=== PATIENT | female | born 1970 | race Caucasian/White ===

== ENCOUNTER 2016-07-10 12:40 | Emergency (ER) | payer SELFPAY ==
[2016-07-10 13:04] VITALS: BP 102/96; BMI 33.0
--- NOTE | 2016-07-10 13:19 | DR.EXTPAIN ---
HPI - Time seen Time seen: 13:17 - PCP Primary Care Physician: REYMUNDO AGUIRRE - Complaint/Symptoms Chief Complaint:: PT STATES " I THINK I HAVE STEPPED ON SOMETHING LAST WEEK WITH MY LEFT HEEL AND NATALIYA REYMUNDO SENT ME OVER HERE AND SAID THAT I MIGHT NEED AN XRAY". Self Treatment fo Chief Complaint: PT DOES HAVE AN AREA OF CONCERN TO HER HEEL,, - Source History Provided: Patient, EMS - Mode of arrival Mode of Arrival: Wheelchair - Timing Onset of Chief Complaint: 06/26/16 PMH - PMH Past Medical History: Yes Past Medical History: Anxiety, Diabetes, GERD, Liver Disease, PUD, Schizophrenia , Seizures Past Surgical History: Yes Surgical History: Hysterectomy, Ortho Surgery, Thyroidectomy - Family History History of Family Medical Conditions: Yes Family Medical History: Diabetes Mellitus, Cancer, Hypertension - Social History Does patient currently use any type of tobacco product: Yes Have you used tobacco products in the last 12 months: Yes Type of Tobacco Use: None How many years tobacco product used: 20 Does any household member use tobacco: No Alcohol Use: None Do you use any recreational Drugs:: No Lives Where: Home - infectious screening In the last 2 months have you had wt loss of >10#?: NO Have you had fever, night sweats or hemotysis?: No Have you traveled outside the country in the last 6 months?: No Isolation: Standard ROS - Review of Systems Constitutional: No Symptoms Reported Eyes: No Symptoms Reported ENTM: No Symptoms Reported Respiratoy: No Symptoms Reported Cardiovascular: No Symptoms Reported Gastrointestinal/Abdominal: No Symptoms Reported Genitourinary: No Symptoms Reported Neurological: No Symptoms Reported Musculoskeletal: Foot (heel pain right) Integumentary: No Symptoms Reported Hematologic/Lymphatic: No Symptoms Reported Endocrine: No Symptoms Reported Psychiatric: No Symptoms Reported All Other Systems: Reviewed and Negative PE - Vital Signs Vitals: Pulse Rate 87 Respiratory Rate 22 Blood Pressure [Right Arm] 97/55 Blood Pressure [Left Arm] 135/84 Blood Pressure 102/96 O2 Sat by Pulse Oximetry 99 - General Limitations: No Limitations General Appearance: Alert, In No Apparent Distress - Head Head Exam: Normal Inspection, Atraumatic - Eyes Eye exam: Normal Appearance, PERRL, EOMI - ENT ENT Exam: Normal Exam - Neck Neck Exam: Normal Inspection, Full ROM - Chest Chest Inspection: Normal Inspection - Respiratory Respiratory Exam: Normal Lung Sounds Bilat Respiratory Exam: Bilateral Clear to Auscultation - Cardiovascular Cardiovascular Exam: Regular Rate, Normal Rhythm - Abdominal Exam Abdominal Exam: Normal Inspection, Normal Bowel Sounds Abdominal Tenderness: negative: RUQ, RLQ, LUQ, LLQ, Epigastrium, Suprapubic, Diffuse, Mild, Moderate, Severe, Other - Extremities Extremities Exam: Normal Inspection - Upper Extremities Shoulder Exam: Normal Inspection Arm Exam: Normal Inspection Elbow Exam: Normal Inspection Forearm Exam: Normal Inspection Hand Exam: Normal Inspection Neuromotor Exam: Normal Exam - Lower Extremities Lower Leg Exam: Normal Inspection Ankle Exam: Normal Inspection Foot/Toe Exam: Tenderness (right calcalneal area) Neurovascular/Tendon Exam: Normal Capillary Refill Gait Exam: Unable to bear weight - Back Back Exam: Normal Inspection - Neurological Neurological Exam: Alert, Oriented X3, CN II-XII Intact - Psychiatric Psychiatric Exam: Normal Affect - Skin Skin Exam: Warm, Dry, Intact ROR - XRAY XRAY Interpreted by: Radiologist (Foot: Subacute to chronic fracture of the 4th proximal phalanx. No definite acute fracture identified. Mild calcaneal spurring.) - Diagnosis Discharge Problem: calcaneal spurring - Discharge Plan Condition: Stable - Follow ups/Referrals Follow ups/Referrals: NATALIYA DWYER [Primary Care Provider] - 3 days - Instructions
--- NOTE | 2016-07-10 14:19 | RAD ---
HISTORY: Plantar pain with ambulation Study: Three views left foot Comparison: 08/11/2011 Findings: Normal alignment. There is a fracture of the 4th proximal phalanx with surrounding callus formation and bony remodeling suggesting a subacute to chronic injury. No definite acute fracture is visualize d. The soft tissues are unremarkable. There is mild calcaneal spurring. IMPRESSION: 1. Subacute to chronic fracture of the 4th proximal phalanx. No definite acute fracture identified. 2. Mild calcaneal spurring. Reported By:
== END 2016-07-10 15:15 | disposition home or self-care (01) ==
LOC: ER 12:58
DX: M77.31 Calcaneal spur, right foot (principal)
CPT/HCPCS: 73630; 99282

== ENCOUNTER 2016-07-18 13:38 | Emergency (ER) | payer SELFPAY ==
[2016-07-18 13:49] VITALS: BP 102/96
[2016-07-18 13:52] VITALS: BMI 39.1
[2016-07-18] MEDS ORDERED: XYLOCAINE 1 % (PLAIN) ONE (16:35)
[2016-07-18] MEDS ORDERED: ROCEPHIN VIAL 1 GM IM ONE (16:35)
[2016-07-18] MEDS ORDERED: ROCEPHIN VIAL 1 GM ONE (16:35)
--- NOTE | 2016-07-18 16:38 | DR.GENAD ---
HPI - PCP Primary Care Physician: REYMUNDO - Complaint/Symptoms Chief Complaint Doctors Comments: Patient states that she injured her left thumb three days ago, now its sore and red. Chief Complaint:: PATIENT STATED SHE HAS A ONFECTION ON HER LEFT THUMB FOR 3 DAYS. - Source History Provided: Patient - Mode of Arrival Mode of Arrival: Ambulatory - Timing Onset of Chief Complaint: 07/15/16 PMH - PMH Past Medical History: Yes Past Medical History: Anxiety, Diabetes, GERD, Liver Disease, PUD, Schizophrenia , Seizures Past Surgical History: Yes Surgical History: Hysterectomy, Ortho Surgery, Thyroidectomy - Family History History of Family Medical Conditions: Yes Family Medical History: Diabetes Mellitus, Cancer, Hypertension - Social History Does patient currently use any type of tobacco product: No Have you used tobacco products in the last 12 months: No Type of Tobacco Use: None Does any household member use tobacco: No Alcohol Use: None Do you use any recreational Drugs:: No Lives With: Family Lives Where: Home - infectious screening In the last 2 months have you had wt loss of >10#?: NO Have you had fever, night sweats or hemotysis?: No Have you traveled outside the country in the last 6 months?: No Isolation: Standard ROS - Review of Systems Eyes: No Symptoms Reported ENTM: No Symptoms Reported Respiratoy: No Symptoms Reported Cardiovascular: No Symptoms Reported Gastrointestinal/Abdominal: No Symptoms Reported Genitourinary: No Symptoms Reported Neurological: No Symptoms Reported Musculoskeletal: No Symptoms Reported Integumentary: Change in Color (left thumb) Hematologic/Lymphatic: No Symptoms Reported Endocrine: No Symptoms Reported Psychiatric: No Symptoms Reported All Other Systems: Reviewed and Negative PE - Vital Signs Vitals: Temperature 99.1 F Respiratory Rate 18 Blood Pressure [Right Arm] 97/55 Blood Pressure [Left Arm] 135/84 Blood Pressure 102/96 - General Limitations: No Limitations General Appearance: Alert, In No Apparent Distress - Head Head Exam: Normal Inspection, Atraumatic - Eyes Eye exam: Normal Appearance, PERRL, EOMI - ENT ENT Exam: Normal Exam External Ear Exam: Normal External Inspection TM/Canal Exam: Bilateral Normal Nose Exam: Normal Nose Exam Mouth Exam: Normal Inspection Throat Exam: Normal Inspection - Neck Neck Exam: Normal Inspection - Chest Chest Inspection: Normal Inspection - Respiratory Respiratory Exam: Normal Lung Sounds Bilat Respiratory Exam: Bilateral Clear to Auscultation - Cardiovascular Cardiovascular Exam: Regular Rate, Normal Rhythm - Abdominal Exam Abdominal Exam: Normal Inspection Abdominal Tenderness: negative: RUQ, RLQ, LUQ, LLQ, Epigastrium, Suprapubic, Diffuse, Mild, Moderate, Severe, Other - Extremities Extremities Exam: Other (left lateral thumb erythematous laterallp with three small blisters) - Back Back Exam: Normal Inspection - Neurologic Neurological Exam: Alert, Oriented X3, CN II-XII Intact - Psychiatric Psychiatric Exam: Normal Affect - Skin Skin Exam: Dry, Intact - Diagnosis Discharge Problem: Cellulitis of thumb, left - Discharge Plan Condition: Stable - Follow ups/Referrals Follow ups/Referrals: NATALIYA DWYER [Primary Care Provider] - 3 days - Instructions
== END 2016-07-18 17:02 | disposition home or self-care (01) ==
LOC: ER 13:57
DX: L03.012 Cellulitis of left finger (principal)
CPT/HCPCS: 96372; 99282; J0696; J2001

== ENCOUNTER 2016-09-02 07:23 | Inpatient (IN) | payer SELFPAY ==
[2016-09-02 07:27] VITALS: BMI 39.1
[2016-09-02] MEDS ORDERED: LEVSIN/MAALOX/LIDOC VISC PO ONE (07:51)
[2016-09-02] MEDS ORDERED: ZOFRAN INJ 4 MG VIAL IVP ONE (07:51)
[2016-09-02] MEDS ORDERED: LEVSIN/MAALOX/LIDOC VISC ONE (07:59)
[2016-09-02] MEDS ORDERED: ZOFRAN INJ 4 MG VIAL ONE (07:59)
--- NOTE | 2016-09-02 07:59 | ED.ABDFE ---
HPI - Time seen Time seen: 07:54 - PCP Primary Care Physician: Ivania REARDON - Complaint Chief Complaint Doctors Comments: Patient complains of epigastric and diffuse abdominal and left lower back pain for the past 24 hours getting worst today. States she has been taking her Oxycontin 5mg but it is not helping with the pain. 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 states she had a bowel movement yesterday but has not gone to the bathroom to urinate in 24 hours. She has a cough but denies fever or chills. states she has been nauseated but did not take her phenergan because she did not eat and she only takes it when she eats. She is a patient of [facility]. She has been taking her Lactulose and has cut back on her meats like they told her to. States she is unable to take the abdominal pain anymore. Chief Complaint:: PT. C/O ABDOMINAL AND BACK PAIN. SHE ALSO STATES THAT SHE HAS BEEN CONSTIPATED FOR 3 DAYS AND JUST HAD A BOWEL MOVEMENT WHICH WAS VERY PAINFUL. - Nurses notes reviewed Nurses Notes Review: Yes - Source History Provided: Patient - Mode of arrival Mode of Arrival: Ambulatory - Timing Onset of Chief Complaint: 08/23/16 Came on: Gradually - Duration Duration: Constant How lon Duration: Hours - Location Location: Diffuse, Epigastric - Severity Severity: Moderate, Severe - Quality Quality: Aching, Sharp, Generalized - Context Onset: Gradually History of: Similar pain (dx) - Modifying Worsening Factors: Movement Improving Factors: Nothing - Associated signs and symptoms Associated Signs and Symptoms: Nausea, Constipation <FAYE LAYNE - Last Filed: 09/02/16 08:10> PMH - PMH Past Medical History: Yes Past Medical History: Anxiety, Diabetes, GERD, Liver Disease, PUD, Schizophrenia , Seizures Past Medical History Comment: HEPATITIS C Past Surgical History: Yes Surgical History: Hysterectomy, Ortho Surgery, Thyroidectomy - Family History History of Family Medical Conditions: Yes Family Medical History: Diabetes Mellitus, Cancer, Hypertension - Social History Does patient currently use any type of tobacco product: Yes Have you used tobacco products in the last 12 months: Yes Type of Tobacco Use: Cigarettes Does any household member use tobacco: Yes Alcohol Use: None Do you use any recreational Drugs:: No Lives With: Alone Lives Where: Home - infectious screening In the last 2 months have you had wt loss of >10#?: NO Have you had fever, night sweats or hemotysis?: No Have you traveled outside the country in the last 6 months?: No Isolation: Standard <FAEY LAYNE - Last Filed: 09/02/16 08:10> ROS - Review of Systems Constitutional: No Symptoms Reported, Weakness, Loss of Appetite. negative: See HPI, Chills, Diaphoresis, Fever, Malaise, Irritable, Fatigue, Other Eyes: No Symptoms Reported ENTM: No Symptoms Reported. negative: See HPI, Ear Pain, Ear Discharge, Pulling on Ears, Hearing Loss, Nose Pain, Nose Discharge, Epistaxis, Nose Congestion, Mouth Pain, Mouth Swelling, Loose Teeth, Drooling, Throat Pain, Throat Swelling, Ear Foreign Body Respiratoy: Non-Productive Cough. negative: No Symptoms Reported, See HPI, Productive Cough, Moist Cough, Dry Cough, Hacking Cough, Barking Cough, Brassy Cough, Orthopnea, Short of Breath, Stridor, Wheezing, Hemoptysis, Other Cardiovascular: No Symptoms Reported. negative: See HPI, Chest Pain, Edema, Palpitations, Syncope, Cyanosis, Skin Mottling, Other Gastrointestinal/Abdominal: Abdominal Pain, Constipation, Nausea. negative: No Symptoms Reported, See HPI, Diarrhea, Vomiting, Food Intolerance, Other Genitourinary: No Symptoms Reported. negative: See HPI, Discharge, Dysuria, Frequency, Hematuria, Pain, Bleeding, Other Neurological: No Symptoms Reported, Weakness, Problems Walking. negative: See HPI, Anxiety, Depressed, Emotional Problems, Headache, Numbness, Paresthesia, Pre-existing Deficit, Seizure, Tingling, Tremors, Dizziness, Speech Problem, Other Musculoskeletal: No Symptoms Reported, Back Pain Integumentary: No Symptoms Reported. negative: See HPI, Change in Color, Change in Hair/Nails, Dryness, Lesions, Lumps, Rash, Itching, Wound, Bruises, Juandice, Other Hematologic/Lymphatic: No Symptoms Reported Endocrine: No Symptoms Reported, Decreased Appetite. negative: See HPI, Excessive Sweating, Flushing, Intolerance to Cold, Intolerance to Heat, Increased Hunger, Increased Thirst, Increased Urine, Unexplained Weight Gain, Unexplained Weight Loss, Failure to Thrive, Other Psychiatric: No Symptoms Reported <FAYE LAYNE - Last Filed: 09/02/16 08:10> PE - General Limitations: No Limitations General Appearance: Alert, In Distress (moderate) - Head Head Exam: Normal Inspection, Atraumatic, Normocephalic - Eyes Eye exam: Normal Appearance, PERRL, EOMI. negative: Scleral Icterus, Conjunctival Injection, Nystagmus, Miosis, Mydrasis, Periorbital Swelling, Periorbital Tenderness, Other - ENT ENT Exam: Normal Exam, Normal Oropharynx, Normal External Ear Exam, Mucous Membranes Moist, TM's Normal Bilaterally - Neck Neck Exam: Normal Inspection, Full ROM, Trachea Midline. negative: Tenderness, Meningismus, Lymphadenopathy, Thyromegaly, Other - Chest Chest Inspection: Normal Inspection, Symmetric Chest Wall Rise. negative: Tenderness, Rash, Abscess, Other - Respiratory Respiratory Exam: Normal Lung Sounds Bilat Respiratory Exam: Bilateral Clear to Auscultation, Bilateral Decreased Breath Sounds - Cardiovascular Cardiovascular Exam: Regular Rate, Normal Rhythm, Normal Heart Sounds, Systolic Murmur - Abdominal Exam Abdominal Exam: Normal Inspection, Normal Bowel Sounds, Soft, Distention, Tenderness (epigastric; LUQ, suprapubic tenderness), Guarding, Dimnished Bowel Sounds Abdominal Tenderness: LUQ, Epigastrium, Diffuse, Moderate - Rectal Rectal Exam: Deferred - Back Back Exam: Normal Inspection, Full ROM, (L) CVA Tenderness, Paraspinal Tenderness - Extremeties Extremities Exam: Normal Inspection, Full ROM, Normal Capillary Refill. negative: Tenderness, Edema, Joint Swelling, Calf Tenderness, Other - External Exam: Female: Deferred : Speculum Exam (Female): Deferred : Bimanual Exam (female): Deferred - Neurologic Neurological Exam: Alert, Oriented X3, CN II-XII Intact, Normal Gait, Reflexes Normal - Psychiatric Psychiatric Exam: Normal Affect, Normal Mood - Skin Skin Exam: Warm, Dry, Intact, Normal Color, Rash (hyperpigmented spots on legs) . negative: Cyanosis, Diaphoresis, Erythema, Pallor, Mottled, Other <FAYE LAYNE - Last Filed: 09/02/16 08:10> MDM - Differential Diagnosis Differential Diagnosis- Considerations may include:: Bowel Obstruction, Pancreatitis, Urinary tract infection, Urolithiasis <LOIS RODRIGUEZ - Last Filed: 09/03/16 12:00> Course - Treatment Treatment: SEE ORDERS. - Consultation Consultation Comments: DISCUSS PATIENT WITH DR. YOUSSEF. HE WILL ADMIT PATIENT. - Education/Counseling Education/Counseling: Patient, Education Educated On: Treatment, Diagnosis <CHE RODRIGUEZWERNERTerry - Last Filed: 09/03/16 12:00> ROR - Labs Reviewed Laboratory Results Reviewed?: Yes Result Diagrams: 09/03/16 03:41 09/03/16 03:41 - XRAY XRAY Interpreted by: Radiologist XRAY Findings: REPORT DISCUSS WITH PATIENT. <JENNIFRELOIS - Last Filed: 09/03/16 12:00> - Labs Reviewed Laboratory: WBC 1.5 X10^3/uL (3.6-10.0) L* 09/02/16 08:10 RBC 3.79 X10^6/uL (3.5-5.4) 09/02/16 08:10 Hgb 9.9 g/dL (12.0-16.0) L 09/02/16 08:10 Hct 30.1 % (36.0-47.0) L 09/02/16 08:10 MCV 79.5 fL (80.0-100.0) L 09/02/16 08:10 MCH 26.1 pg (27.0-34.0) L 09/02/16 08:10 MCHC 32.9 g/dL (33.0-35.0) L 09/02/16 08:10 RDW 22.2 % (11.6-16.5) H 09/02/16 08:10 Plt Count 34 X10^3/uL (150.0-450.0) L 09/02/16 08:10 Plt Count Comment Decreased (ADEQUATE) A 09/02/16 08:10 MPV 8.3 fL (7.4-11.0) 09/02/16 08:10 Neut % 55.4 % (42.0-75.0) 09/02/16 08:10 Lymph % 30.4 % (21.0-51.0) 09/02/16 08:10 [place] % 12.0 % (0.0-13.0) 09/02/16 08:10 Eos % 1.7 % (0.9-2.9) 09/02/16 08:10 Baso % 0.5 % (0.2-1.0) 09/02/16 08:10 Neut # 0.8 x10^3/uL (2.2-4.8) L 09/02/16 08:10 Lymph # 0.4 X10^3/uL (1.3-2.9) L 09/02/16 08:10 [place] # 0.2 x10^3/uL (0.3-0.8) L 09/02/16 08:10 Eos # 0.0 x10^3/uL (0.0-0.2) 09/02/16 08:10 Baso # 0.0 X10^3/uL (0.0-0.1) 09/02/16 08:10 Absolute Nucleated RBC 0.0 /100WBC 09/02/16 08:10 Total Counted 25 09/02/16 08:10 Neutrophils % (Manual) 64 % (39-76) 09/02/16 08:10 Lymphocytes % (Manual) 28 % (13-43) 09/02/16 08:10 Monocytes % (Manual) 8 % (4-9) 09/02/16 08:10 Plt Morphology Comment Normal (NORMAL) 09/02/16 08:10 RBC Morphology Abnormal (NORMAL) A 09/02/16 08:10 Anisocytosis 2+ A 09/02/16 08:10 Sodium 141 mmol/L (136-145) 09/02/16 08:10 Corrected Sodium 143 mmol/L (136-145) 09/02/16 08:10 Potassium 4.0 mmol/L (3.5-5.1) 09/02/16 08:10 Chloride 110 mmol/L (98-107) H 09/02/16 08:10 Carbon Dioxide 24.0 mmol/L (21-32) 09/02/16 08:10 BUN 7 mg/dL (7-18) 09/02/16 08:10 Creatinine 0.75 mg/dL (0.55-1.02) 09/02/16 08:10 Est GFR (MDRD) Af Amer > 60 (>60) 09/02/16 08:10 Est GFR (MDRD) Non-Af > 60 (>60) 09/02/16 08:10 Glucose 198 mg/dL (65-99) H 09/02/16 08:10 Calcium 8.5 mg/dL (8.5-10.1) 09/02/16 08:10 Corrected Calcium 9.6 mg/dL (8.5-10.1) 09/02/16 08:10 Total Bilirubin 1.00 mg/dL (0.2-1.0) 09/02/16 08:10 AST 62 Units/L (15-37) H 09/02/16 08:10 ALT 45 Units/L (12-78) 09/02/16 08:10 Alkaline Phosphatase 241 Units/L (46-116) H 09/02/16 08:10 Ammonia 121 umol/L (11-32) H 09/02/16 08:10 Total Protein 7.0 g/dL (6.4-8.2) 09/02/16 08:10 Albumin 2.6 g/dL (3.4-5.0) L 09/02/16 08:10 Globulin 4.4 g/dL (2.5-4.5) 09/02/16 08:10 Albumin/Globulin Ratio 0.6 Ratio (1.1-2.1) L 09/02/16 08:10 Amylase 45 Units/L (25-115) 09/02/16 08:10 Lipase 173 Units/L (73-393) 09/02/16 08:10 H. pylori IgG Antibody Negative (NEGATIVE) 09/02/16 08:10 (LOIS RODRIGUEZ) <FAYE LAYNE - Last Filed: 09/02/16 08:10> <LOIS RODRIGUEZ - Last Filed: 09/03/16 12:00> - Diagnosis Discharge Problem: Peritonitis, Pancytopenia Abdominal pain Qualifiers: Abdominal location: upper abdomen, unspecified Qualified Code(s): R10.10 - Upper abdominal pain, unspecified - Discharge Plan Disposition: ADMITTED INPATIENT Condition: Stable
[2016-09-02] MEDS ORDERED: NS 1000 ML 1,000 ML IV SCH (08:00)
[2016-09-02 08:26] LABS: BASOPHILS % (AUTO) 0.5 % (0.2-1.0); EOSINOPHILS % (AUTO) 1.7 % (0.9-2.9); HEMATOCRIT 30.1 % (36.0-47.0); HEMOGLOBIN 9.9 g/dL (12.0-16.0); LYMPHOCYTES # (AUTO) 0.4 X10^3/uL (1.3-2.9); LYMPHOCYTES % (AUTO) 30.4 % (21.0-51.0); MEAN CORPUSCULAR HEMOGLOBIN 26.1 pg (27.0-34.0); MEAN CORPUSCULAR HGB CONC 32.9 g/dL (33.0-35.0); MEAN CORPUSCULAR VOLUME 79.5 fL (80.0-100.0); MEAN PLATELET VOLUME 8.3 fL (7.4-11.0); MONOCYTES # (AUTO) 0.2 x10^3/uL (0.3-0.8); NEUTROPHILS # (AUTO) 0.8 x10^3/uL (2.2-4.8); NEUTROPHILS % (AUTO) 55.4 % (42.0-75.0); PLATELET COUNT 34 X10^3/uL (150.0-450.0); RED BLOOD COUNT 3.79 X10^6/uL (3.5-5.4); RED CELL DISTRIBUTION WIDTH 22.2 % (11.6-16.5)
[2016-09-02 08:35] LABS: AMMONIA 121 umol/L (11-32)
[2016-09-02 08:41] LABS: WHITE BLOOD COUNT 1.5 X10^3/uL (3.6-10.0)
[2016-09-02 08:48] LABS: ALANINE AMINOTRANSFERASE 45 Units/L (12-78); ALBUMIN 2.6 g/dL (3.4-5.0); ALKALINE PHOSPHATASE 241 Units/L (46-116); AMYLASE 45 Units/L (25-115); ASPARTATE AMINO TRANSFERASE 62 Units/L (15-37); BLOOD UREA NITROGEN 7 mg/dL (7-18); CALCIUM 8.5 mg/dL (8.5-10.1); CHLORIDE 110 mmol/L (98-107); COR CA(FOR HYPOALB) 9.6 mg/dL (8.5-10.1); COR NA(FOR HYPERGLY) 143 mmol/L (136-145); CREATININE 0.75 mg/dL (0.55-1.02); GLUCOSE 198 mg/dL (65-99); LIPASE 173 Units/L (73-393); SODIUM 141 mmol/L (136-145); eGFR BLACK RACES > 60 (>60); eGFR NON BLACK RACES > 60 (>60)
[2016-09-02 08:52] LABS: ANISOCYTOSIS 2+; PLATELET MORPHOLOGY COMMENT NORMAL (NORMAL)
--- NOTE | 2016-09-02 09:07 | RAD ---
HISTORY: Abdominal pain. No urine output for 24 hr. Study: Acute abdominal series Comparison: April 10, 2016. Findings: The trachea is midline. The cardiac silhouette is unremarkable. The lungs are clear without focal infiltrate or effusion. The bony thorax is unremarkable. Flat plate and upright evaluation of the abdomen demonstrates a normal bowel gas pattern. No pathol ogical soft tissue mass or calcification can be observed. The bony structures are grossly intact. IMPRESSION: 1. No acute cardiopulmonary disease. 2. No evidence for acute abdominal pathology identified. Reported By:
[2016-09-02] MEDS ORDERED: DEMEROL INJ IVP ONE ×2 (09:22→09:24)
[2016-09-02] MEDS ORDERED: DEMEROL INJ ONE (09:24)
--- NOTE | 2016-09-02 09:27 | CT ---
STUDY: CT ABDOMEN AND PELVIS WITHOUT IV AND ORAL CONTRAST HISTORY: Abdominal pain. No urine output for 24 hours. Comparison: December 16, 2015. Technique: Multiple axial images of the abdomen and pelvis were obtained from the lung bases to the pubic symphysis without the administration of IV contrast. Findings: There is atelectasis in both lung bases. CT abdomen: The liver, pancreas, kidneys, and adrenal glands are normal in appearance. There is stra nding of the mesenteric fat diffusely. No significant mesenteric adenopathy is identified. The splee n is enlarged. The gallbladder appears contracted. High density material within the gallbladder sugg ests the presence of gallstones. The stomach is normal in appearance. The small bowel is normal in appearance, without evidence of bryce wel wall thickening or small bowel obstruction. The terminal ileum and cecum are normal. The append ix is normal in appearance. There is no evidence of periappendiceal fat stranding. The ascending, t ransverse and descending colon are within normal limits. CT pelvis: The sigmoid colon and the rectum are within normal limits. The urinary bladder is normal. No abnormal fluid collections are identified in the pelvis. There is no evidence of acute osseous abnormality. IMPRESSION: 1. Diffuse stranding of the mesenteric fat. No specific focal inflammatory process is identified. C linical correlation for peritonitis is recommended. 2. Contracted gallbladder with associated gallstones. 3. Splenomegaly. Reported By:
[2016-09-02] MEDS ORDERED: PEPCID 20 MG IV PREMIX* 20 MG/50 ML BAG IV PRN (11:14)
[2016-09-02] MEDS ORDERED: ZOFRAN INJ 4 MG VIAL IVP PRN (11:14)
[2016-09-02] MEDS: NS 1000 ML 1,000 ML IV SCH ×2 (12:20→21:41)
[2016-09-02] MEDS ORDERED: NS 50 ML IV 50 ML IV ONE (14:06)
[2016-09-02] MEDS ORDERED: NS 100 ML IV + SPIKE MINIBAG* 100 ML IV ONE ×2 (14:08→19:16)
[2016-09-02] MEDS: ZOSYN VIAL 4.5 GM IV SCH ×2 (14:31→21:41)
[2016-09-02] MEDS: CHRONULAC PO SCH ×2 (14:31→20:00)
[2016-09-02 16:16] LABS: BILIRUBIN,URINE NEGATIVE (NEGATIVE); BLOOD/HEMOGLOBIN,URINE 1+ (NEGATIVE); GLUCOSE, URINE NEGATIVE (NEGATIVE); KETONES,URINE NEGATIVE (NEGATIVE); LEUKOCYTE ESTERASE ,URINE 1+ (NEGATIVE); NITRITES,URINE NEGATIVE (NEGATIVE); PH,URINE 6.5 (5.0 - 8.0); PROTEIN,URINE NEGATIVE (NEGATIVE); UROBILINOGEN,URINE 1+ (NORMAL)
[2016-09-02 16:53] LABS: APPEARANCE,URINE SLIGHTLY HAZY (CLEAR); BACTERIA,URINE TRACE /HPF (NEGATIVE); COLOR,URINE YELLOW (YELLOW); SQUAMOUS EPITHELIAL CELL,UR FEW /HPF (NEGATIVE)
[2016-09-02 16:54] LABS: MUCUS,URINE MODERATE /HPF (NEGATIVE)
[2016-09-02] MEDS: BENTYL CAP 10 MG PO SCH ×2 (19:44→20:34)
[2016-09-02] MEDS: MORPHINE SULFATE INJ 2 MG IVP PRN (20:00)
[2016-09-02] MEDS: PHENERGAN INJ 25 MG IVP PRN (20:00)
[2016-09-03] MEDS ORDERED: NS 100 ML IV + SPIKE MINIBAG* 100 ML IV ONE (03:50)
[2016-09-03] MEDS: PHENERGAN INJ 25 MG IVP PRN ×2 (03:58→11:09)
[2016-09-03] MEDS: CHRONULAC PO SCH (03:58)
[2016-09-03] MEDS: MORPHINE SULFATE INJ 2 MG IVP PRN ×2 (03:58→11:10)
[2016-09-03] MEDS: ZOSYN VIAL 4.5 GM IV SCH (05:06)
[2016-09-03] MEDS: NS 1000 ML 1,000 ML IV SCH (05:53)
[2016-09-03 05:54] LABS: AMMONIA 70 umol/L (11-32)
[2016-09-03 06:15] LABS: ALBUMIN 2.5 g/dL (3.4-5.0); ALKALINE PHOSPHATASE 183 Units/L (46-116); AMYLASE 44 Units/L (25-115); ASPARTATE AMINO TRANSFERASE 60 Units/L (15-37); BLOOD UREA NITROGEN 7 mg/dL (7-18); CALCIUM 8.2 mg/dL (8.5-10.1); CARBON DIOXIDE 27.8 mmol/L (21-32); CHLORIDE 109 mmol/L (98-107); COR CA(FOR HYPOALB) 9.4 mg/dL (8.5-10.1); COR NA(FOR HYPERGLY) 142 mmol/L (136-145); CREATININE 0.83 mg/dL (0.55-1.02); GLUCOSE 122 mg/dL (65-99); LIPASE 151 Units/L (73-393); SODIUM 141 mmol/L (136-145); TOTAL PROTEIN 6.7 g/dL (6.4-8.2); eGFR BLACK RACES > 60 (>60); eGFR NON BLACK RACES > 60 (>60)
[2016-09-03 06:43] LABS: ALANINE AMINOTRANSFERASE 46 Units/L (12-78)
[2016-09-03 06:46] LABS: BASOPHILS % (AUTO) 0.2 % (0.2-1.0); HEMATOCRIT 28.4 % (36.0-47.0); HEMOGLOBIN 9.3 g/dL (12.0-16.0); LYMPHOCYTES # (AUTO) 0.6 X10^3/uL (1.3-2.9); LYMPHOCYTES % (AUTO) 32.1 % (21.0-51.0); MEAN CORPUSCULAR HEMOGLOBIN 26.2 pg (27.0-34.0); MEAN CORPUSCULAR HGB CONC 32.7 g/dL (33.0-35.0); MEAN CORPUSCULAR VOLUME 80.1 fL (80.0-100.0); MEAN PLATELET VOLUME 8.4 fL (7.4-11.0); MONOCYTES # (AUTO) 0.2 x10^3/uL (0.3-0.8); MONOCYTES % (AUTO) 12.5 % (0.0-13.0); NEUTROPHILS % (AUTO) 53.2 % (42.0-75.0); PLATELET COUNT 34 X10^3/uL (150.0-450.0); RED BLOOD COUNT 3.54 X10^6/uL (3.5-5.4); RED CELL DISTRIBUTION WIDTH 21.1 % (11.6-16.5)
[2016-09-03 06:57] LABS: WHITE BLOOD COUNT 1.9 X10^3/uL (3.6-10.0)
[2016-09-03 07:18] LABS: ANISOCYTOSIS 1+; BAND NEUTROPHILS % 2 % (0-10); PLATELET MORPHOLOGY COMMENT NORMAL (NORMAL)
[2016-09-03] MEDS: BENTYL CAP 10 MG PO SCH (09:05)
[2016-09-03 12:57] VITALS: BP 125/62
== END 2016-09-03 12:35 | disposition left against medical advice (07) | DRG 372 ==
LOC: ER 07:29 → MED/SURG 11:10
PROVIDERS: ADMIT Internal Medicine; ATTEND Internal Medicine
DX: K65.8 Other peritonitis (principal); R10.84 Generalized abdominal pain; R10.10 Upper abdominal pain, unspecified; D61.818 Other pancytopenia; K76.89 Other specified diseases of liver
CPT/HCPCS: 36415; 74022; 74176; 80053; 81001; 82140; 82150; 83690; 85025; 86677; 87040; 94760; 96365; 96367; 96374; 96375; 99284; A4216; A4222; S0028; J2175; J2270; J2405; J2543; J2550

== ENCOUNTER 2016-09-08 19:58 | Emergency (ER) | payer SELFPAY ==
[2016-09-08 20:08] VITALS: BP 139/87; BMI 39.6
--- NOTE | 2016-09-08 22:19 | DR.GENAD ---
HPI - PCP Primary Care Physician: naldo - HPI Comment HPI Comment: PATIENT HAVE ABDOMINAL PAIN WITH NAUSEA. WAS IN HOSPITAL FOR SAME AND WILL SEE PCP THIS COMING SATURDAY. PAIN GOT WORSE TODAY. HAVE NAUSEA AND PAIN MED WHICH DID NOT HELP. - Complaint/Symptoms Chief Complaint Doctors Comments: ABDOMINAL PAIN. Chief Complaint:: abdominal and back pain - Nurses notes reviewed Nurses Notes Review: Yes - Source History Provided: Patient - Mode of Arrival Mode of Arrival: Ambulatory - Timing Onset of Chief Complaint: 09/02/16 Came on: Gradually - Duration Duration: Constant Duration: Days PMH - PMH Past Medical History: Yes Past Medical History: Anxiety, Diabetes, GERD, Liver Disease, PUD, Schizophrenia , Seizures Past Surgical History: Yes Surgical History: Hysterectomy, Ortho Surgery, Thyroidectomy - Family History History of Family Medical Conditions: Yes Family Medical History: Diabetes Mellitus, Cancer, Hypertension - Social History Does patient currently use any type of tobacco product: Yes Have you used tobacco products in the last 12 months: Yes Type of Tobacco Use: Cigarettes Does any household member use tobacco: No Alcohol Use: None Do you use any recreational Drugs:: No Lives With: Family Lives Where: Home - infectious screening In the last 2 months have you had wt loss of >10#?: NO Have you had fever, night sweats or hemotysis?: No Have you traveled outside the country in the last 6 months?: No Isolation: Standard ROS - Review of Systems Constitutional: Weakness, Fatigue. negative: Chills, Fever Eyes: No Symptoms Reported. negative: Eye Pain, Discharge ENTM: No Symptoms Reported. negative: Ear Pain, Nose Discharge, Nose Congestion , Throat Pain Respiratoy: Non-Productive Cough, Short of Breath. negative: Productive Cough, Wheezing, Hemoptysis Cardiovascular: No Symptoms Reported. negative: Chest Pain Gastrointestinal/Abdominal: Abdominal Pain, Nausea Genitourinary: No Symptoms Reported. negative: Dysuria, Frequency, Hematuria Neurological: Weakness Musculoskeletal: Muscle Pain Integumentary: No Symptoms Reported Hematologic/Lymphatic: No Symptoms Reported Endocrine: No Symptoms Reported All Other Systems: Reviewed and Negative PE - Vital Signs Vitals: Temperature 98 F Pulse Rate 97 Respiratory Rate 20 Blood Pressure [Right Arm] 129/82 Blood Pressure [Left Arm] 125/62 Blood Pressure 139/87 O2 Sat by Pulse Oximetry 100 - General Limitations: No Limitations General Appearance: Alert - Head Head Exam: Normal Inspection - Eyes Eye exam: Normal Appearance - ENT ENT Exam: Normal External Ear Exam TM/Canal Exam: Bilateral Normal Nose Exam: Normal Nose Exam Mouth Exam: Normal Inspection Throat Exam: Normal Inspection - Neck Neck Exam: Trachea Midline. negative: Tenderness, Meningismus, Lymphadenopathy - Chest Chest Inspection: Symmetric Chest Wall Rise - Respiratory Respiratory Exam: Normal Lung Sounds Bilat Respiratory Exam: Bilateral Rhonchi, Lower Rhonchi - Cardiovascular Cardiovascular Exam: Regular Rate, Normal Rhythm, Normal Heart Sounds - Abdominal Exam Abdominal Exam: Normal Bowel Sounds, Soft, Tenderness Abdominal Tenderness: Diffuse, Moderate - Extremities Extremities Exam: Normal Inspection - Back Back Exam: Paraspinal Tenderness - Neurologic Neurological Exam: Alert, Oriented X3 - Psychiatric Psychiatric Exam: Normal Affect, Normal Mood - Skin Skin Exam: Normal Color MDM - Differential Diagnosis Differential Diagnosis: ABDOMINAL PAIN, MESENTERIC INFLAMATION, UTI, BOWEL OBSTUCTION Course - Treatment Treatment: SEE ORDERS. PATIENT DO NOT WISH TO REPEAT XRAY. SHE WILL GO HOME TO KEEP PENDING APPOINTMENT ON SATURDAY. - Reevaluation 1st: Improved (MED IM FOR PAIN HELPING PAIN.) - Education/Counseling Education/Counseling: Patient, Education Educated On: Diagnosis, Needs for Follow Up ROR - Labs Reviewed Laboratory Results Reviewed?: Yes Result Diagrams: 09/08/16 22:20 09/08/16 22:20 Laboratory: WBC 1.8 X10^3/uL (3.6-10.0) L* 09/08/16 22:20 RBC 3.56 X10^6/uL (3.5-5.4) 09/08/16 22:20 Hgb 9.4 g/dL (12.0-16.0) L 09/08/16 22:20 Hct 28.2 % (36.0-47.0) L 09/08/16 22:20 MCV 79.2 fL (80.0-100.0) L 09/08/16 22:20 MCH 26.5 pg (27.0-34.0) L 09/08/16 22:20 MCHC 33.4 g/dL (33.0-35.0) 09/08/16 22:20 RDW 21.0 % (11.6-16.5) H 09/08/16 22:20 Plt Count 31 X10^3/uL (150.0-450.0) L 09/08/16 22:20 Plt Count Comment Decreased (ADEQUATE) A 09/08/16 22:20 MPV 8.3 fL (7.4-11.0) 09/08/16 22:20 Neut % 54.6 % (42.0-75.0) 09/08/16 22:20 Lymph % 31.0 % (21.0-51.0) 09/08/16 22:20 [place] % 11.6 % (0.0-13.0) 09/08/16 22:20 Eos % 2.2 % (0.9-2.9) 09/08/16 22:20 Baso % 0.6 % (0.2-1.0) 09/08/16 22:20 Neut # 1.0 x10^3/uL (2.2-4.8) L 09/08/16 22:20 Lymph # 0.5 X10^3/uL (1.3-2.9) L 09/08/16 22:20 [place] # 0.2 x10^3/uL (0.3-0.8) L 09/08/16 22:20 Eos # 0.0 x10^3/uL (0.0-0.2) 09/08/16 22:20 Baso # 0.0 X10^3/uL (0.0-0.1) 09/08/16 22:20 Absolute Nucleated RBC 0.2 /100WBC 09/08/16 22:20 Plt Morphology Comment Normal (NORMAL) 09/08/16 22:20 RBC Morphology Abnormal (NORMAL) A 09/08/16 22:20 Anisocytosis 1+ A 09/08/16 22:20 INR Target Range - 09/08/16 22:20 INR 1.58 (0.8-1.3) H 09/08/16 22:20 PTT 34.6 SECONDS (22.9-36.5) 09/08/16 22:20 PTT Comment - 09/08/16 22:20 Sodium 142 mmol/L (136-145) 09/08/16 22:20 Corrected Sodium 143 mmol/L (136-145) 09/08/16 22:20 Potassium 3.7 mmol/L (3.5-5.1) 09/08/16 22:20 Chloride 109 mmol/L (98-107) H 09/08/16 22:20 Carbon Dioxide 28.5 mmol/L (21-32) 09/08/16 22:20 BUN 8 mg/dL (7-18) 09/08/16 22:20 Creatinine 0.79 mg/dL (0.55-1.02) 09/08/16 22:20 Est GFR (MDRD) Af Amer > 60 (>60) 09/08/16 22:20 Est GFR (MDRD) Non-Af > 60 (>60) 09/08/16 22:20 Glucose 141 mg/dL (65-99) H 09/08/16 22:20 Calcium 8.1 mg/dL (8.5-10.1) L 09/08/16 22:20 Corrected Calcium 9.4 mg/dL (8.5-10.1) 09/08/16 22:20 Total Bilirubin 0.90 mg/dL (0.2-1.0) 09/08/16 22:20 AST 53 Units/L (15-37) H 09/08/16 22:20 ALT 44 Units/L (12-78) 09/08/16 22:20 Alkaline Phosphatase 184 Units/L (46-116) H 09/08/16 22:20 Total Protein 6.6 g/dL (6.4-8.2) 09/08/16 22:20 Albumin 2.4 g/dL (3.4-5.0) L 09/08/16 22:20 Globulin 4.2 g/dL (2.5-4.5) 09/08/16 22:20 Albumin/Globulin Ratio 0.6 Ratio (1.1-2.1) L 09/08/16 22:20 Amylase 48 Units/L (25-115) 09/08/16 22:20 Lipase 240 Units/L (73-393) 09/08/16 22:20 - Diagnosis Discharge Problem: Abdominal pain - Discharge Plan Disposition: 01 HOME, SELF-CARE Condition: Stable - Follow ups/Referrals Follow ups/Referrals: IRMA YOUSSEF [Primary Care Provider] - 3 days - Instructions Instructions: Abdominal Pain, Adult, [id number] Additional Instructions: RETURN TO ED IF WORSE. CONTINUE WITH MED AT HOME FOR NAUSEA.
[2016-09-08] MEDS ORDERED: ZOFRAN INJ 4 MG VIAL IM ONE (22:24)
[2016-09-08] MEDS ORDERED: DEMEROL INJ IM ONE (22:24)
[2016-09-08 22:50] LABS: BASOPHILS % (AUTO) 0.6 % (0.2-1.0); EOSINOPHILS % (AUTO) 2.2 % (0.9-2.9); HEMATOCRIT 28.2 % (36.0-47.0); HEMOGLOBIN 9.4 g/dL (12.0-16.0); LYMPHOCYTES # (AUTO) 0.5 X10^3/uL (1.3-2.9); MEAN CORPUSCULAR HEMOGLOBIN 26.5 pg (27.0-34.0); MEAN CORPUSCULAR HGB CONC 33.4 g/dL (33.0-35.0); MEAN CORPUSCULAR VOLUME 79.2 fL (80.0-100.0); MEAN PLATELET VOLUME 8.3 fL (7.4-11.0); MONOCYTES # (AUTO) 0.2 x10^3/uL (0.3-0.8); MONOCYTES % (AUTO) 11.6 % (0.0-13.0); NEUTROPHILS % (AUTO) 54.6 % (42.0-75.0); PLATELET COUNT 31 X10^3/uL (150.0-450.0); RED BLOOD COUNT 3.56 X10^6/uL (3.5-5.4)
[2016-09-08 22:53] LABS: WHITE BLOOD COUNT 1.8 X10^3/uL (3.6-10.0)
[2016-09-08] MEDS ORDERED: ZOFRAN INJ 4 MG VIAL ONE (22:55)
[2016-09-08] MEDS ORDERED: DEMEROL INJ ONE (22:55)
[2016-09-08 22:57] LABS: ALANINE AMINOTRANSFERASE 44 Units/L (12-78); ALBUMIN 2.4 g/dL (3.4-5.0); ALKALINE PHOSPHATASE 184 Units/L (46-116); AMYLASE 48 Units/L (25-115); ASPARTATE AMINO TRANSFERASE 53 Units/L (15-37); BLOOD UREA NITROGEN 8 mg/dL (7-18); CALCIUM 8.1 mg/dL (8.5-10.1); CARBON DIOXIDE 28.5 mmol/L (21-32); CHLORIDE 109 mmol/L (98-107); COR CA(FOR HYPOALB) 9.4 mg/dL (8.5-10.1); COR NA(FOR HYPERGLY) 143 mmol/L (136-145); CREATININE 0.79 mg/dL (0.55-1.02); GLUCOSE 141 mg/dL (65-99); LIPASE 240 Units/L (73-393); SODIUM 142 mmol/L (136-145); TOTAL PROTEIN 6.6 g/dL (6.4-8.2); eGFR BLACK RACES > 60 (>60); eGFR NON BLACK RACES > 60 (>60)
[2016-09-08 23:09] LABS: ANISOCYTOSIS 1+; PLATELET MORPHOLOGY COMMENT NORMAL (NORMAL)
== END 2016-09-09 01:22 | disposition home or self-care (01) ==
LOC: ER 19:58
DX: R10.84 Generalized abdominal pain (principal)
CPT/HCPCS: 36415; 80053; 82150; 83690; 85025; 85610; 85730; 96372; 99283; J2175; J2405

== ENCOUNTER 2016-09-25 14:46 | Emergency (ER) | payer SELFPAY ==
[2016-09-25 14:58] VITALS: BMI 39.6
--- NOTE | 2016-09-25 15:04 | DR.GENAD ---
HPI - PCP Primary Care Physician: naldo - Complaint/Symptoms Chief Complaint Doctors Comments: C/o of feeling like she was going to have a seizure. She stopped her tegretol because her told her to. Chief Complaint:: " I was at home and started to feel like I was about to have a siezure so I called EMS" - Nurses notes reviewed Nurses Notes Review: Yes - Source History Provided: Patient - Mode of Arrival Mode of Arrival: EMS - Timing Onset of Chief Complaint: 09/25/16 Came on: Gradually - Duration Duration: Intermittent Duration: Hours - Location Location: generalized - Severity Severity: Mild - Modifying Factors Worsens:: not taking medicine - Associated Signs and Symptoms Associated Signs and Symptoms: jittery PMH - PMH Past Medical History: Yes Past Medical History: Anxiety, Diabetes, GERD, Liver Disease, PUD, Schizophrenia , Seizures Past Medical History Comment: Hep C, cancer, Past Surgical History: Yes Surgical History: Hysterectomy, Ortho Surgery, Thyroidectomy - Family History History of Family Medical Conditions: Yes Family Medical History: Diabetes Mellitus, Cancer, Hypertension - Social History Does patient currently use any type of tobacco product: Yes Have you used tobacco products in the last 12 months: Yes Type of Tobacco Use: Cigarettes How many years tobacco product used: 30 Does any household member use tobacco: Yes Alcohol Use: None Do you use any recreational Drugs:: No Lives With: Spouse Lives Where: Home - infectious screening In the last 2 months have you had wt loss of >10#?: NO Have you had fever, night sweats or hemotysis?: No Have you traveled outside the country in the last 6 months?: No Isolation: Standard ROS - Review of Systems Constitutional: No Symptoms Reported Eyes: No Symptoms Reported ENTM: No Symptoms Reported Respiratoy: No Symptoms Reported Cardiovascular: No Symptoms Reported Gastrointestinal/Abdominal: No Symptoms Reported Genitourinary: No Symptoms Reported Neurological: Seizure (Hx none today) Musculoskeletal: No Symptoms Reported Integumentary: No Symptoms Reported Endocrine: No Symptoms Reported Psychiatric: Depression PE - Vital Signs Vitals: Pulse Rate 104 Respiratory Rate 18 Blood Pressure [Right Arm] 129/82 Blood Pressure [Left Arm] 125/62 Blood Pressure 156/92 O2 Sat by Pulse Oximetry 98 - General Limitations: No Limitations General Appearance: Alert, In No Apparent Distress - Head Head Exam: Normal Inspection - Eyes Eye exam: Normal Appearance, EOMI. negative: Scleral Icterus, Conjunctival Injection - ENT ENT Exam: Normal Exam Mouth Exam: Normal Inspection - Neck Neck Exam: Normal Inspection, Full ROM, Trachea Midline - Chest Chest Inspection: Normal Inspection - Respiratory Respiratory Exam: Normal Lung Sounds Bilat. negative: Accessory Muscle Use, Respiratory Distress Respiratory Exam: Bilateral Clear to Auscultation - Cardiovascular Cardiovascular Exam: Regular Rate - Abdominal Exam Abdominal Exam: Normal Inspection - Back Back Exam: Normal Inspection - Neurologic Neurological Exam: Alert, Oriented X3, CN II-XII Intact - Psychiatric Psychiatric Exam: Depressed - Skin Skin Exam: Intact, Normal Color - Diagnosis Discharge Problem: Non compliance with medical treatment - Discharge Plan Condition: Stable Prescriptions: Carbamazepine [Tegretol] 200 mg PO DAILY #30 tablet - Follow ups/Referrals Follow ups/Referrals: IRMA YOUSSEF [Primary Care Provider] - 3 days - Instructions
[2016-09-25 15:19] VITALS: BP 137/83
== END 2016-09-25 15:22 | disposition home or self-care (01) ==
LOC: ER 15:00
DX: Z91.19 Patient's noncompliance with other medical treatment and regimen (principal)
CPT/HCPCS: 99281; 99282

== ENCOUNTER 2016-10-04 13:36 | Emergency (ER) | payer SELFPAY ==
[2016-10-04 13:54] VITALS: BMI 39.2
[2016-10-04] MEDS ORDERED: NS 1000 ML 1,000 ML IV ONE ×2 (13:55→16:45)
[2016-10-04] MEDS ORDERED: NS 1000 ML 1,000 ML ONE ×2 (13:56→16:50)
--- NOTE | 2016-10-04 14:01 | DR.FEVERAD ---
HPI - Time seen Time seen: 14:00 - PCP Primary Care Physician: DR. YOUSSEF - Complaints/Symptoms Chief Complaint Doctor Comments: fever Chief Complaint:: PT C/O FEVER FOR THE PAST FEW DAYS .. - Nurses notes reviewed Nurses Notes Review: Yes - Source History Provided: EMS - Mode of Arrival Mode of Arrival: EMS - Timing Onset of Chief Complaint: 10/01/16 Came on: Suddenly - Duration Duration: Constant Duration: Days - Severity Fever Severity/Quality: greater than 102 F - Context Recent: None Symptoms: Fever, Chills History of: Chronic Illness (liver disease/ hep C) PMH - PMH Past Medical History: Yes Past Medical History: Anxiety, Diabetes, GERD, Liver Disease, PUD, Schizophrenia , Seizures Past Surgical History: Yes Surgical History: Hysterectomy, Ortho Surgery, Thyroidectomy - Family History History of Family Medical Conditions: Yes Family Medical History: Diabetes Mellitus, Cancer, Hypertension - Social History Does patient currently use any type of tobacco product: Yes Have you used tobacco products in the last 12 months: Yes Type of Tobacco Use: Cigarettes Does any household member use tobacco: No Alcohol Use: None Do you use any recreational Drugs:: No Lives With: Family Lives Where: Home - infectious screening In the last 2 months have you had wt loss of >10#?: NO Have you had fever, night sweats or hemotysis?: No Have you traveled outside the country in the last 6 months?: No Isolation: Standard ROS - Review of Systems Constitutional: Chills, Fever Eyes: No Symptoms Reported ENTM: No Symptoms Reported Respiratoy: Productive Cough Cardiovascular: No Symptoms Reported Gastrointestinal/Abdominal: Abdominal Pain, Nausea Genitourinary: No Symptoms Reported Neurological: No Symptoms Reported Musculoskeletal: No Symptoms Reported Integumentary: No Symptoms Reported Hematologic/Lymphatic: No Symptoms Reported Endocrine: No Symptoms Reported Psychiatric: No Symptoms Reported All Other Systems: Reviewed and Negative PE - Vital Signs Vitals: Temperature 99.3 F Pulse Rate [Left Brachial] 101 Pulse Rate 119 Respiratory Rate 20 Blood Pressure [Right Arm] 137/83 Blood Pressure [Left Arm] 105/60 Blood Pressure 117/59 O2 Sat by Pulse Oximetry 98 - General Limitations: No Limitations General Appearance: Alert, Anxious - Head Head Exam: Normal Inspection, Atraumatic - Eyes Eye exam: Normal Appearance, PERRL, EOMI - ENT ENT Exam: Normal Exam, Normal Oropharynx, Mucous Membranes Moist External Ear Exam: Normal External Inspection Nose Exam: Normal Nose Exam Mouth Exam: Normal Inspection Throat Exam: Normal Inspection - Neck Neck Exam: Normal Inspection - Respiratory Respiratory Exam: Normal Lung Sounds Bilat Respiratory Exam: Bilateral Clear to Auscultation - Cardiovascular Cardiovascular Exam: Regular Rate, Normal Rhythm, Normal Heart Sounds - Abdominal Exam Abdominal Exam: Normal Bowel Sounds, Soft, Tenderness Abdominal Tenderness: Epigastrium, Mild - Extremities Extremities Exam: Normal Inspection, Full ROM - Back Back Exam: Normal Inspection, Full ROM - Psychiatric Psychiatric Exam: Normal Affect, Normal Mood - Skin Skin Exam: Warm, Dry ROR - Labs Reviewed Result Diagrams: 10/04/16 14:10 10/04/16 14:10 Laboratory: WBC 7.4 X10^3/uL (3.6-10.0) 10/04/16 14:10 RBC 3.71 X10^6/uL (3.5-5.4) 10/04/16 14:10 Hgb 9.8 g/dL (12.0-16.0) L 10/04/16 14:10 Hct 29.4 % (36.0-47.0) L 10/04/16 14:10 MCV 79.3 fL (80.0-100.0) L 10/04/16 14:10 MCH 26.3 pg (27.0-34.0) L 10/04/16 14:10 MCHC 33.2 g/dL (33.0-35.0) 10/04/16 14:10 RDW 18.8 % (11.6-16.5) H 10/04/16 14:10 Plt Count 36 X10^3/uL (150.0-450.0) L 10/04/16 14:10 Plt Count Comment Decreased (ADEQUATE) A 10/04/16 14:10 MPV 9.3 fL (7.4-11.0) 10/04/16 14:10 Neut % 91.1 % (42.0-75.0) H 10/04/16 14:10 Lymph % 4.6 % (21.0-51.0) L 10/04/16 14:10 [place] % 3.9 % (0.0-13.0) 10/04/16 14:10 Eos % 0.1 % (0.9-2.9) L 10/04/16 14:10 Baso % 0.3 % (0.2-1.0) 10/04/16 14:10 Neut # 6.7 x10^3/uL (2.2-4.8) H 10/04/16 14:10 Lymph # 0.3 X10^3/uL (1.3-2.9) L 10/04/16 14:10 [place] # 0.3 x10^3/uL (0.3-0.8) 10/04/16 14:10 Eos # 0.0 x10^3/uL (0.0-0.2) 10/04/16 14:10 Baso # 0.0 X10^3/uL (0.0-0.1) 10/04/16 14:10 Absolute Nucleated RBC 0.0 /100WBC 10/04/16 14:10 Total Counted 100 10/04/16 14:10 Neutrophils % (Manual) 87 % (39-76) H 10/04/16 14:10 Band Neutrophils % 5 % (0-10) 10/04/16 14:10 Lymphocytes % (Manual) 5 % (13-43) L 10/04/16 14:10 Monocytes % (Manual) 3 % (4-9) L 10/04/16 14:10 Plt Morphology Comment Normal (NORMAL) 10/04/16 14:10 RBC Morphology Abnormal (NORMAL) A 10/04/16 14:10 Hypochromasia Slight A 10/04/16 14:10 Anisocytosis Slight A 10/04/16 14:10 INR Target Range - 10/04/16 14:10 INR 1.63 (0.8-1.3) H 10/04/16 14:10 Sodium 133 mmol/L (136-145) L 10/04/16 14:10 Corrected Sodium 135 mmol/L (136-145) L 10/04/16 14:10 Potassium 3.8 mmol/L (3.5-5.1) 10/04/16 14:10 Chloride 101 mmol/L (98-107) 10/04/16 14:10 Carbon Dioxide 23.4 mmol/L (21-32) 10/04/16 14:10 BUN 10 mg/dL (7-18) 10/04/16 14:10 Creatinine 0.92 mg/dL (0.55-1.02) 10/04/16 14:10 Est GFR (MDRD) Af Amer > 60 (>60) 10/04/16 14:10 Est GFR (MDRD) Non-Af > 60 (>60) 10/04/16 14:10 Glucose 203 mg/dL (65-99) H 10/04/16 14:10 Calcium 7.8 mg/dL (8.5-10.1) L 10/04/16 14:10 Corrected Calcium 9.2 mg/dL (8.5-10.1) 10/04/16 14:10 Total Bilirubin 1.50 mg/dL (0.2-1.0) H 10/04/16 14:10 AST 75 Units/L (15-37) H 10/04/16 14:10 ALT 42 Units/L (12-78) 10/04/16 14:10 Alkaline Phosphatase 165 Units/L (46-116) H 10/04/16 14:10 Ammonia 91 umol/L (11-32) H 10/04/16 14:20 B-Natriuretic Peptide 27.5 pg/mL (0-79) 10/04/16 14:10 Total Protein 6.9 g/dL (6.4-8.2) 10/04/16 14:10 Albumin 2.3 g/dL (3.4-5.0) L 10/04/16 14:10 Globulin 4.6 g/dL (2.5-4.5) H 10/04/16 14:10 Albumin/Globulin Ratio 0.5 Ratio (1.1-2.1) L 10/04/16 14:10 Specimen Type Clean catch urine 10/04/16 16:02 Urine Color Jael (YELLOW) 10/04/16 16:02 Urine Appearance Hazy (CLEAR) 10/04/16 16:02 Urine pH 7.0 (5.0 - 8.0) 10/04/16 16:02 Ur Specific [place] 1.010 (1.000-1.030) 10/04/16 16:02 Urine Protein 3+ (NEGATIVE) 10/04/16 16:02 Urine Glucose (UA) Negative (NEGATIVE) 10/04/16 16:02 Urine Ketones Negative (NEGATIVE) 10/04/16 16:02 Urine Occult Blood 5+ (NEGATIVE) 10/04/16 16:02 Urine Nitrite Negative (NEGATIVE) 10/04/16 16:02 Urine Bilirubin Negative (NEGATIVE) 10/04/16 16:02 Urine Urobilinogen 1+ (NORMAL) 10/04/16 16:02 Ur Leukocyte Esterase 2+ (NEGATIVE) 10/04/16 16:02 Urine RBC 50-55 /HPF (NEGATIVE) 10/04/16 16:02 Urine WBC 8-10 /HPF (NEGATIVE) 10/04/16 16:02 Ur Squamous Epith Cells Few /HPF (NEGATIVE) 10/04/16 16:02 Amorphous Sediment 1+ /HPF (NEGATIVE) 10/04/16 16:02 Urine Bacteria 2+ /HPF (NEGATIVE) 10/04/16 16:02 Ur Culture Indicated? Yes/culture set up 10/04/16 16:02 Influenza A (H1N1) PCR Not detected (NOT DETECT) 10/04/16 14:42 Influenza Type A (PCR) Negative (NEGATIVE) 10/04/16 14:42 Influenza Type B (PCR) Negative (NEGATIVE) 10/04/16 14:42 Streptococcus Screen Negative (NEGATIVE) 10/04/16 13:58 - Diagnosis Discharge Problem: Pulmonary edema - Discharge Plan Condition: Stable Prescriptions: Azithromycin [Zithromax] 1,200 mg PO Q7D #7 tab - Follow ups/Referrals Follow ups/Referrals: IRMA YOUSSEF [Primary Care Provider] - 3 days - Instructions Instructions: Pulmonary Edema, [id number], Pulmonary Edema, Community- Acquired Pneumonia, Adult, Community-Acquired Pneumonia, Adult, [id number]
[2016-10-04] MEDS ORDERED: TYLENOL SUPP 650 MG ONE (14:10)
[2016-10-04] MEDS ORDERED: TYLENOL SUPP 650 MG PR ONE (14:15)
--- NOTE | 2016-10-04 14:16 | RAD ---
Examination: Chest x-ray. Clinical History: Fever, abdominal pain, history of liver failure. Technique: A single portable AP view of the chest was obtained. Comparison: 09/02/2016. Findings: The lungs are markedly hypoventilated, precluding evaluation of the heart size. There is prominence of the central vasculature, with increased interstitial markings seen in the bernardo gs bilaterally and mild patchy areas of confluent opacity present in the perihilar regions bilateral ly and at the lung bases bilaterally. Findings are probably due to pulmonary edema. A superimposed a leslee of pneumonia cannot be excluded. No pneumothorax or pleural effusion is noted. Degenerative changes are noted in the spine. No acute osseous abnormality is noted. Impression: 1. Markedly hypoventilated lungs. 2. There is prominence of the central vasculature, with increased interstitial markings seen in the lungs bilaterally and mild patchy areas of confluent opacity present in the perihilar regions bilate rally and at the lung bases bilaterally. Findings are probably due to pulmonary edema. A superimpose d area of pneumonia cannot be excluded. Reported By:
[2016-10-04 14:27] LABS: BASOPHILS % (AUTO) 0.3 % (0.2-1.0); EOSINOPHILS % (AUTO) 0.1 % (0.9-2.9); HEMATOCRIT 29.4 % (36.0-47.0); HEMOGLOBIN 9.8 g/dL (12.0-16.0); LYMPHOCYTES # (AUTO) 0.3 X10^3/uL (1.3-2.9); LYMPHOCYTES % (AUTO) 4.6 % (21.0-51.0); MEAN CORPUSCULAR HEMOGLOBIN 26.3 pg (27.0-34.0); MEAN CORPUSCULAR HGB CONC 33.2 g/dL (33.0-35.0); MEAN CORPUSCULAR VOLUME 79.3 fL (80.0-100.0); MEAN PLATELET VOLUME 9.3 fL (7.4-11.0); MONOCYTES # (AUTO) 0.3 x10^3/uL (0.3-0.8); MONOCYTES % (AUTO) 3.9 % (0.0-13.0); NEUTROPHILS # (AUTO) 6.7 x10^3/uL (2.2-4.8); NEUTROPHILS % (AUTO) 91.1 % (42.0-75.0); PLATELET COUNT 36 X10^3/uL (150.0-450.0); RED BLOOD COUNT 3.71 X10^6/uL (3.5-5.4); RED CELL DISTRIBUTION WIDTH 18.8 % (11.6-16.5); WHITE BLOOD COUNT 7.4 X10^3/uL (3.6-10.0)
[2016-10-04 14:41] LABS: ALANINE AMINOTRANSFERASE 42 Units/L (12-78); ALBUMIN 2.3 g/dL (3.4-5.0); ALKALINE PHOSPHATASE 165 Units/L (46-116); ASPARTATE AMINO TRANSFERASE 75 Units/L (15-37); BLOOD UREA NITROGEN 10 mg/dL (7-18); CALCIUM 7.8 mg/dL (8.5-10.1); CARBON DIOXIDE 23.4 mmol/L (21-32); CHLORIDE 101 mmol/L (98-107); COR CA(FOR HYPOALB) 9.2 mg/dL (8.5-10.1); COR NA(FOR HYPERGLY) 135 mmol/L (136-145); CREATININE 0.92 mg/dL (0.55-1.02); GLUCOSE 203 mg/dL (65-99); SODIUM 133 mmol/L (136-145); TOTAL PROTEIN 6.9 g/dL (6.4-8.2); eGFR BLACK RACES > 60 (>60); eGFR NON BLACK RACES > 60 (>60)
[2016-10-04 14:45] LABS: BAND NEUTROPHILS % 5 % (0-10)
[2016-10-04 14:46] LABS: HYPOCHROMASIA SLIGHT; PLATELET MORPHOLOGY COMMENT NORMAL (NORMAL)
[2016-10-04 14:47] LABS: ANISOCYTOSIS SLIGHT
[2016-10-04] MEDS ORDERED: LASIX IM STA (15:31)
[2016-10-04] MEDS ORDERED: LASIX ONE (15:33)
[2016-10-04 16:06] VITALS: BP 105/60
[2016-10-04 16:29] LABS: BILIRUBIN,URINE NEGATIVE (NEGATIVE); BLOOD/HEMOGLOBIN,URINE 5+ (NEGATIVE); GLUCOSE, URINE NEGATIVE (NEGATIVE); KETONES,URINE NEGATIVE (NEGATIVE); LEUKOCYTE ESTERASE ,URINE 2+ (NEGATIVE); NITRITES,URINE NEGATIVE (NEGATIVE); PROTEIN,URINE 3+ (NEGATIVE); UROBILINOGEN,URINE 1+ (NORMAL)
[2016-10-04 16:54] LABS: APPEARANCE,URINE HAZY (CLEAR); COLOR,URINE AMBER (YELLOW); RBC,URINE 50-55 /HPF (NEGATIVE)
[2016-10-04 16:55] LABS: AMORPHOUS SEDIMENT,UR 1+ /HPF (NEGATIVE); BACTERIA,URINE 2+ /HPF (NEGATIVE); SQUAMOUS EPITHELIAL CELL,UR FEW /HPF (NEGATIVE)
--- NOTE | 2016-10-04 17:33 | CT ---
HISTORY: Fever. Study: CT chest without contrast Comparison: Chest x-ray dated same day. Technique: Multiple axial images of the chest were obtained from the thoracic inlet to the upper abd omen without the administration of IV contrast. Dose reduction techniques including Automated Expos ure Control (AEC) and adjustment of mA and kV were utilized. Findings: The mediastinum does not demonstrate significant pathological lymphadenopathy. There is no paracard ial effusion observed. The thoracic aorta is normal in its contour without evidence for aneurysmal dilatation. The visualized heart appears normal. Prominent perihilar vasculature with mild diffuse interlobular septal thickening. Bibasilar atelecta sis versus scarring. No obvious pleural effusion , pneumothorax , pulmonary nodule , or mass. Faint areas of tree-in-bud opacities within the right middle lobe and bilateral lower lobes. Small hiatal hernia. Layering stones or sludge are seen within the gallbladder lumen. Remaining upper abdomen dem onstrates a normal noncontrast appearance. Multiple remote compression fractures of the upper thorac ic spine. Remaining osseous structures appear normal for age. IMPRESSION: 1. Constellation of findings likely representing pulmonary edema. However, the visualized heart mercedes ears normal. Differential diagnosis includes, but is not limited to: Renal failure, drug toxicity, d rug allergy, or allergic alveolitis. Recommend clinical and laboratory correlation. 2. Faint areas of tree-in-bud opacities within the bilateral lungs as above. This may represent a no n tuberculous mycobacterial infection. Recommend followup CT of the chest in 2-3 months to document stability/resolution. Reported By:
== END 2016-10-04 18:01 | disposition home or self-care (01) ==
LOC: ER 13:36
DX: J81.1 Chronic pulmonary edema (principal)
CPT/HCPCS: 36415; 71010; 71250; 80053; 81001; 82140; 83880; 85025; 85610; 87040; 87070; 87086; 87502; 87503; 87880; 96365; 96367; 96372; 96374; 99283; A4222; J1940

== ENCOUNTER 2016-10-05 13:06 | Emergency (ER) | payer SELFPAY ==
[2016-10-05 13:17] VITALS: BMI 38.2
[2016-10-05] MEDS ORDERED: LASIX IVP ONE ×2 (13:19→13:32)
[2016-10-05] MEDS ORDERED: ZOFRAN INJ 4 MG VIAL IVP ONE (13:19)
[2016-10-05] MEDS ORDERED: LEVAQUIN PREMIX IV 750 MG 750 MG/150 ML BAG IV ONE ×2 (13:19→13:33)
[2016-10-05] MEDS ORDERED: TYLENOL 500 MG TAB EXTRA STRENGTH PO ONE (13:20)
[2016-10-05] MEDS ORDERED: MORPHINE SULFATE INJ 4 MG IVP ONE (13:21)
--- NOTE | 2016-10-05 13:22 | DR.GENAD ---
HPI - HPI Comment HPI Comment: PATIENT SEEN IN ED SEVERAL TIMES WITH CELLULITIS. SIGN AMASEVERAL TIMES AND WILL NOT STAY FOR ADMISSION FOR CELLULITIS. REDNESS ON RT LEG GETTING WORSE AND SHE CONTINUE TO RUN FEVER. BLOOD CULTURE REPORT NO GROWTH SO FAR. - Complaint/Symptoms Chief Complaint Doctors Comments: FEVER, PAIN AND SWELLING AND REDNESS RT LEG. - Nurses notes reviewed Nurses Notes Review: Yes - Source History Provided: Patient - Mode of Arrival Mode of Arrival: Ambulatory - Timing Came on: Gradually - Duration Duration: Constant Duration: Days - Severity Severity: Moderate PMH - PMH Past Medical History: Anxiety, Diabetes, GERD, Liver Disease, PUD, Schizophrenia , Seizures Past Surgical History: Yes Surgical History: Hysterectomy, Ortho Surgery, Thyroidectomy - Family History Family Medical History: Diabetes Mellitus, Cancer, Hypertension - Social History Do you use any recreational Drugs:: No ROS - Review of Systems Constitutional: No Symptoms Reported, Fever, Weakness, Fatigue Eyes: negative: Eye Pain, Discharge ENTM: negative: Ear Pain, Nose Discharge, Nose Congestion, Throat Pain Respiratoy: Non-Productive Cough, Short of Breath. negative: Productive Cough, Wheezing, Hemoptysis Cardiovascular: Edema Gastrointestinal/Abdominal: negative: Abdominal Pain, Nausea, Vomiting Genitourinary: negative: Dysuria, Frequency, Hematuria Neurological: Headache, Weakness, Dizziness Musculoskeletal: Muscle Pain Integumentary: Change in Color, Rash (RLE REDNESS) Hematologic/Lymphatic: Easy Bleeding, Easy Bruising Endocrine: No Symptoms Reported All Other Systems: Reviewed and Negative PE - Vital Signs Vitals: Temperature 99.2 F Pulse Rate [Left Brachial] 92 Pulse Rate 104 Respiratory Rate 25 Blood Pressure [Right Arm] 147/83 Blood Pressure [Left Arm] 105/60 Blood Pressure 170/93 O2 Sat by Pulse Oximetry 96 - General Limitations: No Limitations General Appearance: Alert - Head Head Exam: Normal Inspection - Eyes Eye exam: Normal Appearance - ENT ENT Exam: Normal External Ear Exam External Ear Exam: Normal External Inspection TM/Canal Exam: Bilateral Normal Nose Exam: Normal Nose Exam Mouth Exam: Normal Inspection Throat Exam: Normal Inspection - Neck Neck Exam: Trachea Midline - Chest Chest Inspection: Symmetric Chest Wall Rise - Respiratory Respiratory Exam: Normal Lung Sounds Bilat Respiratory Exam: Bilateral Rhonchi, Lower Rhonchi - Cardiovascular Cardiovascular Exam: Regular Rate, Normal Rhythm, Normal Heart Sounds - Abdominal Exam Abdominal Exam: Normal Bowel Sounds, Soft. negative: Tenderness - Extremities Extremities Exam: Tenderness (SWELLING AND REDNESS RT LEG.) - Neurologic Neurological Exam: Alert, Oriented X3 - Psychiatric Psychiatric Exam: Normal Affect, Normal Mood - Skin Skin Exam: Erythema MDM - Differential Diagnosis Differential Diagnosis: CELLULITIS RT LEG. Course - Treatment Treatment: SEE ORDERS. PATIENT LEFT BEFORE EVALUATION WAS COMPLETED. - Education/Counseling Education/Counseling: Patient, Family, Education Educated On: Treatment, Diagnosis ROR - Labs Reviewed Laboratory Results Reviewed?: Yes Result Diagrams: 10/05/16 13:38 10/05/16 13:38 Laboratory: WBC 5.2 X10^3/uL (3.6-10.0) 10/05/16 13:38 RBC 3.78 X10^6/uL (3.5-5.4) 10/05/16 13:38 Hgb 9.8 g/dL (12.0-16.0) L 10/05/16 13:38 Hct 29.4 % (36.0-47.0) L 10/05/16 13:38 MCV 77.8 fL (80.0-100.0) L 10/05/16 13:38 MCH 26.0 pg (27.0-34.0) L 10/05/16 13:38 MCHC 33.4 g/dL (33.0-35.0) 10/05/16 13:38 RDW 19.1 % (11.6-16.5) H 10/05/16 13:38 Plt Count 24 X10^3/uL (150.0-450.0) L 10/05/16 13:38 Plt Count Comment Decreased (ADEQUATE) A 10/05/16 13:38 MPV 8.7 fL (7.4-11.0) 10/05/16 13:38 Neut % 81.7 % (42.0-75.0) H 10/05/16 13:38 Lymph % 11.2 % (21.0-51.0) L 10/05/16 13:38 [place] % 6.4 % (0.0-13.0) 10/05/16 13:38 Eos % 0.1 % (0.9-2.9) L 10/05/16 13:38 Baso % 0.6 % (0.2-1.0) 10/05/16 13:38 Neut # 4.2 x10^3/uL (2.2-4.8) 10/05/16 13:38 Lymph # 0.6 X10^3/uL (1.3-2.9) L 10/05/16 13:38 [place] # 0.3 x10^3/uL (0.3-0.8) 10/05/16 13:38 Eos # 0.0 x10^3/uL (0.0-0.2) 10/05/16 13:38 Baso # 0.0 X10^3/uL (0.0-0.1) 10/05/16 13:38 Absolute Nucleated RBC 0.0 /100WBC 10/05/16 13:38 Plt Morphology Comment Normal (NORMAL) 10/05/16 13:38 RBC Morphology Normal (NORMAL) 10/05/16 13:38 Sodium 128 mmol/L (136-145) L 10/05/16 13:38 Corrected Sodium 130 mmol/L (136-145) L 10/05/16 13:38 Potassium 3.6 mmol/L (3.5-5.1) 10/05/16 13:38 Chloride 97 mmol/L (98-107) L 10/05/16 13:38 Carbon Dioxide 26.5 mmol/L (21-32) 10/05/16 13:38 BUN 9 mg/dL (7-18) 10/05/16 13:38 Creatinine 0.84 mg/dL (0.55-1.02) 10/05/16 13:38 Est GFR (MDRD) Af Amer > 60 (>60) 10/05/16 13:38 Est GFR (MDRD) Non-Af > 60 (>60) 10/05/16 13:38 Glucose 190 mg/dL (65-99) H 10/05/16 13:38 Calcium 7.4 mg/dL (8.5-10.1) L 10/05/16 13:38 Corrected Calcium 8.7 mg/dL (8.5-10.1) 10/05/16 13:38 Total Bilirubin 1.40 mg/dL (0.2-1.0) H 10/05/16 13:38 AST 57 Units/L (15-37) H 10/05/16 13:38 ALT 40 Units/L (12-78) 10/05/16 13:38 Alkaline Phosphatase 115 Units/L (46-116) 10/05/16 13:38 Ammonia Cancelled 10/05/16 15:01 Creatine Kinase 317 Units/L (26-192) H 10/05/16 13:38 CK-MB (CK-2) < 1.0 ng/mL (0-4.0) 10/05/16 13:38 CK/CKMB % Calc 0.3 % (<4) 10/05/16 13:38 Troponin I < 0.02 ng/mL (0-1.5) 10/05/16 13:38 B-Natriuretic Peptide 22.5 pg/mL (0-79) 10/05/16 13:38 Total Protein 7.0 g/dL (6.4-8.2) 10/05/16 13:38 Albumin 2.4 g/dL (3.4-5.0) L 10/05/16 13:38 Globulin 4.6 g/dL (2.5-4.5) H 10/05/16 13:38 Albumin/Globulin Ratio 0.5 Ratio (1.1-2.1) L 10/05/16 13:38 Acetone, Semi-Quant Negative (NEGATIVE) 10/05/16 13:38 - Diagnosis Discharge Problem: Cellulitis Qualifiers: Site of cellulitis: extremity Site of cellulitis of extremity: lower extremity Laterality: right Qualified Code(s): L03.115 - Cellulitis of right lower limb - Discharge Plan Disposition: AGAINST MEDICAL ADVICE Condition: Stable - Follow ups/Referrals Follow ups/Referrals: IRMA YOUSSEF [Primary Care Provider] - 3 days - Instructions
[2016-10-05] MEDS ORDERED: ZOFRAN INJ 4 MG VIAL ONE (13:32)
[2016-10-05] MEDS ORDERED: TYLENOL 500 MG TAB EXTRA STRENGTH ONE (13:32)
[2016-10-05] MEDS ORDERED: MORPHINE SULFATE INJ 4 MG ONE (13:33)
[2016-10-05] MEDS ORDERED: NS 500 ML IV 500 ML IV ONE (13:33)
--- NOTE | 2016-10-05 13:40 | RAD ---
History: Shortness of breath Study: Portable AP chair Comparison: yesterday Findings: The left main pulmonary artery remains enlarged suggesting pulmonary hypertension. There i s limited inspiration as before with mildly increased interstitial lung markings. The heart size is prominent. There is no obvious pleural effusion. Impression: Limited inspiration, no definite acute disease. Reported By:
[2016-10-05 13:51] LABS: BASOPHILS % (AUTO) 0.6 % (0.2-1.0); EOSINOPHILS % (AUTO) 0.1 % (0.9-2.9); HEMATOCRIT 29.4 % (36.0-47.0); HEMOGLOBIN 9.8 g/dL (12.0-16.0); LYMPHOCYTES # (AUTO) 0.6 X10^3/uL (1.3-2.9); LYMPHOCYTES % (AUTO) 11.2 % (21.0-51.0); MEAN CORPUSCULAR HGB CONC 33.4 g/dL (33.0-35.0); MEAN CORPUSCULAR VOLUME 77.8 fL (80.0-100.0); MEAN PLATELET VOLUME 8.7 fL (7.4-11.0); MONOCYTES # (AUTO) 0.3 x10^3/uL (0.3-0.8); MONOCYTES % (AUTO) 6.4 % (0.0-13.0); NEUTROPHILS # (AUTO) 4.2 x10^3/uL (2.2-4.8); NEUTROPHILS % (AUTO) 81.7 % (42.0-75.0); RED BLOOD COUNT 3.78 X10^6/uL (3.5-5.4); RED CELL DISTRIBUTION WIDTH 19.1 % (11.6-16.5); WHITE BLOOD COUNT 5.2 X10^3/uL (3.6-10.0)
[2016-10-05 14:03] LABS: BLOOD UREA NITROGEN 9 mg/dL (7-18); CALCIUM 7.4 mg/dL (8.5-10.1); CARBON DIOXIDE 26.5 mmol/L (21-32); CHLORIDE 97 mmol/L (98-107); COR NA(FOR HYPERGLY) 130 mmol/L (136-145); CREATININE 0.84 mg/dL (0.55-1.02); GLUCOSE 190 mg/dL (65-99); SODIUM 128 mmol/L (136-145); eGFR BLACK RACES > 60 (>60); eGFR NON BLACK RACES > 60 (>60)
[2016-10-05 14:17] LABS: B-TYPE NATRIURETIC PEPTIDE 22.5 pg/mL (0-79)
[2016-10-05 14:21] LABS: PLATELET COUNT 24 X10^3/uL (150.0-450.0)
[2016-10-05 14:22] LABS: PLATELET MORPHOLOGY COMMENT NORMAL (NORMAL)
[2016-10-05 14:32] LABS: ALANINE AMINOTRANSFERASE 40 Units/L (12-78); ALBUMIN 2.4 g/dL (3.4-5.0); ALKALINE PHOSPHATASE 115 Units/L (46-116); ASPARTATE AMINO TRANSFERASE 57 Units/L (15-37); CKMB % 0.3 % (<4); COR CA(FOR HYPOALB) 8.7 mg/dL (8.5-10.1); CREATINE KINASE 317 Units/L (26-192); CREATINE KINASE MB < 1.0 ng/mL (0-4.0); TROPONIN I < 0.02 ng/mL (0-1.5)
[2016-10-05 14:36] VITALS: BP 147/83
[2016-10-06] MEDS ORDERED: NICODERM PATCH TD SCH (09:00)
== END 2016-10-05 15:50 | disposition left against medical advice (07) ==
LOC: ER 13:21
DX: L03.115 Cellulitis of right lower limb (principal)
CPT/HCPCS: 36415; 71010; 80053; 82009; 82550; 82553; 83880; 84484; 85025; 93005; 93010; 96365; 96374; 96375; 99283; A4222; J1940; J1956; J2270; J2405

== ENCOUNTER 2016-10-07 17:10 | Emergency (ER) | payer SELFPAY ==
[2016-10-07 17:15] VITALS: BP 129/98; BMI 38.5
--- NOTE | 2016-10-07 18:22 | DR.GENAD ---
HPI - PCP Primary Care Physician: naldo - HPI Comment HPI Comment: SHE VISITED ED 3 TO 4 TIMES FOR SAME. ALWAYS LEAVE BEFORE EVALUATION IS COMPLETED. SHE ALSO HAVE NOT FILL THE [employer] PREVIOUSLY. SHE CONTINUE TO RUN FEVER AT HOME. - Complaint/Symptoms Chief Complaint Doctors Comments: PATIENT HAVE REDNESS IN HER LEGS, CHEST PAIN AND SOB FOR FEW WEEKS. Chief Complaint:: patient stated she has been having leg pain for a week. - Nurses notes reviewed Nurses Notes Review: Yes - Source History Provided: Patient - Mode of Arrival Mode of Arrival: Ambulatory - Timing Onset of Chief Complaint: 09/30/16 Came on: Suddenly - Duration Duration: Constant Duration: Days - Severity Severity: Moderate PMH - PMH Past Medical History: Yes Past Medical History: Anxiety, Diabetes, GERD, Liver Disease, PUD, Schizophrenia , Seizures Past Surgical History: Yes Surgical History: Hysterectomy, Ortho Surgery, Thyroidectomy - Family History History of Family Medical Conditions: Yes Family Medical History: Diabetes Mellitus, Cancer, Hypertension - Social History Does patient currently use any type of tobacco product: Yes Have you used tobacco products in the last 12 months: Yes Type of Tobacco Use: Cigarettes How many years tobacco product used: 30 Does any household member use tobacco: Yes Alcohol Use: None Do you use any recreational Drugs:: No Lives With: Family Lives Where: Home - infectious screening In the last 2 months have you had wt loss of >10#?: NO Have you had fever, night sweats or hemotysis?: No Have you traveled outside the country in the last 6 months?: No Isolation: Standard ROS - Review of Systems Constitutional: Fever, Weakness, Fatigue, Loss of Appetite. negative: Chills, Diaphoresis Eyes: No Symptoms Reported. negative: Eye Pain, Discharge ENTM: Nose Congestion. negative: Ear Discharge, Nose Discharge, Throat Pain Respiratoy: Non-Productive Cough, Short of Breath, Wheezing. negative: Hemoptysis Cardiovascular: Chest Pain, Edema, Palpitations Gastrointestinal/Abdominal: Nausea. negative: Abdominal Pain, Diarrhea, Vomiting Genitourinary: Other (DECREASE URINATION.). negative: Dysuria, Frequency, Hematuria Musculoskeletal: Joint Pain, Joint Swelling, Muscle Pain Integumentary: Dryness, Other (LOWER EXTREMITIES, REDNESS ENTIRE LEGS.). negative: Bruises Hematologic/Lymphatic: Easy Bleeding, Easy Bruising Endocrine: Increased Thirst. negative: Flushing, Increased Urine All Other Systems: Reviewed and Negative PE - Vital Signs Vitals: Temperature 99.6 F Pulse Rate 99 Respiratory Rate 16 Blood Pressure [Right Arm] 147/83 Blood Pressure [Left Arm] 105/60 Blood Pressure 129/98 O2 Sat by Pulse Oximetry 100 - General Limitations: No Limitations General Appearance: Alert - Head Head Exam: Normal Inspection - Eyes Eye exam: Normal Appearance - ENT ENT Exam: Normal External Ear Exam External Ear Exam: Normal External Inspection TM/Canal Exam: Bilateral Normal Nose Exam: Normal Nose Exam, Sinus Tenderness, Nasal Deviation Mouth Exam: Normal Inspection Throat Exam: Normal Inspection - Neck Neck Exam: Trachea Midline - Chest Chest Inspection: Symmetric Chest Wall Rise - Respiratory Respiratory Exam: Respiratory Distress Respiratory Exam: Bilateral Wheezing, Bilateral Rhonchi, Lower Wheezing, Lower Rhonchi - Cardiovascular Cardiovascular Exam: Regular Rate, Normal Rhythm, Normal Heart Sounds - Abdominal Exam Abdominal Exam: Normal Bowel Sounds, Soft. negative: Tenderness - Extremities Extremities Exam: Tenderness, Edema - Back Back Exam: Paraspinal Tenderness - Neurologic Neurological Exam: Alert, Oriented X3, CN II-XII Intact, Normal Gait. negative : Motor Sensory Deficit, Reflexes Normal - Psychiatric Psychiatric Exam: Normal Affect - Skin Skin Exam: Erythema MDM - Differential Diagnosis Differential Diagnosis: CELLULITIS LOWER EXTREMITIES, CHEST PAIN, CHF, PNEUMONIA Course - Treatment Treatment: SEE ORDERS. PATIENT AGAIN LEFT BEFORE EVALUATION WAS COMPLETED. - Education/Counseling Education/Counseling: Patient ROR - Labs Reviewed Laboratory Results Reviewed?: Yes Result Diagrams: 10/07/16 18:13 10/07/16 18:13 Laboratory: WBC 3.9 X10^3/uL (3.6-10.0) 10/07/16 18:13 RBC 3.86 X10^6/uL (3.5-5.4) 10/07/16 18:13 Hgb 10.0 g/dL (12.0-16.0) L 10/07/16 18:13 Hct 30.1 % (36.0-47.0) L 10/07/16 18:13 MCV 78.1 fL (80.0-100.0) L 10/07/16 18:13 MCH 25.8 pg (27.0-34.0) L 10/07/16 18:13 MCHC 33.1 g/dL (33.0-35.0) 10/07/16 18:13 RDW 19.6 % (11.6-16.5) H 10/07/16 18:13 Plt Count 36 X10^3/uL (150.0-450.0) L 10/07/16 18:13 Plt Count Comment Decreased (ADEQUATE) A 10/07/16 18:13 MPV 8.4 fL (7.4-11.0) 10/07/16 18:13 Neut % 68.5 % (42.0-75.0) 10/07/16 18:13 Lymph % 17.6 % (21.0-51.0) L 10/07/16 18:13 [place] % 13.0 % (0.0-13.0) 10/07/16 18:13 Eos % 0.7 % (0.9-2.9) L 10/07/16 18:13 Baso % 0.2 % (0.2-1.0) 10/07/16 18:13 Neut # 2.7 x10^3/uL (2.2-4.8) 10/07/16 18:13 Lymph # 0.7 X10^3/uL (1.3-2.9) L 10/07/16 18:13 [place] # 0.5 x10^3/uL (0.3-0.8) 10/07/16 18:13 Eos # 0.0 x10^3/uL (0.0-0.2) 10/07/16 18:13 Baso # 0.0 X10^3/uL (0.0-0.1) 10/07/16 18:13 Absolute Nucleated RBC 0.0 /100WBC 10/07/16 18:13 Plt Morphology Comment Normal (NORMAL) 10/07/16 18:13 RBC Morphology Abnormal (NORMAL) A 10/07/16 18:13 Hypochromasia Slight A 10/07/16 18:13 Microcytosis Slight A 10/07/16 18:13 Sodium 136 mmol/L (136-145) 10/07/16 18:13 Corrected Sodium 136 mmol/L (136-145) 10/07/16 18:13 Potassium 3.6 mmol/L (3.5-5.1) 10/07/16 18:13 Chloride 102 mmol/L (98-107) 10/07/16 18:13 Carbon Dioxide 29.8 mmol/L (21-32) 10/07/16 18:13 BUN 6 mg/dL (7-18) L 10/07/16 18:13 Creatinine 0.88 mg/dL (0.55-1.02) 10/07/16 18:13 Est GFR (MDRD) Af Amer > 60 (>60) 10/07/16 18:13 Est GFR (MDRD) Non-Af > 60 (>60) 10/07/16 18:13 Glucose 115 mg/dL (65-99) H 10/07/16 18:13 Calcium 7.6 mg/dL (8.5-10.1) L 10/07/16 18:13 Corrected Calcium 9.1 mg/dL (8.5-10.1) 10/07/16 18:13 Total Bilirubin 1.20 mg/dL (0.2-1.0) H 10/07/16 18:13 AST 42 Units/L (15-37) H 10/07/16 18:13 ALT 35 Units/L (12-78) 10/07/16 18:13 Alkaline Phosphatase 115 Units/L (46-116) 10/07/16 18:13 Creatine Kinase 114 Units/L (26-192) 10/07/16 18:13 CK-MB (CK-2) < 1.0 ng/mL (0-4.0) 10/07/16 18:13 CK/CKMB % Calc 0.9 % (<4) 10/07/16 18:13 Troponin I < 0.02 ng/mL (0-1.5) 10/07/16 18:13 Total Protein 6.9 g/dL (6.4-8.2) 10/07/16 18:13 Albumin 2.1 g/dL (3.4-5.0) L 10/07/16 18:13 Globulin 4.8 g/dL (2.5-4.5) H 10/07/16 18:13 Albumin/Globulin Ratio 0.4 Ratio (1.1-2.1) L 10/07/16 18:13 - XRAY XRAY Interpreted by: Radiologist XRAY Findings: REPORT NOTED - EKG Rhythm: NSR (EKG NOTED) - Diagnosis Discharge Problem: Cellulitis of lower extremity Qualifiers: Laterality: right Qualified Code(s): L03.115 - Cellulitis of right lower limb Chest pain Qualifiers: Chest pain type: intercostal pain Qualified Code(s): R07.82 - Intercostal pain - Discharge Plan Disposition: 07 AGAINST MEDICAL ADVICE Condition: Stable - Follow ups/Referrals Follow ups/Referrals: IRMA YOUSSEF [Primary Care Provider] - 3 days - Instructions
[2016-10-07 18:23] LABS: BASOPHILS % (AUTO) 0.2 % (0.2-1.0); EOSINOPHILS % (AUTO) 0.7 % (0.9-2.9); HEMATOCRIT 30.1 % (36.0-47.0); LYMPHOCYTES # (AUTO) 0.7 X10^3/uL (1.3-2.9); LYMPHOCYTES % (AUTO) 17.6 % (21.0-51.0); MEAN CORPUSCULAR HEMOGLOBIN 25.8 pg (27.0-34.0); MEAN CORPUSCULAR HGB CONC 33.1 g/dL (33.0-35.0); MEAN CORPUSCULAR VOLUME 78.1 fL (80.0-100.0); MEAN PLATELET VOLUME 8.4 fL (7.4-11.0); MONOCYTES # (AUTO) 0.5 x10^3/uL (0.3-0.8); NEUTROPHILS # (AUTO) 2.7 x10^3/uL (2.2-4.8); NEUTROPHILS % (AUTO) 68.5 % (42.0-75.0); PLATELET COUNT 36 X10^3/uL (150.0-450.0); RED BLOOD COUNT 3.86 X10^6/uL (3.5-5.4); RED CELL DISTRIBUTION WIDTH 19.6 % (11.6-16.5); WHITE BLOOD COUNT 3.9 X10^3/uL (3.6-10.0)
[2016-10-07 18:33] LABS: HYPOCHROMASIA SLIGHT; PLATELET MORPHOLOGY COMMENT NORMAL (NORMAL)
[2016-10-07 18:34] LABS: MICROCYTOSIS SLIGHT
--- NOTE | 2016-10-07 18:49 | RAD ---
HISTORY: Cough. Single-view of the chest. Comparison: October 05, 2016. Findings: The trachea is midline. The cardiac silhouette is mildly enlarged. The lungs are well inflated wit h increased perihilar interstitial opacities and associated bronchial cuffing; findings which can be seen with mild viral bronchitis of the tracheobronchial tree versus small airways disease. Please c orrelate. However, there is no lobar pneumonia or pulmonary mass. The lungs are otherwise clear with out focal infiltrate or pleural effusion. The bony thorax is unremarkable. IMPRESSION: Radiographic findings of small airways disease, as above. Reported By:
[2016-10-07 18:53] LABS: ALANINE AMINOTRANSFERASE 35 Units/L (12-78); ALBUMIN 2.1 g/dL (3.4-5.0); ALKALINE PHOSPHATASE 115 Units/L (46-116); ASPARTATE AMINO TRANSFERASE 42 Units/L (15-37); BLOOD UREA NITROGEN 6 mg/dL (7-18); CALCIUM 7.6 mg/dL (8.5-10.1); CARBON DIOXIDE 29.8 mmol/L (21-32); CHLORIDE 102 mmol/L (98-107); COR CA(FOR HYPOALB) 9.1 mg/dL (8.5-10.1); COR NA(FOR HYPERGLY) 136 mmol/L (136-145); CREATINE KINASE 114 Units/L (26-192); CREATINE KINASE MB < 1.0 ng/mL (0-4.0); CREATININE 0.88 mg/dL (0.55-1.02); GLUCOSE 115 mg/dL (65-99); SODIUM 136 mmol/L (136-145); TOTAL PROTEIN 6.9 g/dL (6.4-8.2); TROPONIN I < 0.02 ng/mL (0-1.5); eGFR BLACK RACES > 60 (>60); eGFR NON BLACK RACES > 60 (>60)
[2016-10-07 18:54] LABS: CKMB % 0.9 % (<4)
== END 2016-10-07 19:35 | disposition left against medical advice (07) ==
LOC: ER 17:10
DX: L03.115 Cellulitis of right lower limb (principal); R07.82 Intercostal pain
CPT/HCPCS: 36415; 71010; 80053; 82550; 82553; 84484; 85025; 93005; 93010; 99283

== ENCOUNTER 2016-10-11 04:21 | Inpatient (IN) | payer SELFPAY ==
[2016-10-11 04:32] VITALS: BMI 38.5
[2016-10-11] MEDS ORDERED: MORPHINE SULFATE INJ 4 MG ONE (04:48)
--- NOTE | 2016-10-11 04:48 | DR.GENAD ---
HPI - PCP Primary Care Physician: Gomez - Complaint/Symptoms Chief Complaint:: "About a week ago my leg started getting red. After about 2 days it started hurting really bad. Now it is draining and I woke up with blood all in my bed. I am having terrible pain now in it.". Patient has been seen x two in the ED and has left declining admission. She reports that she could not afford the medication and the leg has gotten worse. - Source History Provided: Patient - Mode of Arrival Mode of Arrival: Wheelchair - Timing Onset of Chief Complaint: 10/04/16 PMH - PMH Past Medical History: Yes Past Medical History: Anxiety, Diabetes, GERD, Liver Disease, PUD, Schizophrenia , Seizures Past Medical History Comment: Patient has Hep C and states that she is in stage 4 liver failure Past Surgical History: Yes Surgical History: Hysterectomy, Ortho Surgery, Thyroidectomy - Family History History of Family Medical Conditions: Yes Family Medical History: Diabetes Mellitus, Cancer, Hypertension - Social History Does patient currently use any type of tobacco product: Yes Have you used tobacco products in the last 12 months: Yes Type of Tobacco Use: Cigarettes Does any household member use tobacco: Yes Alcohol Use: None Do you use any recreational Drugs:: No Lives With: Family Lives Where: Home - infectious screening In the last 2 months have you had wt loss of >10#?: NO Have you had fever, night sweats or hemotysis?: No Have you traveled outside the country in the last 6 months?: No Isolation: Standard ROS - Review of Systems Constitutional: negative: Diaphoresis Eyes: No Symptoms Reported ENTM: No Symptoms Reported Respiratoy: No Symptoms Reported Cardiovascular: No Symptoms Reported Gastrointestinal/Abdominal: No Symptoms Reported Genitourinary: No Symptoms Reported Neurological: No Symptoms Reported Musculoskeletal: Leg (red lower extremity with increased circumferance distally 44.5cm) Integumentary: No Symptoms Reported Hematologic/Lymphatic: No Symptoms Reported Endocrine: No Symptoms Reported Psychiatric: No Symptoms Reported All Other Systems: Reviewed and Negative PE - Vital Signs Vitals: Temperature 99.9 F Pulse Rate 126 Respiratory Rate 18 Blood Pressure [Right Arm] 147/83 Blood Pressure [Left Arm] 105/60 Blood Pressure 147/79 O2 Sat by Pulse Oximetry 95 - General Limitations: negative: Altered Mental Status General Appearance: Alert, In No Apparent Distress - Head Head Exam: Normal Inspection, Atraumatic - Eyes Eye exam: Normal Appearance, PERRL, EOMI - ENT ENT Exam: Normal Exam, Normal Oropharynx External Ear Exam: Normal External Inspection TM/Canal Exam: Bilateral Normal Nose Exam: Normal Nose Exam Mouth Exam: Normal Inspection Throat Exam: Normal Inspection - Neck Neck Exam: Normal Inspection - Chest Chest Inspection: Normal Inspection - Respiratory Respiratory Exam: Normal Lung Sounds Bilat Respiratory Exam: Bilateral Clear to Auscultation - Cardiovascular Cardiovascular Exam: Regular Rate, Normal Rhythm - Abdominal Exam Abdominal Exam: Normal Inspection, Normal Bowel Sounds Abdominal Tenderness: negative: RUQ, RLQ, LUQ, LLQ, Epigastrium, Suprapubic, Diffuse, Mild, Moderate, Severe, Other - Extremities Extremities Exam: Tenderness (right lower extremity 45cm diameter), Edema, Calf Tenderness - Back Back Exam: Normal Inspection - Neurologic Neurological Exam: Alert, Oriented X3, CN II-XII Intact - Psychiatric Psychiatric Exam: Normal Affect, Normal Mood - Skin Skin Exam: Warm, Dry, Intact Course - Consultation Called: 07:40 (Dr Dyer returned call advised to admit for further evaluation and treatment) ROR - Labs Reviewed Laboratory Results Reviewed?: Yes (D Dimer [id number]) Result Diagrams: 10/11/16 05:00 10/11/16 05:00 Laboratory: WBC 5.2 X10^3/uL (3.6-10.0) 10/11/16 05:00 RBC 3.80 X10^6/uL (3.5-5.4) 10/11/16 05:00 Hgb 9.8 g/dL (12.0-16.0) L 10/11/16 05:00 Hct 30.2 % (36.0-47.0) L 10/11/16 05:00 MCV 79.4 fL (80.0-100.0) L 10/11/16 05:00 MCH 25.9 pg (27.0-34.0) L 10/11/16 05:00 MCHC 32.6 g/dL (33.0-35.0) L 10/11/16 05:00 RDW 18.2 % (11.6-16.5) H 10/11/16 05:00 Plt Count 53 X10^3/uL (150.0-450.0) L 10/11/16 05:00 Plt Count Comment Decreased (ADEQUATE) A 10/11/16 05:00 MPV 8.5 fL (7.4-11.0) 10/11/16 05:00 Neut % 74.4 % (42.0-75.0) 10/11/16 05:00 Lymph % 13.9 % (21.0-51.0) L 10/11/16 05:00 [place] % 9.2 % (0.0-13.0) 10/11/16 05:00 Eos % 0.7 % (0.9-2.9) L 10/11/16 05:00 Baso % 1.8 % (0.2-1.0) H 10/11/16 05:00 Neut # 3.9 x10^3/uL (2.2-4.8) 10/11/16 05:00 Lymph # 0.7 X10^3/uL (1.3-2.9) L 10/11/16 05:00 [place] # 0.5 x10^3/uL (0.3-0.8) 10/11/16 05:00 Eos # 0.0 x10^3/uL (0.0-0.2) 10/11/16 05:00 Baso # 0.1 X10^3/uL (0.0-0.1) 10/11/16 05:00 Absolute Nucleated RBC 0.0 /100WBC 10/11/16 05:00 Plt Morphology Comment Normal (NORMAL) 10/11/16 05:00 RBC Morphology Abnormal (NORMAL) A 10/11/16 05:00 Hypochromasia Slight A 10/11/16 05:00 D-Dimer 3870 ng/mL (0-400) H* 10/11/16 05:00 Sodium 130 mmol/L (136-145) L 10/11/16 05:00 Corrected Sodium 133 mmol/L (136-145) L 10/11/16 05:00 Potassium 3.5 mmol/L (3.5-5.1) 10/11/16 05:00 Chloride 97 mmol/L (98-107) L 10/11/16 05:00 Carbon Dioxide 25.8 mmol/L (21-32) 10/11/16 05:00 BUN 5 mg/dL (7-18) L 10/11/16 05:00 Creatinine 0.89 mg/dL (0.55-1.02) 10/11/16 05:00 Est GFR (MDRD) Af Amer > 60 (>60) 10/11/16 05:00 Est GFR (MDRD) Non-Af > 60 (>60) 10/11/16 05:00 Glucose 213 mg/dL (65-99) H 10/11/16 05:00 Lactic Acid 1.7 mmol/L (0.4-2.0) 10/11/16 05:07 Calcium 7.5 mg/dL (8.5-10.1) L 10/11/16 05:00 Corrected Calcium 9.0 mg/dL (8.5-10.1) 10/11/16 05:00 Total Bilirubin 1.50 mg/dL (0.2-1.0) H 10/11/16 05:00 AST 53 Units/L (15-37) H 10/11/16 05:00 ALT 39 Units/L (12-78) 10/11/16 05:00 Alkaline Phosphatase 148 Units/L (46-116) H 10/11/16 05:00 C-Reactive Protein 39.50 mg/L (0-3.0) H 10/11/16 05:00 Total Protein 7.0 g/dL (6.4-8.2) 10/11/16 05:00 Albumin 2.1 g/dL (3.4-5.0) L 10/11/16 05:00 Globulin 4.9 g/dL (2.5-4.5) H 10/11/16 05:00 Albumin/Globulin Ratio 0.4 Ratio (1.1-2.1) L 10/11/16 05:00 - XRAY XRAY Interpreted by: Radiologist (Venous DopplerL Positive for deep venous thrombosis right superficial femoral vein) - Diagnosis Discharge Problem: Thrombocytopenia, Hyponatremia DVT (deep venous thrombosis) Qualifiers: DVT location: lower extremity Affected thrombotic vein of extremity: femoral Chronicity: acute Laterality: right Qualified Code(s): I82.411 - Acute embolism and thrombosis of right femoral vein - Discharge Plan Condition: Stable - Follow ups/Referrals Follow ups/Referrals: IRMA DYER [Primary Care Provider] - 3 days - Instructions
[2016-10-11] MEDS ORDERED: MORPHINE SULFATE INJ 4 MG IVP ONE (04:58)
[2016-10-11 05:22] LABS: BASOPHILS # (AUTO) 0.1 X10^3/uL (0.0-0.1); BASOPHILS % (AUTO) 1.8 % (0.2-1.0); EOSINOPHILS % (AUTO) 0.7 % (0.9-2.9); HEMATOCRIT 30.2 % (36.0-47.0); HEMOGLOBIN 9.8 g/dL (12.0-16.0); LYMPHOCYTES # (AUTO) 0.7 X10^3/uL (1.3-2.9); LYMPHOCYTES % (AUTO) 13.9 % (21.0-51.0); MEAN CORPUSCULAR HEMOGLOBIN 25.9 pg (27.0-34.0); MEAN CORPUSCULAR HGB CONC 32.6 g/dL (33.0-35.0); MEAN CORPUSCULAR VOLUME 79.4 fL (80.0-100.0); MEAN PLATELET VOLUME 8.5 fL (7.4-11.0); MONOCYTES # (AUTO) 0.5 x10^3/uL (0.3-0.8); MONOCYTES % (AUTO) 9.2 % (0.0-13.0); NEUTROPHILS # (AUTO) 3.9 x10^3/uL (2.2-4.8); NEUTROPHILS % (AUTO) 74.4 % (42.0-75.0); PLATELET COUNT 53 X10^3/uL (150.0-450.0); RED CELL DISTRIBUTION WIDTH 18.2 % (11.6-16.5); WHITE BLOOD COUNT 5.2 X10^3/uL (3.6-10.0)
[2016-10-11 05:30] LABS: ALANINE AMINOTRANSFERASE 39 Units/L (12-78); ALBUMIN 2.1 g/dL (3.4-5.0); ALKALINE PHOSPHATASE 148 Units/L (46-116); ASPARTATE AMINO TRANSFERASE 53 Units/L (15-37); BLOOD UREA NITROGEN 5 mg/dL (7-18); CALCIUM 7.5 mg/dL (8.5-10.1); CARBON DIOXIDE 25.8 mmol/L (21-32); CHLORIDE 97 mmol/L (98-107); COR NA(FOR HYPERGLY) 133 mmol/L (136-145); CREATININE 0.89 mg/dL (0.55-1.02); GLUCOSE 213 mg/dL (65-99); SODIUM 130 mmol/L (136-145); eGFR BLACK RACES > 60 (>60); eGFR NON BLACK RACES > 60 (>60)
[2016-10-11 05:43] LABS: PLATELET MORPHOLOGY COMMENT NORMAL (NORMAL)
[2016-10-11 05:44] LABS: HYPOCHROMASIA SLIGHT
[2016-10-11] MEDS ORDERED: NS 1000 ML 1,000 ML IV SCH (06:00)
[2016-10-11] MEDS ORDERED: VANCOMYCIN 1 GM PREMIX (ADDVANTAGE) 250 ML IV NR (06:00)
[2016-10-11] MEDS ORDERED: BENADRYL INJ 50 MG VIAL ONE (06:19)
[2016-10-11] MEDS ORDERED: BENADRYL INJ 50 MG VIAL IVP ONE (06:20)
--- NOTE | 2016-10-11 07:57 | VAS ---
HISTORY: Right lower extremity pain and edema Study: Bilateral lower extremity venous Doppler Comparison: None Technique: Multiple grayscale sonographic images were obtained. Color duplex Doppler evaluation was performed. Findings: There is no evidence for deep venous thrombosis on the left. There is no evidence for deep venous th rombosis in the right common femoral vein, proximal and mid superficial femoral vein and popliteal v eins. However there is lack of compression and distal augmentation and flow in the distal superficia l femoral vein consistent with the venous thrombosis. IMPRESSION: Exam positive for deep venous thrombosis right superficial femoral vein distally. Reported By:
[2016-10-11] MEDS: NICODERM PATCH 21 MG/24 HR TD SCH (08:38)
[2016-10-11] MEDS: LOVENOX INJ 120 MG SYR SC SCH ×2 (08:40→22:31)
[2016-10-11] MEDS ORDERED: ACTIDOSE WITH SORBITOL ONE (08:42)
[2016-10-11] MEDS: NS 1000 ML 1,000 ML IV SCH ×2 (09:24→22:27)
[2016-10-11] MEDS: PHENERGAN TAB 25 MG PO PRN (09:25)
[2016-10-11] MEDS: MOTRIN TAB 600 MG PO PRN ×2 (09:25→23:43)
[2016-10-11] MEDS: ZOSYN VIAL 3.375 GM 3.375 GM in NS 100 ML IV + SPIKE MINIBAG* 100 ML IV SCH ×2 (13:44→22:27)
[2016-10-11] MEDS: ROXICODONE TAB 5 MG PO PRN (18:15)
[2016-10-11] MEDS: CHRONULAC PO SCH (18:16)
--- NOTE | 2016-10-11 18:48 | DR.H&P ---
H&P - History & Physical for Day of: H&P Date: 10/11/16 - Chief Complaint Chief Complaint: right lower leg pain, swelling, redness - Allergies Allergies/Adverse Reactions: Allergies Allergy/AdvReac Type Severity Reaction Status Date / Time acetaminophen Allergy Verified 10/11/16 09:04 aloe Allergy Verified 10/11/16 09:04 codeine Allergy Verified 10/11/16 09:04 ketorolac [From Toradol] Allergy Verified 10/11/16 09:04 sumatriptan [From Imitrex] Allergy Verified 10/11/16 09:04 - History of Present Illness History of Present Illness: patient is a 46-year-old white female who was admitted from the emergency room with right lower extremity cellulitis, vasculitis, acute DVT. Patient was started on Zosyn IV, and Lovenox. patient has a history of pancytopenia related to liver disease patient's hemoglobin on admission was 9.8, platelets 53, ammonia 50 and sodium Patient has a past medical history of stage IV liver disease and cirrhosis, hepatitis C, diabetes, arthritis, hypertension, depression. Plan to admit for further evaluation of lower extremity pain, cellulitis. Plan to administer IV antibiotics with blood cultures pending - Past Medical History Past Medical History: Anxiety, Diabetes, GERD, Liver Disease, PUD, Schizophrenia , Seizures Additional Medical History: 1. DM; type II. 2. Anxiety/depressive disorder. 3. Bipolar disorder. 4. Insomnia. 5. Chonic low back pain; with self reported history of multiple herniated disk - this has not been substantiated. 6. H/O colon polyps. 7. H/O endometriosis. 8. Questionable generalized seizure disorder. 9. Hepatitis C - Past Surgical History Surgical History: Hysterectomy, Ortho Surgery, Thyroidectomy Additional Surgical History: Pt reports having a colonoscopy and polypectomy two months ago in [place], [place] - Family History Family Medical History: Diabetes Mellitus, Cancer, Hypertension - Social History Does patient currently use any type of tobacco product: Yes Have you used tobacco products in the last 12 months: Yes Type of Tobacco Use: Cigarettes How many years tobacco product used: 30 Does any household member use tobacco: Yes Alcohol Use: None Drug Use: Prescription Drugs - Medications Home Medications: Clonazepam [Clonazepam] 1 tab PO BID 10/11/16 [History Confirmed 10/11/16] Oxycodone HCl [Oxycodone HCl] 1 tab PO BID PRN 10/11/16 [History Confirmed 10/11] - Review of Systems Constitutional: Fever, Chills, Weakness Eyes: No Symptoms Reported ENT: No Symptoms Reported Respiratory: Cough, Shortness of Breath Cardiovascular: No Symptoms Reported, Edema Gastrointestinal: Nausea, Abdominal Pain Genitourinary: No Symptoms Reported Musculoskeletal: Back Pain, Leg Pain, Foot Pain Skin: Rash, Wound Neurological: Seizures - Physical Exam Vital Signs: Temperature 98.3 F Pulse Rate [Right Brachial] 92 Respiratory Rate 17 Blood Pressure [Right Arm] 116/71 O2 Sat by Pulse Oximetry 94 Oriented: Normal Eyes: Normal Ear: Normal Nose: Normal Throat: Normal Respiratory: RLL Diminished, LLL Diminished Cardiovascular: Normal, Edema : Normal Auscultation: Bowel Sounds: Normal Palpation: Liver Enlarged Tenderness: RUQ, LUQ, Epigastric Skin: Rash, Red, Tender, Hot, Wound (multiple macular papular lesions with weeping to the right lower extremity with the use redness), Bruising Musculoskeletal: Leg, Foot, Back:Thoracic, Back:Lumbar Psychiatric: Anxiety, Agitation Speech Pattern: Clear, Appropriate - Assessment/Plan (1) Cellulitis of lower extremity Qualifiers: Laterality: right Qualified Code(s): L03.115 - Cellulitis of right lower limb Status: Acute Plan: admit, wound care, blood cultures and wound cultures, IV antibiotics and IV hydration to correct hyponatremia, pain control, Lovenox therapy for DVT, repeat a.m. labs, monitor ammonia levels and continue lactulose (2) Arthritis Status: Acute (3) DVT (deep venous thrombosis) Qualifiers: DVT location: lower extremity Affected thrombotic vein of extremity: femoral Chronicity: acute Laterality: right Qualified Code(s): I82.411 - Acute embolism and thrombosis of right femoral vein Status: Acute (4) Hyponatremia Status: Acute (5) Thrombocytopenia Status: Acute (6) Cirrhosis Qualifiers: Hepatic cirrhosis type: unspecified hepatic cirrhosis Ascites presence: with ascites Qualified Code(s): K74.60 - Unspecified cirrhosis of liver Status: Acute Plan: ammonia level, monitor mental status changes. lacutlose (7) Diabetes Qualifiers: Diabetes mellitus type: D Diabetes mellitus complication status: D Diabetes mellitus complication detail: D Diabetic retinopathy severity: D Proliferative retinopathy type: P Diabetes mellitus macular edema: D Diabetes mellitus long term care administrator insulin use: D Laterality: L Chronic kidney disease stage: C Status: Acute
[2016-10-11] MEDS: SNACK - Diabetic Appropriate PO SCH (20:00)
[2016-10-12] MEDS: PHENERGAN TAB 25 MG PO PRN (00:12)
[2016-10-12 05:21] LABS: BASOPHILS % (AUTO) 0.5 % (0.2-1.0); EOSINOPHILS % (AUTO) 1.7 % (0.9-2.9); HEMATOCRIT 27.7 % (36.0-47.0); LYMPHOCYTES # (AUTO) 0.7 X10^3/uL (1.3-2.9); LYMPHOCYTES % (AUTO) 23.4 % (21.0-51.0); MEAN CORPUSCULAR HEMOGLOBIN 26.2 pg (27.0-34.0); MEAN CORPUSCULAR HGB CONC 32.5 g/dL (33.0-35.0); MEAN CORPUSCULAR VOLUME 80.7 fL (80.0-100.0); MEAN PLATELET VOLUME 8.6 fL (7.4-11.0); MONOCYTES # (AUTO) 0.2 x10^3/uL (0.3-0.8); NEUTROPHILS # (AUTO) 1.9 x10^3/uL (2.2-4.8); NEUTROPHILS % (AUTO) 66.4 % (42.0-75.0); PLATELET COUNT 48 X10^3/uL (150.0-450.0); RED BLOOD COUNT 3.44 X10^6/uL (3.5-5.4); RED CELL DISTRIBUTION WIDTH 18.7 % (11.6-16.5); WHITE BLOOD COUNT 2.9 X10^3/uL (3.6-10.0)
[2016-10-12 05:22] LABS: ALANINE AMINOTRANSFERASE 36 Units/L (12-78); ALBUMIN 1.8 g/dL (3.4-5.0); ALKALINE PHOSPHATASE 176 Units/L (46-116); ASPARTATE AMINO TRANSFERASE 54 Units/L (15-37); BLOOD UREA NITROGEN 6 mg/dL (7-18); CALCIUM 7.4 mg/dL (8.5-10.1); CARBON DIOXIDE 28.5 mmol/L (21-32); CHLORIDE 107 mmol/L (98-107); COR CA(FOR HYPOALB) 9.2 mg/dL (8.5-10.1); COR NA(FOR HYPERGLY) 142 mmol/L (136-145); GLUCOSE 236 mg/dL (65-99); SODIUM 139 mmol/L (136-145); TOTAL PROTEIN 6.2 g/dL (6.4-8.2); eGFR BLACK RACES > 60 (>60); eGFR NON BLACK RACES > 60 (>60)
[2016-10-12 05:53] LABS: HYPOCHROMASIA SLIGHT; PLATELET MORPHOLOGY COMMENT NORMAL (NORMAL)
[2016-10-12] MEDS: ZOSYN VIAL 3.375 GM 3.375 GM in NS 100 ML IV + SPIKE MINIBAG* 100 ML IV SCH ×3 (06:19→22:02)
[2016-10-12] MEDS: ROXICODONE TAB 5 MG PO PRN ×3 (06:21→21:00)
[2016-10-12] MEDS: NS 1000 ML 1,000 ML IV SCH ×2 (06:21→14:39)
[2016-10-12] MEDS: NICODERM PATCH 21 MG/24 HR TD SCH (10:47)
[2016-10-12] MEDS: CHRONULAC PO SCH ×2 (10:47→20:32)
[2016-10-12] MEDS: LOVENOX INJ 120 MG SYR SC SCH ×2 (10:47→20:36)
[2016-10-12] MEDS: KLONOPIN TAB 1 MG PO PRN (16:30)
[2016-10-12] MEDS: SNACK - Diabetic Appropriate PO SCH (20:32)
[2016-10-12] MEDS: PEPCID 20 MG IV PREMIX* 20 MG/50 ML BAG IV SCH (20:33)
[2016-10-12] MEDS ORDERED: KLONOPIN TAB 0.5 MG PO PRN (23:04)
[2016-10-13] MEDS: NS 1000 ML 1,000 ML IV SCH ×2 (00:25→09:01)
[2016-10-13] MEDS: PHENERGAN TAB 25 MG PO PRN (04:48)
[2016-10-13] MEDS: KLONOPIN TAB 1 MG PO PRN ×2 (04:48→16:00)
[2016-10-13] MEDS: ZOSYN VIAL 3.375 GM 3.375 GM in NS 100 ML IV + SPIKE MINIBAG* 100 ML IV SCH (06:01)
[2016-10-13 06:32] LABS: BASOPHILS % (AUTO) 0.3 % (0.2-1.0); EOSINOPHILS % (AUTO) 1.6 % (0.9-2.9); HEMATOCRIT 26.4 % (36.0-47.0); HEMOGLOBIN 8.6 g/dL (12.0-16.0); LYMPHOCYTES # (AUTO) 0.7 X10^3/uL (1.3-2.9); LYMPHOCYTES % (AUTO) 29.2 % (21.0-51.0); MEAN CORPUSCULAR HEMOGLOBIN 26.1 pg (27.0-34.0); MEAN CORPUSCULAR HGB CONC 32.7 g/dL (33.0-35.0); MEAN CORPUSCULAR VOLUME 79.8 fL (80.0-100.0); MEAN PLATELET VOLUME 8.8 fL (7.4-11.0); MONOCYTES # (AUTO) 0.2 x10^3/uL (0.3-0.8); MONOCYTES % (AUTO) 8.2 % (0.0-13.0); NEUTROPHILS # (AUTO) 1.5 x10^3/uL (2.2-4.8); NEUTROPHILS % (AUTO) 60.7 % (42.0-75.0); PLATELET COUNT 45 X10^3/uL (150.0-450.0); RED CELL DISTRIBUTION WIDTH 18.7 % (11.6-16.5); WHITE BLOOD COUNT 2.4 X10^3/uL (3.6-10.0)
[2016-10-13 06:40] LABS: ALANINE AMINOTRANSFERASE 37 Units/L (12-78); ALBUMIN 1.8 g/dL (3.4-5.0); ALKALINE PHOSPHATASE 141 Units/L (46-116); ASPARTATE AMINO TRANSFERASE 57 Units/L (15-37); BLOOD UREA NITROGEN 4 mg/dL (7-18); CALCIUM 7.3 mg/dL (8.5-10.1); CARBON DIOXIDE 25.8 mmol/L (21-32); CHLORIDE 108 mmol/L (98-107); COR CA(FOR HYPOALB) 9.1 mg/dL (8.5-10.1); CREATININE 0.72 mg/dL (0.55-1.02); GLUCOSE 84 mg/dL (65-99); SODIUM 138 mmol/L (136-145); TOTAL PROTEIN 6.4 g/dL (6.4-8.2); eGFR BLACK RACES > 60 (>60); eGFR NON BLACK RACES > 60 (>60)
[2016-10-13 07:09] LABS: BAND NEUTROPHILS % 5 % (0-10); HYPOCHROMASIA 1+; PLATELET MORPHOLOGY COMMENT NORMAL (NORMAL)
[2016-10-13 07:10] LABS: ANISOCYTOSIS SLIGHT; BURR CELLS PRESENT; OVALOCYTES PRESENT
[2016-10-13] MEDS: NICODERM PATCH 21 MG/24 HR TD SCH (09:00)
[2016-10-13] MEDS: PEPCID 20 MG IV PREMIX* 20 MG/50 ML BAG IV SCH ×2 (09:00→20:39)
[2016-10-13] MEDS: CHRONULAC PO SCH ×3 (09:00→20:40)
[2016-10-13] MEDS: LOVENOX INJ 120 MG SYR SC SCH ×2 (09:01→20:41)
[2016-10-13] MEDS: ROXICODONE TAB 5 MG PO PRN ×2 (12:47→20:41)
[2016-10-13] MEDS: LEVAQUIN PREMIX IV 750 MG 750 MG/150 ML BAG IV SCH (15:47)
[2016-10-13] MEDS: TEFLARO 600 MG in NS 50 ML IV + SPIKE MINIBAG* 50 ML IV SCH (20:39)
[2016-10-13] MEDS: SNACK - Diabetic Appropriate PO SCH (20:42)
[2016-10-13] MEDS: SEROquel TAB 100 MG PO SCH (20:42)
[2016-10-14] MEDS: KLONOPIN TAB 1 MG PO PRN ×2 (00:33→17:40)
[2016-10-14] MEDS: NS 1000 ML 1,000 ML IV SCH ×4 (04:03→20:41)
[2016-10-14] MEDS: CHRONULAC PO SCH ×4 (04:03→20:41)
[2016-10-14 05:16] LABS: ALANINE AMINOTRANSFERASE 32 Units/L (12-78); ALBUMIN 1.7 g/dL (3.4-5.0); ALKALINE PHOSPHATASE 105 Units/L (46-116); ASPARTATE AMINO TRANSFERASE 52 Units/L (15-37); BLOOD UREA NITROGEN 3 mg/dL (7-18); CALCIUM 7.6 mg/dL (8.5-10.1); CARBON DIOXIDE 27.9 mmol/L (21-32); CHLORIDE 107 mmol/L (98-107); COR CA(FOR HYPOALB) 9.4 mg/dL (8.5-10.1); COR NA(FOR HYPERGLY) 137 mmol/L (136-145); CREATININE 0.77 mg/dL (0.55-1.02); GLUCOSE 111 mg/dL (65-99); SODIUM 137 mmol/L (136-145); TOTAL PROTEIN 6.2 g/dL (6.4-8.2); eGFR BLACK RACES > 60 (>60); eGFR NON BLACK RACES > 60 (>60)
[2016-10-14 05:20] LABS: BASOPHILS % (AUTO) 0.3 % (0.2-1.0); EOSINOPHILS % (AUTO) 1.7 % (0.9-2.9); HEMATOCRIT 24.4 % (36.0-47.0); HEMOGLOBIN 8.2 g/dL (12.0-16.0); LYMPHOCYTES # (AUTO) 0.5 X10^3/uL (1.3-2.9); LYMPHOCYTES % (AUTO) 30.4 % (21.0-51.0); MEAN CORPUSCULAR HEMOGLOBIN 26.5 pg (27.0-34.0); MEAN CORPUSCULAR HGB CONC 33.4 g/dL (33.0-35.0); MEAN CORPUSCULAR VOLUME 79.5 fL (80.0-100.0); MEAN PLATELET VOLUME 8.3 fL (7.4-11.0); MONOCYTES # (AUTO) 0.1 x10^3/uL (0.3-0.8); MONOCYTES % (AUTO) 7.8 % (0.0-13.0); NEUTROPHILS # (AUTO) 1.1 x10^3/uL (2.2-4.8); NEUTROPHILS % (AUTO) 59.8 % (42.0-75.0); PLATELET COUNT 48 X10^3/uL (150.0-450.0); RED BLOOD COUNT 3.07 X10^6/uL (3.5-5.4); RED CELL DISTRIBUTION WIDTH 18.5 % (11.6-16.5)
[2016-10-14 05:25] LABS: WHITE BLOOD COUNT 1.8 X10^3/uL (3.6-10.0)
[2016-10-14 05:49] LABS: ANISOCYTOSIS 1+; HYPOCHROMASIA 1+; PLATELET MORPHOLOGY COMMENT NORMAL (NORMAL)
[2016-10-14 06:20] LABS: ERYTHROCYTE SEDIMENTATION RATE 47 MM/HOUR (0-20)
[2016-10-14] MEDS: ROXICODONE TAB 5 MG PO PRN ×2 (07:08→14:40)
[2016-10-14] MEDS: LOVENOX INJ 120 MG SYR SC SCH ×2 (09:37→20:40)
[2016-10-14] MEDS: PEPCID 20 MG IV PREMIX* 20 MG/50 ML BAG IV SCH ×2 (09:38→20:40)
[2016-10-14] MEDS: TEFLARO 600 MG in NS 50 ML IV + SPIKE MINIBAG* 50 ML IV SCH ×2 (09:38→20:39)
[2016-10-14] MEDS: NICODERM PATCH 21 MG/24 HR TD SCH (09:38)
[2016-10-14] MEDS: LEVAQUIN PREMIX IV 750 MG 750 MG/150 ML BAG IV SCH (09:38)
[2016-10-14] MEDS: HumuLIN R SC PRN (20:38)
[2016-10-14] MEDS: SEROquel TAB 100 MG PO SCH (20:40)
[2016-10-14] MEDS: SNACK - Diabetic Appropriate PO SCH (20:41)
[2016-10-15] MEDS: NS 1000 ML 1,000 ML IV SCH ×3 (02:39→20:41)
[2016-10-15] MEDS: CHRONULAC PO SCH ×5 (02:39→20:48)
[2016-10-15] MEDS: ROXICODONE TAB 5 MG PO PRN ×3 (02:40→20:44)
[2016-10-15 04:56] LABS: BASOPHILS % (AUTO) 0.5 % (0.2-1.0); HEMATOCRIT 24.9 % (36.0-47.0); HEMOGLOBIN 8.2 g/dL (12.0-16.0); LYMPHOCYTES # (AUTO) 0.5 X10^3/uL (1.3-2.9); LYMPHOCYTES % (AUTO) 30.9 % (21.0-51.0); MEAN CORPUSCULAR HEMOGLOBIN 26.4 pg (27.0-34.0); MEAN PLATELET VOLUME 7.8 fL (7.4-11.0); MONOCYTES # (AUTO) 0.2 x10^3/uL (0.3-0.8); MONOCYTES % (AUTO) 12.9 % (0.0-13.0); NEUTROPHILS # (AUTO) 0.9 x10^3/uL (2.2-4.8); NEUTROPHILS % (AUTO) 53.7 % (42.0-75.0); PLATELET COUNT 42 X10^3/uL (150.0-450.0); RED BLOOD COUNT 3.11 X10^6/uL (3.5-5.4); RED CELL DISTRIBUTION WIDTH 19.3 % (11.6-16.5)
[2016-10-15 05:00] LABS: WHITE BLOOD COUNT 1.7 X10^3/uL (3.6-10.0)
[2016-10-15 05:01] LABS: ALANINE AMINOTRANSFERASE 29 Units/L (12-78); ALBUMIN 1.6 g/dL (3.4-5.0); ALKALINE PHOSPHATASE 104 Units/L (46-116); ASPARTATE AMINO TRANSFERASE 49 Units/L (15-37); BLOOD UREA NITROGEN 3 mg/dL (7-18); CALCIUM 7.3 mg/dL (8.5-10.1); CARBON DIOXIDE 26.7 mmol/L (21-32); CHLORIDE 108 mmol/L (98-107); COR CA(FOR HYPOALB) 9.2 mg/dL (8.5-10.1); COR NA(FOR HYPERGLY) 139 mmol/L (136-145); CREATININE 0.72 mg/dL (0.55-1.02); GLUCOSE 142 mg/dL (65-99); SODIUM 138 mmol/L (136-145); eGFR BLACK RACES > 60 (>60); eGFR NON BLACK RACES > 60 (>60)
[2016-10-15 05:25] LABS: ANISOCYTOSIS 1+; HYPOCHROMASIA 1+; PLATELET MORPHOLOGY COMMENT NORMAL (NORMAL)
[2016-10-15 05:26] LABS: OVALOCYTES NOTED
[2016-10-15 05:38] LABS: ERYTHROCYTE SEDIMENTATION RATE 42 MM/HOUR (0-20)
[2016-10-15] MEDS: HumuLIN R SC PRN ×2 (05:45→21:02)
[2016-10-15] MEDS: LEVAQUIN PREMIX IV 750 MG 750 MG/150 ML BAG IV SCH (08:55)
[2016-10-15] MEDS: NICODERM PATCH 21 MG/24 HR TD SCH (08:55)
[2016-10-15] MEDS: TEFLARO 600 MG in NS 50 ML IV + SPIKE MINIBAG* 50 ML IV SCH ×2 (08:55→20:42)
[2016-10-15] MEDS: LOVENOX INJ 120 MG SYR SC SCH ×2 (08:56→20:46)
[2016-10-15] MEDS: PEPCID 20 MG IV PREMIX* 20 MG/50 ML BAG IV SCH ×2 (08:56→20:45)
--- NOTE | 2016-10-15 13:20 | PCM.PROG ---
Progress Note - Progress Note for Day of Date: 10/15/16 - Subjective Subjective: patient is a 46-year-old white female who was admitted on 10/11/2016 with right lower extremity DVT and severe thrombophlebitis patient is on IV Levaquin into a flare a and redness and swelling is much improvedfrom admission , however we will continue IV antibiotics for a few more days and repeat a.m. labs and continue pain control. - Past Medical Family Social History Past Med/Fam/Surg Hx: No changes since H&P Allergies: Allergies acetaminophen Allergy (Verified 10/11/16 09:04) aloe Allergy (Verified 10/11/16 09:04) codeine Allergy (Verified 10/11/16 09:04) ketorolac [From Toradol] Allergy (Verified 10/11/16 09:04) sumatriptan [From Imitrex] Allergy (Verified 10/11/16 09:04) - Review of Systems ROS: No change since H&P - Vital Signs and I&O's Vital Signs: Temperature 97.5 F Pulse Rate [Left Brachial] 93 Pulse Rate [Right Brachial] 87 Respiratory Rate 20 Blood Pressure [Right Arm] 114/66 Blood Pressure [Left Arm] 115/53 O2 Sat by Pulse Oximetry 98 Intake and Output: Intake & Output 10/13/16 10/14/16 10/15/16 10/16/16 11:59 11:59 11:59 11:59 Intake Total 920 4020 5470 Balance 920 4020 5470 - Physical Exam Oriented: Normal Eyes: Normal Ear: Normal Nose: Normal Throat: Normal Respiratory: Diminished ( ) Cardiovascular: Normal, Edema : Normal Auscultation: Bowel Sounds: Normal Tenderness: RUQ, LUQ, Epigastric Skin: Rash, Red, Tender, Hot, Wound (multiple macular papular lesions with weeping to the right lower extremity with the use redness), Bruising Musculoskeletal: Leg, Foot, Back:Thoracic, Back:Lumbar Psychiatric: Anxiety, Agitation Speech Pattern: Clear, Appropriate - Laboratory and Diagnostics Result Diagrams: 10/15/16 03:20 10/15/16 03:20 Labs: Laboratory WBC 1.7 X10^3/uL (3.6-10.0) L* 10/15/16 03:20 RBC 3.11 X10^6/uL (3.5-5.4) L 10/15/16 03:20 Hgb 8.2 g/dL (12.0-16.0) L 10/15/16 03:20 Hct 24.9 % (36.0-47.0) L 10/15/16 03:20 MCV 80.0 fL (80.0-100.0) 10/15/16 03:20 MCH 26.4 pg (27.0-34.0) L 10/15/16 03:20 MCHC 33.0 g/dL (33.0-35.0) 10/15/16 03:20 RDW 19.3 % (11.6-16.5) H 10/15/16 03:20 Plt Count 42 X10^3/uL (150.0-450.0) L 10/15/16 03:20 Plt Count Comment Decreased (ADEQUATE) A 10/15/16 03:20 MPV 7.8 fL (7.4-11.0) 10/15/16 03:20 Neut % 53.7 % (42.0-75.0) 10/15/16 03:20 Lymph % 30.9 % (21.0-51.0) 10/15/16 03:20 [place] % 12.9 % (0.0-13.0) 10/15/16 03:20 Eos % 2.0 % (0.9-2.9) 10/15/16 03:20 Baso % 0.5 % (0.2-1.0) 10/15/16 03:20 Neut # 0.9 x10^3/uL (2.2-4.8) L 10/15/16 03:20 Lymph # 0.5 X10^3/uL (1.3-2.9) L 10/15/16 03:20 [place] # 0.2 x10^3/uL (0.3-0.8) L 10/15/16 03:20 Eos # 0.0 x10^3/uL (0.0-0.2) 10/15/16 03:20 Baso # 0.0 X10^3/uL (0.0-0.1) 10/15/16 03:20 Absolute Nucleated RBC 0.1 /100WBC 10/15/16 03:20 Total Counted 100 10/13/16 06:16 Neutrophils % (Manual) 62 % (39-76) 10/13/16 06:16 Band Neutrophils % 5 % (0-10) 10/13/16 06:16 Lymphocytes % (Manual) 27 % (13-43) 10/13/16 06:16 Monocytes % (Manual) 5 % (4-9) 10/13/16 06:16 Eosinophils % (Manual) 1 % (0-6) 10/13/16 06:16 Plt Morphology Comment Normal (NORMAL) 10/15/16 03:20 RBC Morphology Abnormal (NORMAL) A 10/15/16 03:20 Hypochromasia 1+ A 10/15/16 03:20 Anisocytosis 1+ A 10/15/16 03:20 Ovalocytes Noted 10/15/16 03:20 [place] Cells Present 10/13/16 06:16 ESR 42 MM/HOUR (0-20) H 10/15/16 03:20 D-Dimer 3870 ng/mL (0-400) H* 10/11/16 05:00 Sodium 138 mmol/L (136-145) 10/15/16 03:20 Corrected Sodium 139 mmol/L (136-145) 10/15/16 03:20 Potassium 3.5 mmol/L (3.5-5.1) 10/15/16 03:20 Chloride 108 mmol/L (98-107) H 10/15/16 03:20 Carbon Dioxide 26.7 mmol/L (21-32) 10/15/16 03:20 BUN 3 mg/dL (7-18) L 10/15/16 03:20 Creatinine 0.72 mg/dL (0.55-1.02) 10/15/16 03:20 Est GFR (MDRD) Af Amer > 60 (>60) 10/15/16 03:20 Est GFR (MDRD) Non-Af > 60 (>60) 10/15/16 03:20 Glucose 142 mg/dL (65-99) H 10/15/16 03:20 Lactic Acid 1.7 mmol/L (0.4-2.0) 10/11/16 05:07 Calcium 7.3 mg/dL (8.5-10.1) L 10/15/16 03:20 Corrected Calcium 9.2 mg/dL (8.5-10.1) 10/15/16 03:20 Total Bilirubin 0.70 mg/dL (0.2-1.0) 10/15/16 03:20 AST 49 Units/L (15-37) H 10/15/16 03:20 ALT 29 Units/L (12-78) 10/15/16 03:20 Alkaline Phosphatase 104 Units/L (46-116) 10/15/16 03:20 Ammonia 58 umol/L (11-32) H 10/12/16 16:18 C-Reactive Protein 21.80 mg/L (0-3.0) H 10/15/16 03:20 Total Protein 6.0 g/dL (6.4-8.2) L 10/15/16 03:20 Albumin 1.6 g/dL (3.4-5.0) L 10/15/16 03:20 Globulin 4.4 g/dL (2.5-4.5) 10/15/16 03:20 Albumin/Globulin Ratio 0.4 Ratio (1.1-2.1) L 10/15/16 03:20 - Plan (1) Cellulitis of lower extremity Status: Acute Qualifiers: Laterality: right Qualified Code(s): L03.115 - Cellulitis of right lower limb Plan: wound care, iv levaquin and teflero. repeat am labs (2) Arthritis Status: Acute (3) DVT (deep venous thrombosis) Status: Acute Qualifiers: DVT location: lower extremity Affected thrombotic vein of extremity: femoral Chronicity: acute Laterality: right Qualified Code(s): I82.411 - Acute embolism and thrombosis of right femoral vein (4) Hyponatremia Status: Acute (5) Thrombocytopenia Status: Acute (6) Cirrhosis Status: Acute Qualifiers: Hepatic cirrhosis type: unspecified hepatic cirrhosis Ascites presence: with ascites Qualified Code(s): K74.60 - Unspecified cirrhosis of liver Plan: ammonia level, monitor mental status changes. lacutlose (7) Diabetes Status: Acute Qualifiers: Diabetes mellitus type: D Diabetes mellitus complication status: D Diabetes mellitus complication detail: D Diabetic retinopathy severity: D Proliferative retinopathy type: P Diabetes mellitus macular edema: D Diabetes mellitus long term acute care registered nurse insulin use: D Laterality: L Chronic kidney disease stage: C
[2016-10-15] MEDS: KLONOPIN TAB 1 MG PO PRN ×2 (15:02→23:42)
[2016-10-15] MEDS: SNACK - Diabetic Appropriate PO SCH (20:47)
[2016-10-15] MEDS: SEROquel TAB 100 MG PO SCH (20:48)
[2016-10-15] MEDS: PHENERGAN TAB 25 MG PO PRN (21:02)
[2016-10-16] MEDS: CHRONULAC PO SCH ×3 (03:53→15:20)
[2016-10-16 05:22] LABS: ALANINE AMINOTRANSFERASE 32 Units/L (12-78); ALBUMIN 1.7 g/dL (3.4-5.0); ALKALINE PHOSPHATASE 122 Units/L (46-116); ASPARTATE AMINO TRANSFERASE 54 Units/L (15-37); BLOOD UREA NITROGEN 2 mg/dL (7-18); CALCIUM 7.4 mg/dL (8.5-10.1); CARBON DIOXIDE 27.8 mmol/L (21-32); CHLORIDE 108 mmol/L (98-107); COR CA(FOR HYPOALB) 9.2 mg/dL (8.5-10.1); COR NA(FOR HYPERGLY) 140 mmol/L (136-145); CREATININE 0.72 mg/dL (0.55-1.02); GLUCOSE 115 mg/dL (65-99); SODIUM 140 mmol/L (136-145); TOTAL PROTEIN 6.3 g/dL (6.4-8.2); eGFR BLACK RACES > 60 (>60); eGFR NON BLACK RACES > 60 (>60)
[2016-10-16] MEDS: NS 1000 ML 1,000 ML IV SCH ×2 (05:55→09:01)
[2016-10-16 06:20] LABS: BASOPHILS % (AUTO) 0.7 % (0.2-1.0); EOSINOPHILS % (AUTO) 2.7 % (0.9-2.9); HEMATOCRIT 24.8 % (36.0-47.0); HEMOGLOBIN 8.3 g/dL (12.0-16.0); LYMPHOCYTES # (AUTO) 0.5 X10^3/uL (1.3-2.9); LYMPHOCYTES % (AUTO) 37.1 % (21.0-51.0); MEAN CORPUSCULAR HGB CONC 33.4 g/dL (33.0-35.0); MEAN CORPUSCULAR VOLUME 81.1 fL (80.0-100.0); MEAN PLATELET VOLUME 8.5 fL (7.4-11.0); MONOCYTES # (AUTO) 0.1 x10^3/uL (0.3-0.8); MONOCYTES % (AUTO) 8.1 % (0.0-13.0); NEUTROPHILS # (AUTO) 0.7 x10^3/uL (2.2-4.8); NEUTROPHILS % (AUTO) 51.4 % (42.0-75.0); PLATELET COUNT 44 X10^3/uL (150.0-450.0); RED BLOOD COUNT 3.06 X10^6/uL (3.5-5.4); RED CELL DISTRIBUTION WIDTH 19.2 % (11.6-16.5)
[2016-10-16 06:38] LABS: WHITE BLOOD COUNT 1.4 X10^3/uL (3.6-10.0)
[2016-10-16 06:52] LABS: PLATELET MORPHOLOGY COMMENT NORMAL (NORMAL)
[2016-10-16 06:59] LABS: ERYTHROCYTE SEDIMENTATION RATE 44 MM/HOUR (0-20)
[2016-10-16] MEDS: LEVAQUIN PREMIX IV 750 MG 750 MG/150 ML BAG IV SCH (09:01)
[2016-10-16] MEDS: ROXICODONE TAB 5 MG PO PRN ×2 (09:02→15:21)
[2016-10-16] MEDS: LOVENOX INJ 120 MG SYR SC SCH (09:04)
[2016-10-16] MEDS: NICODERM PATCH 21 MG/24 HR TD SCH (09:07)
[2016-10-16] MEDS: TEFLARO 600 MG in NS 50 ML IV + SPIKE MINIBAG* 50 ML IV SCH (10:30)
[2016-10-16] MEDS: PEPCID 20 MG IV PREMIX* 20 MG/50 ML BAG IV SCH (11:45)
[2016-10-16 13:27] VITALS: BP 128/61
== END 2016-10-16 15:50 | disposition home or self-care (01) | DRG 300 ==
LOC: ER 04:21 → OBSVTOIN 08:30 → MED/SURG 08:30
PROVIDERS: ADMIT Internal Medicine; ATTEND Internal Medicine
DX: I82.811 Embolism and thrombosis of superficial veins of right lower extremity (principal); L03.115 Cellulitis of right lower limb; E87.1 Hypo-osmolality and hyponatremia; F31.89 Other bipolar disorder; F20.89 Other schizophrenia; I82.411 Acute embolism and thrombosis of right femoral vein; E11.65 Type 2 diabetes mellitus with hyperglycemia; K21.9 Gastro-esophageal reflux disease without esophagitis; D47.3 Essential (hemorrhagic) thrombocythemia; M13.89 Other specified arthritis, multiple sites; K74.60 Unspecified cirrhosis of liver; K72.10 Chronic hepatic failure without coma; R10.13 Epigastric pain; Z86.19 Personal history of other infectious and parasitic diseases
CPT/HCPCS: 36415; 80053; 82140; 83605; 85025; 85378; 85652; 86140; 87040; 93970; 96365; 96367; 96374; 96375; 99284; A4222; Q0169; S0028; J0712; J1200; J1650; J1815; J1956; J2270; J2543; J3370

== ENCOUNTER 2016-10-26 20:46 | Inpatient (IN) | payer SELFPAY ==
[2016-10-26] MEDS ORDERED: VANCOMYCIN 1 GM PREMIX (ADDVANTAGE) 250 ML IV ONE (21:23)
[2016-10-26] MEDS ORDERED: NS 1000 ML 1,000 ML ONE (21:24)
--- NOTE | 2016-10-26 21:27 | DR.GENAD ---
HPI - PCP Primary Care Physician: JOSELINE - Complaint/Symptoms Chief Complaint Doctors Comments: Patient states she has a blood clot in her right leg and is taking Eliquis 10mg po bid for the past month. States she was taking two antibiotics at home and finished one antibiotic yesterday and is still taking Septra but her right legs continues to swell, hurt and has turned red. She has been having fever, chills, and feeling cold at times. States the pain is 10 of 10. States her last tetanus was 2009. She has had decreased appetite and she has not been eating. States she is a diabetic but she does not check her glucose at home because she is out of her stripes and her machine does not work and she does not have the money to buy the test stripes. States she is a patient of Dr. Dyer and she was recently admitted for DVT right leg. She denies any recent trauma. She is complaining of SOB at times. Chief Complaint:: "I WAS ADMITTED HERE UNDER FOR MY LEGS, DEEP VEIN BLOOD CLOT IN MY RIGHT LEG. I SEEN NATALIYA YESTERDAY SHE SAID IT WAS IMPROVING, BUT SLOWLY BC I HAVE HEP C. TODAY IT SEEMS WORSE AND THE LEFT LEG LOOKS BAD NOW. " - Nurses notes reviewed Nurses Notes Review: Yes - Source History Provided: Patient - Mode of Arrival Mode of Arrival: Ambulatory - Timing Onset of Chief Complaint: 10/26/16 Came on: Gradually - Duration Duration: Constant How lon Duration: Weeks - Location Location: right lower leg - Severity Severity: Severe - Modifying Factors Worsens:: movement and walking Improves:: nothing PMH - PMH Past Medical History: Yes Past Medical History: Anxiety, Diabetes, GERD, Liver Disease, PUD, Schizophrenia , Seizures Past Medical History Comment: HEPATITIS C Past Surgical History: Yes Surgical History: Hysterectomy, Ortho Surgery, Thyroidectomy - Family History History of Family Medical Conditions: Yes Family Medical History: Diabetes Mellitus, Cancer, Hypertension - Social History Type of Tobacco Use: Cigarettes Alcohol Use: None Do you use any recreational Drugs:: No Lives With: Spouse Lives Where: Home - infectious screening Have you traveled outside the country in the last 6 months?: No Isolation: Standard ROS - Review of Systems Constitutional: No Symptoms Reported, Chills, Fever, Weakness, Loss of Appetite. negative: See HPI, Diaphoresis, Malaise, Irritable, Fatigue, Other Eyes: No Symptoms Reported ENTM: No Symptoms Reported Respiratoy: No Symptoms Reported, Short of Breath. negative: See HPI, Productive Cough, Non-Productive Cough, Moist Cough, Dry Cough, Hacking Cough, Barking Cough, Brassy Cough, Orthopnea, Stridor, Wheezing, Hemoptysis, Other Cardiovascular: No Symptoms Reported. negative: See HPI, Chest Pain, Edema, Palpitations, Syncope, Cyanosis, Skin Mottling, Other Gastrointestinal/Abdominal: No Symptoms Reported. negative: See HPI, Abdominal Pain, Constipation, Diarrhea, Nausea, Vomiting, Food Intolerance, Other Genitourinary: No Symptoms Reported. negative: See HPI, Discharge, Dysuria, Frequency, Hematuria, Pain, Bleeding, Other Neurological: No Symptoms Reported, Weakness, Problems Walking (right leg pain and swelling). negative: See HPI, Anxiety, Depressed, Emotional Problems, Headache, Numbness, Paresthesia, Pre-existing Deficit, Seizure, Tingling, Tremors, Dizziness, Speech Problem, Other Musculoskeletal: No Symptoms Reported, Right, Leg (erythematous, swollen warm, tender) Integumentary: Change in Color, Lesions (right lower leg swollen, red, warm tibia area) Endocrine: No Symptoms Reported, Decreased Appetite Psychiatric: No Symptoms Reported PE - Vital Signs Vitals: Temperature 98.0 F Pulse Rate 98 Respiratory Rate 16 Blood Pressure [Right Arm] 109/61 Blood Pressure [Left Arm] 128/61 Blood Pressure 102/69 O2 Sat by Pulse Oximetry 98 - General Limitations: No Limitations General Appearance: Alert, In Distress (moderate) - Head Head Exam: Normal Inspection, Atraumatic, Normocephalic - Eyes Eye exam: Normal Appearance, PERRL, EOMI. negative: Scleral Icterus, Conjunctival Injection, Nystagmus, Miosis, Mydrasis, Periorbital Swelling, Periorbital Tenderness, Other - ENT ENT Exam: Normal Exam, Normal Oropharynx, Normal External Ear Exam, Mucous Membranes Moist, TM's Normal Bilaterally External Ear Exam: Normal External Inspection TM/Canal Exam: Bilateral Normal Nose Exam: Normal Nose Exam Mouth Exam: Normal Inspection Throat Exam: Normal Inspection. negative: Tonsillar Erythema, Tonsillomegaly, Tonsillar Exudate, R Peritonsillar Mass, L Peritonsillar Mass, Muffled Voice, Other - Neck Neck Exam: Normal Inspection, Full ROM, Trachea Midline. negative: Tenderness, Meningismus, Lymphadenopathy, Thyromegaly, Other - Chest Chest Inspection: Normal Inspection, Symmetric Chest Wall Rise. negative: Tenderness, Rash, Abscess, Other - Respiratory Respiratory Exam: Normal Lung Sounds Bilat. negative: Accessory Muscle Use, Chest Wall Tenderness, Prolonged Expiratory Phase, Respiratory Distress, Stridor , Other Respiratory Exam: Bilateral Clear to Auscultation - Cardiovascular Cardiovascular Exam: Regular Rate, Normal Rhythm, Normal Heart Sounds - Abdominal Exam Abdominal Exam: Normal Inspection, Normal Bowel Sounds, Soft. negative: Distention, Tenderness, Guarding, Rebound, Rigidity, Dimnished Bowel Sounds, Hyperactive Bowel Sounds, Hypoactive Bowel Sounds, Organomegaly, Trauma, Incision, Ascites, Mass, Bruit, Pulsatile Mass, Hernia, Other Abdominal Tenderness: negative: RUQ, RLQ, LUQ, LLQ, Epigastrium, Suprapubic, Diffuse, Mild, Moderate, Severe, Other - Extremities Extremities Exam: Normal Inspection, Full ROM, Tenderness (right lower leg with erythema, swelling, tenderness), Normal Capillary Refill, Edema, Calf Tenderness (right calf tenderness) - Back Back Exam: Normal Inspection, Full ROM. negative: Tenderness, (R) CVA Tenderness, (L) CVA Tenderness, Muscle Spasm, Paraspinal Tenderness, Vertebral Tenderness, Rashes, (R) Sciatic Notch Tenderness, (L) Sciatic Notch Tendern, (R ) Straight Leg Raise, (L) Straight Leg Raise, Other - Neurologic Neurological Exam: Alert, Oriented X3, CN II-XII Intact, Reflexes Normal. negative: Normal Gait (patient hopping on right leg) - Psychiatric Psychiatric Exam: Normal Affect, Normal Mood. negative: Depressed, Agitated, Anxious, Flat Affect, Manic, Homicidal Ideation, Suicidal Ideation, Other - Skin Skin Exam: Warm, Dry, Intact, Normal Color, Erythema (right lower leg with erythema, swelling) Course - Reevaluation 1st: Improved - Consultation Called: 23:34 Call Returned: 23:34 (Dr. Schwarz to admit) - Education/Counseling Education/Counseling: Patient, Family Educated On: Treatment, Diagnosis, Needs for Follow Up ROR - Labs Reviewed Laboratory Results Reviewed?: Yes (All labs and x-ray results reviewed and discussed with patient) Result Diagrams: 10/26/16 21:30 10/26/16 21:30 Laboratory: WBC 2.5 X10^3/uL (3.6-10.0) L 10/26/16 21:30 RBC 3.73 X10^6/uL (3.5-5.4) 10/26/16 21:30 Hgb 9.7 g/dL (12.0-16.0) L 10/26/16 21:30 Hct 29.7 % (36.0-47.0) L 10/26/16 21: MCV 79.5 fL (80.0-100.0) L 10/26/16 21:30 MCH 26.1 pg (27.0-34.0) L 10/26/16 21: MCHC 32.8 g/dL (33.0-35.0) L 10/26/16 21: RDW 19.6 % (11.6-16.5) H 10/26/16 21: Plt Count 37 X10^3/uL (150.0-450.0) L 10/26/16 21: Plt Count Comment Decreased (ADEQUATE) A 10/26/16 21: MPV 8.4 fL (7.4-11.0) 10/26/16 21:30 Neut % 49.8 % (42.0-75.0) 10/26/16 21: Lymph % 38.7 % (21.0-51.0) 10/26/16 21: [place] % 8.1 % (0.0-13.0) 10/26/16 21: Eos % 2.9 % (0.9-2.9) 10/26/16 21: Baso % 0.5 % (0.2-1.0) 10/26/16 21:30 Neut # 1.2 x10^3/uL (2.2-4.8) L 10/26/16 21:30 Lymph # 1.0 X10^3/uL (1.3-2.9) L 10/26/16 21:30 [place] # 0.2 x10^3/uL (0.3-0.8) L 10/26/16 21:30 Eos # 0.1 x10^3/uL (0.0-0.2) 10/26/16 21: Baso # 0.0 X10^3/uL (0.0-0.1) 10/26/16 21:30 Absolute Nucleated RBC 0.1 /100WBC 10/26/16 21:30 Plt Morphology Comment Normal (NORMAL) 10/26/16 21:30 RBC Morphology Abnormal (NORMAL) A 10/26/16 21:30 Hypochromasia Slight A 10/26/16 21:30 Microcytosis Slight A 10/26/16 21:30 Sodium 139 mmol/L (136-145) 10/26/16 21:30 Corrected Sodium TNP 10/26/16 21:30 Potassium 3.6 mmol/L (3.5-5.1) 10/26/16 21:30 Chloride 105 mmol/L (98-107) 10/26/16 21:30 Carbon Dioxide 28.8 mmol/L (21-32) 10/26/16 21:30 BUN 8 mg/dL (7-18) 10/26/16 21:30 Creatinine 1.00 mg/dL (0.55-1.02) 10/26/16 21:30 Est GFR (MDRD) Af Amer > 60 (>60) 10/26/16 21:30 Est GFR (MDRD) Non-Af > 60 (>60) 10/26/16 21:30 Glucose 95 mg/dL (65-99) 10/26/16 21:30 Lactic Acid 1.5 mmol/L (0.4-2.0) 10/26/16 21:30 Calcium 8.2 mg/dL (8.5-10.1) L 10/26/16 21:30 Corrected Calcium 9.6 mg/dL (8.5-10.1) 10/26/16 21:30 Total Bilirubin 0.80 mg/dL (0.2-1.0) 10/26/16 21:30 AST 55 Units/L (15-37) H 10/26/16 21:30 ALT 29 Units/L (12-78) 10/26/16 21:30 Alkaline Phosphatase 158 Units/L (46-116) H 10/26/16 21:30 Total Protein 7.9 g/dL (6.4-8.2) 10/26/16 21:30 Albumin 2.2 g/dL (3.4-5.0) L 10/26/16 21:30 Globulin 5.7 g/dL (2.5-4.5) H 10/26/16 21:30 Albumin/Globulin Ratio 0.4 Ratio (1.1-2.1) L 10/26/16 21:30 - XRAY XRAY Interpreted by: Radiologist ( No acaute acardiopulmonary abnormality) - Diagnosis Discharge Problem: Cellulitis of right leg, Right leg DVT, Pancytopenia, Diabetes mellitus, Failure of outpatient treatment - Discharge Plan Disposition: ADMITTED INPATIENT Condition: Stable - Follow ups/Referrals Follow ups/Referrals: NFD,None [Primary Care Provider] - 3 days - Instructions
[2016-10-26 21:45] LABS: BASOPHILS % (AUTO) 0.5 % (0.2-1.0); EOSINOPHILS # (AUTO) 0.1 x10^3/uL (0.0-0.2); EOSINOPHILS % (AUTO) 2.9 % (0.9-2.9); HEMATOCRIT 29.7 % (36.0-47.0); HEMOGLOBIN 9.7 g/dL (12.0-16.0); LYMPHOCYTES % (AUTO) 38.7 % (21.0-51.0); MEAN CORPUSCULAR HEMOGLOBIN 26.1 pg (27.0-34.0); MEAN CORPUSCULAR HGB CONC 32.8 g/dL (33.0-35.0); MEAN CORPUSCULAR VOLUME 79.5 fL (80.0-100.0); MEAN PLATELET VOLUME 8.4 fL (7.4-11.0); MONOCYTES # (AUTO) 0.2 x10^3/uL (0.3-0.8); MONOCYTES % (AUTO) 8.1 % (0.0-13.0); NEUTROPHILS # (AUTO) 1.2 x10^3/uL (2.2-4.8); NEUTROPHILS % (AUTO) 49.8 % (42.0-75.0); PLATELET COUNT 37 X10^3/uL (150.0-450.0); RED BLOOD COUNT 3.73 X10^6/uL (3.5-5.4); RED CELL DISTRIBUTION WIDTH 19.6 % (11.6-16.5); WHITE BLOOD COUNT 2.5 X10^3/uL (3.6-10.0)
[2016-10-26 21:47] LABS: PLATELET MORPHOLOGY COMMENT NORMAL (NORMAL)
[2016-10-26 21:48] LABS: HYPOCHROMASIA SLIGHT; MICROCYTOSIS SLIGHT
[2016-10-26 21:54] LABS: ALANINE AMINOTRANSFERASE 29 Units/L (12-78); ALBUMIN 2.2 g/dL (3.4-5.0); ALKALINE PHOSPHATASE 158 Units/L (46-116); ASPARTATE AMINO TRANSFERASE 55 Units/L (15-37); BLOOD UREA NITROGEN 8 mg/dL (7-18); CALCIUM 8.2 mg/dL (8.5-10.1); CARBON DIOXIDE 28.8 mmol/L (21-32); CHLORIDE 105 mmol/L (98-107); COR CA(FOR HYPOALB) 9.6 mg/dL (8.5-10.1); GLUCOSE 95 mg/dL (65-99); SODIUM 139 mmol/L (136-145); TOTAL PROTEIN 7.9 g/dL (6.4-8.2); eGFR BLACK RACES > 60 (>60); eGFR NON BLACK RACES > 60 (>60)
[2016-10-26 21:57] LABS: LACTIC ACID 1.5 mmol/L (0.4-2.0)
[2016-10-26] MEDS ORDERED: NS 1000 ML 1,000 ML IV SCH (22:00)
[2016-10-26] MEDS ORDERED: VANCOMYCIN HCL 1 GM VIAL IV SCH (22:00)
--- NOTE | 2016-10-26 22:01 | RAD ---
PA and lateral Chest Indication: Leg pain and DVT Comparison: 10/07/2016 Findings: The trachea is midline. The cardiac silhouette is unremarkable. The lungs are clear without focal infiltrate or effusion. The bony thorax is unremarkable. IMPRESSION: 1. No acute cardiopulmonary abnormality. Reported By:
[2016-10-27] MEDS ORDERED: NS 1/2 1000 ML IV 1,000 ML IV ONE ×2 (00:50→09:44)
[2016-10-27] MEDS ORDERED: XANAX ONE (00:50)
[2016-10-27] MEDS: NS 1/2 1000 ML IV 1,000 ML IV SCH ×3 (00:56→23:46)
[2016-10-27] MEDS: XANAX PO PRN ×2 (00:57→17:20)
[2016-10-27] MEDS: ELIQUIS PO SCH ×4 (00:58→20:50)
[2016-10-27] MEDS: MORPHINE SULFATE INJ 2 MG IVP PRN ×5 (00:58→21:05)
[2016-10-27 01:51] LABS: BILIRUBIN,URINE 1+ (NEGATIVE); BLOOD/HEMOGLOBIN,URINE 5+ (NEGATIVE); GLUCOSE, URINE NEGATIVE (NEGATIVE); KETONES,URINE NEGATIVE (NEGATIVE); LEUKOCYTE ESTERASE ,URINE 1+ (NEGATIVE); NITRITES,URINE NEGATIVE (NEGATIVE); PH,URINE 6.5 (5.0 - 8.0); PROTEIN,URINE 2+ (NEGATIVE); UROBILINOGEN,URINE 4+ (NORMAL)
[2016-10-27 02:07] LABS: APPEARANCE,URINE CLOUDY (CLEAR); BACTERIA,URINE 4+ /HPF (NEGATIVE); COLOR,URINE BROWN (YELLOW); RBC,URINE 80-100 /HPF (NEGATIVE); SQUAMOUS EPITHELIAL CELL,UR FEW /HPF (NEGATIVE)
[2016-10-27 02:08] LABS: MUCUS,URINE FEW /HPF (NEGATIVE)
[2016-10-27 03:48] LABS: BASOPHILS % (AUTO) 0.3 % (0.2-1.0); EOSINOPHILS # (AUTO) 0.1 x10^3/uL (0.0-0.2); EOSINOPHILS % (AUTO) 2.6 % (0.9-2.9); HEMATOCRIT 25.4 % (36.0-47.0); HEMOGLOBIN 8.4 g/dL (12.0-16.0); LYMPHOCYTES # (AUTO) 0.8 X10^3/uL (1.3-2.9); LYMPHOCYTES % (AUTO) 40.6 % (21.0-51.0); MEAN CORPUSCULAR HEMOGLOBIN 26.5 pg (27.0-34.0); MEAN CORPUSCULAR HGB CONC 33.2 g/dL (33.0-35.0); MEAN CORPUSCULAR VOLUME 79.9 fL (80.0-100.0); MEAN PLATELET VOLUME 8.4 fL (7.4-11.0); MONOCYTES # (AUTO) 0.2 x10^3/uL (0.3-0.8); MONOCYTES % (AUTO) 10.2 % (0.0-13.0); NEUTROPHILS % (AUTO) 46.3 % (42.0-75.0); PLATELET COUNT 31 X10^3/uL (150.0-450.0); RED BLOOD COUNT 3.18 X10^6/uL (3.5-5.4); RED CELL DISTRIBUTION WIDTH 19.8 % (11.6-16.5); WHITE BLOOD COUNT 2.1 X10^3/uL (3.6-10.0)
[2016-10-27 03:54] LABS: ALANINE AMINOTRANSFERASE 24 Units/L (12-78); ALBUMIN 1.9 g/dL (3.4-5.0); ALKALINE PHOSPHATASE 121 Units/L (46-116); ASPARTATE AMINO TRANSFERASE 49 Units/L (15-37); BLOOD UREA NITROGEN 7 mg/dL (7-18); CALCIUM 7.7 mg/dL (8.5-10.1); CARBON DIOXIDE 27.7 mmol/L (21-32); CHLORIDE 105 mmol/L (98-107); COR CA(FOR HYPOALB) 9.4 mg/dL (8.5-10.1); COR NA(FOR HYPERGLY) 138 mmol/L (136-145); CREATININE 0.92 mg/dL (0.55-1.02); GLUCOSE 116 mg/dL (65-99); SODIUM 138 mmol/L (136-145); TOTAL PROTEIN 6.7 g/dL (6.4-8.2); eGFR BLACK RACES > 60 (>60); eGFR NON BLACK RACES > 60 (>60)
[2016-10-27 05:04] LABS: ANISOCYTOSIS SLIGHT; PLATELET MORPHOLOGY COMMENT NORMAL (NORMAL)
[2016-10-27] MEDS ORDERED: NS 100 ML IV + SPIKE MINIBAG* 100 ML IV ONE (06:08)
[2016-10-27] MEDS ORDERED: ZOSYN VIAL 3.375 GM IV ONE (06:08)
[2016-10-27] MEDS: ZOSYN VIAL 3.375 GM 3.375 GM in NS 100 ML IV + SPIKE MINIBAG* 100 ML IV SCH ×3 (06:15→21:05)
[2016-10-27] MEDS ORDERED: VANCOMYCIN 1 GM PREMIX (ADDVANTAGE) 250 ML IV SCH (09:00)
[2016-10-27] MEDS ORDERED: NS 250 ML IV 250 ML IV ONE (09:49)
[2016-10-27] MEDS ORDERED: VANCOMYCIN HCL 500 MG VIAL ONE (09:50)
[2016-10-27] MEDS ORDERED: VANCOMYCIN HCL 1 GM VIAL ONE (09:50)
[2016-10-27] MEDS: VANCOMYCIN HCL 500 MG VIAL 500 MG, VANCOMYCIN HCL 1 GM VIAL 1 GM in D5W 250 ML IV 250 ML IV SCH ×2 (09:54→20:50)
--- NOTE | 2016-10-27 10:23 | DR.H&P ---
H&P - History & Physical for Day of: H&P Date: 10/26/16 (3) - Chief Complaint Chief Complaint: lower extremity pain and swelling - Allergies Allergies/Adverse Reactions: Allergies Allergy/AdvReac Type Severity Reaction Status Date / Time acetaminophen Allergy Verified 10/26/16 20:53 aloe Allergy Verified 10/26/16 20:53 codeine Allergy Verified 10/26/16 20:53 ketorolac [From Toradol] Allergy Verified 10/26/16 20:53 sumatriptan [From Imitrex] Allergy Verified 10/26/16 20:53 - History of Present Illness History of Present Illness: Patient present to the emergency room with complaints of pain and swellling in right leg, pateint has recently been hospitlized with dvt and cellulitis and was started on eliquin and iv antibioticx - Past Medical History Past Medical History: Anxiety, Diabetes, GERD, Liver Disease, PUD, Schizophrenia , Seizures Additional Medical History: 1. DM; type II. 2. Anxiety/depressive disorder. 3. Bipolar disorder. 4. Insomnia. 5. Chonic low back pain; with self reported history of multiple herniated disk - this has not been substantiated. 6. H/O colon polyps. 7. H/O endometriosis. 8. Questionable generalized seizure disorder. 9. Hepatitis C - Past Surgical History Surgical History: Hysterectomy, Ortho Surgery, Thyroidectomy Additional Surgical History: Pt reports having a colonoscopy and polypectomy two months ago in [place], [place] - Family History Family Medical History: Diabetes Mellitus, Cancer, Hypertension - Social History Does patient currently use any type of tobacco product: Yes Have you used tobacco products in the last 12 months: Yes Type of Tobacco Use: Cigarettes How many years tobacco product used: 30 Alcohol Use: None Drug Use: Prescription Drugs - Medications Home Medications: Albuterol Sulfate [VENTOLIN or PROAIR HFA] 2 puff INH Q4H PRN 10/26/16 [History Confirmed 10/26/16] Apixaban [Eliquis] 2 tabs PO BID 10/26/16 [History Confirmed 10/26/16] Metformin HCl [Metformin HCl ER (Osmotic] 1,000 mg PO DAILY 10/26/16 [History Confirmed 10/26/16] Gabapentin [Neurontin Cap 400 mg] 400 mg PO TID 10/27/16 [History Confirmed 08/08] - Review of Systems Constitutional: No Symptoms Reported Eyes: No Symptoms Reported ENT: No Symptoms Reported Respiratory: No Symptoms Reported Cardiovascular: No Symptoms Reported Gastrointestinal: No Symptoms Reported Genitourinary: No Symptoms Reported Musculoskeletal: Leg Pain (right leg ) Skin: Ecchymosis, Other Neurological: No Symptoms Reported - Physical Exam Vital Signs: Temperature 98.1 F Pulse Rate [Right Radial] 78 Respiratory Rate 20 Blood Pressure [Right Arm] 107/56 O2 Sat by Pulse Oximetry 96 Oriented: Normal Eyes: Normal Ear: Normal Nose: Normal Throat: Normal Respiratory: Clear Throughout Cardiovascular: Normal : Normal Auscultation: Bowel Sounds: Normal Palpation: Normal Tenderness: Normal Skin: Ecchymosis, Other (patient noted with ecchymosis bilateral lower extremities, cellutlitis noted to right loer extremitiy) Musculoskeletal: Normal Psychiatric: Normal Mood Description: Calm, Appropriate Affect: Normal Speech Pattern: Clear, Appropriate - Assessment/Plan (1) Hepatitis C Qualifiers: Viral hepatitis chronicity: V Hepatic coma status: H Status: Acute (2) Cellulitis of right leg Status: Acute Plan: start iv antibiotics (3) Right leg DVT Qualifiers: Affected thrombotic vein of extremity: A Chronicity: C Status: Acute
[2016-10-27] MEDS ORDERED: PATIENT'S HOME MEDICATION (Albuterol Sulfate 2 PUFF) INH PRN (10:24)
[2016-10-27] MEDS ORDERED: METFORMIN HCL 1000 MG PO SCH (10:30)
[2016-10-27] MEDS ORDERED: PROVENTIL NEB TX 0.083% 2.5MG/ 3ML NEB PRN (10:36)
[2016-10-27] MEDS: KLONOPIN TAB 1 MG PO SCH ×2 (10:52→20:49)
[2016-10-27] MEDS: NEURONTIN CAP 400 MG PO SCH ×3 (10:52→21:05)
[2016-10-27] MEDS: PHENERGAN TAB 25 MG PO PRN (10:53)
[2016-10-27] MEDS: ROXICODONE TAB 5 MG PO PRN (10:54)
[2016-10-27] MEDS: GLUCOPHAGE XR PO SCH (11:05)
[2016-10-27 21:25] VITALS: BMI 39.9
[2016-10-28 05:14] LABS: BASOPHILS % (AUTO) 0.4 % (0.2-1.0); EOSINOPHILS # (AUTO) 0.1 x10^3/uL (0.0-0.2); EOSINOPHILS % (AUTO) 3.4 % (0.9-2.9); HEMATOCRIT 25.8 % (36.0-47.0); HEMOGLOBIN 8.5 g/dL (12.0-16.0); LYMPHOCYTES # (AUTO) 0.6 X10^3/uL (1.3-2.9); LYMPHOCYTES % (AUTO) 39.4 % (21.0-51.0); MEAN CORPUSCULAR HEMOGLOBIN 26.7 pg (27.0-34.0); MEAN CORPUSCULAR HGB CONC 32.8 g/dL (33.0-35.0); MEAN CORPUSCULAR VOLUME 81.2 fL (80.0-100.0); MEAN PLATELET VOLUME 8.7 fL (7.4-11.0); MONOCYTES # (AUTO) 0.2 x10^3/uL (0.3-0.8); MONOCYTES % (AUTO) 9.8 % (0.0-13.0); NEUTROPHILS # (AUTO) 0.7 x10^3/uL (2.2-4.8); PLATELET COUNT 34 X10^3/uL (150.0-450.0); RED BLOOD COUNT 3.17 X10^6/uL (3.5-5.4); RED CELL DISTRIBUTION WIDTH 19.5 % (11.6-16.5)
[2016-10-28 05:16] LABS: WHITE BLOOD COUNT 1.6 X10^3/uL (3.6-10.0)
[2016-10-28 05:21] LABS: ALANINE AMINOTRANSFERASE 27 Units/L (12-78); ALBUMIN 1.9 g/dL (3.4-5.0); ALKALINE PHOSPHATASE 184 Units/L (46-116); ASPARTATE AMINO TRANSFERASE 55 Units/L (15-37); BLOOD UREA NITROGEN 7 mg/dL (7-18); CALCIUM 7.7 mg/dL (8.5-10.1); CARBON DIOXIDE 31.4 mmol/L (21-32); CHLORIDE 105 mmol/L (98-107); COR CA(FOR HYPOALB) 9.4 mg/dL (8.5-10.1); COR NA(FOR HYPERGLY) 141 mmol/L (136-145); CREATININE 0.98 mg/dL (0.55-1.02); GLUCOSE 140 mg/dL (65-99); SODIUM 140 mmol/L (136-145); TOTAL PROTEIN 6.8 g/dL (6.4-8.2); eGFR BLACK RACES > 60 (>60); eGFR NON BLACK RACES > 60 (>60)
[2016-10-28 05:44] LABS: PLATELET MORPHOLOGY COMMENT NORMAL (NORMAL)
[2016-10-28 05:45] LABS: HYPOCHROMASIA SLIGHT
[2016-10-28 05:46] LABS: ANISOCYTOSIS SLIGHT; OVALOCYTES NOTED
[2016-10-28] MEDS: ZOSYN VIAL 3.375 GM 3.375 GM in NS 100 ML IV + SPIKE MINIBAG* 100 ML IV SCH ×3 (06:00→21:05)
[2016-10-28] MEDS: NEURONTIN CAP 400 MG PO SCH ×3 (06:00→21:05)
[2016-10-28] MEDS ORDERED: PHARMACY COMMENT IV SCH (08:45)
[2016-10-28 09:13] LABS: CREATININE 0.97 mg/dL (0.55-1.02); VANCOMYCIN,TROUGH 12.2 ug/mL (15-20)
[2016-10-28] MEDS: GLUCOPHAGE XR PO SCH (09:33)
[2016-10-28] MEDS: KLONOPIN TAB 1 MG PO SCH ×2 (09:33→20:43)
[2016-10-28] MEDS: ELIQUIS PO SCH ×2 (09:34→20:42)
[2016-10-28] MEDS ORDERED: NEUPOGEN SC NR (10:00)
[2016-10-28] MEDS: VANCOMYCIN HCL 500 MG VIAL 500 MG, VANCOMYCIN HCL 1 GM VIAL 1 GM in D5W 250 ML IV 250 ML IV SCH ×2 (10:18→20:41)
[2016-10-28] MEDS ORDERED: NS 1/2 1000 ML IV 1,000 ML IV ONE (15:39)
[2016-10-28] MEDS: NICODERM PATCH 21 MG/24 HR TD SCH (15:41)
[2016-10-28] MEDS: NS 1/2 1000 ML IV 1,000 ML IV SCH ×3 (15:41→16:19)
[2016-10-28] MEDS: MORPHINE SULFATE INJ 2 MG IVP PRN (20:43)
[2016-10-28] MEDS: ROXICODONE TAB 5 MG PO PRN (23:12)
[2016-10-29] MEDS: NS 1/2 1000 ML IV 1,000 ML IV SCH ×3 (00:39→18:18)
[2016-10-29] MEDS: MORPHINE SULFATE INJ 2 MG IVP PRN (03:30)
[2016-10-29 05:02] LABS: ALANINE AMINOTRANSFERASE 27 Units/L (12-78); ALBUMIN 1.9 g/dL (3.4-5.0); ALKALINE PHOSPHATASE 153 Units/L (46-116); ASPARTATE AMINO TRANSFERASE 53 Units/L (15-37); BLOOD UREA NITROGEN 7 mg/dL (7-18); CALCIUM 8.2 mg/dL (8.5-10.1); CARBON DIOXIDE 28.8 mmol/L (21-32); CHLORIDE 107 mmol/L (98-107); COR CA(FOR HYPOALB) 9.9 mg/dL (8.5-10.1); CREATININE 0.81 mg/dL (0.55-1.02); GLUCOSE 84 mg/dL (65-99); SODIUM 140 mmol/L (136-145); eGFR BLACK RACES > 60 (>60); eGFR NON BLACK RACES > 60 (>60)
[2016-10-29 05:42] LABS: BASOPHILS % (AUTO) 0.2 % (0.2-1.0); EOSINOPHILS # (AUTO) 0.1 x10^3/uL (0.0-0.2); EOSINOPHILS % (AUTO) 1.4 % (0.9-2.9); HEMATOCRIT 26.7 % (36.0-47.0); LYMPHOCYTES # (AUTO) 0.7 X10^3/uL (1.3-2.9); LYMPHOCYTES % (AUTO) 15.1 % (21.0-51.0); MEAN CORPUSCULAR HEMOGLOBIN 26.8 pg (27.0-34.0); MEAN CORPUSCULAR HGB CONC 33.6 g/dL (33.0-35.0); MEAN CORPUSCULAR VOLUME 79.6 fL (80.0-100.0); MEAN PLATELET VOLUME 9.1 fL (7.4-11.0); MONOCYTES # (AUTO) 0.3 x10^3/uL (0.3-0.8); MONOCYTES % (AUTO) 6.2 % (0.0-13.0); NEUTROPHILS # (AUTO) 3.6 x10^3/uL (2.2-4.8); NEUTROPHILS % (AUTO) 77.1 % (42.0-75.0); PLATELET COUNT 34 X10^3/uL (150.0-450.0); RED BLOOD COUNT 3.35 X10^6/uL (3.5-5.4); RED CELL DISTRIBUTION WIDTH 19.9 % (11.6-16.5); WHITE BLOOD COUNT 4.6 X10^3/uL (3.6-10.0)
[2016-10-29 05:45] LABS: ANISOCYTOSIS SLIGHT; HYPOCHROMASIA SLIGHT; OVALOCYTES NOTED; PLATELET MORPHOLOGY COMMENT NORMAL (NORMAL)
[2016-10-29] MEDS: ZOSYN VIAL 3.375 GM 3.375 GM in NS 100 ML IV + SPIKE MINIBAG* 100 ML IV SCH ×3 (05:51→20:59)
[2016-10-29] MEDS: NEURONTIN CAP 400 MG PO SCH ×3 (05:51→21:00)
[2016-10-29] MEDS: HumuLIN R SC PRN ×3 (05:58→20:53)
[2016-10-29] MEDS: GLUCOPHAGE XR PO SCH (08:33)
[2016-10-29] MEDS: ELIQUIS PO SCH ×2 (08:33→20:56)
[2016-10-29] MEDS: KLONOPIN TAB 1 MG PO SCH ×2 (08:34→20:56)
[2016-10-29] MEDS: NICODERM PATCH 21 MG/24 HR TD SCH ×2 (08:34→08:36)
[2016-10-29] MEDS: VANCOMYCIN HCL 500 MG VIAL 500 MG, VANCOMYCIN HCL 1 GM VIAL 1 GM in D5W 250 ML IV 250 ML IV SCH ×2 (09:12→20:54)
[2016-10-29] MEDS: XANAX PO PRN ×2 (09:53→19:38)
[2016-10-29] MEDS ORDERED: NS 1/2 1000 ML IV 1,000 ML IV ONE (10:36)
--- NOTE | 2016-10-29 13:46 | PCM.PROG ---
Progress Note - Progress Note for Day of Date: 10/29/16 - Subjective Subjective: 46 WF ADMITTED FROM ER WITH CO LOWER EXREMITY PAIN AND CELLULITIS. PT WAS RECENTLY DX WITH DVT TO RLE AND THROMBOPHLEBITIS, HAS TAKEN BACTRIM BY MOUTH WITH IMPROVING REDNESS. PT CURRENTLY ON IV ATBX, ERYTHEMA MUCH IMPROVED FROM OFFICE VISIT LAST SATURDAY. INCREASED SLURRED SPEECH, WILL CHECK AMMONIA LEVELS, START LACTULOSE TID, REPEAT AM LABS - Past Medical Family Social History Past Med/Fam/Surg Hx: No changes since H&P Allergies: Allergies acetaminophen Allergy (Verified 10/26/16 20:53) aloe Allergy (Verified 10/26/16 20:53) codeine Allergy (Verified 10/26/16 20:53) ketorolac [From Toradol] Allergy (Verified 10/26/16 20:53) sumatriptan [From Imitrex] Allergy (Verified 10/26/16 20:53) - Review of Systems ROS: No change since H&P - Vital Signs and I&O's Vital Signs: Temperature 98.4 F Pulse Rate [Right Radial] 95 Pulse Rate 90 Respiratory Rate 20 Blood Pressure [Right Arm] 122/78 Blood Pressure [Left Arm] 133/75 O2 Sat by Pulse Oximetry 95 Intake and Output: Intake & Output 10/27/16 10/28/16 10/29/16 10/30/16 11:59 11:59 11:59 11:59 Intake Total 480 2725 2260 Output Total 850 400 Balance -370 2325 2260 - Physical Exam Oriented: Normal Eyes: Normal Ear: Normal Nose: Normal Throat: Normal Cardiovascular: Normal : Normal Auscultation: Bowel Sounds: Normal Tenderness: Normal Skin: Ecchymosis, Other (patient noted with ecchymosis bilateral lower extremities, cellutlitis noted to right loer extremitiy) Musculoskeletal: Leg Psychiatric: Normal Mood Description: Calm, Appropriate Affect: Normal Speech Pattern: Appropriate, Slurred - Laboratory and Diagnostics Result Diagrams: 10/29/16 03:10 10/29/16 03:10 Labs: 10/27/16 01:26 Urine,Clean Catch Urine Culture - Final Laboratory WBC 4.6 X10^3/uL (3.6-10.0) 10/29/16 03:10 RBC 3.35 X10^6/uL (3.5-5.4) L 10/29/16 03:10 Hgb 9.0 g/dL (12.0-16.0) L 10/29/16 03:10 Hct 26.7 % (36.0-47.0) L 10/29/16 03:10 MCV 79.6 fL (80.0-100.0) L 10/29/16 03:10 MCH 26.8 pg (27.0-34.0) L 10/29/16 03:10 MCHC 33.6 g/dL (33.0-35.0) 10/29/16 03:10 RDW 19.9 % (11.6-16.5) H 10/29/16 03:10 Plt Count 34 X10^3/uL (150.0-450.0) L 10/29/16 03:10 Plt Count Comment Decreased (ADEQUATE) A 10/29/16 03:10 MPV 9.1 fL (7.4-11.0) 10/29/16 03:10 Neut % 77.1 % (42.0-75.0) H 10/29/16 03:10 Lymph % 15.1 % (21.0-51.0) L 10/29/16 03:10 [place] % 6.2 % (0.0-13.0) 10/29/16 03:10 Eos % 1.4 % (0.9-2.9) 10/29/16 03:10 Baso % 0.2 % (0.2-1.0) 10/29/16 03:10 Neut # 3.6 x10^3/uL (2.2-4.8) 10/29/16 03:10 Lymph # 0.7 X10^3/uL (1.3-2.9) L 10/29/16 03:10 [place] # 0.3 x10^3/uL (0.3-0.8) 10/29/16 03:10 Eos # 0.1 x10^3/uL (0.0-0.2) 10/29/16 03:10 Baso # 0.0 X10^3/uL (0.0-0.1) 10/29/16 03:10 Absolute Nucleated RBC 0.7 /100WBC 10/29/16 03:10 Total Counted 100 10/27/16 03:20 Neutrophils % (Manual) 58 % (39-76) 10/27/16 03:20 Lymphocytes % (Manual) 36 % (13-43) 10/27/16 03:20 Monocytes % (Manual) 4 % (4-9) 10/27/16 03:20 Eosinophils % (Manual) 2 % (0-6) 10/27/16 03:20 Plt Morphology Comment Normal (NORMAL) 10/29/16 03:10 RBC Morphology Abnormal (NORMAL) A 10/29/16 03:10 Hypochromasia Slight A 10/29/16 03:10 Anisocytosis Slight A 10/29/16 03:10 Microcytosis Slight A 10/26/16 21:30 Ovalocytes Noted 10/29/16 03:10 Sodium 140 mmol/L (136-145) 10/29/16 03:10 Corrected Sodium TNP 10/29/16 03:10 Potassium 3.7 mmol/L (3.5-5.1) 10/29/16 03:10 Chloride 107 mmol/L (98-107) 10/29/16 03:10 Carbon Dioxide 28.8 mmol/L (21-32) 10/29/16 03:10 BUN 7 mg/dL (7-18) 10/29/16 03:10 Creatinine 0.81 mg/dL (0.55-1.02) 10/29/16 03:10 Est GFR (MDRD) Af Amer > 60 (>60) 10/29/16 03:10 Est GFR (MDRD) Non-Af > 60 (>60) 10/29/16 03:10 Glucose 84 mg/dL (65-99) 10/29/16 03:10 Lactic Acid 1.5 mmol/L (0.4-2.0) 10/26/16 21:30 Calcium 8.2 mg/dL (8.5-10.1) L 10/29/16 03:10 Corrected Calcium 9.9 mg/dL (8.5-10.1) 10/29/16 03:10 Total Bilirubin 1.00 mg/dL (0.2-1.0) 10/29/16 03:10 AST 53 Units/L (15-37) H 10/29/16 03:10 ALT 27 Units/L (12-78) 10/29/16 03:10 Alkaline Phosphatase 153 Units/L (46-116) H 10/29/16 03:10 Ammonia 97 umol/L (11-32) H 10/29/16 08:51 Total Protein 7.0 g/dL (6.4-8.2) 10/29/16 03:10 Albumin 1.9 g/dL (3.4-5.0) L 10/29/16 03:10 Globulin 5.1 g/dL (2.5-4.5) H 10/29/16 03:10 Albumin/Globulin Ratio 0.4 Ratio (1.1-2.1) L 10/29/16 03:10 Specimen Type Clean catch urine 10/27/16 01:26 Urine Color Brown (YELLOW) 10/27/16 01:26 Urine Appearance Cloudy (CLEAR) 10/27/16 01:26 Urine pH 6.5 (5.0 - 8.0) 10/27/16 01:26 Ur Specific [place] 1.015 (1.000-1.030) 10/27/16 01:26 Urine Protein 2+ (NEGATIVE) 10/27/16 01:26 Urine Glucose (UA) Negative (NEGATIVE) 10/27/16 01:26 Urine Ketones Negative (NEGATIVE) 10/27/16 01:26 Urine Occult Blood 5+ (NEGATIVE) 10/27/16 01:26 Urine Nitrite Negative (NEGATIVE) 10/27/16 01:26 Urine Bilirubin 1+ (NEGATIVE) 10/27/16 01:26 Urine Urobilinogen 4+ (NORMAL) 10/27/16 01:26 Ur Leukocyte Esterase 1+ (NEGATIVE) 10/27/16 01:26 Urine RBC 80-100 /HPF (NEGATIVE) 10/27/16 01:26 Urine WBC 10-20 /HPF (NEGATIVE) 10/27/16 01:26 Ur Squamous Epith Cells Few /HPF (NEGATIVE) 10/27/16 01:26 Urine Bacteria 4+ /HPF (NEGATIVE) 10/27/16 01:26 Urine Mucus Few /HPF (NEGATIVE) 10/27/16 01:26 Ur Culture Indicated? Yes/culture set up 10/27/16 01:26 Vancomycin Trough 12.2 ug/mL (15-20) L 10/28/16 08:32 - Plan (1) Cellulitis of right leg Status: Acute Plan: iv antibiotics (2) Liver failure Status: Acute Qualifiers: Liver failure chronicity: L Hepatic coma status: H Plan: AMMONIA LEVELS, LACTULOSE. REPEAT AM LABS, MONITOR AMS (3) Diabetes mellitus Status: Acute Qualifiers: Diabetes mellitus type: D Diabetes mellitus complication status: D Diabetes mellitus complication detail: D Diabetic retinopathy severity: D Proliferative retinopathy type: P Diabetes mellitus macular edema: D Diabetes mellitus [facility] insulin use: D Laterality: L Chronic kidney disease stage: C (4) Hepatitis C Status: Acute Qualifiers: Viral hepatitis chronicity: V Hepatic coma status: H (5) Pancytopenia Status: Acute (6) GERD (gastroesophageal reflux disease) Status: Chronic Qualifiers: Esophagitis presence: E
[2016-10-29] MEDS: CHRONULAC PO SCH ×2 (14:17→21:00)
[2016-10-29] MEDS: ROXICODONE TAB 5 MG PO PRN ×2 (14:18→20:56)
[2016-10-29] MEDS: PHENERGAN TAB 25 MG PO PRN (19:41)
[2016-10-29] MEDS: SNACK - Diabetic Appropriate PO SCH (20:53)
[2016-10-30] MEDS: MORPHINE SULFATE INJ 2 MG IVP PRN (05:19)
[2016-10-30 05:38] LABS: ALANINE AMINOTRANSFERASE 29 Units/L (12-78); ALKALINE PHOSPHATASE 158 Units/L (46-116); AMMONIA 73 umol/L (11-32); ASPARTATE AMINO TRANSFERASE 58 Units/L (15-37); BLOOD UREA NITROGEN 3 mg/dL (7-18); CALCIUM 7.7 mg/dL (8.5-10.1); CARBON DIOXIDE 27.3 mmol/L (21-32); CHLORIDE 108 mmol/L (98-107); COR CA(FOR HYPOALB) 9.3 mg/dL (8.5-10.1); COR NA(FOR HYPERGLY) 140 mmol/L (136-145); CREATININE 0.81 mg/dL (0.55-1.02); GLUCOSE 118 mg/dL (65-99); SODIUM 140 mmol/L (136-145); TOTAL PROTEIN 7.2 g/dL (6.4-8.2); eGFR BLACK RACES > 60 (>60); eGFR NON BLACK RACES > 60 (>60)
[2016-10-30] MEDS ORDERED: POTASSIUM CHLORIDE LIQ 20 MEQ UDC PO PRN (06:04)
[2016-10-30] MEDS ORDERED: K-LYTE EFFERVESCENT PO PRN (06:04)
[2016-10-30] MEDS ORDERED: K-RIDER 10 MEQ/NS 100 ML 10 MEQ/100 ML BAG IV PRN (06:04)
[2016-10-30] MEDS: CHRONULAC PO SCH ×3 (06:08→22:10)
[2016-10-30] MEDS: ZOSYN VIAL 3.375 GM 3.375 GM in NS 100 ML IV + SPIKE MINIBAG* 100 ML IV SCH ×3 (06:08→22:08)
[2016-10-30] MEDS: NEURONTIN CAP 400 MG PO SCH ×3 (06:09→22:07)
[2016-10-30] MEDS: NS 1/2 1000 ML IV 1,000 ML IV SCH ×3 (06:09→16:16)
[2016-10-30] MEDS ORDERED: NS 1/2 1000 ML IV 1,000 ML IV ONE (06:15)
[2016-10-30] MEDS: HumuLIN R SC PRN ×2 (06:18→12:04)
[2016-10-30 06:20] LABS: BASOPHILS % (AUTO) 0.3 % (0.2-1.0); EOSINOPHILS # (AUTO) 0.1 x10^3/uL (0.0-0.2); EOSINOPHILS % (AUTO) 3.2 % (0.9-2.9); HEMATOCRIT 27.6 % (36.0-47.0); HEMOGLOBIN 9.1 g/dL (12.0-16.0); LYMPHOCYTES # (AUTO) 0.7 X10^3/uL (1.3-2.9); LYMPHOCYTES % (AUTO) 22.2 % (21.0-51.0); MEAN CORPUSCULAR HEMOGLOBIN 26.3 pg (27.0-34.0); MEAN CORPUSCULAR HGB CONC 32.8 g/dL (33.0-35.0); MEAN CORPUSCULAR VOLUME 80.2 fL (80.0-100.0); MEAN PLATELET VOLUME 8.4 fL (7.4-11.0); MONOCYTES # (AUTO) 0.2 x10^3/uL (0.3-0.8); MONOCYTES % (AUTO) 7.4 % (0.0-13.0); NEUTROPHILS # (AUTO) 2.1 x10^3/uL (2.2-4.8); NEUTROPHILS % (AUTO) 66.9 % (42.0-75.0); PLATELET COUNT 39 X10^3/uL (150.0-450.0); RED BLOOD COUNT 3.45 X10^6/uL (3.5-5.4); RED CELL DISTRIBUTION WIDTH 20.5 % (11.6-16.5); WHITE BLOOD COUNT 3.2 X10^3/uL (3.6-10.0)
[2016-10-30 06:53] LABS: ANISOCYTOSIS SLIGHT; ERYTHROCYTE SEDIMENTATION RATE 52 MM/HOUR (0-20); PLATELET MORPHOLOGY COMMENT NORMAL (NORMAL)
[2016-10-30] MEDS: PHENERGAN TAB 25 MG PO PRN (07:00)
[2016-10-30] MEDS: NICODERM PATCH 21 MG/24 HR TD SCH (09:07)
[2016-10-30] MEDS: K-DUR TAB 20 MEQ PO PRN (09:08)
[2016-10-30] MEDS: KLONOPIN TAB 1 MG PO SCH ×2 (09:08→22:08)
[2016-10-30] MEDS: ELIQUIS PO SCH ×2 (09:08→22:07)
[2016-10-30] MEDS: GLUCOPHAGE XR PO SCH (09:08)
[2016-10-30 09:09] LABS: CREATININE 0.78 mg/dL (0.55-1.02)
[2016-10-30 09:50] LABS: VANCOMYCIN,TROUGH 12.7 ug/mL (15-20)
[2016-10-30] MEDS: VANCOMYCIN HCL 500 MG VIAL 500 MG, VANCOMYCIN HCL 1 GM VIAL 1 GM in D5W 250 ML IV 250 ML IV SCH ×2 (10:17→22:08)
--- NOTE | 2016-10-30 12:34 | PCM.PROG ---
Progress Note - Progress Note for Day of Date: 10/30/16 - Subjective Subjective: 46 WF ADMITTED FROM ER WITH CO LOWER EXREMITY PAIN AND CELLULITIS. PT WAS RECENTLY DX WITH DVT TO RLE AND THROMBOPHLEBITIS, HAS TAKEN BACTRIM BY MOUTH WITH IMPROVING REDNESS. PT CURRENTLY ON IV ATBX, ERYTHEMA MUCH IMPROVED FROM OFFICE VISIT LAST SATURDAY. INCREASED SLURRED SPEECH, SLIGHTLY IMRPOVED FROM ONE DAY AGO SINCE RESTARTING LACUTLOSE. SEE AMMONIA LEVELS, WILL CONTINUE CURRENT MEDS, REPEAT AM LABS - Past Medical Family Social History Past Med/Fam/Surg Hx: No changes since H&P Allergies: Allergies acetaminophen Allergy (Verified 10/26/16 20:53) aloe Allergy (Verified 10/26/16 20:53) codeine Allergy (Verified 10/26/16 20:53) ketorolac [From Toradol] Allergy (Verified 10/26/16 20:53) sumatriptan [From Imitrex] Allergy (Verified 10/26/16 20:53) - Review of Systems ROS: No change since H&P - Vital Signs and I&O's Vital Signs: Temperature 98.5 F Pulse Rate [Right Radial] 96 Pulse Rate 90 Respiratory Rate 20 Blood Pressure [Right Arm] 114/61 Blood Pressure [Left Arm] 133/75 O2 Sat by Pulse Oximetry 94 Intake and Output: Intake & Output 10/28/16 10/29/16 10/30/16 10/31/16 11:59 11:59 11:59 11:59 Intake Total 2725 2260 2470 Output Total 400 Balance 2325 2260 2470 - Physical Exam Oriented: Normal Eyes: Normal Ear: Normal Nose: Normal Throat: Normal Cardiovascular: Normal : Normal Auscultation: Bowel Sounds: Normal Tenderness: Normal Skin: Ecchymosis, Other (patient noted with ecchymosis bilateral lower extremities, cellutlitis noted to right loer extremitiy) Musculoskeletal: Leg Psychiatric: Normal Mood Description: Calm, Appropriate Affect: Normal Speech Pattern: Appropriate, Slurred - Laboratory and Diagnostics Result Diagrams: 10/30/16 05:00 10/30/16 08:35 Labs: 10/27/16 01:26 Urine,Clean Catch Urine Culture - Final Laboratory WBC 3.2 X10^3/uL (3.6-10.0) L 10/30/16 05:00 RBC 3.45 X10^6/uL (3.5-5.4) L 10/30/16 05:00 Hgb 9.1 g/dL (12.0-16.0) L 10/30/16 05:00 Hct 27.6 % (36.0-47.0) L 10/30/16 05:00 MCV 80.2 fL (80.0-100.0) 10/30/16 05:00 MCH 26.3 pg (27.0-34.0) L 10/30/16 05:00 MCHC 32.8 g/dL (33.0-35.0) L 10/30/16 05:00 RDW 20.5 % (11.6-16.5) H 10/30/16 05:00 Plt Count 39 X10^3/uL (150.0-450.0) L 10/30/16 05:00 Plt Count Comment Decreased (ADEQUATE) A 10/30/16 05:00 MPV 8.4 fL (7.4-11.0) 10/30/16 05:00 Neut % 66.9 % (42.0-75.0) 10/30/16 05:00 Lymph % 22.2 % (21.0-51.0) 10/30/16 05:00 [place] % 7.4 % (0.0-13.0) 10/30/16 05:00 Eos % 3.2 % (0.9-2.9) H 10/30/16 05:00 Baso % 0.3 % (0.2-1.0) 10/30/16 05:00 Neut # 2.1 x10^3/uL (2.2-4.8) L 10/30/16 05:00 Lymph # 0.7 X10^3/uL (1.3-2.9) L 10/30/16 05:00 [place] # 0.2 x10^3/uL (0.3-0.8) L 10/30/16 05:00 Eos # 0.1 x10^3/uL (0.0-0.2) 10/30/16 05:00 Baso # 0.0 X10^3/uL (0.0-0.1) 10/30/16 05:00 Absolute Nucleated RBC 0.5 /100WBC 10/30/16 05:00 Total Counted 100 10/27/16 03:20 Neutrophils % (Manual) 58 % (39-76) 10/27/16 03:20 Lymphocytes % (Manual) 36 % (13-43) 10/27/16 03:20 Monocytes % (Manual) 4 % (4-9) 10/27/16 03:20 Eosinophils % (Manual) 2 % (0-6) 10/27/16 03:20 Plt Morphology Comment Normal (NORMAL) 10/30/16 05:00 RBC Morphology Abnormal (NORMAL) A 10/30/16 05:00 Hypochromasia Slight A 10/29/16 03:10 Anisocytosis Slight A 10/30/16 05:00 Microcytosis Slight A 10/26/16 21:30 Ovalocytes Noted 10/29/16 03:10 ESR 52 MM/HOUR (0-20) H 10/30/16 05:00 Sodium 140 mmol/L (136-145) 10/30/16 05:00 Corrected Sodium 140 mmol/L (136-145) 10/30/16 05:00 Potassium 3.4 mmol/L (3.5-5.1) L 10/30/16 05:00 Chloride 108 mmol/L (98-107) H 10/30/16 05:00 Carbon Dioxide 27.3 mmol/L (21-32) 10/30/16 05:00 BUN 3 mg/dL (7-18) L 10/30/16 05:00 Creatinine 0.78 mg/dL (0.55-1.02) 10/30/16 08:35 Est GFR (MDRD) Af Amer > 60 (>60) 10/30/16 05:00 Est GFR (MDRD) Non-Af > 60 (>60) 10/30/16 05:00 Glucose 118 mg/dL (65-99) H 10/30/16 05:00 Lactic Acid 1.5 mmol/L (0.4-2.0) 10/26/16 21:30 Calcium 7.7 mg/dL (8.5-10.1) L 10/30/16 05:00 Corrected Calcium 9.3 mg/dL (8.5-10.1) 10/30/16 05:00 Total Bilirubin 0.70 mg/dL (0.2-1.0) 10/30/16 05:00 AST 58 Units/L (15-37) H 10/30/16 05:00 ALT 29 Units/L (12-78) 10/30/16 05:00 Alkaline Phosphatase 158 Units/L (46-116) H 10/30/16 05:00 Ammonia 73 umol/L (11-32) H 10/30/16 05:00 C-Reactive Protein 10.00 mg/L (0-3.0) H 10/30/16 05:00 Total Protein 7.2 g/dL (6.4-8.2) 10/30/16 05:00 Albumin 2.0 g/dL (3.4-5.0) L 10/30/16 05:00 Globulin 5.2 g/dL (2.5-4.5) H 10/30/16 05:00 Albumin/Globulin Ratio 0.4 Ratio (1.1-2.1) L 10/30/16 05:00 Specimen Type Clean catch urine 10/27/16 01:26 Urine Color Brown (YELLOW) 10/27/16 01:26 Urine Appearance Cloudy (CLEAR) 10/27/16 01:26 Urine pH 6.5 (5.0 - 8.0) 10/27/16 01:26 Ur Specific [place] 1.015 (1.000-1.030) 10/27/16 01:26 Urine Protein 2+ (NEGATIVE) 10/27/16 01:26 Urine Glucose (UA) Negative (NEGATIVE) 10/27/16 01:26 Urine Ketones Negative (NEGATIVE) 10/27/16 01:26 Urine Occult Blood 5+ (NEGATIVE) 10/27/16 01:26 Urine Nitrite Negative (NEGATIVE) 10/27/16 01:26 Urine Bilirubin 1+ (NEGATIVE) 10/27/16 01:26 Urine Urobilinogen 4+ (NORMAL) 10/27/16 01:26 Ur Leukocyte Esterase 1+ (NEGATIVE) 10/27/16 01:26 Urine RBC 80-100 /HPF (NEGATIVE) 10/27/16 01:26 Urine WBC 10-20 /HPF (NEGATIVE) 10/27/16 01:26 Ur Squamous Epith Cells Few /HPF (NEGATIVE) 10/27/16 01:26 Urine Bacteria 4+ /HPF (NEGATIVE) 10/27/16 01:26 Urine Mucus Few /HPF (NEGATIVE) 10/27/16 01:26 Ur Culture Indicated? Yes/culture set up 10/27/16 01:26 Vancomycin Trough 12.7 ug/mL (15-20) L 10/30/16 08:35 - Plan (1) Cellulitis of right leg Status: Acute Plan: iv antibiotics (2) Liver failure Status: Acute Qualifiers: Liver failure chronicity: L Hepatic coma status: H Plan: AMMONIA LEVELS, LACTULOSE. REPEAT AM LABS, MONITOR AMS (3) Diabetes mellitus Status: Acute Qualifiers: Diabetes mellitus type: D Diabetes mellitus complication status: D Diabetes mellitus complication detail: D Diabetic retinopathy severity: D Proliferative retinopathy type: P Diabetes mellitus macular edema: D Diabetes mellitus care home insulin use: D Laterality: L Chronic kidney disease stage: C (4) Hepatitis C Status: Acute Qualifiers: Viral hepatitis chronicity: V Hepatic coma status: H (5) Pancytopenia Status: Acute Plan: CHRONIC, MONITOR CBC, BLEEDING PRECAUTIONS (6) GERD (gastroesophageal reflux disease) Status: Chronic Qualifiers: Esophagitis presence: E
[2016-10-30] MEDS: ROXICODONE TAB 5 MG PO PRN (19:14)
[2016-10-30] MEDS: SNACK - Diabetic Appropriate PO SCH (22:10)
[2016-10-31] MEDS: XANAX PO PRN (00:17)
[2016-10-31] MEDS: NS 1/2 1000 ML IV 1,000 ML IV SCH ×4 (00:19→18:27)
[2016-10-31 05:32] LABS: ALANINE AMINOTRANSFERASE 28 Units/L (12-78); ALBUMIN 1.8 g/dL (3.4-5.0); ALKALINE PHOSPHATASE 110 Units/L (46-116); ASPARTATE AMINO TRANSFERASE 57 Units/L (15-37); BLOOD UREA NITROGEN 3 mg/dL (7-18); CALCIUM 7.4 mg/dL (8.5-10.1); CARBON DIOXIDE 26.2 mmol/L (21-32); CHLORIDE 107 mmol/L (98-107); COR CA(FOR HYPOALB) 9.2 mg/dL (8.5-10.1); COR NA(FOR HYPERGLY) 142 mmol/L (136-145); CREATININE 0.84 mg/dL (0.55-1.02); GLUCOSE 260 mg/dL (65-99); SODIUM 138 mmol/L (136-145); TOTAL PROTEIN 6.5 g/dL (6.4-8.2); eGFR BLACK RACES > 60 (>60); eGFR NON BLACK RACES > 60 (>60)
[2016-10-31 05:37] LABS: AMMONIA 51 umol/L (11-32)
[2016-10-31] MEDS: CHRONULAC PO SCH ×4 (06:13→21:36)
[2016-10-31] MEDS: NEURONTIN CAP 400 MG PO SCH ×4 (06:14→21:36)
[2016-10-31] MEDS: ZOSYN VIAL 3.375 GM 3.375 GM in NS 100 ML IV + SPIKE MINIBAG* 100 ML IV SCH ×3 (06:14→21:36)
[2016-10-31] MEDS: HumuLIN R SC PRN (06:20)
[2016-10-31 06:24] LABS: BASOPHILS % (AUTO) 0.2 % (0.2-1.0); EOSINOPHILS # (AUTO) 0.1 x10^3/uL (0.0-0.2); EOSINOPHILS % (AUTO) 3.8 % (0.9-2.9); HEMATOCRIT 25.6 % (36.0-47.0); HEMOGLOBIN 8.4 g/dL (12.0-16.0); LYMPHOCYTES # (AUTO) 0.6 X10^3/uL (1.3-2.9); LYMPHOCYTES % (AUTO) 30.3 % (21.0-51.0); MEAN CORPUSCULAR HEMOGLOBIN 26.9 pg (27.0-34.0); MEAN CORPUSCULAR HGB CONC 32.8 g/dL (33.0-35.0); MEAN CORPUSCULAR VOLUME 81.9 fL (80.0-100.0); MEAN PLATELET VOLUME 8.2 fL (7.4-11.0); MONOCYTES # (AUTO) 0.2 x10^3/uL (0.3-0.8); MONOCYTES % (AUTO) 8.6 % (0.0-13.0); NEUTROPHILS % (AUTO) 57.1 % (42.0-75.0); PLATELET COUNT 35 X10^3/uL (150.0-450.0); RED BLOOD COUNT 3.12 X10^6/uL (3.5-5.4); RED CELL DISTRIBUTION WIDTH 20.3 % (11.6-16.5)
[2016-10-31 06:27] LABS: WHITE BLOOD COUNT 1.8 X10^3/uL (3.6-10.0)
[2016-10-31] MEDS ORDERED: NS 1/2 1000 ML IV 1,000 ML IV ONE ×2 (06:27→20:08)
[2016-10-31] MEDS: MORPHINE SULFATE INJ 2 MG IVP PRN ×2 (06:32→20:14)
[2016-10-31 06:50] LABS: ANISOCYTOSIS 1+; PLATELET MORPHOLOGY COMMENT NORMAL (NORMAL)
[2016-10-31] MEDS: GLUCOPHAGE XR PO SCH (08:32)
[2016-10-31] MEDS: ELIQUIS PO SCH ×2 (08:32→20:19)
[2016-10-31] MEDS: KLONOPIN TAB 1 MG PO SCH ×2 (08:33→20:19)
[2016-10-31] MEDS: K-DUR TAB 20 MEQ PO PRN (08:35)
[2016-10-31] MEDS: NICODERM PATCH 21 MG/24 HR TD SCH (08:35)
[2016-10-31] MEDS: VANCOMYCIN HCL 500 MG VIAL 500 MG, VANCOMYCIN HCL 1 GM VIAL 1 GM in D5W 250 ML IV 250 ML IV SCH ×3 (09:00→20:20)
[2016-10-31] MEDS ORDERED: LEVSIN/MAALOX/LIDOC VISC PO PRN (09:14)
[2016-10-31] MEDS: ROXICODONE TAB 5 MG PO PRN (12:25)
[2016-10-31] MEDS: PROTONIX INJ 40 MG VIAL IVP SCH (15:18)
[2016-10-31] MEDS: SNACK - Diabetic Appropriate PO SCH (20:20)
[2016-10-31 20:56] LABS: CREATININE 0.8 mg/dL (0.55-1.02); VANCOMYCIN,TROUGH 16.7 ug/mL (15-20)
[2016-11-01] MEDS: ROXICODONE TAB 5 MG PO PRN (03:17)
[2016-11-01] MEDS: NS 1/2 1000 ML IV 1,000 ML IV SCH ×2 (04:23→17:19)
[2016-11-01 05:35] LABS: AMMONIA 66 umol/L (11-32)
[2016-11-01] MEDS: CHRONULAC PO SCH ×3 (05:38→20:59)
[2016-11-01] MEDS: ZOSYN VIAL 3.375 GM 3.375 GM in NS 100 ML IV + SPIKE MINIBAG* 100 ML IV SCH (05:44)
[2016-11-01] MEDS: NEURONTIN CAP 400 MG PO SCH ×3 (05:44→20:59)
[2016-11-01 06:16] LABS: BASOPHILS % (AUTO) 0.5 % (0.2-1.0); EOSINOPHILS # (AUTO) 0.1 x10^3/uL (0.0-0.2); EOSINOPHILS % (AUTO) 4.9 % (0.9-2.9); HEMATOCRIT 26.7 % (36.0-47.0); HEMOGLOBIN 8.7 g/dL (12.0-16.0); LYMPHOCYTES # (AUTO) 0.6 X10^3/uL (1.3-2.9); LYMPHOCYTES % (AUTO) 32.4 % (21.0-51.0); MEAN CORPUSCULAR HEMOGLOBIN 26.5 pg (27.0-34.0); MEAN CORPUSCULAR HGB CONC 32.5 g/dL (33.0-35.0); MEAN CORPUSCULAR VOLUME 81.7 fL (80.0-100.0); MEAN PLATELET VOLUME 8.4 fL (7.4-11.0); MONOCYTES # (AUTO) 0.2 x10^3/uL (0.3-0.8); MONOCYTES % (AUTO) 12.4 % (0.0-13.0); NEUTROPHILS # (AUTO) 0.9 x10^3/uL (2.2-4.8); NEUTROPHILS % (AUTO) 49.8 % (42.0-75.0); PLATELET COUNT 36 X10^3/uL (150.0-450.0); RED BLOOD COUNT 3.27 X10^6/uL (3.5-5.4)
[2016-11-01 06:18] LABS: ALANINE AMINOTRANSFERASE 32 Units/L (12-78); ALBUMIN 1.8 g/dL (3.4-5.0); ALKALINE PHOSPHATASE 131 Units/L (46-116); ASPARTATE AMINO TRANSFERASE 65 Units/L (15-37); BLOOD UREA NITROGEN 2 mg/dL (7-18); CALCIUM 7.7 mg/dL (8.5-10.1); CARBON DIOXIDE 29.4 mmol/L (21-32); CHLORIDE 107 mmol/L (98-107); COR CA(FOR HYPOALB) 9.5 mg/dL (8.5-10.1); COR NA(FOR HYPERGLY) 141 mmol/L (136-145); CREATININE 0.74 mg/dL (0.55-1.02); GLUCOSE 137 mg/dL (65-99); SODIUM 140 mmol/L (136-145); TOTAL PROTEIN 6.7 g/dL (6.4-8.2); eGFR BLACK RACES > 60 (>60); eGFR NON BLACK RACES > 60 (>60)
[2016-11-01 06:28] LABS: WHITE BLOOD COUNT 1.7 X10^3/uL (3.6-10.0)
[2016-11-01 06:58] LABS: HYPOCHROMASIA SLIGHT; PLATELET MORPHOLOGY COMMENT NORMAL (NORMAL)
[2016-11-01] MEDS: NICODERM PATCH 21 MG/24 HR TD SCH (09:19)
[2016-11-01] MEDS: ELIQUIS PO SCH ×2 (09:20→20:52)
[2016-11-01] MEDS: GLUCOPHAGE XR PO SCH (09:20)
[2016-11-01] MEDS: KLONOPIN TAB 1 MG PO SCH ×2 (09:20→20:53)
[2016-11-01] MEDS: PROTONIX INJ 40 MG VIAL IVP SCH (09:20)
[2016-11-01] MEDS: VANCOMYCIN HCL 500 MG VIAL 500 MG, VANCOMYCIN HCL 1 GM VIAL 1 GM in D5W 250 ML IV 250 ML IV SCH ×2 (10:03→20:51)
--- NOTE | 2016-11-01 12:06 | VAS ---
HISTORY: Right lower extremity pain, cellulitis Study: Bilateral lower extremity venous Doppler Comparison: None TECHNIQUE: Multiple jefferson scale and color flow Doppler images of the deep venous system were obtaine d of the right and left lower extremity. FINDINGS: The deep venous system of the right and left lower extremities were evaluated from the level of the common femoral vein through the popliteal vein. Normal color flow and augmentation can be observed. In addition, normal compression is seen throughout the deep venous system. IMPRESSION: 1. Negative for DVT. Reported By:
[2016-11-01] MEDS: MORPHINE SULFATE INJ 2 MG IVP PRN ×2 (12:13→20:52)
[2016-11-01] MEDS: BACTRIM DS TAB PO SCH ×2 (12:13→20:53)
--- NOTE | 2016-11-01 12:21 | PCM.PROG ---
Progress Note - Progress Note for Day of Date: 10/31/16 - Subjective Subjective: 46 WF ADMITTED FROM ER WITH CO LOWER EXREMITY PAIN AND CELLULITIS. PT WAS RECENTLY DX WITH DVT TO RLE AND THROMBOPHLEBITIS, HAS TAKEN BACTRIM BY MOUTH WITH IMPROVING REDNESS. PT CURRENTLY ON IV ATBX, ERYTHEMA MUCH IMPROVED FROM OFFICE VISIT LAST SATURDAY. INCREASED SLURRED SPEECH, SLIGHTLY IMRPOVED SINCE RESTARTING LACUTLOSE. SEE AMMONIA LEVELS, WILL CONTINUE CURRENT MEDS, REPEAT AM LABS - Past Medical Family Social History Past Med/Fam/Surg Hx: No changes since H&P Allergies: Allergies acetaminophen Allergy (Verified 10/26/16 20:53) aloe Allergy (Verified 10/26/16 20:53) codeine Allergy (Verified 10/26/16 20:53) ketorolac [From Toradol] Allergy (Verified 10/26/16 20:53) sumatriptan [From Imitrex] Allergy (Verified 10/26/16 20:53) - Review of Systems ROS: No change since H&P - Vital Signs and I&O's Vital Signs: Temperature 98.0 F Pulse Rate [Right Radial] 93 Pulse Rate 85 Respiratory Rate 20 Blood Pressure [Right Arm] 110/59 Blood Pressure [Left Arm] 133/75 O2 Sat by Pulse Oximetry 97 Intake and Output: Intake & Output 10/30/16 10/31/16 11/01/16 11/02/16 11:59 11:59 11:59 11:59 Intake Total 2470 2810 2970 Output Total 1900 Balance 2470 2810 1070 - Physical Exam Oriented: Normal Eyes: Normal Ear: Normal Nose: Normal Throat: Normal Cardiovascular: Normal : Normal Auscultation: Bowel Sounds: Normal Tenderness: Normal Skin: Ecchymosis, Other (patient noted with ecchymosis bilateral lower extremities, cellutlitis noted to right loer extremitiy) Musculoskeletal: Leg Psychiatric: Normal Mood Description: Calm, Appropriate Affect: Normal Speech Pattern: Clear, Appropriate - Laboratory and Diagnostics Result Diagrams: 11/01/16 03:20 11/01/16 03:20 Labs: 10/27/16 01:26 Urine,Clean Catch Urine Culture - Final Laboratory WBC 1.7 X10^3/uL (3.6-10.0) L* 11/01/16 03:20 RBC 3.27 X10^6/uL (3.5-5.4) L 11/01/16 03:20 Hgb 8.7 g/dL (12.0-16.0) L 11/01/16 03:20 Hct 26.7 % (36.0-47.0) L 11/01/16 03:20 MCV 81.7 fL (80.0-100.0) 11/01/16 03:20 MCH 26.5 pg (27.0-34.0) L 11/01/16 03:20 MCHC 32.5 g/dL (33.0-35.0) L 11/01/16 03:20 RDW 20.0 % (11.6-16.5) H 11/01/16 03:20 Plt Count 36 X10^3/uL (150.0-450.0) L 11/01/16 03:20 Plt Count Comment Decreased (ADEQUATE) A 11/01/16 03:20 MPV 8.4 fL (7.4-11.0) 11/01/16 03:20 Neut % 49.8 % (42.0-75.0) 11/01/16 03:20 Lymph % 32.4 % (21.0-51.0) 11/01/16 03:20 [place] % 12.4 % (0.0-13.0) 11/01/16 03:20 Eos % 4.9 % (0.9-2.9) H 11/01/16 03:20 Baso % 0.5 % (0.2-1.0) 11/01/16 03:20 Neut # 0.9 x10^3/uL (2.2-4.8) L 11/01/16 03:20 Lymph # 0.6 X10^3/uL (1.3-2.9) L 11/01/16 03:20 [place] # 0.2 x10^3/uL (0.3-0.8) L 11/01/16 03:20 Eos # 0.1 x10^3/uL (0.0-0.2) 11/01/16 03:20 Baso # 0.0 X10^3/uL (0.0-0.1) 11/01/16 03:20 Absolute Nucleated RBC 1.0 /100WBC 11/01/16 03:20 Total Counted 50 10/31/16 05:00 Neutrophils % (Manual) 46 % (39-76) 10/31/16 05:00 Lymphocytes % (Manual) 46 % (13-43) H 10/31/16 05:00 Monocytes % (Manual) 6 % (4-9) 10/31/16 05:00 Eosinophils % (Manual) 2 % (0-6) 10/31/16 05:00 Plt Morphology Comment Normal (NORMAL) 11/01/16 03:20 RBC Morphology Abnormal (NORMAL) A 11/01/16 03:20 Hypochromasia Slight A 11/01/16 03:20 Anisocytosis 1+ A 10/31/16 05:00 Microcytosis Slight A 10/26/16 21:30 Ovalocytes Noted 10/29/16 03:10 ESR 52 MM/HOUR (0-20) H 10/30/16 05:00 Sodium 140 mmol/L (136-145) 11/01/16 03:20 Corrected Sodium 141 mmol/L (136-145) 11/01/16 03:20 Potassium 3.6 mmol/L (3.5-5.1) 11/01/16 03:20 Chloride 107 mmol/L (98-107) 11/01/16 03:20 Carbon Dioxide 29.4 mmol/L (21-32) 11/01/16 03:20 BUN 2 mg/dL (7-18) L 11/01/16 03:20 Creatinine 0.74 mg/dL (0.55-1.02) 11/01/16 03:20 Est GFR (MDRD) Af Amer > 60 (>60) 11/01/16 03:20 Est GFR (MDRD) Non-Af > 60 (>60) 11/01/16 03:20 Glucose 137 mg/dL (65-99) H 11/01/16 03:20 Lactic Acid 1.5 mmol/L (0.4-2.0) 10/26/16 21:30 Calcium 7.7 mg/dL (8.5-10.1) L 11/01/16 03:20 Corrected Calcium 9.5 mg/dL (8.5-10.1) 11/01/16 03:20 Total Bilirubin 0.70 mg/dL (0.2-1.0) 11/01/16 03:20 AST 65 Units/L (15-37) H 11/01/16 03:20 ALT 32 Units/L (12-78) 11/01/16 03:20 Alkaline Phosphatase 131 Units/L (46-116) H 11/01/16 03:20 Ammonia 66 umol/L (11-32) H 11/01/16 03:20 C-Reactive Protein 10.00 mg/L (0-3.0) H 10/30/16 05:00 Total Protein 6.7 g/dL (6.4-8.2) 11/01/16 03:20 Albumin 1.8 g/dL (3.4-5.0) L 11/01/16 03:20 Globulin 4.9 g/dL (2.5-4.5) H 11/01/16 03:20 Albumin/Globulin Ratio 0.4 Ratio (1.1-2.1) L 11/01/16 03:20 Specimen Type Clean catch urine 10/27/16 01:26 Urine Color Brown (YELLOW) 10/27/16 01:26 Urine Appearance Cloudy (CLEAR) 10/27/16 01:26 Urine pH 6.5 (5.0 - 8.0) 10/27/16 01:26 Ur Specific [place] 1.015 (1.000-1.030) 10/27/16 01:26 Urine Protein 2+ (NEGATIVE) 10/27/16 01:26 Urine Glucose (UA) Negative (NEGATIVE) 10/27/16 01:26 Urine Ketones Negative (NEGATIVE) 10/27/16 01:26 Urine Occult Blood 5+ (NEGATIVE) 10/27/16 01:26 Urine Nitrite Negative (NEGATIVE) 10/27/16 01:26 Urine Bilirubin 1+ (NEGATIVE) 10/27/16 01:26 Urine Urobilinogen 4+ (NORMAL) 10/27/16 01:26 Ur Leukocyte Esterase 1+ (NEGATIVE) 10/27/16 01:26 Urine RBC 80-100 /HPF (NEGATIVE) 10/27/16 01:26 Urine WBC 10-20 /HPF (NEGATIVE) 10/27/16 01:26 Ur Squamous Epith Cells Few /HPF (NEGATIVE) 10/27/16 01:26 Urine Bacteria 4+ /HPF (NEGATIVE) 10/27/16 01:26 Urine Mucus Few /HPF (NEGATIVE) 10/27/16 01:26 Ur Culture Indicated? Yes/culture set up 10/27/16 01:26 Vancomycin Trough 16.7 ug/mL (15-20) 10/31/16 20:27 - Plan (1) Cellulitis of right leg Status: Acute Plan: iv antibiotics (2) Liver failure Status: Acute Qualifiers: Liver failure chronicity: L Hepatic coma status: H Plan: AMMONIA LEVELS, LACTULOSE. REPEAT AM LABS, MONITOR AMS (3) Diabetes mellitus Status: Acute Qualifiers: Diabetes mellitus type: D Diabetes mellitus complication status: D Diabetes mellitus complication detail: D Diabetic retinopathy severity: D Proliferative retinopathy type: P Diabetes mellitus macular edema: D Diabetes mellitus [facility] insulin use: D Laterality: L Chronic kidney disease stage: C (4) Hepatitis C Status: Acute Qualifiers: Viral hepatitis chronicity: V Hepatic coma status: H (5) Pancytopenia Status: Acute Plan: CHRONIC, MONITOR CBC, BLEEDING PRECAUTIONS (6) GERD (gastroesophageal reflux disease) Status: Chronic Qualifiers: Esophagitis presence: E
--- NOTE | 2016-11-01 13:10 | PCM.PROG ---
Progress Note - Progress Note for Day of Date: 11/01/16 - Subjective Subjective: 46 WF ADMITTED FROM ER WITH CO LOWER EXREMITY PAIN AND CELLULITIS. PT WAS RECENTLY DX WITH DVT TO RLE AND THROMBOPHLEBITIS. PT HAS BEEN ON IV VANCOMYCIN AND ZOSYN WITH INCREASED REDNESS THIS AM SINCE ONE DAY AGO, WILL RESTART PO BACTRIM AND CONTINUE TO ELEVATE, REPEAT VENOUS DOPPLER. SEE AMMONIA LEVELS, WILL CONTINUE CURRENT MEDS, REPEAT AM LABS - Past Medical Family Social History Past Med/Fam/Surg Hx: No changes since H&P Allergies: Allergies acetaminophen Allergy (Verified 10/26/16 20:53) aloe Allergy (Verified 10/26/16 20:53) codeine Allergy (Verified 10/26/16 20:53) ketorolac [From Toradol] Allergy (Verified 10/26/16 20:53) sumatriptan [From Imitrex] Allergy (Verified 10/26/16 20:53) - Review of Systems ROS: No change since H&P - Vital Signs and I&O's Vital Signs: Temperature 97.7 F Pulse Rate [Right Radial] 80 Pulse Rate 85 Respiratory Rate 20 Blood Pressure [Right Arm] 122/75 Blood Pressure [Left Arm] 133/75 O2 Sat by Pulse Oximetry 96 Intake and Output: Intake & Output 10/30/16 10/31/16 11/01/16 11/02/16 11:59 11:59 11:59 11:59 Intake Total 2470 2810 2970 Output Total 1900 Balance 2470 2810 1070 - Physical Exam Oriented: Normal Eyes: Normal Ear: Normal Nose: Normal Throat: Normal Cardiovascular: Normal : Normal Auscultation: Bowel Sounds: Normal Tenderness: Normal Skin: Ecchymosis, Other (patient noted with ecchymosis bilateral lower extremities, cellutlitis noted to right loer extremitiy) Musculoskeletal: Leg Psychiatric: Normal Mood Description: Calm, Appropriate Affect: Normal Speech Pattern: Clear, Appropriate - Laboratory and Diagnostics Result Diagrams: 11/01/16 03:20 11/01/16 03:20 Labs: 10/27/16 01:26 Urine,Clean Catch Urine Culture - Final Laboratory WBC 1.7 X10^3/uL (3.6-10.0) L* 11/01/16 03:20 RBC 3.27 X10^6/uL (3.5-5.4) L 11/01/16 03:20 Hgb 8.7 g/dL (12.0-16.0) L 11/01/16 03:20 Hct 26.7 % (36.0-47.0) L 11/01/16 03:20 MCV 81.7 fL (80.0-100.0) 11/01/16 03:20 MCH 26.5 pg (27.0-34.0) L 11/01/16 03:20 MCHC 32.5 g/dL (33.0-35.0) L 11/01/16 03:20 RDW 20.0 % (11.6-16.5) H 11/01/16 03:20 Plt Count 36 X10^3/uL (150.0-450.0) L 11/01/16 03:20 Plt Count Comment Decreased (ADEQUATE) A 11/01/16 03:20 MPV 8.4 fL (7.4-11.0) 11/01/16 03:20 Neut % 49.8 % (42.0-75.0) 11/01/16 03:20 Lymph % 32.4 % (21.0-51.0) 11/01/16 03:20 [place] % 12.4 % (0.0-13.0) 11/01/16 03:20 Eos % 4.9 % (0.9-2.9) H 11/01/16 03:20 Baso % 0.5 % (0.2-1.0) 11/01/16 03:20 Neut # 0.9 x10^3/uL (2.2-4.8) L 11/01/16 03:20 Lymph # 0.6 X10^3/uL (1.3-2.9) L 11/01/16 03:20 [place] # 0.2 x10^3/uL (0.3-0.8) L 11/01/16 03:20 Eos # 0.1 x10^3/uL (0.0-0.2) 11/01/16 03:20 Baso # 0.0 X10^3/uL (0.0-0.1) 11/01/16 03:20 Absolute Nucleated RBC 1.0 /100WBC 11/01/16 03:20 Total Counted 50 10/31/16 05:00 Neutrophils % (Manual) 46 % (39-76) 10/31/16 05:00 Lymphocytes % (Manual) 46 % (13-43) H 10/31/16 05:00 Monocytes % (Manual) 6 % (4-9) 10/31/16 05:00 Eosinophils % (Manual) 2 % (0-6) 10/31/16 05:00 Plt Morphology Comment Normal (NORMAL) 11/01/16 03:20 RBC Morphology Abnormal (NORMAL) A 11/01/16 03:20 Hypochromasia Slight A 11/01/16 03:20 Anisocytosis 1+ A 10/31/16 05:00 Microcytosis Slight A 10/26/16 21:30 Ovalocytes Noted 10/29/16 03:10 ESR 52 MM/HOUR (0-20) H 10/30/16 05:00 Sodium 140 mmol/L (136-145) 11/01/16 03:20 Corrected Sodium 141 mmol/L (136-145) 11/01/16 03:20 Potassium 3.6 mmol/L (3.5-5.1) 11/01/16 03:20 Chloride 107 mmol/L (98-107) 11/01/16 03:20 Carbon Dioxide 29.4 mmol/L (21-32) 11/01/16 03:20 BUN 2 mg/dL (7-18) L 11/01/16 03:20 Creatinine 0.74 mg/dL (0.55-1.02) 11/01/16 03:20 Est GFR (MDRD) Af Amer > 60 (>60) 11/01/16 03:20 Est GFR (MDRD) Non-Af > 60 (>60) 11/01/16 03:20 Glucose 137 mg/dL (65-99) H 11/01/16 03:20 Lactic Acid 1.5 mmol/L (0.4-2.0) 10/26/16 21:30 Calcium 7.7 mg/dL (8.5-10.1) L 11/01/16 03:20 Corrected Calcium 9.5 mg/dL (8.5-10.1) 11/01/16 03:20 Total Bilirubin 0.70 mg/dL (0.2-1.0) 11/01/16 03:20 AST 65 Units/L (15-37) H 11/01/16 03:20 ALT 32 Units/L (12-78) 11/01/16 03:20 Alkaline Phosphatase 131 Units/L (46-116) H 11/01/16 03:20 Ammonia 66 umol/L (11-32) H 11/01/16 03:20 C-Reactive Protein 10.00 mg/L (0-3.0) H 10/30/16 05:00 Total Protein 6.7 g/dL (6.4-8.2) 11/01/16 03:20 Albumin 1.8 g/dL (3.4-5.0) L 11/01/16 03:20 Globulin 4.9 g/dL (2.5-4.5) H 11/01/16 03:20 Albumin/Globulin Ratio 0.4 Ratio (1.1-2.1) L 11/01/16 03:20 Specimen Type Clean catch urine 10/27/16 01:26 Urine Color Brown (YELLOW) 10/27/16 01:26 Urine Appearance Cloudy (CLEAR) 10/27/16 01:26 Urine pH 6.5 (5.0 - 8.0) 10/27/16 01:26 Ur Specific [place] 1.015 (1.000-1.030) 10/27/16 01:26 Urine Protein 2+ (NEGATIVE) 10/27/16 01:26 Urine Glucose (UA) Negative (NEGATIVE) 10/27/16 01:26 Urine Ketones Negative (NEGATIVE) 10/27/16 01:26 Urine Occult Blood 5+ (NEGATIVE) 10/27/16 01:26 Urine Nitrite Negative (NEGATIVE) 10/27/16 01:26 Urine Bilirubin 1+ (NEGATIVE) 10/27/16 01:26 Urine Urobilinogen 4+ (NORMAL) 10/27/16 01:26 Ur Leukocyte Esterase 1+ (NEGATIVE) 10/27/16 01:26 Urine RBC 80-100 /HPF (NEGATIVE) 10/27/16 01:26 Urine WBC 10-20 /HPF (NEGATIVE) 10/27/16 01:26 Ur Squamous Epith Cells Few /HPF (NEGATIVE) 10/27/16 01:26 Urine Bacteria 4+ /HPF (NEGATIVE) 10/27/16 01:26 Urine Mucus Few /HPF (NEGATIVE) 10/27/16 01:26 Ur Culture Indicated? Yes/culture set up 10/27/16 01:26 Vancomycin Trough 16.7 ug/mL (15-20) 10/31/16 20:27 - Plan (1) Cellulitis of right leg Status: Acute Plan: iv antibiotics (2) Liver failure Status: Acute Qualifiers: Liver failure chronicity: L Hepatic coma status: H Plan: AMMONIA LEVELS, LACTULOSE. 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
[2016-11-01] MEDS ORDERED: NS 1/2 1000 ML IV 1,000 ML IV ONE (17:02)
[2016-11-01] MEDS: HumuLIN R SC PRN (20:51)
[2016-11-01] MEDS: SNACK - Diabetic Appropriate PO SCH (20:53)
[2016-11-01] MEDS: VISTARIL PO PRN (22:34)
[2016-11-02] MEDS: ROXICODONE TAB 5 MG PO PRN ×2 (01:55→21:46)
[2016-11-02] MEDS: NEURONTIN CAP 400 MG PO SCH ×3 (05:26→21:49)
[2016-11-02] MEDS: CHRONULAC PO SCH ×3 (05:26→21:48)
[2016-11-02] MEDS: HumuLIN R SC PRN (05:26)
[2016-11-02 05:30] LABS: AMMONIA 80 umol/L (11-32)
[2016-11-02 05:54] LABS: ALANINE AMINOTRANSFERASE 33 Units/L (12-78); ALKALINE PHOSPHATASE 164 Units/L (46-116); ASPARTATE AMINO TRANSFERASE 71 Units/L (15-37); BLOOD UREA NITROGEN 4 mg/dL (7-18); CALCIUM 7.7 mg/dL (8.5-10.1); CARBON DIOXIDE 29.5 mmol/L (21-32); CHLORIDE 106 mmol/L (98-107); COR CA(FOR HYPOALB) 9.3 mg/dL (8.5-10.1); CREATININE 0.81 mg/dL (0.55-1.02); GLUCOSE 107 mg/dL (65-99); SODIUM 139 mmol/L (136-145); TOTAL PROTEIN 7.4 g/dL (6.4-8.2); eGFR BLACK RACES > 60 (>60); eGFR NON BLACK RACES > 60 (>60)
[2016-11-02 06:14] LABS: BASOPHILS % (AUTO) 0.4 % (0.2-1.0); EOSINOPHILS # (AUTO) 0.1 x10^3/uL (0.0-0.2); HEMATOCRIT 28.7 % (36.0-47.0); HEMOGLOBIN 9.4 g/dL (12.0-16.0); LYMPHOCYTES # (AUTO) 0.6 X10^3/uL (1.3-2.9); LYMPHOCYTES % (AUTO) 29.9 % (21.0-51.0); MEAN CORPUSCULAR HEMOGLOBIN 26.2 pg (27.0-34.0); MEAN CORPUSCULAR HGB CONC 32.7 g/dL (33.0-35.0); MEAN CORPUSCULAR VOLUME 80.2 fL (80.0-100.0); MEAN PLATELET VOLUME 8.4 fL (7.4-11.0); MONOCYTES # (AUTO) 0.2 x10^3/uL (0.3-0.8); MONOCYTES % (AUTO) 10.1 % (0.0-13.0); NEUTROPHILS # (AUTO) 1.1 x10^3/uL (2.2-4.8); NEUTROPHILS % (AUTO) 55.6 % (42.0-75.0); PLATELET COUNT 44 X10^3/uL (150.0-450.0); RED BLOOD COUNT 3.58 X10^6/uL (3.5-5.4); RED CELL DISTRIBUTION WIDTH 19.7 % (11.6-16.5)
--- NOTE | 2016-11-02 06:22 | RAD ---
HISTORY: Congestive heart failure Study: Chest one view Comparison: October 26, 2016 Findings: The heart is upper limits normal in size. No congestive heart failure is noted. No acute alveolar in filtrates are identified. No pleural effusions are present. The bony thorax is unremarkable. IMPRESSION: No acute cardiopulmonary abnormality identified Reported By:
[2016-11-02 06:29] LABS: ERYTHROCYTE SEDIMENTATION RATE 43 MM/HOUR (0-20)
[2016-11-02 07:20] LABS: PLATELET MORPHOLOGY COMMENT NORMAL (NORMAL)
[2016-11-02] MEDS: ELIQUIS PO SCH ×2 (09:03→21:46)
[2016-11-02] MEDS: MORPHINE SULFATE INJ 2 MG IVP PRN ×3 (09:03→21:49)
[2016-11-02] MEDS: PROTONIX INJ 40 MG VIAL IVP SCH (09:03)
[2016-11-02] MEDS: GLUCOPHAGE XR PO SCH (09:04)
[2016-11-02] MEDS: BACTRIM DS TAB PO SCH ×2 (09:04→21:46)
[2016-11-02] MEDS: KLONOPIN TAB 1 MG PO SCH ×2 (09:04→21:47)
[2016-11-02] MEDS: NICODERM PATCH 21 MG/24 HR TD SCH (09:04)
[2016-11-02] MEDS: NS 1/2 1000 ML IV 1,000 ML IV SCH ×2 (09:12→22:45)
[2016-11-02] MEDS: VANCOMYCIN HCL 500 MG VIAL 500 MG, VANCOMYCIN HCL 1 GM VIAL 1 GM in D5W 250 ML IV 250 ML IV SCH (09:13)
[2016-11-02] MEDS ORDERED: NS 1/2 1000 ML IV 1,000 ML IV ONE ×2 (09:16→22:28)
[2016-11-02] MEDS: VISTARIL PO PRN (09:16)
--- NOTE | 2016-11-02 14:59 | PCM.PROG ---
Progress Note - Progress Note for Day of Date: 11/02/16 - Subjective Subjective: 46 WF ADMITTED FROM ER WITH CO LOWER EXREMITY PAIN AND CELLULITIS. PT WAS RECENTLY DX WITH DVT TO RLE AND THROMBOPHLEBITIS. PT HAS IMPROVED REDNESS TO RLE THIS AM WITH CONTINUE EDEMA AND TENDERNESS. PT VANCOMYCIN D/C AND STARTED ON PO LEVAQUIN IN ADDITON TO BACTRIM DS. PLAN TO CONSULT CASE MANAGEMENT FOR SWING BED STATUS, PT CONSULT DUE TO WEAKNESS. PT HAS LIVER FAILURE WITH CHRONIC PANCYTOPENIA, WE WILL CONTINUE LACUTLOSE AND BLEEDING PRECAUTIONS. REPEAT AM LABS. - Past Medical Family Social History Past Med/Fam/Surg Hx: No changes since H&P Allergies: Allergies acetaminophen Allergy (Verified 10/26/16 20:53) aloe Allergy (Verified 10/26/16 20:53) codeine Allergy (Verified 10/26/16 20:53) ketorolac [From Toradol] Allergy (Verified 10/26/16 20:53) sumatriptan [From Imitrex] Allergy (Verified 10/26/16 20:53) - Review of Systems ROS: No change since H&P - Vital Signs and I&O's Vital Signs: Temperature 98.8 F Pulse Rate [Right Radial] 100 Pulse Rate 85 Respiratory Rate 20 Blood Pressure [Right Arm] 105/57 Blood Pressure [Left Arm] 133/75 O2 Sat by Pulse Oximetry 95 Intake and Output: Intake & Output 10/31/16 11/01/16 11/02/16 11/03/16 11:59 11:59 11:59 11:59 Intake Total 2810 2970 1380 Output Total 1900 Balance 2810 1070 1380 - Physical Exam Oriented: Normal Eyes: Normal Ear: Normal Nose: Normal Throat: Normal Respiratory: Diminished Cardiovascular: Normal : Normal Auscultation: Bowel Sounds: Normal Tenderness: Normal Skin: Ecchymosis, Other (patient noted with ecchymosis bilateral lower extremities, cellutlitis noted to right loer extremitiy) Musculoskeletal: Leg Psychiatric: Normal Mood Description: Calm, Appropriate Affect: Normal Speech Pattern: Clear, Appropriate - Laboratory and Diagnostics Result Diagrams: 11/02/16 03:20 11/02/16 03:20 Labs: 10/27/16 01:26 Urine,Clean Catch Urine Culture - Final Laboratory WBC 2.0 X10^3/uL (3.6-10.0) L 11/02/16 03:20 RBC 3.58 X10^6/uL (3.5-5.4) 11/02/16 03:20 Hgb 9.4 g/dL (12.0-16.0) L 11/02/16 03:20 Hct 28.7 % (36.0-47.0) L 11/02/16 03:20 MCV 80.2 fL (80.0-100.0) 11/02/16 03:20 MCH 26.2 pg (27.0-34.0) L 11/02/16 03:20 MCHC 32.7 g/dL (33.0-35.0) L 11/02/16 03:20 RDW 19.7 % (11.6-16.5) H 11/02/16 03:20 Plt Count 44 X10^3/uL (150.0-450.0) L 11/02/16 03:20 Plt Count Comment Decreased (ADEQUATE) A 11/02/16 03:20 MPV 8.4 fL (7.4-11.0) 11/02/16 03:20 Neut % 55.6 % (42.0-75.0) 11/02/16 03:20 Lymph % 29.9 % (21.0-51.0) 11/02/16 03:20 [place] % 10.1 % (0.0-13.0) 11/02/16 03:20 Eos % 4.0 % (0.9-2.9) H 11/02/16 03:20 Baso % 0.4 % (0.2-1.0) 11/02/16 03:20 Neut # 1.1 x10^3/uL (2.2-4.8) L 11/02/16 03:20 Lymph # 0.6 X10^3/uL (1.3-2.9) L 11/02/16 03:20 [place] # 0.2 x10^3/uL (0.3-0.8) L 11/02/16 03:20 Eos # 0.1 x10^3/uL (0.0-0.2) 11/02/16 03:20 Baso # 0.0 X10^3/uL (0.0-0.1) 11/02/16 03:20 Absolute Nucleated RBC 0.3 /100WBC 11/02/16 03:20 Total Counted 100 11/02/16 03:20 Neutrophils % (Manual) 62 % (39-76) 11/02/16 03:20 Lymphocytes % (Manual) 26 % (13-43) 11/02/16 03:20 Monocytes % (Manual) 10 % (4-9) H 11/02/16 03:20 Eosinophils % (Manual) 2 % (0-6) 11/02/16 03:20 Plt Morphology Comment Normal (NORMAL) 11/02/16 03:20 RBC Morphology Normal (NORMAL) 11/02/16 03:20 Hypochromasia Slight A 11/01/16 03:20 Anisocytosis 1+ A 10/31/16 05:00 Microcytosis Slight A 10/26/16 21:30 Ovalocytes Noted 10/29/16 03:10 ESR 43 MM/HOUR (0-20) H 11/02/16 03:20 Sodium 139 mmol/L (136-145) 11/02/16 03:20 Corrected Sodium TNP 11/02/16 03:20 Potassium 3.4 mmol/L (3.5-5.1) L 11/02/16 03:20 Chloride 106 mmol/L (98-107) 11/02/16 03:20 Carbon Dioxide 29.5 mmol/L (21-32) 11/02/16 03:20 BUN 4 mg/dL (7-18) L 11/02/16 03:20 Creatinine 0.81 mg/dL (0.55-1.02) 11/02/16 03:20 Est GFR (MDRD) Af Amer > 60 (>60) 11/02/16 03:20 Est GFR (MDRD) Non-Af > 60 (>60) 11/02/16 03:20 Glucose 107 mg/dL (65-99) H 11/02/16 03:20 Lactic Acid 1.5 mmol/L (0.4-2.0) 10/26/16 21:30 Calcium 7.7 mg/dL (8.5-10.1) L 11/02/16 03:20 Corrected Calcium 9.3 mg/dL (8.5-10.1) 11/02/16 03:20 Total Bilirubin 0.70 mg/dL (0.2-1.0) 11/02/16 03:20 AST 71 Units/L (15-37) H 11/02/16 03:20 ALT 33 Units/L (12-78) 11/02/16 03:20 Alkaline Phosphatase 164 Units/L (46-116) H 11/02/16 03:20 Ammonia 80 umol/L (11-32) H 11/02/16 03:20 C-Reactive Protein 6.60 mg/L (0-3.0) H 11/02/16 03:20 Total Protein 7.4 g/dL (6.4-8.2) 11/02/16 03:20 Albumin 2.0 g/dL (3.4-5.0) L 11/02/16 03:20 Globulin 5.4 g/dL (2.5-4.5) H 11/02/16 03:20 Albumin/Globulin Ratio 0.4 Ratio (1.1-2.1) L 11/02/16 03:20 Specimen Type Clean catch urine 10/27/16 01:26 Urine Color Brown (YELLOW) 10/27/16 01:26 Urine Appearance Cloudy (CLEAR) 10/27/16 01:26 Urine pH 6.5 (5.0 - 8.0) 10/27/16 01:26 Ur Specific [place] 1.015 (1.000-1.030) 10/27/16 01:26 Urine Protein 2+ (NEGATIVE) 10/27/16 01:26 Urine Glucose (UA) Negative (NEGATIVE) 10/27/16 01:26 Urine Ketones Negative (NEGATIVE) 10/27/16 01:26 Urine Occult Blood 5+ (NEGATIVE) 10/27/16 01:26 Urine Nitrite Negative (NEGATIVE) 10/27/16 01:26 Urine Bilirubin 1+ (NEGATIVE) 10/27/16 01:26 Urine Urobilinogen 4+ (NORMAL) 10/27/16 01:26 Ur Leukocyte Esterase 1+ (NEGATIVE) 10/27/16 01:26 Urine RBC 80-100 /HPF (NEGATIVE) 10/27/16 01:26 Urine WBC 10-20 /HPF (NEGATIVE) 10/27/16 01:26 Ur Squamous Epith Cells Few /HPF (NEGATIVE) 10/27/16 01:26 Urine Bacteria 4+ /HPF (NEGATIVE) 10/27/16 01:26 Urine Mucus Few /HPF (NEGATIVE) 10/27/16 01:26 Ur Culture Indicated? Yes/culture set up 10/27/16 01:26 Vancomycin Trough 16.7 ug/mL (15-20) 10/31/16 20:27 - Plan (1) Cellulitis of right leg Status: Acute Plan: ELEVATE EXTREMITY, PO BACTRIM AND LEVAQUIN (2) Liver failure Status: Acute Qualifiers: Liver failure chronicity: L Hepatic coma status: H Plan: AMMONIA LEVELS, LACTULOSE. 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
[2016-11-02] MEDS: SNACK - Diabetic Appropriate PO SCH (21:46)
[2016-11-03] MEDS: VISTARIL PO PRN (02:28)
[2016-11-03] MEDS: MORPHINE SULFATE INJ 2 MG IVP PRN ×2 (02:29→06:05)
[2016-11-03] MEDS: XANAX PO PRN (06:05)
[2016-11-03] MEDS: NEURONTIN CAP 400 MG PO SCH (06:05)
[2016-11-03] MEDS: CHRONULAC PO SCH (06:06)
[2016-11-03 07:44] LABS: BASOPHILS % (AUTO) 0.5 % (0.2-1.0); EOSINOPHILS # (AUTO) 0.1 x10^3/uL (0.0-0.2); EOSINOPHILS % (AUTO) 2.2 % (0.9-2.9); HEMATOCRIT 26.9 % (36.0-47.0); HEMOGLOBIN 8.9 g/dL (12.0-16.0); LYMPHOCYTES # (AUTO) 0.7 X10^3/uL (1.3-2.9); LYMPHOCYTES % (AUTO) 25.5 % (21.0-51.0); MEAN CORPUSCULAR HEMOGLOBIN 26.2 pg (27.0-34.0); MEAN CORPUSCULAR HGB CONC 33.1 g/dL (33.0-35.0); MEAN PLATELET VOLUME 8.7 fL (7.4-11.0); MONOCYTES # (AUTO) 0.3 x10^3/uL (0.3-0.8); MONOCYTES % (AUTO) 9.8 % (0.0-13.0); NEUTROPHILS # (AUTO) 1.8 x10^3/uL (2.2-4.8); PLATELET COUNT 32 X10^3/uL (150.0-450.0); RED BLOOD COUNT 3.41 X10^6/uL (3.5-5.4); RED CELL DISTRIBUTION WIDTH 19.4 % (11.6-16.5); WHITE BLOOD COUNT 2.9 X10^3/uL (3.6-10.0)
[2016-11-03 07:58] LABS: ALANINE AMINOTRANSFERASE 31 Units/L (12-78); ALBUMIN 1.9 g/dL (3.4-5.0); ALKALINE PHOSPHATASE 141 Units/L (46-116); AMMONIA 57 umol/L (11-32); ASPARTATE AMINO TRANSFERASE 66 Units/L (15-37); BLOOD UREA NITROGEN 5 mg/dL (7-18); CALCIUM 7.8 mg/dL (8.5-10.1); CARBON DIOXIDE 27.1 mmol/L (21-32); CHLORIDE 105 mmol/L (98-107); COR CA(FOR HYPOALB) 9.5 mg/dL (8.5-10.1); COR NA(FOR HYPERGLY) 137 mmol/L (136-145); CREATININE 0.88 mg/dL (0.55-1.02); GLUCOSE 119 mg/dL (65-99); SODIUM 137 mmol/L (136-145); TOTAL PROTEIN 7.2 g/dL (6.4-8.2); eGFR BLACK RACES > 60 (>60); eGFR NON BLACK RACES > 60 (>60)
[2016-11-03 07:59] LABS: HYPOCHROMASIA SLIGHT; MICROCYTOSIS SLIGHT; PLATELET MORPHOLOGY COMMENT NORMAL (NORMAL)
[2016-11-03] MEDS: PROTONIX INJ 40 MG VIAL IVP SCH (09:00)
[2016-11-03] MEDS: NICODERM PATCH 21 MG/24 HR TD SCH (09:00)
[2016-11-03] MEDS ORDERED: LEVAQUIN TAB 500 MG PO SCH (09:00)
[2016-11-03] MEDS: GLUCOPHAGE XR PO SCH (09:01)
[2016-11-03] MEDS: BACTRIM DS TAB PO SCH (09:02)
[2016-11-03] MEDS: ELIQUIS PO SCH (09:02)
[2016-11-03] MEDS: KLONOPIN TAB 1 MG PO SCH (09:02)
[2016-11-03 09:16] VITALS: BP 131/88
[2016-11-03 09:41] LABS: ERYTHROCYTE SEDIMENTATION RATE 79 MM/HOUR (0-20)
[2016-11-03] MEDS: NS 1/2 1000 ML IV 1,000 ML IV SCH (10:45)
== END 2016-11-03 09:20 | disposition home or self-care (01) | DRG 602 ==
LOC: ER 20:58 → MED/SURG 23:35
PROVIDERS: ADMIT Obstetrics & Gynecology Obstetrics; ATTEND Internal Medicine
DX: L03.115 Cellulitis of right lower limb (principal); I82.491 Acute embolism and thrombosis of other specified deep vein of right lower extremity; D61.818 Other pancytopenia; B17.10 Acute hepatitis C without hepatic coma; R06.02 Shortness of breath; E11.65 Type 2 diabetes mellitus with hyperglycemia; F41.8 Other specified anxiety disorders; I87.8 Other specified disorders of veins; K72.00 Acute and subacute hepatic failure without coma; R62.7 Adult failure to thrive
CPT/HCPCS: 36415; 71010; 71020; 80053; 80202; 81001; 82140; 82565; 83605; 85025; 85652; 86140; 87040; 87086; 93970; 96365; 96367; 96374; 99284; A4216; A4222; C9113; Q0169; Q0177; J1815; J2270; J2543; J3370; J7613

== ENCOUNTER 2016-11-12 00:25 | Emergency (ER) | payer SELFPAY ==
[2016-11-12 00:37] VITALS: BP 134/80; BMI 43.0
--- NOTE | 2016-11-12 01:20 | DR.GENAD ---
HPI - PCP Primary Care Physician: carmita - Complaint/Symptoms Chief Complaint Doctors Comments: Patient was given a prescription for oxycodone , patient unable to purchase due to cost. She wants her primary to change analgesics to something is cost less. Chief Complaint:: i'm in pain. i wasn't able to get my prescription filled bc i didn't have the money. now my left leg hurts. - Source History Provided: Patient - Mode of Arrival Mode of Arrival: Wheelchair - Timing Onset of Chief Complaint: 11/12/16 PMH - PMH Past Medical History: Yes Past Medical History: Anxiety, Diabetes, GERD, Liver Disease, PUD, Schizophrenia , Seizures Past Medical History Comment: hep c Past Surgical History: Yes Surgical History: Hysterectomy, Ortho Surgery, Thyroidectomy - Family History History of Family Medical Conditions: Yes Family Medical History: Diabetes Mellitus, Cancer, Hypertension - Social History Type of Tobacco Use: Cigarettes Alcohol Use: None Do you use any recreational Drugs:: No Lives With: Spouse, Family Lives Where: Home - infectious screening Have you traveled outside the country in the last 6 months?: No Isolation: Standard ROS - Review of Systems Eyes: No Symptoms Reported ENTM: No Symptoms Reported Respiratoy: No Symptoms Reported Cardiovascular: No Symptoms Reported Gastrointestinal/Abdominal: No Symptoms Reported Genitourinary: No Symptoms Reported Neurological: No Symptoms Reported Musculoskeletal: Leg (pain) Integumentary: No Symptoms Reported Hematologic/Lymphatic: No Symptoms Reported Endocrine: No Symptoms Reported Psychiatric: No Symptoms Reported All Other Systems: Reviewed and Negative PE - Vital Signs Vitals: Temperature 98.1 F Pulse Rate 93 Respiratory Rate 20 Blood Pressure [Right Arm] 131/88 Blood Pressure [Left Arm] 133/75 Blood Pressure 134/80 O2 Sat by Pulse Oximetry 99 - General Limitations: No Limitations General Appearance: Alert, In No Apparent Distress - Head Head Exam: Normal Inspection, Atraumatic - Eyes Eye exam: Normal Appearance, PERRL, EOMI - ENT ENT Exam: Normal Exam External Ear Exam: Normal External Inspection TM/Canal Exam: Bilateral Normal Nose Exam: Normal Nose Exam Mouth Exam: Normal Inspection Throat Exam: Normal Inspection - Neck Neck Exam: Normal Inspection, Full ROM - Chest Chest Inspection: Normal Inspection - Respiratory Respiratory Exam: Normal Lung Sounds Bilat Respiratory Exam: Bilateral Clear to Auscultation - Cardiovascular Cardiovascular Exam: Regular Rate, Normal Rhythm - Abdominal Exam Abdominal Exam: Normal Inspection, Normal Bowel Sounds Abdominal Tenderness: negative: RUQ, RLQ, LUQ, LLQ, Epigastrium, Suprapubic, Diffuse, Mild, Moderate, Severe, Other - Extremities Extremities Exam: Tenderness, Edema - Back Back Exam: Normal Inspection, Full ROM, Tenderness - Neurologic Neurological Exam: Alert, Oriented X3, CN II-XII Intact - Psychiatric Psychiatric Exam: Normal Affect - Skin Skin Exam: Warm, Dry, Intact - Diagnosis Discharge Problem: Leg pain Qualifiers: Laterality: bilateral Qualified Code(s): M79.604 - Pain in right leg; M79.605 - Pain in left leg - Discharge Plan Condition: Stable - Follow ups/Referrals Follow ups/Referrals: IRMA YOUSSEF [Primary Care Provider] - 3 days - Instructions
[2016-11-12] MEDS ORDERED: NORCO 10/325 TAB PO PRN (01:28)
[2016-11-12] MEDS ORDERED: NORCO 10/325 TAB ONE (01:30)
== END 2016-11-12 01:49 | disposition home or self-care (01) ==
LOC: ER 00:25
DX: M79.604 Pain in right leg (principal); M79.605 Pain in left leg
CPT/HCPCS: 99282

== ENCOUNTER 2016-11-23 19:38 | Observation (INO) | payer SELFPAY ==
--- NOTE | 2016-11-23 20:18 | DR.GENAD ---
HPI - PCP Primary Care Physician: naldo - Complaint/Symptoms Chief Complaint Doctors Comments: Patient is complaining of right leg pain and swelling with cramps and charley horses all night with her having to jump up all night due to the cramps. States she is a patient of Dr. Dyer and Katherine Caban just changed her blood thinner recently because the previous one was not breaking up the clot like they thought it should. States she has been having severe cramps in her legs for the past three days. she has been taking [place] but it has not been controlling the pain and cramps. Sttes she is taking Bactrim and a blood thinner once daily. She is having xiphoid chest pain but denies cold, cough, fever or chills. She smokes 1/2 pack cigarettes daily and states she stopped drinking years ago in here 20's. States she has state four liver failure that is followed by Dr Sánchez. States her leg is staying swollen in the morning when it usually goes down in the morning. The patient is also complaining of xiphoid chest pain that is non radiating. Chief Complaint:: pt states" my DVT is acting up again i keep getting tonia horses that hurt so bad." - Nurses notes reviewed Nurses Notes Review: Yes - Source History Provided: Patient - Mode of Arrival Mode of Arrival: Ambulatory - Timing Onset of Chief Complaint: 11/21/16 Came on: Gradually - Duration Duration: Constant How lon Duration: Days - Location Location: right leg pain and cramps - Severity Severity: Moderate - Modifying Factors Worsens:: movement and walking Improves:: nothing PMH - PMH Past Medical History: Yes Past Medical History: Anxiety, Diabetes, GERD, Liver Disease, PUD, Schizophrenia , Seizures Past Surgical History: Yes Surgical History: Hysterectomy, Ortho Surgery, Thyroidectomy - Family History History of Family Medical Conditions: Yes Family Medical History: Diabetes Mellitus, Cancer, Hypertension - Social History Type of Tobacco Use: Cigarettes Does any household member use tobacco: Yes Alcohol Use: None Do you use any recreational Drugs:: No Lives With: Family Lives Where: Home - infectious screening In the last 2 months have you had wt loss of >10#?: NO Have you had fever, night sweats or hemotysis?: No Have you traveled outside the country in the last 6 months?: No Isolation: Standard ROS - Review of Systems Constitutional: No Symptoms Reported, Chills, Weakness. negative: See HPI, Diaphoresis, Fever, Malaise, Irritable, Fatigue, Loss of Appetite, Other Eyes: No Symptoms Reported ENTM: No Symptoms Reported Respiratoy: No Symptoms Reported. negative: See HPI, Productive Cough, Non- Productive Cough, Moist Cough, Dry Cough, Hacking Cough, Barking Cough, Brassy Cough, Orthopnea, Short of Breath, Stridor, Wheezing, Hemoptysis, Other Cardiovascular: No Symptoms Reported, Chest Pain. negative: See HPI, Edema, Palpitations, Syncope, Cyanosis, Skin Mottling, Other Gastrointestinal/Abdominal: No Symptoms Reported. negative: See HPI, Abdominal Pain, Constipation, Diarrhea, Nausea, Vomiting, Food Intolerance, Other Genitourinary: No Symptoms Reported. negative: See HPI, Discharge, Dysuria, Frequency, Hematuria, Pain, Bleeding, Other Neurological: No Symptoms Reported, Anxiety, Problems Walking. negative: See HPI, Depressed, Emotional Problems, Headache, Numbness, Paresthesia, Pre- existing Deficit, Seizure, Tingling, Tremors, Weakness, Dizziness, Speech Problem, Other Musculoskeletal: No Symptoms Reported, Right, Leg (swelling and redness with dark spots and varicose viens) Integumentary: Change in Color, Lesions, Bruises. negative: No Symptoms Reported, See HPI, Change in Hair/Nails, Dryness, Lumps, Rash, Itching, Wound, Juandice, Other Hematologic/Lymphatic: No Symptoms Reported, Blood Clots (right leg with blood clots), Easy Bruising. negative: See HPI, Anemia, Easy Bleeding, Swollen Glands , Lymphadenopathy, Other Endocrine: No Symptoms Reported Psychiatric: No Symptoms Reported, Anxiety. negative: See HPI, Depression, Hallucinations, Excessive crying, Suicidal, Other PE - Vital Signs Vitals: Temperature 98.8 F Pulse Rate 101 Respiratory Rate 18 Blood Pressure [Right Arm] 131/88 Blood Pressure [Left Arm] 133/75 Blood Pressure 181/94 O2 Sat by Pulse Oximetry 99 - General Limitations: No Limitations General Appearance: Alert, In No Apparent Distress - Head Head Exam: Normal Inspection, Atraumatic, Normocephalic - Eyes Eye exam: Normal Appearance, PERRL, EOMI. negative: Scleral Icterus, Conjunctival Injection, Nystagmus (right eye with subconjunctiva hemorrhage with pyterium), Miosis, Mydrasis, Periorbital Swelling, Periorbital Tenderness, Other - ENT ENT Exam: Normal Exam, Normal Oropharynx, Normal External Ear Exam, Mucous Membranes Moist, TM's Normal Bilaterally TM/Canal Exam: Bilateral Normal Nose Exam: Normal Nose Exam. negative: Sinus Tenderness, Nasal Deviation, Crepitus, Septal Hematoma, Laceration, Abrasion, Other Mouth Exam: Normal Inspection Throat Exam: Normal Inspection - Neck Neck Exam: Normal Inspection, Full ROM, Trachea Midline. negative: Tenderness, Meningismus, Lymphadenopathy, Thyromegaly, Other - Chest Chest Inspection: Normal Inspection, Symmetric Chest Wall Rise - Respiratory Respiratory Exam: Normal Lung Sounds Bilat. negative: Accessory Muscle Use, Chest Wall Tenderness, Prolonged Expiratory Phase, Respiratory Distress, Stridor , Other Respiratory Exam: Bilateral Clear to Auscultation - Cardiovascular Cardiovascular Exam: Regular Rate, Normal Rhythm, Normal Heart Sounds, Systolic Murmur - Abdominal Exam Abdominal Exam: Normal Inspection, Normal Bowel Sounds, Soft. negative: Distention, Tenderness, Guarding, Rebound, Rigidity, Dimnished Bowel Sounds, Hyperactive Bowel Sounds, Hypoactive Bowel Sounds, Organomegaly, Trauma, Incision, Ascites, Mass, Bruit, Pulsatile Mass, Hernia, Other Abdominal Tenderness: negative: RUQ, RLQ, LUQ, LLQ, Epigastrium, Suprapubic, Diffuse, Mild, Moderate, Severe, Other - Extremities Extremities Exam: Normal Inspection, Full ROM, Tenderness (right lower leg with calf tenderness; erythema right lower leg with circular hyperpigmented areas; varicose viens), Edema, Calf Tenderness. negative: Normal Capillary Refill, Joint Swelling, Other - Back Back Exam: Normal Inspection, Full ROM. negative: Tenderness, (R) CVA Tenderness, (L) CVA Tenderness, Muscle Spasm, Paraspinal Tenderness, Vertebral Tenderness, Rashes, (R) Sciatic Notch Tenderness, (L) Sciatic Notch Tendern, (R ) Straight Leg Raise, (L) Straight Leg Raise, Other - Neurologic Neurological Exam: Alert, Oriented X3, CN II-XII Intact, Reflexes Normal. negative: Normal Gait (gait not tested) - Psychiatric Psychiatric Exam: Normal Affect, Normal Mood. negative: Depressed, Agitated, Anxious, Flat Affect, Manic, Homicidal Ideation, Suicidal Ideation, Other - Skin Skin Exam: Warm, Dry, Intact, Normal Color, Erythema (righrt lower leg with erythema) Course - Reevaluation 1st: Improved - Consultation Called: 21:52 Call Returned: 21:52 (Sr. Dyer to admit) - Education/Counseling Education/Counseling: Patient Educated On: Treatment, Diagnosis, Needs for Follow Up ROR - Labs Reviewed Laboratory Results Reviewed?: Yes (all labs and x-ray results reviewed and discussed with patient.) Result Diagrams: 11/23/16 20:21 11/23/16 20: Laboratory: WBC 2.7 X10^3/uL (3.6-10.0) L 11/23/16 20:21 RBC 3.35 X10^6/uL (3.5-5.4) L 11/23/16 20: Hgb 8.6 g/dL (12.0-16.0) L 11/23/16 20:21 Hct 26.1 % (36.0-47.0) L 11/23/16 20: MCV 78.1 fL (80.0-100.0) L 11/23/16 20:21 MCH 25.8 pg (27.0-34.0) L 11/23/16 20:21 MCHC 33.0 g/dL (33.0-35.0) 11/23/16 20: RDW 19.0 % (11.6-16.5) H 11/23/16 20:21 Plt Count 38 X10^3/uL (150.0-450.0) L 11/23/16 20:21 Plt Count Comment Decreased (ADEQUATE) A 11/23/16 20: MPV 8.4 fL (7.4-11.0) 11/23/16 20:21 Neut % 49.3 % (42.0-75.0) 11/23/16 20: Lymph % 36.6 % (21.0-51.0) 11/23/16 20: Rich % 7.6 % (0.0-13.0) 11/23/16 20:21 Eos % 3.1 % (0.9-2.9) H 11/23/16 20:21 Baso % 3.4 % (0.2-1.0) H 11/23/16 20:21 Neut # 1.3 x10^3/uL (2.2-4.8) L 11/23/16 20:21 Lymph # 1.0 X10^3/uL (1.3-2.9) L 11/23/16 20:21 Rich # 0.2 x10^3/uL (0.3-0.8) L 11/23/16 20:21 Eos # 0.1 x10^3/uL (0.0-0.2) 11/23/16 20:21 Baso # 0.1 X10^3/uL (0.0-0.1) 11/23/16 20:21 Absolute Nucleated RBC 0.0 /100WBC 11/23/16 20:21 Total Counted 50 11/23/16 20:21 Neutrophils % (Manual) 38 % (39-76) L 11/23/16 20:21 Lymphocytes % (Manual) 54 % (13-43) H 11/23/16 20:21 Monocytes % (Manual) 2 % (4-9) L 11/23/16 20:21 Eosinophils % (Manual) 6 % (0-6) 11/23/16 20:21 Nucleated RBCs 1 11/23/16 20:21 Plt Morphology Comment Normal (NORMAL) 11/23/16 20:21 RBC Morphology Abnormal (NORMAL) A 11/23/16 20:21 Hypochromasia 1+ A 11/23/16 20:21 Microcytosis 1+ A 11/23/16 20:21 INR Target Range - 11/23/16 20:10 INR 2.99 (0.8-1.3) H 11/23/16 20:10 PTT 47.9 SECONDS (22.9-36.5) H 11/23/16 20:10 PTT Comment - 11/23/16 20:10 Sodium 137 mmol/L (136-145) 11/23/16 20:21 Corrected Sodium 137 mmol/L (136-145) 11/23/16 20:21 Potassium 3.4 mmol/L (3.5-5.1) L 11/23/16 20:21 Chloride 105 mmol/L (98-107) 11/23/16 20:21 Carbon Dioxide 27.4 mmol/L (21-32) 11/23/16 20:21 BUN 10 mg/dL (7-18) 11/23/16 20:21 Creatinine 1.14 mg/dL (0.55-1.02) H 11/23/16 20:21 Est GFR (MDRD) Af Amer > 60 (>60) 11/23/16 20:21 Est GFR (MDRD) Non-Af 55 (>60) L 11/23/16 20:21 Glucose 117 mg/dL (65-99) H 11/23/16 20:21 Lactic Acid 1.5 mmol/L (0.4-2.0) 11/23/16 20:21 Calcium 8.2 mg/dL (8.5-10.1) L 11/23/16 20:21 Corrected Calcium 9.6 mg/dL (8.5-10.1) 11/23/16 20:21 Magnesium 1.7 mg/dL (1.7-2.9) 11/23/16 20:21 Total Bilirubin 0.80 mg/dL (0.2-1.0) 11/23/16 20:21 AST 67 Units/L (15-37) H 11/23/16 20:21 ALT 34 Units/L (12-78) 11/23/16 20:21 Alkaline Phosphatase 172 Units/L (46-116) H 11/23/16 20:21 Creatine Kinase 678 Units/L (26-192) H 11/23/16 20:21 CK-MB (CK-2) 7.0 ng/mL (0-4.0) H* 11/23/16 20:21 CK/CKMB % Calc 1.0 % (<4) 11/23/16 20:21 Troponin I < 0.02 ng/mL (0-1.5) 11/23/16 20:21 Total Protein 7.4 g/dL (6.4-8.2) 11/23/16 20:21 Albumin 2.3 g/dL (3.4-5.0) L 11/23/16 20:21 Globulin 5.1 g/dL (2.5-4.5) H 11/23/16 20:21 Albumin/Globulin Ratio 0.5 Ratio (1.1-2.1) L 11/23/16 20:21 - XRAY XRAY Interpreted by: Radiologist (CXR: Heart size stable. No focal consolidation to suggest pneumonia. No interval change) - EKG Rate: 88 [place]: Normal Rhythm: NSR Block: None Hypertrophy: None ST: Nonsp - Diagnosis Discharge Problem: Chest pain, rule out acute myocardial infarction, Cellulitis of right leg, DVT (deep venous thrombosis), Pancytopenia, Thrombocytopenia, rhabdomyelitis, Hyperglycemia - Discharge Plan Disposition: ADMITTED INPATIENT Condition: Stable - Follow ups/Referrals Follow ups/Referrals: IRMA DYER [Primary Care Provider] - 3 days - Instructions
[2016-11-23 20:30] LABS: BASOPHILS # (AUTO) 0.1 X10^3/uL (0.0-0.1); BASOPHILS % (AUTO) 3.4 % (0.2-1.0); EOSINOPHILS # (AUTO) 0.1 x10^3/uL (0.0-0.2); EOSINOPHILS % (AUTO) 3.1 % (0.9-2.9); HEMATOCRIT 26.1 % (36.0-47.0); HEMOGLOBIN 8.6 g/dL (12.0-16.0); LYMPHOCYTES % (AUTO) 36.6 % (21.0-51.0); MEAN CORPUSCULAR HEMOGLOBIN 25.8 pg (27.0-34.0); MEAN CORPUSCULAR VOLUME 78.1 fL (80.0-100.0); MEAN PLATELET VOLUME 8.4 fL (7.4-11.0); MONOCYTES # (AUTO) 0.2 x10^3/uL (0.3-0.8); MONOCYTES % (AUTO) 7.6 % (0.0-13.0); NEUTROPHILS # (AUTO) 1.3 x10^3/uL (2.2-4.8); NEUTROPHILS % (AUTO) 49.3 % (42.0-75.0); PLATELET COUNT 38 X10^3/uL (150.0-450.0); RED BLOOD COUNT 3.35 X10^6/uL (3.5-5.4); WHITE BLOOD COUNT 2.7 X10^3/uL (3.6-10.0)
--- NOTE | 2016-11-23 20:39 | RAD ---
Portable chest Indication: Chest pain. Comparison: November 02, 2016. Impression: Heart size is stable. There is stable mild vascular congestion without pulmonary edema. There is no f ocal consolidation to suggest pneumonia. No significant pleural effusion or pneumothorax is seen. No interval change. Reported By:
[2016-11-23 20:52] LABS: HYPOCHROMASIA 1+; MICROCYTOSIS 1+; PLATELET MORPHOLOGY COMMENT NORMAL (NORMAL)
[2016-11-23 20:59] LABS: LACTIC ACID 1.5 mmol/L (0.4-2.0)
[2016-11-23 21:00] LABS: BLOOD UREA NITROGEN 10 mg/dL (7-18); CALCIUM 8.2 mg/dL (8.5-10.1); CARBON DIOXIDE 27.4 mmol/L (21-32); CHLORIDE 105 mmol/L (98-107); COR NA(FOR HYPERGLY) 137 mmol/L (136-145); CREATININE 1.14 mg/dL (0.55-1.02); SODIUM 137 mmol/L (136-145); TROPONIN I < 0.02 ng/mL (0-1.5); eGFR BLACK RACES > 60 (>60); eGFR NON BLACK RACES 55 (>60)
[2016-11-23 21:23] LABS: ALANINE AMINOTRANSFERASE 34 Units/L (12-78); ALBUMIN 2.3 g/dL (3.4-5.0); ALKALINE PHOSPHATASE 172 Units/L (46-116); ASPARTATE AMINO TRANSFERASE 67 Units/L (15-37); COR CA(FOR HYPOALB) 9.6 mg/dL (8.5-10.1); CREATINE KINASE 678 Units/L (26-192); MAGNESIUM 1.7 mg/dL (1.7-2.9); TOTAL PROTEIN 7.4 g/dL (6.4-8.2)
[2016-11-23] MEDS ORDERED: ATIVAN INJ 2 MG VIAL IVP STA (21:58)
[2016-11-23] MEDS ORDERED: ATIVAN INJ 2 MG VIAL ONE (22:00)
[2016-11-23] MEDS ORDERED: VANCOMYCIN 1 GM PREMIX (ADDVANTAGE) 250 ML IV ONE (22:00)
[2016-11-23] MEDS ORDERED: VANCOMYCIN HCL 1 GM VIAL IV SCH (22:00)
[2016-11-23] MEDS ORDERED: MOTRIN TAB 600 MG PO PRN (22:55)
[2016-11-23] MEDS ORDERED: PHENERGAN TAB 25 MG PO PRN (22:55)
[2016-11-23] MEDS ORDERED: XANAX PO PRN (22:55)
[2016-11-23] MEDS ORDERED: PATIENT'S HOME MEDICATION (Albuterol Sulfate 2 PUFF) INH PRN (22:57)
[2016-11-24 00:03] VITALS: BMI 41.4
[2016-11-24 02:43] LABS: CHOL/HDL RATIO 2.5 (0.0-5.0)
[2016-11-24 02:56] LABS: CREATINE KINASE 585 Units/L (26-192); TROPONIN I < 0.02 ng/mL (0-1.5)
[2016-11-24 03:08] LABS: CREATINE KINASE MB 5.8 ng/mL (0-4.0)
[2016-11-24] MEDS ORDERED: PROVENTIL NEB TX 0.083% 2.5MG/ 3ML NEB PRN (07:06)
[2016-11-24] MEDS: NEURONTIN CAP 400 MG PO SCH ×2 (07:22→15:07)
[2016-11-24] MEDS ORDERED: XARELTO PO SCH (09:00)
[2016-11-24] MEDS ORDERED: GLUCOPHAGE XR PO SCH (09:00)
[2016-11-24] MEDS ORDERED: VANCOMYCIN HCL 500 MG VIAL 500 MG in D5W 100 ML IV 100 ML IV SCH (09:00)
[2016-11-24] MEDS ORDERED: PriLOSEC PO SCH (09:00)
[2016-11-24] MEDS ORDERED: VANCOMYCIN 1 GM PREMIX (ADDVANTAGE) 250 ML IV SCH (09:00)
[2016-11-24] MEDS ORDERED: METFORMIN HCL 1000 MG PO SCH (09:00)
[2016-11-24 09:15] LABS: CKMB % 0.9 % (<4); CREATINE KINASE 469 Units/L (26-192); TROPONIN I < 0.02 ng/mL (0-1.5)
[2016-11-24 09:33] LABS: CREATINE KINASE MB 4.3 ng/mL (0-4.0)
[2016-11-24] MEDS ORDERED: NS 250 ML IV 250 ML IV ONE (10:08)
[2016-11-24 15:19] LABS: CKMB % 0.9 % (<4); CREATINE KINASE 376 Units/L (26-192); CREATINE KINASE MB 3.4 ng/mL (0-4.0); TROPONIN I < 0.02 ng/mL (0-1.5)
[2016-11-25] MEDS ORDERED: PHARMACY COMMENT IV SCH (08:45)
[2016-12-21 12:24] VITALS: BP 181/94
--- NOTE | 2016-12-21 12:24 | DR.SSS ---
Short Stay Summary - Admission Date Date of Admission: 11/24/15 - Discharge Date Discharge Date: 11/25/15 - Admission Diagnoses Admission Diagnoses: Rule out acute myocardial infarction Cellulitis of right leg, DVT Pancytopenia Thrombocytopenia Rhabdomyolysis Hyperglycemia - Discharge Diagnoses Discharge Diagnoses: Same as above. - Chief Complaint Chief Complaint: Patient states, "my DVT is acting up again and I keep getting charley horses that hurts so bad, and my chest also hurts" - History of Present Illness History of Present Illness: The patient is a 46-year-old female that was admitted to [facility] secondary to complaints of pain in her right leg with muscle spasms, and chest pain. 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 The patient was admitted and monitored for DVT, as well as for a complete cardiac workup. - Past Medical History Past Medical History: Anxiety, Diabetes, GERD, Liver Disease, PUD, Schizophrenia , Seizures Additional Medical History: 1. DM; type II. 2. Anxiety/depressive disorder. 3. Bipolar disorder. 4. Insomnia. 5. Chonic low back pain; with self reported history of multiple herniated disk - this has not been substantiated. 6. H/O colon polyps. 7. H/O endometriosis. 8. Questionable generalized seizure disorder. 9. Hepatitis C - Past Surgical History Surgical History: Hysterectomy, Ortho Surgery, Thyroidectomy Additional Surgical History: Pt reports having a colonoscopy and polypectomy two months ago in [place], [place] - Allergies Allergies/Adverse Reactions: Allergies Allergy/AdvReac Type Severity Reaction Status Date / Time acetaminophen Allergy Verified 10/26/16 20:53 aloe Allergy Verified 10/26/16 20:53 codeine Allergy Verified 10/26/16 20:53 ketorolac [From Toradol] Allergy Verified 10/26/16 20:53 sumatriptan [From Imitrex] Allergy Verified 10/26/16 20:53 - Medications Home Medications: Buspirone HCl [Buspirone HCl] 15 mg PO BID 11/23/16 [History Confirmed 11/23/16] Buspirone HCl [Buspirone HCl] 15 mg PO DAILY 11/23/16 [History Confirmed ] Hydrocodone/Acetaminophen [Hydrocodon-Acetaminophn 10-325] 1 tab PO BID [History Confirmed 11/23/16] Hydroxyzine HCl [Hydroxyzine HCl] 25 mg PO DAILY PRN 11/23/16 [History Confirmed 11/23/16] Omeprazole [Omeprazole] 20 mg PO BID 11/23/16 [History Confirmed 11/23/16] - Family History Family Medical History: Diabetes Mellitus, Cancer, Hypertension - Social History Does patient currently use any type of tobacco product: Yes Have you used tobacco products in the last 12 months: Yes Type of Tobacco Use: Cigarettes How many years tobacco product used: 30 Does any household member use tobacco: Yes Alcohol Use: None Drug Use: None - Review of Systems Constitutional: No Symptoms Reported Eyes: No Symptoms Reported ENT: No Symptoms Reported Respiratory: No Symptoms Reported Cardiovascular: Chest Pain, Edema Gastrointestinal: No Symptoms Reported Genitourinary: No Symptoms Reported Musculoskeletal: See HPI, Leg Pain Skin: No Symptoms Reported Neurological: No Symptoms Reported - Physical Exam Temperature: 98.0 F Blood Pressure: 181/94 Respiratory Rate: 20 Pulse Rate: 101 O2 Sat by Pulse Oximetry: 98 Oriented: Normal Eyes: Normal Ear: Normal Throat: Normal Respiratory: Clear Throughout Cardiovascular: Normal : Normal Auscultation: Bowel Sounds: Normal Palpation: Normal Tenderness: Normal Skin: Normal Musculoskeletal: Right, Leg, Swelling, Tender Psychiatric: Normal Mood Description: Anxious Affect: Anxious Speech Pattern: Clear - Labs Labs: Laboratory Last Values WBC 2.7 X10^3/uL (3.6-10.0) L 11/23/16 20:21 RBC 3.35 X10^6/uL (3.5-5.4) L 11/23/16 20:21 Hgb 8.6 g/dL (12.0-16.0) L 11/23/16 20:21 Hct 26.1 % (36.0-47.0) L 11/23/16 20:21 MCV 78.1 fL (80.0-100.0) L 11/23/16 20:21 MCH 25.8 pg (27.0-34.0) L 11/23/16 20:21 MCHC 33.0 g/dL (33.0-35.0) 11/23/16 20:21 RDW 19.0 % (11.6-16.5) H 11/23/16 20:21 Plt Count 38 X10^3/uL (150.0-450.0) L 11/23/16 20:21 Plt Count Comment Decreased (ADEQUATE) A 11/23/16 20:21 MPV 8.4 fL (7.4-11.0) 11/23/16 20:21 Neut % 49.3 % (42.0-75.0) 11/23/16 20:21 Lymph % 36.6 % (21.0-51.0) 11/23/16 20:21 [place] % 7.6 % (0.0-13.0) 11/23/16 20:21 Eos % 3.1 % (0.9-2.9) H 11/23/16 20:21 Baso % 3.4 % (0.2-1.0) H 11/23/16 20:21 Neut # 1.3 x10^3/uL (2.2-4.8) L 11/23/16 20:21 Lymph # 1.0 X10^3/uL (1.3-2.9) L 11/23/16 20:21 [place] # 0.2 x10^3/uL (0.3-0.8) L 11/23/16 20:21 Eos # 0.1 x10^3/uL (0.0-0.2) 11/23/16 20:21 Baso # 0.1 X10^3/uL (0.0-0.1) 11/23/16 20:21 Absolute Nucleated RBC 0.0 /100WBC 11/23/16 20:21 Total Counted 50 11/23/16 20:21 Neutrophils % (Manual) 38 % (39-76) L 11/23/16 20:21 Lymphocytes % (Manual) 54 % (13-43) H 11/23/16 20:21 Monocytes % (Manual) 2 % (4-9) L 11/23/16 20:21 Eosinophils % (Manual) 6 % (0-6) 11/23/16 20:21 Nucleated RBCs 1 11/23/16 20:21 Plt Morphology Comment Normal (NORMAL) 11/23/16 20:21 RBC Morphology Abnormal (NORMAL) A 11/23/16 20:21 Hypochromasia 1+ A 11/23/16 20:21 Microcytosis 1+ A 11/23/16 20:21 INR Target Range - 11/23/16 20:10 INR 2.99 (0.8-1.3) H 11/23/16 20:10 PTT 47.9 SECONDS (22.9-36.5) H 11/23/16 20:10 PTT Comment - 11/23/16 20:10 Sodium 137 mmol/L (136-145) 11/23/16 20:21 Corrected Sodium 137 mmol/L (136-145) 11/23/16 20:21 Potassium 3.4 mmol/L (3.5-5.1) L 11/23/16 20:21 Chloride 105 mmol/L (98-107) 11/23/16 20:21 Carbon Dioxide 27.4 mmol/L (21-32) 11/23/16 20:21 BUN 10 mg/dL (7-18) 11/23/16 20:21 Creatinine 1.14 mg/dL (0.55-1.02) H 11/23/16 20:21 Est GFR (MDRD) Af Amer > 60 (>60) 11/23/16 20:21 Est GFR (MDRD) Non-Af 55 (>60) L 11/23/16 20:21 Glucose 117 mg/dL (65-99) H 11/23/16 20:21 Lactic Acid 1.5 mmol/L (0.4-2.0) 11/23/16 20:21 Calcium 8.2 mg/dL (8.5-10.1) L 11/23/16 20:21 Corrected Calcium 9.6 mg/dL (8.5-10.1) 11/23/16 20:21 Magnesium 1.7 mg/dL (1.7-2.9) 11/23/16 20:21 Total Bilirubin 0.80 mg/dL (0.2-1.0) 11/23/16 20:21 AST 67 Units/L (15-37) H 11/23/16 20:21 ALT 34 Units/L (12-78) 11/23/16 20:21 Alkaline Phosphatase 172 Units/L (46-116) H 11/23/16 20:21 Ammonia 62 umol/L (11-32) H 11/23/16 23:10 Creatine Kinase 376 Units/L (26-192) H 11/24/16 14:15 CK-MB (CK-2) 3.4 ng/mL (0-4.0) 11/24/16 14:15 CK/CKMB % Calc 0.9 % (<4) 11/24/16 14:15 Troponin I < 0.02 ng/mL (0-1.5) 11/24/16 14:15 Total Protein 7.4 g/dL (6.4-8.2) 11/23/16 20:21 Albumin 2.3 g/dL (3.4-5.0) L 11/23/16 20:21 Globulin 5.1 g/dL (2.5-4.5) H 11/23/16 20:21 Albumin/Globulin Ratio 0.5 Ratio (1.1-2.1) L 11/23/16 20:21 Triglycerides 55 mg/dL (0-150) 11/24/16 02:05 Cholesterol 123 mg/dL (0-200) 11/24/16 02:05 LDL Cholesterol, Calc 63 mg/dL (0-100) 11/24/16 02:05 HDL Cholesterol 49 mg/dL (40-60) 11/24/16 02:05 Cholesterol/HDL Ratio 2.5 (0.0-5.0) 11/24/16 02:05 - Assessment/Plan 1: Serial Troponin levels 2: Chest x-ray 3: Serial EKGs 4: IV antibiotics for cellulitis - Hospital Course Hospital Course: See HPI. The patient was given IV antibiotics to treat a cellulitis of the right leg. Serial EKGs and serial troponin levels were drawn, all within normal range. Subsequently, the patient did show improvement in symptoms during the course of this hospitalization. The patient was felt to be stable for discharge and was discharged home to be followed up in outpatient setting. - Discharge Medications Discharge Medications: Buspirone HCl [Buspirone HCl] 15 mg PO BID 11/23/16 [History] Buspirone HCl [Buspirone HCl] 15 mg PO DAILY 11/23/16 [History] Hydrocodone/Acetaminophen [Hydrocodon-Acetaminophn 10-325] 1 tab PO BID [History] Hydroxyzine HCl [Hydroxyzine HCl] 25 mg PO DAILY PRN 11/23/16 [History] Omeprazole [Omeprazole] 20 mg PO BID 11/23/16 [History] Sulfamethoxazole-Trimethoprim [BACTRIM DS TAB 800/160 MG *] 1 tab PO BID #20 tab 11/24/16 [Rx] - Discharge Disposition Discharge Disposition: Stable
== END 2016-11-24 18:45 | disposition home or self-care (01) | DRG 313 ==
LOC: ER 19:48 → MED/SURG 22:49
PROVIDERS: ADMIT Internal Medicine; ATTEND Internal Medicine
DX: R07.2 Precordial pain (principal); L03.115 Cellulitis of right lower limb; I82.491 Acute embolism and thrombosis of other specified deep vein of right lower extremity; D64.89 Other specified anemias; R79.1 Abnormal coagulation profile; R94.4 Abnormal results of kidney function studies; R60.0 Localized edema; E11.65 Type 2 diabetes mellitus with hyperglycemia; R94.31 Abnormal electrocardiogram [ECG] [EKG]; D69.6 Thrombocytopenia, unspecified; D61.818 Other pancytopenia; M62.82 Rhabdomyolysis
CPT/HCPCS: 36415; 71010; 80053; 80061; 82140; 82550; 82553; 83605; 83735; 84484; 85025; 85610; 85730; 93005; 93010; 94760; 96365; 96374; 96375; 99217; 99284; A4216; A4222; G0378; J2060; J3370

== ENCOUNTER 2016-12-11 17:42 | Emergency (ER) | payer SELFPAY ==
[2016-12-11 17:51] VITALS: BP 144/83; BMI 40.7
[2016-12-11 18:15] LABS: BASOPHILS % (AUTO) 1.1 % (0.2-1.0); EOSINOPHILS % (AUTO) 2.1 % (0.9-2.9); HEMATOCRIT 25.3 % (36.0-47.0); HEMOGLOBIN 8.1 g/dL (12.0-16.0); LYMPHOCYTES # (AUTO) 0.6 X10^3/uL (1.3-2.9); LYMPHOCYTES % (AUTO) 31.4 % (21.0-51.0); MEAN CORPUSCULAR HEMOGLOBIN 24.7 pg (27.0-34.0); MEAN CORPUSCULAR HGB CONC 31.9 g/dL (33.0-35.0); MEAN CORPUSCULAR VOLUME 77.4 fL (80.0-100.0); MEAN PLATELET VOLUME 8.5 fL (7.4-11.0); MONOCYTES # (AUTO) 0.2 x10^3/uL (0.3-0.8); MONOCYTES % (AUTO) 10.9 % (0.0-13.0); NEUTROPHILS # (AUTO) 1.1 x10^3/uL (2.2-4.8); NEUTROPHILS % (AUTO) 54.5 % (42.0-75.0); PLATELET COUNT 34 X10^3/uL (150.0-450.0); RED BLOOD COUNT 3.27 X10^6/uL (3.5-5.4); RED CELL DISTRIBUTION WIDTH 18.5 % (11.6-16.5)
[2016-12-11 18:25] LABS: PLATELET MORPHOLOGY COMMENT NORMAL (NORMAL); SERUM PREGNANCY TEST, QUAL NEGATIVE <10 mIU/mL
[2016-12-11 18:26] LABS: ALANINE AMINOTRANSFERASE 33 Units/L (12-78); ALBUMIN 2.3 g/dL (3.4-5.0); ALKALINE PHOSPHATASE 156 Units/L (46-116); ASPARTATE AMINO TRANSFERASE 51 Units/L (15-37); BLOOD ALCOHOL < 3 mg/dL (0-19.9); BLOOD UREA NITROGEN 7 mg/dL (7-18); CALCIUM 8.5 mg/dL (8.5-10.1); CARBON DIOXIDE 29.8 mmol/L (21-32); CHLORIDE 109 mmol/L (98-107); COR CA(FOR HYPOALB) 9.9 mg/dL (8.5-10.1); CREATININE 0.77 mg/dL (0.55-1.02); SODIUM 143 mmol/L (136-145); TOTAL PROTEIN 7.3 g/dL (6.4-8.2); eGFR BLACK RACES > 60 (>60); eGFR NON BLACK RACES > 60 (>60)
[2016-12-11] MEDS ORDERED: NEURONTIN CAP 400 MG PO ONE (18:27)
[2016-12-11 18:29] LABS: SALICYLATE < 2.8 mg/dL (2.8-20)
--- NOTE | 2016-12-11 18:36 | DR.GENAD ---
HPI - PCP Primary Care Physician: phu vizcarra - Complaint/Symptoms Chief Complaint Doctors Comments: History as stated. Chief Complaint:: "I dont want to live anymore i want to hurt myself and my " "my is texting other women and i want to kill him" - Source History Provided: Patient - Mode of Arrival Mode of Arrival: Ambulatory - Timing Onset of Chief Complaint: 12/11/16 PMH - PMH Past Medical History: Yes Past Medical History: Anxiety, Diabetes, GERD, Liver Disease, PUD, Schizophrenia , Seizures Past Surgical History: Yes Surgical History: Hysterectomy, Ortho Surgery, Thyroidectomy - Family History History of Family Medical Conditions: Yes Family Medical History: Diabetes Mellitus, Cancer, Hypertension - Social History Does patient currently use any type of tobacco product: Yes Have you used tobacco products in the last 12 months: Yes Type of Tobacco Use: Cigarettes How many years tobacco product used: 15 Does any household member use tobacco: No Alcohol Use: None Do you use any recreational Drugs:: No Lives With: Family Lives Where: Home - infectious screening In the last 2 months have you had wt loss of >10#?: NO Have you had fever, night sweats or hemotysis?: No Have you traveled outside the country in the last 6 months?: No Isolation: Standard ROS - Review of Systems Eyes: No Symptoms Reported ENTM: No Symptoms Reported Respiratoy: No Symptoms Reported Cardiovascular: No Symptoms Reported Gastrointestinal/Abdominal: No Symptoms Reported Genitourinary: No Symptoms Reported Neurological: No Symptoms Reported Musculoskeletal: No Symptoms Reported Integumentary: No Symptoms Reported Hematologic/Lymphatic: No Symptoms Reported Endocrine: No Symptoms Reported Psychiatric: No Symptoms Reported PE - Vital Signs Vitals: Temperature 98.6 F Pulse Rate 88 Respiratory Rate 16 Blood Pressure [Right Arm] 119/56 Blood Pressure [Left Arm] 133/75 Blood Pressure 144/83 O2 Sat by Pulse Oximetry 99 - General Limitations: No Limitations General Appearance: Alert - Head Head Exam: Normal Inspection, Atraumatic - Eyes Eye exam: Normal Appearance, PERRL, EOMI - ENT ENT Exam: Normal Exam, Normal Oropharynx TM/Canal Exam: Bilateral Normal Nose Exam: Normal Nose Exam Mouth Exam: Normal Inspection Throat Exam: Normal Inspection - Neck Neck Exam: Normal Inspection, Trachea Midline - Chest Chest Inspection: Normal Inspection - Respiratory Respiratory Exam: Normal Lung Sounds Bilat Respiratory Exam: Bilateral Clear to Auscultation - Cardiovascular Cardiovascular Exam: Regular Rate, Normal Rhythm - Abdominal Exam Abdominal Exam: Normal Inspection Abdominal Tenderness: negative: RUQ, RLQ, LUQ, LLQ, Epigastrium, Suprapubic, Diffuse, Mild, Moderate, Severe, Other - Extremities Extremities Exam: Full ROM, Other (hyperpigmented RLE). negative: Tenderness - Back Back Exam: Normal Inspection - Neurologic Neurological Exam: Alert, Oriented X3, CN II-XII Intact - Psychiatric Psychiatric Exam: Normal Affect, Normal Mood - Skin Skin Exam: Warm, Dry, Intact ROR - Labs Reviewed Result Diagrams: 12/11/16 18:05 12/11/16 18:05 Laboratory: WBC 2.0 X10^3/uL (3.6-10.0) L 12/11/16 18:05 RBC 3.27 X10^6/uL (3.5-5.4) L 12/11/16 18:05 Hgb 8.1 g/dL (12.0-16.0) L 12/11/16 18:05 Hct 25.3 % (36.0-47.0) L 12/11/16 18:05 MCV 77.4 fL (80.0-100.0) L 12/11/16 18:05 MCH 24.7 pg (27.0-34.0) L 12/11/16 18:05 MCHC 31.9 g/dL (33.0-35.0) L 12/11/16 18:05 RDW 18.5 % (11.6-16.5) H 12/11/16 18:05 Plt Count 34 X10^3/uL (150.0-450.0) L 12/11/16 18:05 Plt Count Comment Adequate (ADEQUATE) 12/11/16 18:05 MPV 8.5 fL (7.4-11.0) 12/11/16 18:05 Neut % 54.5 % (42.0-75.0) 12/11/16 18:05 Lymph % 31.4 % (21.0-51.0) 12/11/16 18:05 [place] % 10.9 % (0.0-13.0) 12/11/16 18:05 Eos % 2.1 % (0.9-2.9) 12/11/16 18:05 Baso % 1.1 % (0.2-1.0) H 12/11/16 18:05 Neut # 1.1 x10^3/uL (2.2-4.8) L 12/11/16 18:05 Lymph # 0.6 X10^3/uL (1.3-2.9) L 12/11/16 18:05 [place] # 0.2 x10^3/uL (0.3-0.8) L 12/11/16 18:05 Eos # 0.0 x10^3/uL (0.0-0.2) 12/11/16 18:05 Baso # 0.0 X10^3/uL (0.0-0.1) 12/11/16 18:05 Absolute Nucleated RBC 0.0 /100WBC 12/11/16 18:05 Total Counted 50 12/11/16 18:05 Neutrophils % (Manual) 42 % (39-76) 12/11/16 18:05 Lymphocytes % (Manual) 58 % (13-43) H 12/11/16 18:05 Plt Morphology Comment Normal (NORMAL) 12/11/16 18:05 RBC Morphology Normal (NORMAL) 12/11/16 18:05 Sodium 143 mmol/L (136-145) 12/11/16 18:05 Corrected Sodium TNP 12/11/16 18:05 Potassium 3.7 mmol/L (3.5-5.1) 12/11/16 18:05 Chloride 109 mmol/L (98-107) H 12/11/16 18:05 Carbon Dioxide 29.8 mmol/L (21-32) 12/11/16 18:05 BUN 7 mg/dL (7-18) 12/11/16 18:05 Creatinine 0.77 mg/dL (0.55-1.02) 12/11/16 18:05 Est GFR (MDRD) Af Amer > 60 (>60) 12/11/16 18:05 Est GFR (MDRD) Non-Af > 60 (>60) 12/11/16 18:05 Glucose 80 mg/dL (65-99) 12/11/16 18:05 Calcium 8.5 mg/dL (8.5-10.1) 12/11/16 18:05 Corrected Calcium 9.9 mg/dL (8.5-10.1) 12/11/16 18:05 Total Bilirubin 0.90 mg/dL (0.2-1.0) 12/11/16 18:05 AST 51 Units/L (15-37) H 12/11/16 18:05 ALT 33 Units/L (12-78) 12/11/16 18:05 Alkaline Phosphatase 156 Units/L (46-116) H 12/11/16 18:05 Total Protein 7.3 g/dL (6.4-8.2) 12/11/16 18:05 Albumin 2.3 g/dL (3.4-5.0) L 12/11/16 18:05 Globulin 5.0 g/dL (2.5-4.5) H 12/11/16 18:05 Albumin/Globulin Ratio 0.5 Ratio (1.1-2.1) L 12/11/16 18:05 HCG, Qual Negative <10 mIU/mL 12/11/16 18:05 Salicylates < 2.8 mg/dL (2.8-20) L 12/11/16 18:05 Acetaminophen 0.0 ug/mL (10-30) L 12/11/16 18:05 Ethyl Alcohol mg/dL < 3 mg/dL (0-19.9) 12/11/16 18:05 - Discharge Plan Condition: Stable - Follow ups/Referrals Follow ups/Referrals: PHU VIZCARRA [Primary Care Provider] - 3 days - Instructions
[2016-12-11] MEDS ORDERED: BENTYL I.M. INJ 10 MG IM ONE ×2 (18:45→18:46)
[2016-12-11 19:23] LABS: BILIRUBIN,URINE 1+ (NEGATIVE); BLOOD/HEMOGLOBIN,URINE 5+ (NEGATIVE); GLUCOSE, URINE NEGATIVE (NEGATIVE); KETONES,URINE NEGATIVE (NEGATIVE); LEUKOCYTE ESTERASE ,URINE 2+ (NEGATIVE); NITRITES,URINE NEGATIVE (NEGATIVE); PROTEIN,URINE 2+ (NEGATIVE); UROBILINOGEN,URINE 4+ (NORMAL)
[2016-12-11 19:36] LABS: APPEARANCE,URINE HAZY (CLEAR); BACTERIA,URINE TRACE /HPF (NEGATIVE); COLOR,URINE YELLOW (YELLOW); RBC,URINE 25-50 /HPF (NEGATIVE); SQUAMOUS EPITHELIAL CELL,UR FEW /HPF (NEGATIVE)
== END 2016-12-11 19:40 | disposition left against medical advice (07) ==
LOC: ER 17:55
DX: Z91.5 Personal history of self-harm (principal)
CPT/HCPCS: 36415; 80053; 80307; 80320; 81001; 84703; 85025; 93005; 93010; 96372; 99282; 99283; G0434; G6038; G6039; G6040; J0500

== ENCOUNTER 2016-12-25 23:43 | Emergency (ER) | payer SELFPAY ==
[2016-12-25 23:53] VITALS: BP 142/97; BMI 41.9
--- NOTE | 2016-12-26 00:25 | DR.GENAD ---
HPI - PCP Primary Care Physician: MIKAEL - HPI Comment HPI Comment: PAIN IN UPPER ABDOMEN. TOOK PEPCID WITHOUT RELIEF. NO FEVER. PAIN GETTING WORSE. - Complaint/Symptoms Chief Complaint Doctors Comments: ABDOMINAL PAIN, BLOOD IN URINE TIMES 4 DAYS. Chief Complaint:: PT STATES" IT FEELS LIKE HEARTBURN AND I TOOK A PRILOSEC BUT IT DIDN'T HELP" - Nurses notes reviewed Nurses Notes Review: Yes - Source History Provided: Patient - Mode of Arrival Mode of Arrival: Ambulatory - Timing Onset of Chief Complaint: 12/21/16 Came on: Gradually - Duration Duration: Constant Duration: Days - Severity Severity: Moderate PMH - PMH Past Medical History: Yes Past Medical History: Anxiety, Diabetes, GERD, Liver Disease, PUD, Schizophrenia , Seizures Past Surgical History: Yes Surgical History: Hysterectomy, Ortho Surgery, Thyroidectomy - Family History History of Family Medical Conditions: Yes Family Medical History: Diabetes Mellitus, Cancer, Hypertension - Social History Does any household member use tobacco: Yes Alcohol Use: None Do you use any recreational Drugs:: No Lives With: Family Lives Where: Home - infectious screening In the last 2 months have you had wt loss of >10#?: NO Have you had fever, night sweats or hemotysis?: No Have you traveled outside the country in the last 6 months?: No Isolation: Standard ROS - Review of Systems Constitutional: No Symptoms Reported Eyes: No Symptoms Reported ENTM: No Symptoms Reported Respiratoy: No Symptoms Reported Cardiovascular: No Symptoms Reported Gastrointestinal/Abdominal: Abdominal Pain. negative: Diarrhea, Nausea, Vomiting Genitourinary: No Symptoms Reported, Hematuria. negative: Dysuria, Frequency Neurological: Headache Musculoskeletal: Muscle Pain Integumentary: No Symptoms Reported Hematologic/Lymphatic: Easy Bleeding, Easy Bruising Endocrine: No Symptoms Reported All Other Systems: Reviewed and Negative PE - Vital Signs Vitals: Temperature 99 F Pulse Rate 93 Respiratory Rate 18 Blood Pressure [Right Arm] 119/56 Blood Pressure [Left Arm] 133/75 Blood Pressure 142/97 O2 Sat by Pulse Oximetry 98 - General Limitations: No Limitations General Appearance: Alert - Head Head Exam: Normal Inspection - Eyes Eye exam: Normal Appearance - ENT ENT Exam: Normal External Ear Exam External Ear Exam: Normal External Inspection TM/Canal Exam: Bilateral Normal Nose Exam: Normal Nose Exam Mouth Exam: Normal Inspection Throat Exam: Normal Inspection - Neck Neck Exam: Trachea Midline - Chest Chest Inspection: Symmetric Chest Wall Rise - Respiratory Respiratory Exam: Normal Lung Sounds Bilat Respiratory Exam: Bilateral Clear to Auscultation - Cardiovascular Cardiovascular Exam: Regular Rate, Normal Rhythm, Normal Heart Sounds - Abdominal Exam Abdominal Exam: Normal Bowel Sounds, Soft, Tenderness Abdominal Tenderness: RLQ, Epigastrium - Extremities Extremities Exam: Edema (TRACE EDEMA) - Back Back Exam: negative: (R) CVA Tenderness, (L) CVA Tenderness - Neurologic Neurological Exam: Alert, Oriented X3 - Psychiatric Psychiatric Exam: Normal Affect, Normal Mood - Skin Skin Exam: Erythema MDM - Additional Information Additional Information Obtained From: Family - Differential Diagnosis Differential Diagnosis: ABDOMINAL PAIN, PUD, REFLUX, UTI, BOWEL OBSTRUCTION. Course - Treatment Treatment: SEE ORDERS - Education/Counseling Education/Counseling: Patient, Education Educated On: Treatment, Diagnosis, Needs for Follow Up ROR - Labs Reviewed Laboratory Results Reviewed?: Yes Result Diagrams: 12/26/16 00:36 12/26/16 00:36 Laboratory: WBC 2.5 X10^3/uL (3.6-10.0) L 12/26/16 00:36 RBC 3.46 X10^6/uL (3.5-5.4) L 12/26/16 00:36 Hgb 8.3 g/dL (12.0-16.0) L 12/26/16 00:36 Hct 25.8 % (36.0-47.0) L 12/26/16 00:36 MCV 74.6 fL (80.0-100.0) L 12/26/16 00:36 MCH 24.0 pg (27.0-34.0) L 12/26/16 00:36 MCHC 32.2 g/dL (33.0-35.0) L 12/26/16 00:36 RDW 18.1 % (11.6-16.5) H 12/26/16 00:36 Plt Count 45 X10^3/uL (150.0-450.0) L 12/26/16 00:36 Plt Count Comment Decreased (ADEQUATE) A 12/26/16 00:36 MPV 8.5 fL (7.4-11.0) 12/26/16 00:36 Neut % 57.6 % (42.0-75.0) 12/26/16 00:36 Lymph % 33.2 % (21.0-51.0) 12/26/16 00:36 [place] % 7.5 % (0.0-13.0) 12/26/16 00:36 Eos % 0.8 % (0.9-2.9) L 10 00:36 Baso % 0.9 % (0.2-1.0) 12/26/16 00:36 Neut # 1.4 x10^3/uL (2.2-4.8) L 12/26/16 00:36 Lymph # 0.8 X10^3/uL (1.3-2.9) L 12/26/16 00:36 [place] # 0.2 x10^3/uL (0.3-0.8) L 12/26/16 00:36 Eos # 0.0 x10^3/uL (0.0-0.2) 12/26/16 00:36 Baso # 0.0 X10^3/uL (0.0-0.1) 12/26/16 00:36 Absolute Nucleated RBC 0.1 /100WBC 12/26/16 00:36 Total Counted 100 10 00:36 Neutrophils % (Manual) 58 % (39-76) 12/26/16 00:36 Lymphocytes % (Manual) 38 % (13-43) 12/26/16 00:36 Monocytes % (Manual) 4 % (4-9) 10 00:36 Plt Morphology Comment Normal (NORMAL) 12/26/16 00:36 RBC Morphology Abnormal (NORMAL) A 12/26/16 00:36 Hypochromasia 1+ A 12/26/16 00:36 Anisocytosis 1+ A 12/26/16 00:36 Microcytosis 1+ A 12/26/16 00:36 [place] Noted 12/26/16 00:36 Sodium 137 mmol/L (136-145) 12/26/16 00:36 Corrected Sodium TNP 12/26/16 00:36 Potassium 3.6 mmol/L (3.5-5.1) 12/26/16 00:36 Chloride 107 mmol/L (98-107) 12/26/16 00:36 Carbon Dioxide 24.6 mmol/L (21-32) 12/26/16 00:36 BUN 8 mg/dL (7-18) 12/26/16 00:36 Creatinine 0.87 mg/dL (0.55-1.02) 12/26/16 00:36 Est GFR (MDRD) Af Amer > 60 (>60) 12/26/16 00:36 Est GFR (MDRD) Non-Af > 60 (>60) 12/26/16 00:36 Glucose 82 mg/dL (65-99) 12/26/16 00:36 Calcium 8.4 mg/dL (8.5-10.1) L 12/26/16 00:36 Corrected Calcium 9.4 mg/dL (8.5-10.1) 12/26/16 00:36 Total Bilirubin 1.20 mg/dL (0.2-1.0) H 12/26/16 00:36 AST 53 Units/L (15-37) H 12/26/16 00:36 ALT 32 Units/L (12-78) 12/26/16 00:36 Alkaline Phosphatase 130 Units/L (46-116) H 12/26/16 00:36 Total Protein 7.7 g/dL (6.4-8.2) 12/26/16 00:36 Albumin 2.7 g/dL (3.4-5.0) L 12/26/16 00:36 Globulin 5.0 g/dL (2.5-4.5) H 12/26/16 00:36 Albumin/Globulin Ratio 0.5 Ratio (1.1-2.1) L 12/26/16 00:36 Specimen Type Clean catch urine 12/26/16 00:35 Urine Color Yellow (YELLOW) 12/26/16 00:35 Urine Appearance Slightly hazy (CLEAR) 12/26/16 00:35 Urine pH 6.5 (5.0 - 8.0) 12/26/16 00:35 Ur Specific [place] 1.010 (1.000-1.030) 12/26/16 00:35 Urine Protein 2+ (NEGATIVE) 12/26/16 00:35 Urine Glucose (UA) Negative (NEGATIVE) 12/26/16 00:35 Urine Ketones Negative (NEGATIVE) 12/26/16 00:35 Urine Occult Blood 5+ (NEGATIVE) 12/26/16 00:35 Urine Nitrite Negative (NEGATIVE) 12/26/16 00:35 Urine Bilirubin Negative (NEGATIVE) 12/26/16 00:35 Urine Urobilinogen 1+ (NORMAL) 12/26/16 00:35 Ur Leukocyte Esterase 2+ (NEGATIVE) 12/26/16 00:35 Urine RBC 20-25 /HPF (NEGATIVE) 12/26/16 00:35 Urine WBC 6-8 /HPF (NEGATIVE) 12/26/16 00:35 Ur Squamous Epith Cells Rare /HPF (NEGATIVE) 12/26/16 00:35 Urine Bacteria 1+ /HPF (NEGATIVE) 12/26/16 00:35 Ur Culture Indicated? Yes/culture set up 12/26/16 00:35 - XRAY XRAY Interpreted by: Radiologist XRAY Findings: REPORT DISCUSS WITH PATIENT. - Diagnosis Discharge Problem: PUD (peptic ulcer disease) Abdominal pain Qualifiers: Abdominal location: upper abdomen, unspecified Qualified Code(s): R10.10 - Upper abdominal pain, unspecified UTI (urinary tract infection) Qualifiers: Urinary tract infection type: site unspecified Hematuria presence: with hematuria Qualified Code(s): N39.0 - Urinary tract infection, site not specified Hematuria Qualifiers: Hematuria type: unspecified type Qualified Code(s): R31.9 - Hematuria, unspecified - Discharge Plan Condition: Stable Prescriptions: Sulfamethoxazole-Trimethoprim [BACTRIM DS TAB 800/160 MG *] 1 tab PO BID #20 tab - Follow ups/Referrals Follow ups/Referrals: IRMA YOUSSEF [Primary Care Provider] - 3 days - Instructions Instructions: Abdominal Pain, Adult, [id number], Urinary Tract Infection, Adult
[2016-12-26] MEDS ORDERED: LEVSIN/MAALOX/LIDOC VISC PO ONE (00:26)
[2016-12-26] MEDS ORDERED: ZOFRAN TAB 4 MG PO ONE (00:27)
[2016-12-26] MEDS ORDERED: LEVSIN/MAALOX/LIDOC VISC ONE (00:28)
[2016-12-26] MEDS ORDERED: ZOFRAN TAB 4 MG ONE (00:29)
[2016-12-26 00:49] LABS: HEMOGLOBIN 8.3 g/dL (12.0-16.0); MEAN CORPUSCULAR VOLUME 74.6 fL (80.0-100.0); NEUTROPHILS # (AUTO) 1.4 x10^3/uL (2.2-4.8); WHITE BLOOD COUNT 2.5 X10^3/uL (3.6-10.0)
[2016-12-26 00:52] LABS: BILIRUBIN,URINE NEGATIVE (NEGATIVE); BLOOD/HEMOGLOBIN,URINE 5+ (NEGATIVE); GLUCOSE, URINE NEGATIVE (NEGATIVE); KETONES,URINE NEGATIVE (NEGATIVE); LEUKOCYTE ESTERASE ,URINE 2+ (NEGATIVE); NITRITES,URINE NEGATIVE (NEGATIVE); PH,URINE 6.5 (5.0 - 8.0); PROTEIN,URINE 2+ (NEGATIVE); UROBILINOGEN,URINE 1+ (NORMAL)
[2016-12-26 00:53] LABS: BASOPHILS % (AUTO) 0.9 % (0.2-1.0); EOSINOPHILS % (AUTO) 0.8 % (0.9-2.9); HEMATOCRIT 25.8 % (36.0-47.0); LYMPHOCYTES # (AUTO) 0.8 X10^3/uL (1.3-2.9); LYMPHOCYTES % (AUTO) 33.2 % (21.0-51.0); MEAN CORPUSCULAR HGB CONC 32.2 g/dL (33.0-35.0); MEAN PLATELET VOLUME 8.5 fL (7.4-11.0); MONOCYTES # (AUTO) 0.2 x10^3/uL (0.3-0.8); MONOCYTES % (AUTO) 7.5 % (0.0-13.0); NEUTROPHILS % (AUTO) 57.6 % (42.0-75.0); PLATELET COUNT 45 X10^3/uL (150.0-450.0); RED BLOOD COUNT 3.46 X10^6/uL (3.5-5.4); RED CELL DISTRIBUTION WIDTH 18.1 % (11.6-16.5)
[2016-12-26 00:56] LABS: APPEARANCE,URINE SLIGHTLY HAZY (CLEAR); COLOR,URINE YELLOW (YELLOW)
[2016-12-26 00:58] LABS: BACTERIA,URINE 1+ /HPF (NEGATIVE); RBC,URINE 20-25 /HPF (NEGATIVE); SQUAMOUS EPITHELIAL CELL,UR RARE /HPF (NEGATIVE)
[2016-12-26 01:00] LABS: ALANINE AMINOTRANSFERASE 32 Units/L (12-78); ALBUMIN 2.7 g/dL (3.4-5.0); ALKALINE PHOSPHATASE 130 Units/L (46-116); ASPARTATE AMINO TRANSFERASE 53 Units/L (15-37); BLOOD UREA NITROGEN 8 mg/dL (7-18); CALCIUM 8.4 mg/dL (8.5-10.1); CARBON DIOXIDE 24.6 mmol/L (21-32); CHLORIDE 107 mmol/L (98-107); COR CA(FOR HYPOALB) 9.4 mg/dL (8.5-10.1); CREATININE 0.87 mg/dL (0.55-1.02); SODIUM 137 mmol/L (136-145); TOTAL PROTEIN 7.7 g/dL (6.4-8.2); eGFR BLACK RACES > 60 (>60); eGFR NON BLACK RACES > 60 (>60)
--- NOTE | 2016-12-26 01:03 | RAD ---
EXAM: Abdomen series and Chest x-ray INDICATION: Abdominal pain COMPARISION: No priors TECHNIQUE: Abdomen flat and upright, two views and PA view of the chest, single view FINDINGS: The lungs are clear. No pneumothorax or pleural effusion. The cardiac silhouette and mediastinum are normal. The bowel gas pattern is nonobstructed. No abnormal mass effect or calcification. The regiona l skeleton is intact. No free air is seen under the hemidiaphragms. IMPRESSION: Negative abdominal series and chest x-ray. Reported By:
[2016-12-26 01:10] LABS: ANISOCYTOSIS 1+; HYPOCHROMASIA 1+; MICROCYTOSIS 1+; PLATELET MORPHOLOGY COMMENT NORMAL (NORMAL)
[2016-12-26 01:11] LABS: OVALOCYTES NOTED
[2016-12-26] MEDS ORDERED: BACTRIM DS TAB PO ONE ×2 (01:35→01:38)
== END 2016-12-26 01:41 | disposition home or self-care (01) ==
LOC: ER 23:43
DX: K27.9 Peptic ulcer, site unspecified, unspecified as acute or chronic, without hemorrhage or perforation (principal); R10.13 Epigastric pain; N39.0 Urinary tract infection, site not specified; R31.9 Hematuria, unspecified
CPT/HCPCS: 36415; 74022; 80053; 81001; 85025; 87086; 99283; S0181

== ENCOUNTER 2017-01-17 12:54 | Emergency (ER) | payer SELFPAY ==
[2017-01-17 13:13] VITALS: BMI 41.9
[2017-01-17 13:39] LABS: BASOPHILS % (AUTO) 0.7 % (0.2-1.0); EOSINOPHILS % (AUTO) 2.2 % (0.9-2.9); HEMATOCRIT 23.6 % (36.0-47.0); HEMOGLOBIN 7.4 g/dL (12.0-16.0); LYMPHOCYTES # (AUTO) 0.5 X10^3/uL (1.3-2.9); MEAN CORPUSCULAR HEMOGLOBIN 22.7 pg (27.0-34.0); MEAN CORPUSCULAR HGB CONC 31.2 g/dL (33.0-35.0); MEAN CORPUSCULAR VOLUME 72.7 fL (80.0-100.0); MEAN PLATELET VOLUME 8.2 fL (7.4-11.0); MONOCYTES # (AUTO) 0.1 x10^3/uL (0.3-0.8); MONOCYTES % (AUTO) 6.9 % (0.0-13.0); NEUTROPHILS # (AUTO) 0.9 x10^3/uL (2.2-4.8); NEUTROPHILS % (AUTO) 56.2 % (42.0-75.0); PLATELET COUNT 33 X10^3/uL (150.0-450.0); RED BLOOD COUNT 3.25 X10^6/uL (3.5-5.4); RED CELL DISTRIBUTION WIDTH 18.6 % (11.6-16.5)
[2017-01-17 13:41] LABS: BILIRUBIN,URINE NEGATIVE (NEGATIVE); BLOOD/HEMOGLOBIN,URINE 5+ (NEGATIVE); GLUCOSE, URINE NEGATIVE (NEGATIVE); KETONES,URINE NEGATIVE (NEGATIVE); LEUKOCYTE ESTERASE ,URINE 1+ (NEGATIVE); NITRITES,URINE NEGATIVE (NEGATIVE); PROTEIN,URINE NEGATIVE (NEGATIVE); UROBILINOGEN,URINE 2+ (NORMAL)
[2017-01-17 13:50] LABS: APPEARANCE,URINE CLEAR (CLEAR); BACTERIA,URINE TRACE /HPF (NEGATIVE); COLOR,URINE YELLOW (YELLOW); RBC,URINE 20-30 /HPF (NEGATIVE); SQUAMOUS EPITHELIAL CELL,UR FEW /HPF (NEGATIVE)
[2017-01-17 13:50] LABS: WHITE BLOOD COUNT 1.6 X10^3/uL (3.6-10.0)
[2017-01-17 13:52] LABS: BLOOD UREA NITROGEN 8 mg/dL (7-18); CARBON DIOXIDE 28.3 mmol/L (21-32); CHLORIDE 108 mmol/L (98-107); CREATININE 0.77 mg/dL (0.55-1.02); SODIUM 140 mmol/L (136-145); eGFR BLACK RACES > 60 (>60); eGFR NON BLACK RACES > 60 (>60)
[2017-01-17 13:53] LABS: ALANINE AMINOTRANSFERASE 41 Units/L (12-78); ALBUMIN 2.4 g/dL (3.4-5.0); ALKALINE PHOSPHATASE 173 Units/L (46-116); ASPARTATE AMINO TRANSFERASE 63 Units/L (15-37); CALCIUM 7.8 mg/dL (8.5-10.1); COR CA(FOR HYPOALB) 9.1 mg/dL (8.5-10.1); TOTAL PROTEIN 6.9 g/dL (6.4-8.2)
--- NOTE | 2017-01-17 13:58 | DR.PSYCH ---
HPI - Time Seen Time seen: 13:50 - PCP Primary Care Physician: MIKAEL - HPI Comment HPI Comment: HAVE PROBLEM WITH HER AND FINANCIAL PROBLEMS. SHE ALSO HAVE SEVERAL MEDICAL PROBLEMS FOR WHICH SHE TAKES MEDICATIONS. - Complaint Chief Complaint Doctors Comments: PATIENT HERE BECAUSE SHE IS HAVING SUICIDAL THOUGHTS AND HOMICIDAL THOUGHTS. NO DEFINATE PLAN. HAVE CUT HERSELF IN THE PAST. Chief Complaint:: EMS BRINGS PT. IN STATING PT. HAD CALLED [facility] OFFICE THREATING TO KILL HERSELF. PT. STATES SHE CALLED THEIR OFFICE AND SAID "IF I , TELL DR. YOUSSEF I SAID THANK YOU." PT. STATES SHE DOES THINK ABOUT HARMING HERSELF BUT HAS NO PLAN TO DO SO. SHE SAYS "HOW? IF I TAKE PILLS, I WILL END UP LIKE MY SISTER. I JUST LAY THERE 14-16 HOURS A DAY, LOOKING AT THE CEILING." PT. ADMITS TO HAVING A LOT OF STRESSORS SUCH HER MARRIAGE, FINANCIAL BURDENS, AND FAMILY PROBLEMS. - Reviewed Nurses Notes Review: Yes - Source History Provided: Patient, EMS - Mode of Arrival Mode of Arrival: EMS - Timing Onset of Chief Complaint: 01/17/17 Came on: Gradually - Duration Duration: Intermittent Duration: Days - Context Presents With: Anxiety, Depression Ideation: None (SUICIDAL THOUGHTS AND HOMICIDAL THOUGHTS) Plan: None Stressors: Relationships, Other (FINANCIAL) History of: Depression, Schizophrenia, Suicidal Attempt - Quality Quality: None Hallucinations: None - Severity Severity: Able to care for self - Associated signs and symptoms Intoxification: Marijuana, Cocaine PMH - PMH Past Medical History: Yes Past Medical History: Anxiety, Diabetes, GERD, Liver Disease, PUD, Schizophrenia , Seizures Past Medical History Comment: HEP C, DVT Past Surgical History: Yes Surgical History: Hysterectomy, Ortho Surgery, Thyroidectomy - Family History History of Family Medical Conditions: Yes Family Medical History: Diabetes Mellitus, Cancer, Hypertension - Social History Does patient currently use any type of tobacco product: Yes Have you used tobacco products in the last 12 months: Yes Type of Tobacco Use: Cigarettes Does any household member use tobacco: No Alcohol Use: None Do you use any recreational Drugs:: No Lives With: Spouse Lives Where: Home - infectious screening In the last 2 months have you had wt loss of >10#?: NO Have you had fever, night sweats or hemotysis?: No Have you traveled outside the country in the last 6 months?: No Isolation: Standard ROS - Review of Systems Constitutional: No Symptoms Reported Eyes: No Symptoms Reported ENTM: No Symptoms Reported Respiratoy: Non-Productive Cough, Short of Breath (ON EXERTION). negative: Productive Cough, Wheezing, Hemoptysis Cardiovascular: negative: Chest Pain Gastrointestinal/Abdominal: No Symptoms Reported Genitourinary: No Symptoms Reported. negative: Dysuria, Frequency, Hematuria Musculoskeletal: No Symptoms Reported, Back Pain, Joint Pain PE - Vitals Vitals: Temperature 97.8 F Pulse Rate [Left Brachial] 72 Pulse Rate 98 Respiratory Rate 18 Blood Pressure [Right Arm] 119/56 Blood Pressure [Left Arm] 136/78 Blood Pressure 140/73 O2 Sat by Pulse Oximetry 99 - General Limitations: Other (CHRONIC MILD DYSARTHRIA) General Appearance: Alert - Head Head Exam: Normal Inspection, Atraumatic, Normocephalic - Eyes Eye exam: PERRL, EOMI. negative: Scleral Icterus, Conjunctival Injection Pupils: Regular, Round: Bilateral, Reactive: Bilateral Sclera/Conjunctival: Normal Inspection: Bilateral - ENT ENT Exam: Normal Oropharynx, Normal External Ear Exam, TM's Normal Bilaterally - Neck Neck Exam: Trachea Midline - Chest Chest Inspection: Symmetric Chest Wall Rise - Respiratory Respiratory Exam: Prolonged Expiratory Phase Respiratory Exam: Lower Rhonchi (CHRONIC FINDING) - Cardiovascular Cardiovascular Exam: Regular Rate, Normal Rhythm, Normal Heart Sounds - Abdominal Exam Abdominal Exam: Normal Bowel Sounds, Soft. negative: Tenderness - Extremities Extremities Exam: Normal Inspection, Edema - Neurologic Neurological Exam: Alert, Oriented X3 Motor Strength - LUE: 5/5 Motor Strength - RUE: 5/5 Motor Strength - LLE: 5/5 Motor Strength - RLE: 5/5 Upper Motor Neuron Exam: Babinski Sign: Normal Sensory Exam Upper Extremity: Light Touch: Normal Sensory Exam Lower Extremity: Light Touch: Normal DTR: achilles tendon (L): 4+, achilles tendon (R): 4+, brachioradialis (L): 4+, brachioradialis (R): 4+, Patellar (L): 4+, patellar (R): 4+ - Psychiatric Psychiatric Exam: Depressed - Skin Skin Exam: Erythema MDD - Differential Diagnosis Differential diagnosis: Anxiety, Depression, Homicidal (IDEATION), Schizophrenia , Substance abuse, Suicidal (IDEATION) Course - Treatment Treatment: SEE ORDERDS - Consultation Consultation Comments: MENTAL MARILUZ CONSULT. IN ED AND EVALUATED PATIENT. WANT PATIENT 1013. - Education/Counseling Education/Counseling: Patient, Family Educated On: Treatment ROR - Labs Reviewed Laboratory Results Reviewed?: Yes (CHRONIC FINDINGS ON WBC AND HEMOGLOBIN. ) Result Diagrams: 01/17/17 13:26 01/17/17 13:26 Laboratory: WBC 1.6 X10^3/uL (3.6-10.0) L* 01/17/17 13: RBC 3.25 X10^6/uL (3.5-5.4) L 01/17/17 13: Hgb 7.4 g/dL (12.0-16.0) L 01/17/17 13: Hct 23.6 % (36.0-47.0) L 01/17/17 13: MCV 72.7 fL (80.0-100.0) L 01/17/17 13: MCH 22.7 pg (27.0-34.0) L 01/17/17 13: MCHC 31.2 g/dL (33.0-35.0) L 01/17/17 13: RDW 18.6 % (11.6-16.5) H 01/17/17 13: Plt Count 33 X10^3/uL (150.0-450.0) L 01/17/17 13: Plt Count Comment Decreased (ADEQUATE) A 01/17/17 13: MPV 8.2 fL (7.4-11.0) 01/17/17 13: Neut % 56.2 % (42.0-75.0) 01/17/17 13: Lymph % 34.0 % (21.0-51.0) 01/17/17 13: [place] % 6.9 % (0.0-13.0) 01/17/17 13: Eos % 2.2 % (0.9-2.9) 01/17/17 13: Baso % 0.7 % (0.2-1.0) 01/17/17 13: Neut # 0.9 x10^3/uL (2.2-4.8) L 01/17/17 13:26 Lymph # 0.5 X10^3/uL (1.3-2.9) L 01/17/17 13:26 [place] # 0.1 x10^3/uL (0.3-0.8) L 01/17/17 13:26 Eos # 0.0 x10^3/uL (0.0-0.2) 01/17/17 13:26 Baso # 0.0 X10^3/uL (0.0-0.1) 01/17/17 13:26 Absolute Nucleated RBC 0.1 /100WBC 01/17/17 13:26 Plt Morphology Comment Normal (NORMAL) 01/17/17 13:26 RBC Morphology Abnormal (NORMAL) A 01/17/17 13:26 Hypochromasia 1+ A 01/17/17 13:26 Anisocytosis 1+ A 01/17/17 13: Microcytosis 1+ A 01/17/17 13: Target Cells Present 01/17/17 13:26 INR Target Range - 01/17/17 13: INR 1.45 (0.8-1.3) H 01/17/17 13:26 PTT 34.3 SECONDS (22.9-36.5) 01/17/17 13:26 PTT Comment - 01/17/17 13:26 Sodium 140 mmol/L (136-145) 01/17/17 13:26 Corrected Sodium TNP 01/17/17 13:26 Potassium 3.4 mmol/L (3.5-5.1) L 01/17/17 13:26 Chloride 108 mmol/L (98-107) H 01/17/17 13:26 Carbon Dioxide 28.3 mmol/L (21-32) 01/17/17 13:26 BUN 8 mg/dL (7-18) 01/17/17 13:26 Creatinine 0.77 mg/dL (0.55-1.02) 01/17/17 13:26 Est GFR (MDRD) Af Amer > 60 (>60) 01/17/17 13:26 Est GFR (MDRD) Non-Af > 60 (>60) 01/17/17 13:26 Glucose 108 mg/dL (65-99) H 01/17/17 13:26 Calcium 7.8 mg/dL (8.5-10.1) L 01/17/17 13:26 Corrected Calcium 9.1 mg/dL (8.5-10.1) 01/17/17 13:26 Total Bilirubin 0.70 mg/dL (0.2-1.0) 01/17/17 13:26 AST 63 Units/L (15-37) H 01/17/17 13:26 ALT 41 Units/L (12-78) 01/17/17 13:26 Alkaline Phosphatase 173 Units/L (46-116) H 01/17/17 13:26 Ammonia 32 umol/L (11-32) 01/17/17 14:32 Total Protein 6.9 g/dL (6.4-8.2) 01/17/17 13:26 Albumin 2.4 g/dL (3.4-5.0) L 01/17/17 13:26 Globulin 4.5 g/dL (2.5-4.5) 01/17/17 13:26 Albumin/Globulin Ratio 0.5 Ratio (1.1-2.1) L 01/17/17 13:26 Specimen Type Clean catch urine 01/17/17 13:07 Urine Color Yellow (YELLOW) 01/17/17 13:07 Urine Appearance Clear (CLEAR) 01/17/17 13:07 Urine pH 7.0 (5.0 - 8.0) 01/17/17 13:07 Ur Specific [place] 1.010 (1.000-1.030) 01/17/17 13:07 Urine Protein Negative (NEGATIVE) 01/17/17 13:07 Urine Glucose (UA) Negative (NEGATIVE) 01/17/17 13:07 Urine Ketones Negative (NEGATIVE) 01/17/17 13:07 Urine Occult Blood 5+ (NEGATIVE) 01/17/17 13:07 Urine Nitrite Negative (NEGATIVE) 01/17/17 13:07 Urine Bilirubin Negative (NEGATIVE) 01/17/17 13:07 Urine Urobilinogen 2+ (NORMAL) 01/17/17 13:07 Ur Leukocyte Esterase 1+ (NEGATIVE) 01/17/17 13:07 Urine RBC 20-30 /HPF (NEGATIVE) 01/17/17 13:07 Urine WBC 2-5 /HPF (NEGATIVE) 01/17/17 13:07 Ur Squamous Epith Cells Few /HPF (NEGATIVE) 01/17/17 13:07 Urine Bacteria Trace /HPF (NEGATIVE) 01/17/17 13:07 Ur Culture Indicated? No/not indicated 01/17/17 13:07 Salicylates < 2.8 mg/dL (2.8-20) L 01/17/17 13:26 Urine Opiates Screen Negative (NEG=<300) 01/17/17 13:08 Urine Methadone Screen Negative (NEG=<300) 01/17/17 13:08 Acetaminophen < 0.0 ug/mL (10-30) L 01/17/17 13:26 Ur Barbiturates Screen Negative (NEG=<200) 01/17/17 13:08 Ur Phencyclidine Scrn Negative (NEG=<25) 01/17/17 13:08 Ur Amphetamines Screen Negative (NEG=<1000) 01/17/17 13:08 U Benzodiazepines Scrn Negative (NEG=<200) 01/17/17 13:08 Urine Cocaine Screen Positive (NEG=<300) A 01/17/17 13:08 U Marijuana (THC) Screen Positive (NEG=<50) A 01/17/17 13:08 Ethyl Alcohol mg/dL < 3.0 mg/dL (0-19.9) 01/17/17 13:26 - EKG Rhythm: NSR (ekg noted) - Diagnosis Discharge Problem: Psychiatric symptoms, Schizophrenia, Suicidal ideations, Homicidal ideations, Substance abuse - Discharge Plan Disposition: 65 XFER TO PSYCH HOSP/UNIT Condition: Stable - Follow ups/Referrals Follow ups/Referrals: IRMA YOUSSEF [Primary Care Provider] - 3 days - Instructions
[2017-01-17 13:59] LABS: ANISOCYTOSIS 1+; HYPOCHROMASIA 1+; MICROCYTOSIS 1+; PLATELET MORPHOLOGY COMMENT NORMAL (NORMAL)
[2017-01-17 14:03] LABS: TARGET CELLS PRESENT
[2017-01-17 14:04] LABS: ACETAMINOPHEN < 0.0 ug/mL (10-30); SALICYLATE < 2.8 mg/dL (2.8-20)
[2017-01-17 14:13] LABS: BLOOD ALCOHOL < 3.0 mg/dL (0-19.9)
[2017-01-17] MEDS ORDERED: PATIENT'S HOME MEDICATION (Albuterol Sulfate 2 PUFF) INH PRN (17:22)
[2017-01-17] MEDS ORDERED: PATIENT'S HOME MEDICATION (Metformin Hcl [Metformin Hcl Er] 500 MG) PO PRN (17:22)
[2017-01-17] MEDS ORDERED: NEURONTIN CAP 400 MG PO ONE (18:04)
[2017-01-17] MEDS ORDERED: ELIQUIS PO ONE (18:04)
[2017-01-17] MEDS ORDERED: BUSPAR ONE (18:04)
[2017-01-17] MEDS ORDERED: KLONOPIN TAB 1 MG ONE (18:05)
[2017-01-17] MEDS ORDERED: NORCO 10/325 TAB ONE (18:05)
[2017-01-17] MEDS: NORCO 10/325 TAB PO PRN (18:10)
[2017-01-17] MEDS: KLONOPIN TAB 1 MG PO SCH ×2 (18:11→21:00)
[2017-01-17] MEDS: BUSPIRONE HCL 15 MG PO SCH ×2 (18:11→21:00)
[2017-01-17] MEDS: NEURONTIN CAP 400 MG PO SCH (18:11)
[2017-01-17] MEDS: ELIQUIS PO SCH (18:11)
[2017-01-17] MEDS ORDERED: NICOTINE PATCH TD ONE (20:24)
[2017-01-17] MEDS ORDERED: ATARAX TAB 25 MG PO SCH (21:00)
[2017-01-17] MEDS ORDERED: ATARAX TAB 25 MG PO ONE (22:15)
[2017-01-18] MEDS ORDERED: ATARAX TAB 25 MG PO ONE (01:20)
[2017-01-18] MEDS ORDERED: NEURONTIN CAP 400 MG PO ONE ×3 (01:20→18:31)
[2017-01-18] MEDS: NEURONTIN CAP 400 MG PO SCH ×4 (01:24→18:36)
[2017-01-18] MEDS ORDERED: BUSPAR ONE ×2 (08:20→18:31)
[2017-01-18] MEDS ORDERED: ELIQUIS PO ONE ×2 (08:20→18:31)
[2017-01-18] MEDS ORDERED: KLONOPIN TAB 1 MG ONE ×2 (08:20→18:31)
[2017-01-18] MEDS ORDERED: NORCO 10/325 TAB ONE ×2 (08:20→18:31)
[2017-01-18] MEDS: NORCO 10/325 TAB PO PRN ×2 (08:22→18:37)
[2017-01-18] MEDS: KLONOPIN TAB 1 MG PO SCH ×2 (08:23→18:36)
[2017-01-18] MEDS: ELIQUIS PO SCH (08:23)
[2017-01-18] MEDS: BUSPIRONE HCL 15 MG PO SCH ×2 (08:24→18:36)
[2017-01-18] MEDS ORDERED: ZOFRAN INJ 4 MG VIAL IM ONE (09:43)
[2017-01-18] MEDS ORDERED: ZOFRAN INJ 4 MG VIAL ONE (09:45)
[2017-01-18 16:00] VITALS: BP 140/79
== END 2017-01-18 18:40 ==
LOC: ER 12:56
DX: R45.851 Suicidal ideations (principal); R45.850 Homicidal ideations; F20.9 Schizophrenia, unspecified; F19.10 Other psychoactive substance abuse, uncomplicated; F99 Mental disorder, not otherwise specified
CPT/HCPCS: 36415; 80053; 80307; 80320; 81001; 82140; 85025; 85610; 85730; 93005; 93010; 96372; 99285; G0434; G6038; G6039; G6040; J2405

== ENCOUNTER 2017-01-23 16:00 | Emergency (ER) | payer SELFPAY ==
[2017-01-23 16:04] VITALS: BMI 40.3
--- NOTE | 2017-01-23 16:28 | DR.GENAD ---
HPI - PCP Primary Care Physician: CADEN FARFAN - HPI Comment HPI Comment: HISTORY BELOW. - Complaint/Symptoms Chief Complaint Doctors Comments: CHEST PAIN LEFT CHEST GOING INTO LEFT ARM FOR FEW DAYS. UPSET OVER THE WAY HER HUSBANDS IS TREATING HER. HER MENTAL CLINIC VISIT IS PENDING. SHE MISS THE FIRST VISIT. NO FEVER. Chief Complaint:: PT. ANXIOUS, CRYING, AND UPSET DUE TO HER KICKING HER OUT OF THE HOUSE. PT. STATES "I FEEL LIKE I'M GOING TO HAVE A SEIZURE." - Nurses notes reviewed Nurses Notes Review: Yes - Source History Provided: Patient - Mode of Arrival Mode of Arrival: Ambulatory - Timing Onset of Chief Complaint: 01/23/17 Came on: Gradually - Duration Duration: Constant Duration: Days - Severity Severity: Moderate PMH - PMH Past Medical History: Yes Past Medical History: Anxiety, Diabetes, GERD, Liver Disease, PUD, Schizophrenia , Seizures Past Medical History Comment: HEP C. Past Surgical History: Yes Surgical History: Hysterectomy, Ortho Surgery, Thyroidectomy - Family History History of Family Medical Conditions: Yes Family Medical History: Diabetes Mellitus, Cancer, Hypertension - Social History Does patient currently use any type of tobacco product: Yes Have you used tobacco products in the last 12 months: Yes Type of Tobacco Use: Cigarettes Does any household member use tobacco: No Alcohol Use: None Do you use any recreational Drugs:: No Lives With: Spouse Lives Where: Home - infectious screening In the last 2 months have you had wt loss of >10#?: NO Have you had fever, night sweats or hemotysis?: No Have you traveled outside the country in the last 6 months?: No Isolation: Standard ROS - Review of Systems Constitutional: negative: See HPI, Fever, Weakness, Fatigue Eyes: negative: Eye Pain, Discharge ENTM: negative: Ear Pain, Nose Discharge, Nose Congestion, Throat Pain Respiratoy: Non-Productive Cough. negative: Productive Cough, Short of Breath, Wheezing Cardiovascular: Chest Pain. negative: Edema Gastrointestinal/Abdominal: negative: Abdominal Pain, Diarrhea, Nausea, Vomiting Genitourinary: negative: Dysuria, Frequency, Hematuria Neurological: Headache. negative: Weakness, Dizziness Musculoskeletal: Muscle Pain Integumentary: Change in Color Hematologic/Lymphatic: Easy Bleeding, Easy Bruising Endocrine: No Symptoms Reported Psychiatric: Anxiety, Depression, Excessive crying. negative: Hallucinations, Suicidal All Other Systems: Reviewed and Negative PE - Vital Signs Vitals: Temperature 98.3 F Pulse Rate [Apical] 103 Pulse Rate 119 Respiratory Rate 22 Blood Pressure [Right Arm] 140/79 Blood Pressure [Left Arm] 136/65 Blood Pressure 157/82 O2 Sat by Pulse Oximetry 100 - General Limitations: No Limitations General Appearance: Alert - Head Head Exam: Normal Inspection - Eyes Eye exam: Normal Appearance - ENT ENT Exam: Normal External Ear Exam External Ear Exam: Normal External Inspection TM/Canal Exam: Bilateral Normal Nose Exam: Normal Nose Exam Mouth Exam: Normal Inspection Throat Exam: Normal Inspection - Neck Neck Exam: Trachea Midline - Chest Chest Inspection: Symmetric Chest Wall Rise - Respiratory Respiratory Exam: Normal Lung Sounds Bilat Respiratory Exam: Bilateral Rhonchi, Lower Rhonchi - Cardiovascular Cardiovascular Exam: Regular Rate, Normal Rhythm, Normal Heart Sounds - Abdominal Exam Abdominal Exam: Normal Bowel Sounds, Soft. negative: Tenderness - Extremities Extremities Exam: Normal Inspection - Back Back Exam: Normal Inspection - Neurologic Neurological Exam: Alert, Oriented X3 - Psychiatric Psychiatric Exam: Anxious - Skin Skin Exam: Erythema MDM - Additional Information Additional Information Obtained From: Family (DAUGHTER IN ED WITH PATIENT.) - Differential Diagnosis Differential Diagnosis: CHEST PAIN, DEPRESSION Course - Treatment Treatment: SEE ORDERS. - Reevaluation 1st: Resolved (SPOTANOUS RESOLUTION OF CP IN ED.) - Education/Counseling Education/Counseling: Patient, Family, Education Educated On: Diagnosis, Needs for Follow Up ROR - Labs Reviewed Laboratory Results Reviewed?: Yes Result Diagrams: 01/23/17 16:40 01/23/17 16:40 Laboratory: WBC 2.3 X10^3/uL (3.6-10.0) L 01/23/17 16:40 RBC 3.32 X10^6/uL (3.5-5.4) L 01/23/17 16:40 Hgb 7.4 g/dL (12.0-16.0) L 01/23/17 16:40 Hct 23.9 % (36.0-47.0) L 01/23/17 16:40 MCV 71.9 fL (80.0-100.0) L 01/23/17 16:40 MCH 22.2 pg (27.0-34.0) L 01/23/17 16:40 MCHC 30.8 g/dL (33.0-35.0) L 01/23/17 16:40 RDW 19.1 % (11.6-16.5) H 01/23/17 16:40 Plt Count 35 X10^3/uL (150.0-450.0) L 01/23/17 16:40 Plt Count Comment Decreased (ADEQUATE) A 01/23/17 16:40 MPV 8.4 fL (7.4-11.0) 01/23/17 16:40 Neut % 68.7 % (42.0-75.0) 01/23/17 16:40 Lymph % 22.7 % (21.0-51.0) 01/23/17 16:40 [place] % 7.3 % (0.0-13.0) 01/23/17 16:40 Eos % 1.0 % (0.9-2.9) 01/23/17 16:40 Baso % 0.3 % (0.2-1.0) 01/23/17 16:40 Neut # 1.6 x10^3/uL (2.2-4.8) L 01/23/17 16:40 Lymph # 0.5 X10^3/uL (1.3-2.9) L 01/23/17 16:40 [place] # 0.2 x10^3/uL (0.3-0.8) L 01/23/17 16:40 Eos # 0.0 x10^3/uL (0.0-0.2) 01/23/17 16:40 Baso # 0.0 X10^3/uL (0.0-0.1) 01/23/17 16:40 Absolute Nucleated RBC 0.1 /100WBC 01/23/17 16:40 Total Counted 100 01/23/17 16:40 Neutrophils % (Manual) 73 % (39-76) 01/23/17 16:40 Lymphocytes % (Manual) 23 % (13-43) 01/23/17 16:40 Monocytes % (Manual) 3 % (4-9) L 01/23/17 16:40 Eosinophils % (Manual) 1 % (0-6) 01/23/17 16:40 Plt Morphology Comment Normal (NORMAL) 01/23/17 16:40 RBC Morphology Abnormal (NORMAL) A 01/23/17 16:40 Hypochromasia 1+ A 01/23/17 16:40 Anisocytosis 1+ A 01/23/17 16:40 Microcytosis 1+ A 01/23/17 16:40 Target Cells Present 01/23/17 16:40 Ovalocytes Present 01/23/17 16:40 Sodium 139 mmol/L (136-145) 01/23/17 16:40 Corrected Sodium TNP 01/23/17 16:40 Potassium 3.6 mmol/L (3.5-5.1) 01/23/17 16:40 Chloride 108 mmol/L (98-107) H 01/23/17 16:40 Carbon Dioxide 25.9 mmol/L (21-32) 01/23/17 16:40 BUN 8 mg/dL (7-18) 01/23/17 16:40 Creatinine 0.86 mg/dL (0.55-1.02) 01/23/17 16:40 Est GFR (MDRD) Af Amer > 60 (>60) 01/23/17 16:40 Est GFR (MDRD) Non-Af > 60 (>60) 01/23/17 16:40 Glucose 104 mg/dL (65-99) H 01/23/17 16:40 Calcium 8.3 mg/dL (8.5-10.1) L 01/23/17 16:40 Corrected Calcium 9.4 mg/dL (8.5-10.1) 01/23/17 16:40 Total Bilirubin 0.80 mg/dL (0.2-1.0) 01/23/17 16:40 AST 57 Units/L (15-37) H 01/23/17 16:40 ALT 40 Units/L (12-78) 01/23/17 16:40 Alkaline Phosphatase 138 Units/L (46-116) H 01/23/17 16:40 Creatine Kinase 295 Units/L (26-192) H 01/23/17 16:40 CK-MB (CK-2) 2.0 ng/mL (0-4.0) 01/23/17 16:40 CK/CKMB % Calc 0.7 % (<4) 01/23/17 16:40 Troponin I < 0.02 ng/mL (0-1.5) 01/23/17 16:40 Total Protein 7.1 g/dL (6.4-8.2) 01/23/17 16:40 Albumin 2.6 g/dL (3.4-5.0) L 01/23/17 16:40 Globulin 4.5 g/dL (2.5-4.5) 01/23/17 16:40 Albumin/Globulin Ratio 0.6 Ratio (1.1-2.1) L 01/23/17 16:40 Specimen Type Random urine 01/23/17 18:06 Urine Color Dark yellow (YELLOW) 01/23/17 18:06 Urine Appearance Clear (CLEAR) 01/23/17 18:06 Urine pH 7.0 (5.0 - 8.0) 01/23/17 18:06 Ur Specific [place] 1.010 (1.000-1.030) 01/23/17 18:06 Urine Protein Negative (NEGATIVE) 01/23/17 18:06 Urine Glucose (UA) Negative (NEGATIVE) 01/23/17 18:06 Urine Ketones Negative (NEGATIVE) 01/23/17 18:06 Urine Occult Blood 5+ (NEGATIVE) 01/23/17 18:06 Urine Nitrite Negative (NEGATIVE) 01/23/17 18:06 Urine Bilirubin Negative (NEGATIVE) 01/23/17 18:06 Urine Urobilinogen 2+ (NORMAL) 01/23/17 18:06 Ur Leukocyte Esterase 2+ (NEGATIVE) 01/23/17 18:06 Urine RBC 37-40 /HPF (NEGATIVE) 01/23/17 18:06 Urine WBC 3-4 /HPF (NEGATIVE) 01/23/17 18:06 Ur Squamous Epith Cells Few /HPF (NEGATIVE) 01/23/17 18:06 Ur Renal Epithelial Cell Few /HPF (NEGATIVE) 01/23/17 18:06 Urine Bacteria 1+ /HPF (NEGATIVE) 01/23/17 18:06 Ur Culture Indicated? No/not indicated 01/23/17 18:06 Urine Opiates Screen Negative (NEG=<300) 01/23/17 18:06 Urine Methadone Screen Negative (NEG=<300) 01/23/17 18:06 Ur Barbiturates Screen Negative (NEG=<200) 01/23/17 18:06 Ur Phencyclidine Scrn Negative (NEG=<25) 01/23/17 18:06 Ur Amphetamines Screen Negative (NEG=<1000) 01/23/17 18:06 U Benzodiazepines Scrn Negative (NEG=<200) 01/23/17 18:06 Urine Cocaine Screen Positive (NEG=<300) A 01/23/17 18:06 U Marijuana (THC) Screen Negative (NEG=<50) 01/23/17 18:06 - XRAY XRAY Interpreted by: Radiologist XRAY Findings: REPORT DISCUSS WITH OATENT. - EKG Rhythm: NSR (EKG NOTED) - Diagnosis Discharge Problem: Depression Chest pain Qualifiers: Chest pain type: unspecified Qualified Code(s): R07.9 - Chest pain, unspecified - Discharge Plan Disposition: HOME, SELF-CARE Condition: Stable - Follow ups/Referrals Follow ups/Referrals: IRMA YOUSSEF [Primary Care Provider] - 3 days - Instructions Instructions: Chest Pain Observation Additional Instructions: SEE YOUR PCP NATALIYA DWYER IN AM, AND CONTINUE YOUR HOME MEDICATIONS.
[2017-01-23 16:43] VITALS: BP 136/65
--- NOTE | 2017-01-23 16:56 | RAD ---
Chest, one-view Indication: Chest pain Comparison: 11/23/2016 Findings: There is stable mild cardiomegaly and pulmonary vascular congestion without overt edema. No focal consolidation, significant effusion or pneumothorax is identified. Osseous thorax is unremarka ble. Impression: Stable cardiomegaly and pulmonary vascular congestion without congestive failure or focal pneumonia. Reported By:
[2017-01-23 16:57] LABS: BASOPHILS % (AUTO) 0.3 % (0.2-1.0); HEMATOCRIT 23.9 % (36.0-47.0); HEMOGLOBIN 7.4 g/dL (12.0-16.0); LYMPHOCYTES # (AUTO) 0.5 X10^3/uL (1.3-2.9); LYMPHOCYTES % (AUTO) 22.7 % (21.0-51.0); MEAN CORPUSCULAR HEMOGLOBIN 22.2 pg (27.0-34.0); MEAN CORPUSCULAR HGB CONC 30.8 g/dL (33.0-35.0); MEAN CORPUSCULAR VOLUME 71.9 fL (80.0-100.0); MEAN PLATELET VOLUME 8.4 fL (7.4-11.0); MONOCYTES # (AUTO) 0.2 x10^3/uL (0.3-0.8); MONOCYTES % (AUTO) 7.3 % (0.0-13.0); NEUTROPHILS # (AUTO) 1.6 x10^3/uL (2.2-4.8); NEUTROPHILS % (AUTO) 68.7 % (42.0-75.0); PLATELET COUNT 35 X10^3/uL (150.0-450.0); RED BLOOD COUNT 3.32 X10^6/uL (3.5-5.4); RED CELL DISTRIBUTION WIDTH 19.1 % (11.6-16.5); WHITE BLOOD COUNT 2.3 X10^3/uL (3.6-10.0)
[2017-01-23 17:06] LABS: BLOOD UREA NITROGEN 8 mg/dL (7-18); CALCIUM 8.3 mg/dL (8.5-10.1); CARBON DIOXIDE 25.9 mmol/L (21-32); CHLORIDE 108 mmol/L (98-107); CREATININE 0.86 mg/dL (0.55-1.02); SODIUM 139 mmol/L (136-145); TROPONIN I < 0.02 ng/mL (0-1.5); eGFR BLACK RACES > 60 (>60); eGFR NON BLACK RACES > 60 (>60)
[2017-01-23 17:09] LABS: ALANINE AMINOTRANSFERASE 40 Units/L (12-78); ALBUMIN 2.6 g/dL (3.4-5.0); ALKALINE PHOSPHATASE 138 Units/L (46-116); ASPARTATE AMINO TRANSFERASE 57 Units/L (15-37); CKMB % 0.7 % (<4); COR CA(FOR HYPOALB) 9.4 mg/dL (8.5-10.1); CREATINE KINASE 295 Units/L (26-192); TOTAL PROTEIN 7.1 g/dL (6.4-8.2)
[2017-01-23 17:12] LABS: ANISOCYTOSIS 1+; HYPOCHROMASIA 1+; PLATELET MORPHOLOGY COMMENT NORMAL (NORMAL)
[2017-01-23 17:13] LABS: MICROCYTOSIS 1+; OVALOCYTES PRESENT; TARGET CELLS PRESENT
[2017-01-23 18:34] LABS: BILIRUBIN,URINE NEGATIVE (NEGATIVE); BLOOD/HEMOGLOBIN,URINE 5+ (NEGATIVE); GLUCOSE, URINE NEGATIVE (NEGATIVE); KETONES,URINE NEGATIVE (NEGATIVE); LEUKOCYTE ESTERASE ,URINE 2+ (NEGATIVE); NITRITES,URINE NEGATIVE (NEGATIVE); PROTEIN,URINE NEGATIVE (NEGATIVE); UROBILINOGEN,URINE 2+ (NORMAL)
[2017-01-23 18:51] LABS: APPEARANCE,URINE CLEAR (CLEAR); BACTERIA,URINE 1+ /HPF (NEGATIVE); COLOR,URINE DARK YELLOW (YELLOW); RENAL EPITHELIAL CELLS,URINE FEW /HPF (NEGATIVE); SQUAMOUS EPITHELIAL CELL,UR FEW /HPF (NEGATIVE)
== END 2017-01-23 19:10 | disposition home or self-care (01) ==
LOC: ER 16:00
DX: R07.89 Other chest pain (principal); F32.89 Other specified depressive episodes; I51.7 Cardiomegaly
CPT/HCPCS: 36415; 71010; 80053; 80307; 81001; 82550; 82553; 84484; 85025; 93005; 93010; 99283; G0434

== ENCOUNTER 2017-01-27 19:43 | Emergency (ER) | payer SELFPAY ==
[2017-01-27 19:59] VITALS: BP 101/64; BMI 40.8
== END 2017-01-27 21:30 | disposition left against medical advice (07) ==
LOC: ER 19:43
DX: M79.604 Pain in right leg (principal)
CPT/HCPCS: 99281

== ENCOUNTER 2017-02-09 14:29 | Observation (INO) | payer SELFPAY ==
[2017-02-09 15:17] LABS: BASOPHILS % (AUTO) 0.9 % (0.2-1.0); EOSINOPHILS % (AUTO) 2.1 % (0.9-2.9); LYMPHOCYTES # (AUTO) 0.6 X10^3/uL (1.3-2.9); LYMPHOCYTES % (AUTO) 34.1 % (21.0-51.0); MEAN CORPUSCULAR HEMOGLOBIN 21.2 pg (27.0-34.0); MEAN CORPUSCULAR HGB CONC 30.7 g/dL (33.0-35.0); MEAN CORPUSCULAR VOLUME 69.1 fL (80.0-100.0); MONOCYTES # (AUTO) 0.1 x10^3/uL (0.3-0.8); MONOCYTES % (AUTO) 6.4 % (0.0-13.0); NEUTROPHILS % (AUTO) 56.5 % (42.0-75.0); PLATELET COUNT 29 X10^3/uL (150.0-450.0); RED BLOOD COUNT 3.05 X10^6/uL (3.5-5.4); RED CELL DISTRIBUTION WIDTH 19.1 % (11.6-16.5)
--- NOTE | 2017-02-09 15:19 | DR.GENAD ---
HPI - PCP Primary Care Physician: CADEN HAYS - Complaint/Symptoms Chief Complaint:: PT C/O HURTING ALL OVER AND HAVING N/V/D AND THAT SHE NOTED STREAKS OF BLOOD IN IT AND THAT HER HIPS HURT ALSO.. - Nurses notes reviewed Nurses Notes Review: Yes - Source History Provided: Patient, EMS - Mode of Arrival Mode of Arrival: EMS - Timing Onset of Chief Complaint: 02/09/17 Came on: Suddenly - Duration Duration: Constant Duration: Days - Severity Severity: Moderate PMH - PMH Past Medical History: Yes Past Medical History: Anxiety, Diabetes, GERD, Liver Disease, PUD, Schizophrenia , Seizures Past Surgical History: Yes Surgical History: Hysterectomy, Ortho Surgery, Thyroidectomy - Family History History of Family Medical Conditions: No Family Medical History: Diabetes Mellitus, Cancer, Hypertension - Social History Does patient currently use any type of tobacco product: No Have you used tobacco products in the last 12 months: No Type of Tobacco Use: None Does any household member use tobacco: No Alcohol Use: None Do you use any recreational Drugs:: No Lives With: Family Lives Where: Home - infectious screening In the last 2 months have you had wt loss of >10#?: NO Have you had fever, night sweats or hemotysis?: No Have you traveled outside the country in the last 6 months?: No Isolation: Standard PE - Vital Signs Vitals: Temperature 98.6 F Pulse Rate [Left Brachial] 93 Pulse Rate 100 Respiratory Rate 18 Blood Pressure [Right Arm] 103/52 Blood Pressure [Left Arm] 136/65 Blood Pressure 132/94 O2 Sat by Pulse Oximetry 97 ROR - Labs Reviewed Result Diagrams: 02/10/17 05:20 02/10/17 05:20 Laboratory: WBC 1.7 X10^3/uL (3.6-10.0) L* 02/09/17 15:05 RBC 3.05 X10^6/uL (3.5-5.4) L 02/09/17 15:05 Hgb 6.5 g/dL (12.0-16.0) L* 02/09/17 15:05 Hct 21.0 % (36.0-47.0) L 02/09/17 15:05 MCV 69.1 fL (80.0-100.0) L 02/09/17 15:05 MCH 21.2 pg (27.0-34.0) L 02/09/17 15:05 MCHC 30.7 g/dL (33.0-35.0) L 02/09/17 15:05 RDW 19.1 % (11.6-16.5) H 02/09/17 15:05 Plt Count 29 X10^3/uL (150.0-450.0) L 02/09/17 15:05 Plt Count Comment Decreased (ADEQUATE) A 02/09/17 15:05 MPV 9.0 fL (7.4-11.0) 02/09/17 15:05 Neut % 56.5 % (42.0-75.0) 02/09/17 15:05 Lymph % 34.1 % (21.0-51.0) 02/09/17 15:05 Jack % 6.4 % (0.0-13.0) 02/09/17 15:05 Eos % 2.1 % (0.9-2.9) 02/09/17 15:05 Baso % 0.9 % (0.2-1.0) 02/09/17 15:05 Neut # 1.0 x10^3/uL (2.2-4.8) L 02/09/17 15:05 Lymph # 0.6 X10^3/uL (1.3-2.9) L 02/09/17 15:05 Jack # 0.1 x10^3/uL (0.3-0.8) L 02/09/17 15:05 Eos # 0.0 x10^3/uL (0.0-0.2) 02/09/17 15:05 Baso # 0.0 X10^3/uL (0.0-0.1) 02/09/17 15:05 Absolute Nucleated RBC 0.1 /100WBC 02/09/17 15:05 Total Counted 50 02/09/17 15:05 Neutrophils % (Manual) 48 % (39-76) 02/09/17 15:05 Lymphocytes % (Manual) 44 % (13-43) H 02/09/17 15:05 Monocytes % (Manual) 8 % (4-9) 02/09/17 15:05 Plt Morphology Comment Normal (NORMAL) 02/09/17 15:05 RBC Morphology Abnormal (NORMAL) A 02/09/17 15:05 Hypochromasia 1+ A 02/09/17 15:05 Microcytosis 1+ A 02/09/17 15:05 INR Target Range - 02/09/17 15:05 INR 1.54 (0.8-1.3) H 02/09/17 15:05 PTT 33.7 SECONDS (22.9-36.5) 02/09/17 15:05 PTT Comment - 02/09/17 15:05 Sodium 141 mmol/L (136-145) 02/09/17 15:05 Corrected Sodium 142 mmol/L (136-145) 02/09/17 15:05 Potassium 3.2 mmol/L (3.5-5.1) L 02/09/17 15:05 Chloride 108 mmol/L (98-107) H 02/09/17 15:05 Carbon Dioxide 27.9 mmol/L (21-32) 02/09/17 15:05 BUN 8 mg/dL (7-18) 02/09/17 15:05 Creatinine 0.90 mg/dL (0.55-1.02) 02/09/17 15:05 Est GFR (MDRD) Af Amer > 60 (>60) 02/09/17 15:05 Est GFR (MDRD) Non-Af > 60 (>60) 02/09/17 15:05 Glucose 140 mg/dL (65-99) H 02/09/17 15:05 Calcium 8.0 mg/dL (8.5-10.1) L 02/09/17 15:05 Corrected Calcium 9.5 mg/dL (8.5-10.1) 02/09/17 15:05 Total Bilirubin 0.90 mg/dL (0.2-1.0) 02/09/17 15:05 AST 48 Units/L (15-37) H 02/09/17 15:05 ALT 35 Units/L (12-78) 02/09/17 15:05 Alkaline Phosphatase 143 Units/L (46-116) H 02/09/17 15:05 Creatine Kinase 202 Units/L (26-192) H 02/09/17 15:05 CK-MB (CK-2) 1.3 ng/mL (0-4.0) 02/09/17 15:05 CK/CKMB % Calc 0.6 % (<4) 02/09/17 15:05 Troponin I 0.02 ng/mL (0-1.5) 02/09/17 15:05 Total Protein 6.0 g/dL (6.4-8.2) L 02/09/17 15:05 Albumin 2.1 g/dL (3.4-5.0) L 02/09/17 15:05 Globulin 3.9 g/dL (2.5-4.5) 02/09/17 15:05 Albumin/Globulin Ratio 0.5 Ratio (1.1-2.1) L 02/09/17 15:05 Specimen Type Catherized urine 02/09/17 17:02 Urine Color Yellow (YELLOW) 02/09/17 17:02 Urine Appearance Hazy (CLEAR) 02/09/17 17:02 Urine pH 6.5 (5.0 - 8.0) 02/09/17 17:02 Ur Specific [place] 1.015 (1.000-1.030) 02/09/17 17:02 Urine Protein 2+ (NEGATIVE) 02/09/17 17:02 Urine Glucose (UA) Negative (NEGATIVE) 02/09/17 17:02 Urine Ketones 1+ (NEGATIVE) 02/09/17 17:02 Urine Occult Blood 5+ (NEGATIVE) 02/09/17 17:02 Urine Nitrite Negative (NEGATIVE) 02/09/17 17:02 Urine Bilirubin Negative (NEGATIVE) 02/09/17 17:02 Urine Urobilinogen 2+ (NORMAL) 02/09/17 17:02 Ur Leukocyte Esterase 1+ (NEGATIVE) 02/09/17 17:02 Urine RBC Tntc /HPF (NEGATIVE) 02/09/17 17:02 Urine WBC Rare /HPF (NEGATIVE) 02/09/17 17:02 Ur Squamous Epith Cells Rare /HPF (NEGATIVE) 02/09/17 17:02 Amorphous Sediment 1+ /HPF (NEGATIVE) 02/09/17 17:02 Urine Bacteria Negative /HPF (NEGATIVE) 02/09/17 17:02 Hyaline Casts Rare /LPF (NEGATIVE) 02/09/17 17:02 Urine Mucus Moderate /HPF (NEGATIVE) 02/09/17 17:02 Ur Culture Indicated? No/not indicated 02/09/17 17:02 Stool Description Ifob collection tube 02/09/17 17:30 Stl Occult Blood (IFOB) Negative (NEGATIVE) 02/09/17 17:30 Urine Opiates Screen Positive (NEG=<300) A 02/09/17 17:03 Urine Methadone Screen Negative (NEG=<300) 02/09/17 17:03 Ur Barbiturates Screen Negative (NEG=<200) 02/09/17 17:03 Ur Phencyclidine Scrn Negative (NEG=<25) 02/09/17 17:03 Ur Amphetamines Screen Negative (NEG=<1000) 02/09/17 17:03 U Benzodiazepines Scrn Negative (NEG=<200) 02/09/17 17:03 Urine Cocaine Screen Positive (NEG=<300) A 02/09/17 17:03 U Marijuana (THC) Screen Positive (NEG=<50) A 02/09/17 17:03 - Discharge Plan Disposition: 09 ADMITTED INPATIENT Condition: Stable - Follow ups/Referrals - Instructions
[2017-02-09 15:22] LABS: HEMOGLOBIN 6.5 g/dL (12.0-16.0); WHITE BLOOD COUNT 1.7 X10^3/uL (3.6-10.0)
[2017-02-09 15:31] LABS: PLATELET MORPHOLOGY COMMENT NORMAL (NORMAL)
[2017-02-09 15:32] LABS: HYPOCHROMASIA 1+; MICROCYTOSIS 1+
[2017-02-09 15:36] LABS: BLOOD UREA NITROGEN 8 mg/dL (7-18); CARBON DIOXIDE 27.9 mmol/L (21-32); CHLORIDE 108 mmol/L (98-107); COR NA(FOR HYPERGLY) 142 mmol/L (136-145); SODIUM 141 mmol/L (136-145); TROPONIN I 0.02 ng/mL (0-1.5); eGFR BLACK RACES > 60 (>60); eGFR NON BLACK RACES > 60 (>60)
[2017-02-09 15:40] LABS: ALANINE AMINOTRANSFERASE 35 Units/L (12-78); ALBUMIN 2.1 g/dL (3.4-5.0); ALKALINE PHOSPHATASE 143 Units/L (46-116); ASPARTATE AMINO TRANSFERASE 48 Units/L (15-37); CKMB % 0.6 % (<4); COR CA(FOR HYPOALB) 9.5 mg/dL (8.5-10.1); CREATINE KINASE 202 Units/L (26-192); CREATINE KINASE MB 1.3 ng/mL (0-4.0)
--- NOTE | 2017-02-09 16:16 | RAD ---
Examination: AP chest History: Nausea, vomiting and diarrhea Comparison reference: 01/23/2017 Findings: Stable upper normal heart size with essentially clear lungs and pleural spaces. Prominent c entral pulmonary vascularity may be related to nonstandard technical factors. There is no evidence fo r pneumonia, pulmonary edema or large pleural effusion. Impression: No active/acute abnormality identified. Reported By:
[2017-02-09 17:20] LABS: BILIRUBIN,URINE NEGATIVE (NEGATIVE); BLOOD/HEMOGLOBIN,URINE 5+ (NEGATIVE); GLUCOSE, URINE NEGATIVE (NEGATIVE); KETONES,URINE 1+ (NEGATIVE); LEUKOCYTE ESTERASE ,URINE 1+ (NEGATIVE); NITRITES,URINE NEGATIVE (NEGATIVE); PH,URINE 6.5 (5.0 - 8.0); PROTEIN,URINE 2+ (NEGATIVE); UROBILINOGEN,URINE 2+ (NORMAL)
[2017-02-09 17:28] LABS: APPEARANCE,URINE HAZY (CLEAR); COLOR,URINE YELLOW (YELLOW)
[2017-02-09 17:36] LABS: RBC,URINE TNTC /HPF (NEGATIVE)
[2017-02-09 17:37] LABS: AMORPHOUS SEDIMENT,UR 1+ /HPF (NEGATIVE); BACTERIA,URINE NEGATIVE /HPF (NEGATIVE); HYALINE CASTS, URINE RARE /LPF (NEGATIVE); SQUAMOUS EPITHELIAL CELL,UR RARE /HPF (NEGATIVE)
[2017-02-09 17:38] LABS: MUCUS,URINE MODERATE /HPF (NEGATIVE)
[2017-02-09] MEDS: NS 1000 ML 1,000 ML IV SCH (21:38)
[2017-02-09] MEDS: NICOTINE PATCH TD SCH (21:39)
[2017-02-09] MEDS: NORCO 10/325 TAB PO PRN (21:39)
--- NOTE | 2017-02-09 22:48 | RAD ---
Abdomen, two views Indication: Nausea, vomiting, diarrhea, abdominal pain Comparison: 12/26/2016 Findings: The visualized bowel gas pattern is nonobstructive. No free air or pneumatosis is identifie d. No pathologic calcifications are seen. The visualized osseous structures are grossly intact. Impression: No acute abdominal abnormality. Reported By:
[2017-02-09] MEDS ORDERED: NS 250 ML IV 250 ML IV ONE (23:40)
[2017-02-10] MEDS: ZOFRAN INJ 4 MG VIAL IVP PRN ×3 (05:34→21:40)
[2017-02-10 05:54] LABS: BASOPHILS % (AUTO) 0.5 % (0.2-1.0); HEMATOCRIT 22.8 % (36.0-47.0); HEMOGLOBIN 7.3 g/dL (12.0-16.0); LYMPHOCYTES # (AUTO) 0.6 X10^3/uL (1.3-2.9); LYMPHOCYTES % (AUTO) 42.6 % (21.0-51.0); MEAN CORPUSCULAR HEMOGLOBIN 22.1 pg (27.0-34.0); MEAN CORPUSCULAR HGB CONC 31.8 g/dL (33.0-35.0); MEAN CORPUSCULAR VOLUME 69.4 fL (80.0-100.0); MEAN PLATELET VOLUME 8.8 fL (7.4-11.0); MONOCYTES # (AUTO) 0.1 x10^3/uL (0.3-0.8); MONOCYTES % (AUTO) 8.9 % (0.0-13.0); NEUTROPHILS # (AUTO) 0.6 x10^3/uL (2.2-4.8); PLATELET COUNT 25 X10^3/uL (150.0-450.0); RED BLOOD COUNT 3.29 X10^6/uL (3.5-5.4); RED CELL DISTRIBUTION WIDTH 19.3 % (11.6-16.5)
[2017-02-10 05:59] LABS: ALANINE AMINOTRANSFERASE 36 Units/L (12-78); ALBUMIN 2.2 g/dL (3.4-5.0); ALKALINE PHOSPHATASE 125 Units/L (46-116); ASPARTATE AMINO TRANSFERASE 51 Units/L (15-37); BLOOD UREA NITROGEN 7 mg/dL (7-18); CHLORIDE 109 mmol/L (98-107); COR CA(FOR HYPOALB) 9.4 mg/dL (8.5-10.1); CREATININE 0.76 mg/dL (0.55-1.02); SODIUM 141 mmol/L (136-145); TOTAL PROTEIN 6.1 g/dL (6.4-8.2); eGFR BLACK RACES > 60 (>60); eGFR NON BLACK RACES > 60 (>60)
[2017-02-10 06:20] LABS: WHITE BLOOD COUNT 1.3 X10^3/uL (3.6-10.0)
[2017-02-10 06:34] LABS: PLATELET MORPHOLOGY COMMENT NORMAL (NORMAL)
[2017-02-10 06:35] LABS: HYPOCHROMASIA 1+; MICROCYTOSIS 1+
[2017-02-10] MEDS: NORCO 10/325 TAB PO PRN ×2 (09:30→17:10)
[2017-02-10] MEDS: NICOTINE PATCH TD SCH (09:30)
[2017-02-10] MEDS ORDERED: PHENERGAN TAB 25 MG PO PRN (10:30)
[2017-02-10] MEDS ORDERED: PATIENT'S HOME MEDICATION (Albuterol Sulfate 2 PUFF) INH PRN (10:30)
[2017-02-10] MEDS ORDERED: PATIENT'S HOME MEDICATION (Metformin Hcl [Metformin Hcl Er] 500 MG) PO PRN (10:30)
[2017-02-10] MEDS ORDERED: PROVENTIL NEB TX 0.083% 2.5MG/ 3ML NEB PRN (10:34)
[2017-02-10] MEDS ORDERED: NS 100 ML IV 100 ML with VENOFER 400 MG IV NR ×2 (11:00)
[2017-02-10] MEDS: NS 1000 ML 1,000 ML IV SCH (12:24)
[2017-02-10 13:07] LABS: HEMATOCRIT 28.4 % (36.0-47.0)
[2017-02-10] MEDS: KLONOPIN TAB 1 MG PO SCH ×2 (13:14→21:32)
[2017-02-10] MEDS: NEURONTIN CAP 400 MG PO SCH ×3 (13:14→21:32)
[2017-02-10] MEDS ORDERED: ATARAX TAB 25 MG PO SCH (21:00)
[2017-02-10] MEDS: HumuLIN R SC PRN (21:34)
[2017-02-11] MEDS: NS 1000 ML 1,000 ML IV SCH (00:12)
[2017-02-11] MEDS: NEURONTIN CAP 400 MG PO SCH (05:57)
[2017-02-11] MEDS: HumuLIN R SC PRN (05:58)
[2017-02-11] MEDS: NORCO 10/325 TAB PO PRN (06:19)
[2017-02-11 06:25] VITALS: BMI 42.9
[2017-02-11 07:09] LABS: BASOPHILS % (AUTO) 0.4 % (0.2-1.0); EOSINOPHILS % (AUTO) 1.7 % (0.9-2.9); HEMATOCRIT 26.7 % (36.0-47.0); HEMOGLOBIN 8.4 g/dL (12.0-16.0); LYMPHOCYTES # (AUTO) 0.5 X10^3/uL (1.3-2.9); LYMPHOCYTES % (AUTO) 26.3 % (21.0-51.0); MEAN CORPUSCULAR HEMOGLOBIN 22.2 pg (27.0-34.0); MEAN CORPUSCULAR HGB CONC 31.5 g/dL (33.0-35.0); MEAN CORPUSCULAR VOLUME 70.5 fL (80.0-100.0); MEAN PLATELET VOLUME 8.5 fL (7.4-11.0); MONOCYTES # (AUTO) 0.2 x10^3/uL (0.3-0.8); NEUTROPHILS # (AUTO) 1.1 x10^3/uL (2.2-4.8); NEUTROPHILS % (AUTO) 62.6 % (42.0-75.0); PLATELET COUNT 44 X10^3/uL (150.0-450.0); RED BLOOD COUNT 3.79 X10^6/uL (3.5-5.4)
[2017-02-11 07:20] LABS: ALANINE AMINOTRANSFERASE 40 Units/L (12-78); ALBUMIN 2.6 g/dL (3.4-5.0); ALKALINE PHOSPHATASE 141 Units/L (46-116); ASPARTATE AMINO TRANSFERASE 58 Units/L (15-37); BLOOD UREA NITROGEN 5 mg/dL (7-18); CALCIUM 8.7 mg/dL (8.5-10.1); CARBON DIOXIDE 27.8 mmol/L (21-32); CHLORIDE 109 mmol/L (98-107); COR CA(FOR HYPOALB) 9.8 mg/dL (8.5-10.1); COR NA(FOR HYPERGLY) 144 mmol/L (136-145); CREATININE 0.76 mg/dL (0.55-1.02); SODIUM 143 mmol/L (136-145); TOTAL PROTEIN 6.9 g/dL (6.4-8.2); eGFR BLACK RACES > 60 (>60); eGFR NON BLACK RACES > 60 (>60)
[2017-02-11 07:21] LABS: WHITE BLOOD COUNT 1.8 X10^3/uL (3.6-10.0)
[2017-02-11 07:32] LABS: PLATELET MORPHOLOGY COMMENT NORMAL (NORMAL)
[2017-02-11 07:33] LABS: HYPOCHROMASIA 1+
[2017-02-11] MEDS ORDERED: GLUCOPHAGE XR PO SCH (09:00)
[2017-02-11] MEDS: KLONOPIN TAB 1 MG PO SCH (09:15)
[2017-02-11] MEDS: NICOTINE PATCH TD SCH (09:16)
[2017-02-11] MEDS ORDERED: SNACK - Diabetic Appropriate PO SCH (10:15)
[2017-02-11 11:41] VITALS: BP 148/77
== END 2017-02-11 11:00 | disposition home or self-care (01) | DRG 812 ==
LOC: ER 14:33 → MED/SURG 19:14
PROVIDERS: ADMIT Obstetrics & Gynecology Obstetrics; ATTEND Internal Medicine
PROC: 30233N1 Transfusion of Nonautologous Red Blood Cells into Peripheral Vein, Percutaneous Approach (ICD-10-PCS; principal; 2017-02-09)
PROC: 30233N1 Transfusion of Nonautologous Red Blood Cells into Peripheral Vein, Percutaneous Approach (ICD-10-PCS; 2017-02-10)
PROC: 30233R1 Transfusion of Nonautologous Platelets into Peripheral Vein, Percutaneous Approach (ICD-10-PCS; 2017-02-11)
PROC: 30233R1 Transfusion of Nonautologous Platelets into Peripheral Vein, Percutaneous Approach (ICD-10-PCS; 2017-02-11)
DX: D64.89 Other specified anemias (principal); D63.8 Anemia in other chronic diseases classified elsewhere; K72.90 Hepatic failure, unspecified without coma; K75.89 Other specified inflammatory liver diseases; R11.2 Nausea with vomiting, unspecified; K21.9 Gastro-esophageal reflux disease without esophagitis; E11.65 Type 2 diabetes mellitus with hyperglycemia; R19.7 Diarrhea, unspecified; I10 Essential (primary) hypertension; F32.89 Other specified depressive episodes; M19.90 Unspecified osteoarthritis, unspecified site; R79.1 Abnormal coagulation profile; F12.90 Cannabis use, unspecified, uncomplicated; F14.90 Cocaine use, unspecified, uncomplicated; F11.90 Opioid use, unspecified, uncomplicated
CPT/HCPCS: 36415; 36430; 71010; 74000; 80053; 80307; 81001; 82270; 82550; 82553; 84484; 85014; 85018; 85025; 85610; 85730; 86850; 86900; 86901; 86922; 93005; 93010; 94760; 96365; 99282; 99284; A4216; A4222; P9016; P9035; G0378; G0434; J1815; J2405

== ENCOUNTER → 2017-02-13 | Outpatient (CLI) | payer SELFPAY ==
[2017-02-11 11:41] VITALS: BP 148/77
[2017-02-13 16:27] LABS: ALANINE AMINOTRANSFERASE 37 Units/L (12-78); ALBUMIN 2.6 g/dL (3.4-5.0); ALKALINE PHOSPHATASE 194 Units/L (46-116); ASPARTATE AMINO TRANSFERASE 58 Units/L (15-37); BLOOD UREA NITROGEN 5 mg/dL (7-18); CALCIUM 8.6 mg/dL (8.5-10.1); CARBON DIOXIDE 27.5 mmol/L (21-32); CHLORIDE 109 mmol/L (98-107); COR CA(FOR HYPOALB) 9.7 mg/dL (8.5-10.1); CREATININE 0.81 mg/dL (0.55-1.02); SODIUM 143 mmol/L (136-145); TOTAL PROTEIN 6.9 g/dL (6.4-8.2); eGFR BLACK RACES > 60 (>60); eGFR NON BLACK RACES > 60 (>60)
== END ==
LOC: LAB 15:56
PROVIDERS: ATTEND Nurse Practitioner Family
DX: R25.2 Cramp and spasm (principal)
CPT/HCPCS: 36415; 80053; 83735

== ENCOUNTER 2017-02-15 15:45 | Emergency (ER) | payer SELFPAY ==
[2017-02-15 16:09] VITALS: BP 167/77; BMI 39.6
[2017-02-15 17:18] LABS: BLOOD UREA NITROGEN 8 mg/dL (7-18); CALCIUM 8.5 mg/dL (8.5-10.1); CARBON DIOXIDE 28.3 mmol/L (21-32); CHLORIDE 109 mmol/L (98-107); COR NA(FOR HYPERGLY) 146 mmol/L (136-145); CREATININE 1.06 mg/dL (0.55-1.02); SODIUM 145 mmol/L (136-145); eGFR BLACK RACES > 60 (>60); eGFR NON BLACK RACES 59 (>60)
[2017-02-15 17:23] LABS: BASOPHILS % (AUTO) 0.7 % (0.2-1.0); EOSINOPHILS % (AUTO) 0.8 % (0.9-2.9); HEMATOCRIT 29.7 % (36.0-47.0); HEMOGLOBIN 9.3 g/dL (12.0-16.0); LYMPHOCYTES # (AUTO) 0.4 X10^3/uL (1.3-2.9); LYMPHOCYTES % (AUTO) 22.8 % (21.0-51.0); MEAN CORPUSCULAR HEMOGLOBIN 23.1 pg (27.0-34.0); MEAN CORPUSCULAR HGB CONC 31.2 g/dL (33.0-35.0); MEAN CORPUSCULAR VOLUME 73.9 fL (80.0-100.0); MEAN PLATELET VOLUME 8.5 fL (7.4-11.0); MONOCYTES # (AUTO) 0.1 x10^3/uL (0.3-0.8); MONOCYTES % (AUTO) 6.7 % (0.0-13.0); NEUTROPHILS # (AUTO) 1.1 x10^3/uL (2.2-4.8); PLATELET COUNT 36 X10^3/uL (150.0-450.0); RED BLOOD COUNT 4.01 X10^6/uL (3.5-5.4); RED CELL DISTRIBUTION WIDTH 21.2 % (11.6-16.5)
[2017-02-15] MEDS ORDERED: ZOFRAN INJ 4 MG VIAL IVP ONE (17:45)
[2017-02-15] MEDS ORDERED: ZOFRAN INJ 4 MG VIAL ONE (17:46)
[2017-02-15 17:51] LABS: WHITE BLOOD COUNT 1.6 X10^3/uL (3.6-10.0)
[2017-02-15 18:00] LABS: ANISOCYTOSIS 1+; HYPOCHROMASIA 1+; PLATELET MORPHOLOGY COMMENT NORMAL (NORMAL)
[2017-02-15 18:48] LABS: BILIRUBIN,URINE NEGATIVE (NEGATIVE); BLOOD/HEMOGLOBIN,URINE 5+ (NEGATIVE); GLUCOSE, URINE NEGATIVE (NEGATIVE); KETONES,URINE NEGATIVE (NEGATIVE); LEUKOCYTE ESTERASE ,URINE 1+ (NEGATIVE); NITRITES,URINE NEGATIVE (NEGATIVE); PROTEIN,URINE 1+ (NEGATIVE); UROBILINOGEN,URINE 2+ (NORMAL)
[2017-02-15 19:07] LABS: APPEARANCE,URINE HAZY (CLEAR); BACTERIA,URINE TRACE /HPF (NEGATIVE); COLOR,URINE AMBER (YELLOW); SQUAMOUS EPITHELIAL CELL,UR FEW /HPF (NEGATIVE)
== END 2017-02-15 19:52 | disposition left against medical advice (07) ==
LOC: ER 15:45
DX: R10.84 Generalized abdominal pain (principal); R11.10 Vomiting, unspecified
CPT/HCPCS: 36415; 80048; 80307; 81001; 85025; 99282; G0434; J2405

== ENCOUNTER 2017-03-01 11:59 | Emergency (ER) | payer SELFPAY ==
[2017-03-01 12:07] VITALS: BP 153/80; BMI 33.6
--- NOTE | 2017-03-01 13:10 | DR.GENAD ---
HPI - PCP Primary Care Physician: REYMUNDO - HPI Comment HPI Comment: DVT ON BLOOD THINNER. MED D/C DUE TO BLEEDING. STILL BLEEDING. NOW CELLULITIS LOWER EXTREMITY HAS STARNESS. NO CALF. DENIES FEVER. - Complaint/Symptoms Chief Complaint Doctors Comments: HISTORY BELOW. Chief Complaint:: PT C/O RECTAL BLEEDING, BLOOD IN URINE, AND PAIN IN LOWER EXT. PT STATES SHE HAS BEEN HAVING THE RECTAL BLEEDING AND BLOOD IN URINE. PCP DISCONTINUED THE BLOOD THINNER. PT STATES SINCE SHE STOPPED HER BLOOD THINNER SHE HAS BEEN HAVING PAIN IN LOWER EXT WHERE SHE HAD A BLOOD CLOT IN THE PAST. - Nurses notes reviewed Nurses Notes Review: Yes - Source History Provided: Patient - Mode of Arrival Mode of Arrival: Ambulatory - Timing Onset of Chief Complaint: 02/24/17 Came on: Suddenly - Duration Duration: Constant Duration: Days - Severity Severity: Moderate PMH - PMH Past Medical History: Yes Past Medical History: Anxiety, Diabetes, GERD, Liver Disease, PUD, Schizophrenia , Seizures Past Medical History Comment: HEP C Past Surgical History: Yes Surgical History: Hysterectomy, Ortho Surgery, Thyroidectomy - Family History History of Family Medical Conditions: Yes Family Medical History: Diabetes Mellitus, Cancer, Hypertension - Social History Does patient currently use any type of tobacco product: Yes Have you used tobacco products in the last 12 months: Yes Type of Tobacco Use: Cigarettes Does any household member use tobacco: Yes Alcohol Use: None Do you use any recreational Drugs:: No Lives With: Family Lives Where: Home - infectious screening In the last 2 months have you had wt loss of >10#?: NO Have you had fever, night sweats or hemotysis?: No Have you traveled outside the country in the last 6 months?: No Isolation: Standard ROS - Review of Systems Constitutional: Weakness, Fatigue. negative: Fever Eyes: negative: Eye Pain, Discharge ENTM: Nose Discharge, Nose Congestion. negative: Ear Pain, Throat Pain Respiratoy: Non-Productive Cough, Short of Breath, Wheezing Cardiovascular: Chest Pain, Edema Gastrointestinal/Abdominal: Abdominal Pain, Nausea. negative: Vomiting Genitourinary: Hematuria, Bleeding. negative: Dysuria, Frequency Neurological: Depressed, Headache, Weakness, Dizziness Musculoskeletal: Muscle Pain Integumentary: Change in Color, Lesions Hematologic/Lymphatic: Blood Clots, Easy Bleeding Endocrine: negative: Flushing, Increased Thirst, Increased Urine Psychiatric: Depression All Other Systems: Reviewed and Negative PE - Vital Signs Vitals: Temperature 97.8 F Pulse Rate 93 Respiratory Rate 18 Blood Pressure [Right Arm] 157/79 Blood Pressure [Left Arm] 148/77 Blood Pressure 153/80 O2 Sat by Pulse Oximetry 95 - General Limitations: No Limitations General Appearance: Alert - Head Head Exam: Normal Inspection - Eyes Eye exam: Normal Appearance - ENT ENT Exam: Normal External Ear Exam External Ear Exam: Normal External Inspection TM/Canal Exam: Bilateral Normal Mouth Exam: Normal Inspection Throat Exam: Normal Inspection - Neck Neck Exam: Trachea Midline - Chest Chest Inspection: Symmetric Chest Wall Rise - Respiratory Respiratory Exam: Normal Lung Sounds Bilat Respiratory Exam: Bilateral Rhonchi, Lower Rhonchi - Cardiovascular Cardiovascular Exam: Regular Rate, Normal Rhythm, Normal Heart Sounds - Abdominal Exam Abdominal Exam: Normal Bowel Sounds, Soft, Tenderness Abdominal Tenderness: RLQ, LLQ, Suprapubic - Extremities Extremities Exam: Edema, Other (ERYTHEMA) - Back Back Exam: Paraspinal Tenderness - Neurologic Neurological Exam: Alert, Oriented X3 - Psychiatric Psychiatric Exam: Depressed - Skin Skin Exam: Erythema MDM - Differential Diagnosis Differential Diagnosis: ABDOMINAL PAIN, UTI, CELLULITIS LEGS, CHEST PAIN Course - Treatment Treatment: SEE ORDERS. - Education/Counseling Education/Counseling: Patient, Education Educated On: Diagnosis, Needs for Follow Up ROR - Labs Reviewed Laboratory Results Reviewed?: Yes Result Diagrams: 03/01/17 14:59 03/01/17 14:59 Laboratory: WBC 2.0 X10^3/uL (3.6-10.0) L 03/01/17 14:59 RBC 4.36 X10^6/uL (3.5-5.4) 03/01/17 14:59 Hgb 10.1 g/dL (12.0-16.0) L 03/01/17 14:59 Hct 32.0 % (36.0-47.0) L 03/01/17 14:59 MCV 73.4 fL (80.0-100.0) L 03/01/17 14:59 MCH 23.2 pg (27.0-34.0) L 03/01/17 14:59 MCHC 31.7 g/dL (33.0-35.0) L 03/01/17 14:59 RDW 25.6 % (11.6-16.5) H 03/01/17 14:59 Plt Count 39 X10^3/uL (150.0-450.0) L 03/01/17 14:59 Plt Count Comment Decreased (ADEQUATE) A 03/01/17 14:59 MPV 8.6 fL (7.4-11.0) 03/01/17 14:59 Neut % 61.0 % (42.0-75.0) 03/01/17 14:59 Lymph % 29.7 % (21.0-51.0) 03/01/17 14:59 [place] % 7.3 % (0.0-13.0) 03/01/17 14:59 Eos % 1.4 % (0.9-2.9) 03/01/17 14:59 Baso % 0.6 % (0.2-1.0) 03/01/17 14:59 Neut # 1.2 x10^3/uL (2.2-4.8) L 03/01/17 14:59 Lymph # 0.6 X10^3/uL (1.3-2.9) L 03/01/17 14:59 [place] # 0.1 x10^3/uL (0.3-0.8) L 03/01/17 14:59 Eos # 0.0 x10^3/uL (0.0-0.2) 03/01/17 14:59 Baso # 0.0 X10^3/uL (0.0-0.1) 03/01/17 14:59 Absolute Nucleated RBC 0.2 /100WBC 03/01/17 14:59 Total Counted 50 03/01/17 14:59 Neutrophils % (Manual) 60 % (39-76) 03/01/17 14:59 Lymphocytes % (Manual) 36 % (13-43) 03/01/17 14:59 Monocytes % (Manual) 4 % (4-9) 03/01/17 14:59 Plt Morphology Comment Normal (NORMAL) 03/01/17 14:59 RBC Morphology Abnormal (NORMAL) A 03/01/17 14:59 Hypochromasia 1+ A 03/01/17 14:59 Microcytosis 1+ A 03/01/17 14:59 INR Target Range - 03/01/17 14:59 INR 1.41 (0.8-1.3) H 03/01/17 14:59 PTT 34.6 SECONDS (22.9-36.5) 03/01/17 14:59 PTT Comment - 03/01/17 14:59 Sodium 141 mmol/L (136-145) 03/01/17 14:59 Corrected Sodium 142 mmol/L (136-145) 03/01/17 14:59 Potassium 3.5 mmol/L (3.5-5.1) 03/01/17 14:59 Chloride 107 mmol/L (98-107) 03/01/17 14:59 Carbon Dioxide 25.2 mmol/L (21-32) 03/01/17 14:59 BUN 10 mg/dL (7-18) 03/01/17 14:59 Creatinine 0.88 mg/dL (0.55-1.02) 03/01/17 14:59 Est GFR (MDRD) Af Amer > 60 (>60) 03/01/17 14:59 Est GFR (MDRD) Non-Af > 60 (>60) 03/01/17 14:59 Glucose 138 mg/dL (65-99) H 03/01/17 14:59 Calcium 8.4 mg/dL (8.5-10.1) L 03/01/17 14:59 Corrected Calcium 9.4 mg/dL (8.5-10.1) 03/01/17 14:59 Total Bilirubin 0.80 mg/dL (0.2-1.0) 03/01/17 14:59 AST 75 Units/L (15-37) H 03/01/17 14:59 ALT 43 Units/L (12-78) 03/01/17 14:59 Alkaline Phosphatase 154 Units/L (46-116) H 03/01/17 14:59 Creatine Kinase 808 Units/L (26-192) H 03/01/17 14:59 CK-MB (CK-2) 4.8 ng/mL (0-4.0) H* 03/01/17 14:59 CK/CKMB % Calc 0.6 % (<4) 03/01/17 14:59 Troponin I < 0.02 ng/mL (0-1.5) 03/01/17 14:59 Total Protein 7.3 g/dL (6.4-8.2) 03/01/17 14:59 Albumin 2.7 g/dL (3.4-5.0) L 03/01/17 14:59 Globulin 4.6 g/dL (2.5-4.5) H 03/01/17 14:59 Albumin/Globulin Ratio 0.6 Ratio (1.1-2.1) L 03/01/17 14:59 Specimen Type Clean catch urine 03/01/17 14:41 Urine Color Yellow (YELLOW) 03/01/17 14:41 Urine Appearance Hazy (CLEAR) 03/01/17 14:41 Urine pH 7.0 (5.0 - 8.0) 03/01/17 14:41 Ur Specific [place] 1.015 (1.000-1.030) 03/01/17 14:41 Urine Protein 2+ (NEGATIVE) 03/01/17 14:41 Urine Glucose (UA) Negative (NEGATIVE) 03/01/17 14:41 Urine Ketones Negative (NEGATIVE) 03/01/17 14:41 Urine Occult Blood 5+ (NEGATIVE) 03/01/17 14:41 Urine Nitrite Negative (NEGATIVE) 03/01/17 14:41 Urine Bilirubin Negative (NEGATIVE) 03/01/17 14:41 Urine Urobilinogen 3+ (NORMAL) 03/01/17 14:41 Ur Leukocyte Esterase 1+ (NEGATIVE) 03/01/17 14:41 Urine RBC 11-20 /HPF (NEGATIVE) 03/01/17 14:41 Urine WBC 3-5 /HPF (NEGATIVE) 03/01/17 14:41 Ur Squamous Epith Cells Few /HPF (NEGATIVE) 03/01/17 14:41 Urine Bacteria Trace /HPF (NEGATIVE) 03/01/17 14:41 Ur Culture Indicated? No/not indicated 03/01/17 14:41 - XRAY XRAY Interpreted by: Radiologist XRAY Findings: REPORT DISCUSS WITH PATIENT. - EKG Rhythm: NSR (EKG NOTED) - Diagnosis Discharge Problem: Cellulitis Qualifiers: Site of cellulitis: extremity Site of cellulitis of extremity: lower extremity Laterality: right Qualified Code(s): L03.115 - Cellulitis of right lower limb UTI (urinary tract infection) Qualifiers: Urinary tract infection type: site unspecified Hematuria presence: with hematuria Qualified Code(s): N39.0 - Urinary tract infection, site not specified ; R31.9 - Hematuria, unspecified; R31.9 - Hematuria, unspecified Abdominal pain Qualifiers: Abdominal location: lower abdomen, unspecified Qualified Code(s): R10.30 - Lower abdominal pain, unspecified - Discharge Plan Disposition: 01 HOME, SELF-CARE Condition: Stable Prescriptions: Mupirocin Calcium Cream [BACTROBAN CREAM 2%] 1 applic EXT BID #30 gm Ranitidine HCl [ZANTAC TAB 150 MG *] 150 mg PO BID #60 tab Sulfamethoxazole-Trimethoprim [BACTRIM DS TAB 800/160 MG *] 1 tab PO BID #20 tab - Follow ups/Referrals Follow ups/Referrals: NATALIYA DWYER [Primary Care Provider] - 3 days SUSHIL ZHU [STAFF PHYSICIAN] - 3 days - Instructions Instructions: Urinary Tract Infection, Adult, [id number], Cellulitis, Adult, [id number], Abdominal Pain, Adult, [id number], Gastrointestinal Bleeding, [id number] Additional Instructions: RETURN TO ED IF WORSE.
[2017-03-01 14:47] LABS: BILIRUBIN,URINE NEGATIVE (NEGATIVE); BLOOD/HEMOGLOBIN,URINE 5+ (NEGATIVE); GLUCOSE, URINE NEGATIVE (NEGATIVE); KETONES,URINE NEGATIVE (NEGATIVE); LEUKOCYTE ESTERASE ,URINE 1+ (NEGATIVE); NITRITES,URINE NEGATIVE (NEGATIVE); PROTEIN,URINE 2+ (NEGATIVE); UROBILINOGEN,URINE 3+ (NORMAL)
[2017-03-01 14:52] LABS: APPEARANCE,URINE HAZY (CLEAR); BACTERIA,URINE TRACE /HPF (NEGATIVE); COLOR,URINE YELLOW (YELLOW); SQUAMOUS EPITHELIAL CELL,UR FEW /HPF (NEGATIVE)
[2017-03-01 15:12] LABS: BASOPHILS % (AUTO) 0.6 % (0.2-1.0); EOSINOPHILS % (AUTO) 1.4 % (0.9-2.9); HEMOGLOBIN 10.1 g/dL (12.0-16.0); LYMPHOCYTES # (AUTO) 0.6 X10^3/uL (1.3-2.9); LYMPHOCYTES % (AUTO) 29.7 % (21.0-51.0); MEAN CORPUSCULAR HEMOGLOBIN 23.2 pg (27.0-34.0); MEAN CORPUSCULAR HGB CONC 31.7 g/dL (33.0-35.0); MEAN CORPUSCULAR VOLUME 73.4 fL (80.0-100.0); MEAN PLATELET VOLUME 8.6 fL (7.4-11.0); MONOCYTES # (AUTO) 0.1 x10^3/uL (0.3-0.8); MONOCYTES % (AUTO) 7.3 % (0.0-13.0); NEUTROPHILS # (AUTO) 1.2 x10^3/uL (2.2-4.8); PLATELET COUNT 39 X10^3/uL (150.0-450.0); RED BLOOD COUNT 4.36 X10^6/uL (3.5-5.4); RED CELL DISTRIBUTION WIDTH 25.6 % (11.6-16.5)
[2017-03-01 15:24] LABS: HYPOCHROMASIA 1+; MICROCYTOSIS 1+; PLATELET MORPHOLOGY COMMENT NORMAL (NORMAL)
[2017-03-01 15:26] LABS: BLOOD UREA NITROGEN 10 mg/dL (7-18); CALCIUM 8.4 mg/dL (8.5-10.1); CARBON DIOXIDE 25.2 mmol/L (21-32); CHLORIDE 107 mmol/L (98-107); COR NA(FOR HYPERGLY) 142 mmol/L (136-145); CREATININE 0.88 mg/dL (0.55-1.02); SODIUM 141 mmol/L (136-145); TROPONIN I < 0.02 ng/mL (0-1.5); eGFR BLACK RACES > 60 (>60); eGFR NON BLACK RACES > 60 (>60)
[2017-03-01 15:49] LABS: ALANINE AMINOTRANSFERASE 43 Units/L (12-78); ALBUMIN 2.7 g/dL (3.4-5.0); ALKALINE PHOSPHATASE 154 Units/L (46-116); ASPARTATE AMINO TRANSFERASE 75 Units/L (15-37); CKMB % 0.6 % (<4); COR CA(FOR HYPOALB) 9.4 mg/dL (8.5-10.1); CREATINE KINASE 808 Units/L (26-192); TOTAL PROTEIN 7.3 g/dL (6.4-8.2)
[2017-03-01 15:52] LABS: CREATINE KINASE MB 4.8 ng/mL (0-4.0)
--- NOTE | 2017-03-01 16:06 | RAD ---
Examination: Acute abdominal series. Clinical history: Lower abdominal pain, rectal bleeding. Technique: A PA view of the chest, as well as supine and erect views of the abdomen were obtained. Comparison: KUB and chest x-ray dated 02/09/2017. Findings: The cardiac and mediastinal contours are within normal limits. No pneumothorax or pleural effusion is noted. The lungs appear clear. The bowel gas pattern is nonobstructive. A moderate amount of stool is noted in the colon. No abdominal mass or free air is noted. Calcific densities are seen overlying the pelvis, likely due to phleboliths costochondral cartilage c alcification is seen overlying the upper abdomen. No acute osseous abnormality is noted. Impression: 1. No acute disease. Reported By:
== END 2017-03-01 17:09 | disposition home or self-care (01) ==
LOC: ER 12:09
DX: L03.115 Cellulitis of right lower limb (principal); N39.0 Urinary tract infection, site not specified; R31.9 Hematuria, unspecified; R10.31 Right lower quadrant pain
CPT/HCPCS: 36415; 74022; 80053; 81001; 82550; 82553; 84484; 85025; 85610; 85730; 93005; 93010; 99283

== ENCOUNTER 2017-04-07 23:21 | Emergency (ER) | payer SELFPAY ==
[2017-04-07 23:36] VITALS: BMI 35.9
[2017-04-08] MEDS ORDERED: DEMEROL INJ ONE (00:32)
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
[2017-04-08] MEDS: DEMEROL INJ IM ONE (00:35)
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
[2017-04-08 03:00] LABS: BLOOD UREA NITROGEN 9 mg/dL (7-18); CALCIUM 8.1 mg/dL (8.5-10.1); CHLORIDE 108 mmol/L (98-107); COR NA(FOR HYPERGLY) 142 mmol/L (136-145); SODIUM 141 mmol/L (136-145); eGFR BLACK RACES > 60 (>60); eGFR NON BLACK RACES > 60 (>60)
[2017-04-08 03:07] VITALS: BP 130/80
[2017-04-08 03:15] LABS: BASOPHILS % (AUTO) 0.3 % (0.2-1.0); EOSINOPHILS % (AUTO) 1.4 % (0.9-2.9); HEMATOCRIT 29.3 % (36.0-47.0); HEMOGLOBIN 9.6 g/dL (12.0-16.0); LYMPHOCYTES # (AUTO) 0.5 X10^3/uL (1.3-2.9); LYMPHOCYTES % (AUTO) 23.4 % (21.0-51.0); MEAN CORPUSCULAR HEMOGLOBIN 24.8 pg (27.0-34.0); MEAN CORPUSCULAR HGB CONC 32.6 g/dL (33.0-35.0); MEAN CORPUSCULAR VOLUME 76.3 fL (80.0-100.0); MEAN PLATELET VOLUME 8.4 fL (7.4-11.0); MONOCYTES # (AUTO) 0.2 x10^3/uL (0.3-0.8); MONOCYTES % (AUTO) 7.9 % (0.0-13.0); NEUTROPHILS # (AUTO) 1.4 x10^3/uL (2.2-4.8); PLATELET COUNT 36 X10^3/uL (150.0-450.0); RED BLOOD COUNT 3.85 X10^6/uL (3.5-5.4); RED CELL DISTRIBUTION WIDTH 23.5 % (11.6-16.5); WHITE BLOOD COUNT 2.1 X10^3/uL (3.6-10.0)
[2017-04-08 03:21] LABS: ANISOCYTOSIS 2+; PLATELET MORPHOLOGY COMMENT NORMAL (NORMAL)
== END 2017-04-08 03:57 | disposition short-term general hospital (02) ==
LOC: ER 23:21
DX: S05.8X2A Other injuries of left eye and orbit, initial encounter (principal); S02.32XA Fracture of orbital floor, left side, initial encounter for closed fracture; S02.401A Maxillary fracture, unspecified side, initial encounter for closed fracture; M79.89 Other specified soft tissue disorders; T81.82XA Emphysema (subcutaneous) resulting from a procedure, initial encounter; S00.03XA Contusion of scalp, initial encounter; Y08.89XA Assault by other specified means, initial encounter; Y92.9 Unspecified place or not applicable
CPT/HCPCS: 36415; 70486; 80048; 85025; 96365; 96372; 99282; 99285; A4222; J2175

== ENCOUNTER 2017-04-10 08:05 | Emergency (ER) | payer SELFPAY ==
[2017-04-10 08:10] VITALS: BP 156/94; BMI 35.4
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
== END 2017-04-10 08:30 | disposition left against medical advice (07) ==
LOC: ER 08:13
DX: G50.1 Atypical facial pain (principal)
CPT/HCPCS: 99281

== ENCOUNTER 2017-04-14 19:27 | Emergency (ER) | payer SELFPAY ==
[2017-04-14 19:39] VITALS: BMI 36.9
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
[2017-04-14 20:21] LABS: BASOPHILS % (AUTO) 0.1 % (0.2-1.0); EOSINOPHILS % (AUTO) 1.7 % (0.9-2.9); HEMATOCRIT 32.7 % (36.0-47.0); HEMOGLOBIN 10.5 g/dL (12.0-16.0); LYMPHOCYTES # (AUTO) 0.4 X10^3/uL (1.3-2.9); LYMPHOCYTES % (AUTO) 14.7 % (21.0-51.0); MEAN CORPUSCULAR HEMOGLOBIN 24.9 pg (27.0-34.0); MEAN CORPUSCULAR HGB CONC 32.1 g/dL (33.0-35.0); MEAN CORPUSCULAR VOLUME 77.4 fL (80.0-100.0); MEAN PLATELET VOLUME 8.1 fL (7.4-11.0); MONOCYTES # (AUTO) 0.2 x10^3/uL (0.3-0.8); MONOCYTES % (AUTO) 8.2 % (0.0-13.0); NEUTROPHILS # (AUTO) 1.9 x10^3/uL (2.2-4.8); NEUTROPHILS % (AUTO) 75.3 % (42.0-75.0); PLATELET COUNT 29 X10^3/uL (150.0-450.0); RED BLOOD COUNT 4.23 X10^6/uL (3.5-5.4); RED CELL DISTRIBUTION WIDTH 22.2 % (11.6-16.5); WHITE BLOOD COUNT 2.5 X10^3/uL (3.6-10.0)
[2017-04-14 20:37] LABS: BLOOD UREA NITROGEN 8 mg/dL (7-18); CALCIUM 8.7 mg/dL (8.5-10.1); CARBON DIOXIDE 24.1 mmol/L (21-32); CHLORIDE 105 mmol/L (98-107); COR NA(FOR HYPERGLY) 141 mmol/L (136-145); CREATININE 1.28 mg/dL (0.55-1.02); SODIUM 138 mmol/L (136-145); TROPONIN I < 0.02 ng/mL (0-1.5); eGFR BLACK RACES 57 (>60); eGFR NON BLACK RACES 48 (>60)
[2017-04-14 20:46] LABS: ANISOCYTOSIS 2+; HYPOCHROMASIA SLIGHT; PLATELET MORPHOLOGY COMMENT NORMAL (NORMAL)
[2017-04-14 20:59] LABS: ALANINE AMINOTRANSFERASE 42 Units/L (12-78); ALBUMIN 2.8 g/dL (3.4-5.0); ALKALINE PHOSPHATASE 131 Units/L (46-116); ASPARTATE AMINO TRANSFERASE 52 Units/L (15-37); CKMB % 1.6 % (<4); COR CA(FOR HYPOALB) 9.7 mg/dL (8.5-10.1); CREATINE KINASE 336 Units/L (26-192); TOTAL PROTEIN 7.5 g/dL (6.4-8.2)
--- NOTE | 2017-04-14 20:59 | RAD ---
HISTORY: Shortness of breath. Study: Portable chest. Comparison: Chest x-ray dated February 09, 2017. Findings: The trachea is midline. The cardiac silhouette is at the upper limits of normal. No obvious focal c onsolidation, pleural effusion, or pneumothorax.. The bony thorax is unremarkable. IMPRESSION: No acute cardiopulmonary disease. Reported By:
[2017-04-14 21:06] LABS: CREATINE KINASE MB 5.4 ng/mL (0-4.0)
[2017-04-14 22:02] VITALS: BP 114/65
== END 2017-04-14 21:56 | disposition home or self-care (01) ==
LOC: ER 19:27
DX: R07.89 Other chest pain (principal)
CPT/HCPCS: 36415; 71045; 80053; 82550; 82553; 84484; 85025; 93005; 93010; 99282; 99283

== ENCOUNTER 2017-04-15 15:32 | Emergency (ER) | payer SELFPAY ==
[2017-04-15] MEDS ORDERED: NARCAN INJ ONE (15:46)
[2017-04-15] MEDS ORDERED: NARCAN INJ IVP ONE (15:47)
[2017-04-15 15:56] VITALS: BMI 37.2
[2017-04-15] MEDS ORDERED: NS 1000 ML 1,000 ML IV ONE (15:58)
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
[2017-04-15] MEDS ORDERED: NS 1000 ML 1,000 ML ONE (16:02)
[2017-04-15 16:18] LABS: BASOPHILS % (AUTO) 0.4 % (0.2-1.0); EOSINOPHILS % (AUTO) 0.1 % (0.9-2.9); HEMATOCRIT 34.1 % (36.0-47.0); HEMOGLOBIN 10.8 g/dL (12.0-16.0); LYMPHOCYTES # (AUTO) 0.2 X10^3/uL (1.3-2.9); LYMPHOCYTES % (AUTO) 4.7 % (21.0-51.0); MEAN CORPUSCULAR HEMOGLOBIN 24.8 pg (27.0-34.0); MEAN CORPUSCULAR HGB CONC 31.7 g/dL (33.0-35.0); MEAN CORPUSCULAR VOLUME 78.4 fL (80.0-100.0); MEAN PLATELET VOLUME 8.5 fL (7.4-11.0); MONOCYTES # (AUTO) 0.2 x10^3/uL (0.3-0.8); MONOCYTES % (AUTO) 5.4 % (0.0-13.0); NEUTROPHILS % (AUTO) 89.4 % (42.0-75.0); PLATELET COUNT 50 X10^3/uL (150.0-450.0); RED BLOOD COUNT 4.35 X10^6/uL (3.5-5.4); RED CELL DISTRIBUTION WIDTH 22.2 % (11.6-16.5); WHITE BLOOD COUNT 4.5 X10^3/uL (3.6-10.0)
[2017-04-15 16:28] LABS: HYPOCHROMASIA 2+; MICROCYTOSIS 1+; PLATELET MORPHOLOGY COMMENT NORMAL (NORMAL)
[2017-04-15 16:30] LABS: ALANINE AMINOTRANSFERASE 44 Units/L (12-78); ALKALINE PHOSPHATASE 137 Units/L (46-116); ASPARTATE AMINO TRANSFERASE 64 Units/L (15-37); BLOOD UREA NITROGEN 15 mg/dL (7-18); CALCIUM 8.8 mg/dL (8.5-10.1); CHLORIDE 105 mmol/L (98-107); COR CA(FOR HYPOALB) 9.6 mg/dL (8.5-10.1); COR NA(FOR HYPERGLY) 140 mmol/L (136-145); CREATININE 1.27 mg/dL (0.55-1.02); SODIUM 138 mmol/L (136-145); TOTAL PROTEIN 8.2 g/dL (6.4-8.2); eGFR BLACK RACES 58 (>60); eGFR NON BLACK RACES 48 (>60)
[2017-04-15 16:31] LABS: BLOOD ALCOHOL < 3 mg/dL (0-19.9)
[2017-04-15 16:35] LABS: SALICYLATE < 2.8 mg/dL (2.8-20)
[2017-04-15 21:34] VITALS: BP 140/89
== END 2017-04-15 21:34 | disposition home or self-care (01) ==
LOC: ER 15:37
DX: R20.0 Anesthesia of skin (principal); F11.90 Opioid use, unspecified, uncomplicated; F12.90 Cannabis use, unspecified, uncomplicated; F14.90 Cocaine use, unspecified, uncomplicated
CPT/HCPCS: 36415; 80053; 80307; 80320; 85025; 93005; 93010; 96365; 96367; 96374; 99283; A4222; G0434; G6038; G6039; G6040; J2310

== ENCOUNTER 2017-04-19 13:03 | Emergency (ER) | payer SELFPAY ==
[2017-04-19 13:17] VITALS: BMI 38.7
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
--- NOTE | 2017-04-19 14:15 | RAD ---
Examination: Right hip, two views History: Trauma Findings: No evidence for fracture, dislocation, or bone destruction. The periarticular soft tissues are normal. Impression: No acute findings. Reported By:
--- NOTE | 2017-04-19 14:20 | RAD ---
Examination: Left knee, three views History: Trauma Findings: Degenerative narrowing of articular compartments but no evidence for fracture, dislocation, patellar displacement or significant soft tissue injury. Impression: Osteoarthritis, no acute findings. Reported By:
[2017-04-19] MEDS ORDERED: NUBAIN INJ 10 IM ONE (14:37)
[2017-04-19] MEDS ORDERED: NUBAIN INJ 10 ONE (14:38)
[2017-04-19 15:10] VITALS: BP 148/90
== END 2017-04-19 14:48 | disposition home or self-care (01) ==
LOC: ER 13:05
DX: S70.02XD Contusion of left hip, subsequent encounter (principal); M17.12 Unilateral primary osteoarthritis, left knee; Y33.XXXA Other specified events, undetermined intent, initial encounter; Y92.9 Unspecified place or not applicable
CPT/HCPCS: 73501; 73564; 96372; 99282; J2300

== ENCOUNTER 2017-04-27 23:00 | Emergency (ER) | payer SELFPAY ==
[2017-04-27 23:10] VITALS: BP 132/86; BMI 35.2
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
--- NOTE | 2017-04-28 01:07 | CT ---
CT pelvis without contrast Indication: Pain in the right hip after fall Technique: Helical images through the pelvis without contrast. Coronal and sagittal reformats provide d. Findings: There is bilateral SI joint, hip joint and spine degenerative change without destructive os seous lesion. No cortical lucency or malalignment seen. Limited images through the soft tissues of the abdomen and pelvis show no acute abnormality. No large hip joint effusions identified. Impression: No displaced hip fracture seen. Pelvis degenerative changes noted. Reported By:
--- NOTE | 2017-04-28 01:07 | RAD ---
Right ankle three views Indication: Fall with right ankle pain Findings: There is extensive soft tissue swelling about the ankle, worse laterally. Tibiotalar joint appears intact. There is no cortical lucency or malalignment. Impression: Lateral ankle soft tissue swelling suggesting ligament sprain or tear. No displaced fract ure seen. Reported By:
--- NOTE | 2017-04-28 01:08 | CT ---
CT lumbar spine without contrast Indication: Back pain after fall Technique: Helical images through the lumbar spine without contrast. Coronal and sagittal reformats p rovided. Findings: Vertebral body heights are normal. Mild disc degenerative change noted. SI joint DJD noted. There is lower lumbar spine facet arthropathy without destructive osseous lesions seen. No cortical lucency or malalignment seen. Limited evaluation of the soft tissues of the abdomen and pelvis show h azy abdominal mesenteries, nonspecific with splenomegaly suggested. Impression: 1. No acute lumbar spine fracture 2. Spine degenerative change and SI joint degenerative change. 3. Partially visualized splenomegaly suggested. Follow-up to exclude lymphoma, neoplasm or other sple en pathology Reported By:
== END 2017-04-28 01:43 | disposition home or self-care (01) ==
LOC: ER 23:00
DX: S96.911A Strain of unspecified muscle and tendon at ankle and foot level, right foot, initial encounter (principal); S70.01XA Contusion of right hip, initial encounter; W19.XXXA Unspecified fall, initial encounter; Y92.89 Other specified places as the place of occurrence of the external cause
CPT/HCPCS: 72131; 72192; 73610; 99282; 99283

== ENCOUNTER 2017-05-30 21:19 | Emergency (ER) | payer SELFPAY ==
[2017-05-30 21:36] VITALS: BMI 41.8
--- NOTE | 2017-05-30 21:42 | DR.GENAD ---
HPI - PCP Primary Care Physician: carmita - HPI Comment HPI Comment: PATIENT FELL IN THE SHOWER AND INJURED RIGHT SIDE OF HER BODY. PATIENT SLEEPY IN ED AND COMPLAING OF PAIN IN HER NECK, IN THE CHEST AND ABDOMEN. - Complaint/Symptoms Chief Complaint Doctors Comments: FELL, PAIN RIGHT SIDE OF BODY. Chief Complaint:: injured right side. - Nurses notes reviewed Nurses Notes Review: Yes - Source History Provided: Patient, EMS - Mode of Arrival Mode of Arrival: Stretcher - Timing Onset of Chief Complaint: 05/30/17 Came on: Suddenly - Duration Duration: Constant Duration: Hours - Severity Severity: Moderate PMH - PMH Past Medical History: Yes Past Medical History: Diabetes, Seizures Past Surgical History: Yes Surgical History: Hysterectomy, Ortho Surgery, Thyroidectomy - Family History History of Family Medical Conditions: Yes Family Medical History: Diabetes Mellitus, Cancer, Hypertension - Social History Does patient currently use any type of tobacco product: Yes Have you used tobacco products in the last 12 months: Yes Type of Tobacco Use: Cigarettes Alcohol Use: None Do you use any recreational Drugs:: No Lives With: Alone Lives Where: Home - infectious screening In the last 2 months have you had wt loss of >10#?: NO Have you had fever, night sweats or hemotysis?: No Have you traveled outside the country in the last 6 months?: No Isolation: Standard ROS - Review of Systems Constitutional: No Symptoms Reported Eyes: negative: Eye Pain, Discharge ENTM: Nose Congestion. negative: Ear Pain, Nose Discharge, Throat Pain Respiratoy: Non-Productive Cough, Short of Breath, Wheezing. negative: Hemoptysis Cardiovascular: Chest Pain. negative: Edema, Palpitations Gastrointestinal/Abdominal: Abdominal Pain. negative: Diarrhea, Nausea, Vomiting Genitourinary: Pain. negative: Dysuria, Hematuria Neurological: Headache Musculoskeletal: Back Pain, Muscle Pain, Right, Chest wall, Rib(s), Back Integumentary: Bruises Hematologic/Lymphatic: Easy Bleeding, Easy Bruising Endocrine: No Symptoms Reported. negative: Increased Thirst, Increased Urine Psychiatric: Anxiety, Depression. negative: Hallucinations, Suicidal All Other Systems: Reviewed and Negative PE - Vital Signs Vitals: Temperature 98.1 F Pulse Rate [Left] 87 Pulse Rate 91 Respiratory Rate 17 Blood Pressure [Right Arm] 129/71 Blood Pressure [Left Arm] 148/77 Blood Pressure 124/79 O2 Sat by Pulse Oximetry 96 - General Limitations: Altered Mental Status, Other (SLEEPY) General Appearance: Other (SLEEPY) - Head Head Exam: Atraumatic - Eyes Eye exam: PERRL, Scleral Icterus - ENT ENT Exam: Normal External Ear Exam External Ear Exam: Normal External Inspection TM/Canal Exam: Bilateral Normal Nose Exam: Normal Nose Exam Mouth Exam: Normal Inspection Throat Exam: Normal Inspection - Neck Neck Exam: Trachea Midline, Tenderness (RT LOWER NECK TENDER.) - Chest Chest Inspection: Symmetric Chest Wall Rise - Respiratory Respiratory Exam: Chest Wall Tenderness (RT CHEST TENDER, RT RIB TENDER.) Respiratory Exam: Bilateral Wheezing, Bilateral Rhonchi, Lower Wheezing, Lower Rhonchi - Cardiovascular Cardiovascular Exam: Regular Rate, Normal Rhythm, Normal Heart Sounds - Abdominal Exam Abdominal Exam: Normal Bowel Sounds, Soft, Tenderness (RIGHT ABDOMINAL TENDERNESS) Abdominal Tenderness: RUQ, RLQ, Moderate - Extremities Extremities Exam: Normal Inspection, Joint Swelling - Back Back Exam: Paraspinal Tenderness - Neurologic Neurological Exam: Alert, Other (SLEEPINY) - Psychiatric Psychiatric Exam: Normal Affect, Normal Mood - Skin Skin Exam: Erythema MDM - Differential Diagnosis Differential Diagnosis: CHEST PAIN, ABDOMINAL PAIN, NEC K STRAIN, MUSCULOSKELET PAIN Course - Treatment Treatment: SEE ORDERS. - Education/Counseling Education/Counseling: Patient, Education Educated On: Diagnosis, Needs for Follow Up ROR - Labs Reviewed Laboratory Results Reviewed?: Yes Result Diagrams: 05/30/17 22:00 05/30/17 22:00 Laboratory: WBC 3.5 X10^3/uL (3.6-10.0) L 05/30/17 22:00 RBC 4.10 X10^6/uL (3.5-5.4) 05/30/17 22:00 Hgb 10.8 g/dL (12.0-16.0) L 05/30/17 22:00 Hct 32.1 % (36.0-47.0) L 05/30/17 22:00 MCV 78.3 fL (80.0-100.0) L 05/30/17 22:00 MCH 26.3 pg (27.0-34.0) L 05/30/17 22:00 MCHC 33.5 g/dL (33.0-35.0) 05/30/17 22:00 RDW 20.2 % (11.6-16.5) H 05/30/17 22:00 Plt Count 29 X10^3/uL (150.0-450.0) L 05/30/17 22:00 Plt Count Comment Decreased (ADEQUATE) A 05/30/17 22:00 MPV 8.6 fL (7.4-11.0) 05/30/17 22:00 Neut % 58.0 % (42.0-75.0) 05/30/17 22:00 Lymph % 26.4 % (21.0-51.0) 05/30/17 22:00 [place] % 11.4 % (0.0-13.0) 05/30/17 22:00 Eos % 3.6 % (0.9-2.9) H 05/30/17 22:00 Baso % 0.6 % (0.2-1.0) 05/30/17 22:00 Neut # 2.0 x10^3/uL (2.2-4.8) L 05/30/17 22:00 Lymph # 0.9 X10^3/uL (1.3-2.9) L 05/30/17 22:00 [place] # 0.4 x10^3/uL (0.3-0.8) 05/30/17 22:00 Eos # 0.1 x10^3/uL (0.0-0.2) 05/30/17 22:00 Baso # 0.0 X10^3/uL (0.0-0.1) 05/30/17 22:00 Absolute Nucleated RBC 0.2 /100WBC 05/30/17 22:00 Plt Morphology Comment Normal (NORMAL) 05/30/17 22:00 RBC Morphology Abnormal (NORMAL) A 05/30/17 22:00 Hypochromasia Slight A 05/30/17 22:00 Anisocytosis 1+ A 05/30/17 22:00 Microcytosis Slight A 05/30/17 22:00 Sodium 139 mmol/L (136-145) 05/30/17 22:00 Corrected Sodium 140 mmol/L (136-145) 05/30/17 22:00 Potassium 3.7 mmol/L (3.5-5.1) 05/30/17 22:00 Chloride 104 mmol/L (98-107) 05/30/17 22:00 Carbon Dioxide 29.0 mmol/L (21-32) 05/30/17 22:00 BUN 18 mg/dL (7-18) 05/30/17 22:00 Creatinine 0.84 mg/dL (0.55-1.02) 05/30/17 22:00 Est GFR (MDRD) Af Amer > 60 (>60) 05/30/17 22:00 Est GFR (MDRD) Non-Af > 60 (>60) 05/30/17 22:00 Glucose 151 mg/dL (65-99) H 05/30/17 22:00 Calcium 8.0 mg/dL (8.5-10.1) L 05/30/17 22:00 Corrected Calcium 8.9 mg/dL (8.5-10.1) 05/30/17 22:00 Total Bilirubin 1.70 mg/dL (0.2-1.0) H 05/30/17 22:00 AST 70 Units/L (15-37) H 05/30/17 22:00 ALT 40 Units/L (12-78) 05/30/17 22:00 Alkaline Phosphatase 120 Units/L (46-116) H 05/30/17 22:00 Total Protein 6.9 g/dL (6.4-8.2) 05/30/17 22:00 Albumin 2.9 g/dL (3.4-5.0) L 05/30/17 22:00 Globulin 4.0 g/dL (2.5-4.5) 05/30/17 22:00 Albumin/Globulin Ratio 0.7 Ratio (1.1-2.1) L 05/30/17 22:00 Amylase 43 Units/L (25-115) 05/30/17 22:00 Lipase 255 Units/L (73-393) 05/30/17 22:00 - XRAY XRAY Interpreted by: Radiologist XRAY Findings: REPORT DISCUSS WITH PATIENT. - Diagnosis Discharge Problem: Abdominal pain, Musculoskeletal pain Contusion, chest wall Qualifiers: Encounter type: initial encounter Laterality: unspecified laterality Qualified Code(s): S20.219A - Contusion of unspecified front wall of thorax, initial encounter Rib contusion Qualifiers: Encounter type: initial encounter Laterality: unspecified laterality Qualified Code(s): S20.219A - Contusion of unspecified front wall of thorax, initial encounter Neck strain Qualifiers: Encounter type: initial encounter Qualified Code(s): S16.1XXA - Strain of muscle, fascia and tendon at neck level, initial encounter - Discharge Plan Disposition: 01 HOME, SELF-CARE Condition: Stable - Follow ups/Referrals Follow ups/Referrals: NFD,None [Primary Care Provider] - 3 days - Instructions Instructions: Cervical Strain and Sprain With Rehab-SportsMed, Abdominal Pain, Adult, [id number], Chest Pain Observation Additional Instructions: RETURN TO ED IF WORSE.
[2017-05-30 22:16] LABS: BASOPHILS % (AUTO) 0.6 % (0.2-1.0); EOSINOPHILS # (AUTO) 0.1 x10^3/uL (0.0-0.2); EOSINOPHILS % (AUTO) 3.6 % (0.9-2.9); HEMATOCRIT 32.1 % (36.0-47.0); HEMOGLOBIN 10.8 g/dL (12.0-16.0); LYMPHOCYTES # (AUTO) 0.9 X10^3/uL (1.3-2.9); LYMPHOCYTES % (AUTO) 26.4 % (21.0-51.0); MEAN CORPUSCULAR HEMOGLOBIN 26.3 pg (27.0-34.0); MEAN CORPUSCULAR HGB CONC 33.5 g/dL (33.0-35.0); MEAN CORPUSCULAR VOLUME 78.3 fL (80.0-100.0); MEAN PLATELET VOLUME 8.6 fL (7.4-11.0); MONOCYTES # (AUTO) 0.4 x10^3/uL (0.3-0.8); MONOCYTES % (AUTO) 11.4 % (0.0-13.0); PLATELET COUNT 29 X10^3/uL (150.0-450.0); RED CELL DISTRIBUTION WIDTH 20.2 % (11.6-16.5); WHITE BLOOD COUNT 3.5 X10^3/uL (3.6-10.0)
[2017-05-30 22:29] LABS: ALANINE AMINOTRANSFERASE 40 Units/L (12-78); ALBUMIN 2.9 g/dL (3.4-5.0); ALKALINE PHOSPHATASE 120 Units/L (46-116); ANISOCYTOSIS 1+; ASPARTATE AMINO TRANSFERASE 70 Units/L (15-37); BLOOD UREA NITROGEN 18 mg/dL (7-18); CHLORIDE 104 mmol/L (98-107); COR CA(FOR HYPOALB) 8.9 mg/dL (8.5-10.1); COR NA(FOR HYPERGLY) 140 mmol/L (136-145); CREATININE 0.84 mg/dL (0.55-1.02); HYPOCHROMASIA SLIGHT; MICROCYTOSIS SLIGHT; PLATELET MORPHOLOGY COMMENT NORMAL (NORMAL); SODIUM 139 mmol/L (136-145); TOTAL PROTEIN 6.9 g/dL (6.4-8.2); eGFR BLACK RACES > 60 (>60); eGFR NON BLACK RACES > 60 (>60)
--- NOTE | 2017-05-30 23:23 | CT ---
CT head without contrast Indication: After fall Comparison: No recent prior head CT Technique: Axial images from the skullbase to the vertex without contrast. Coronal and sagittal refor mats provided. Findings: Study is severely motion artifact limited. There is no acute intracranial hemorrhage, mass or mass effect. No displaced fracture convincingly demonstrated. Mucosal thickening in the maxillary sinuses. Impression: Severely limited study shows no large acute intracranial hemorrhage. Follow-up when patie nt can cooperate Reported By:
--- NOTE | 2017-05-30 23:26 | CT ---
CT chest without contrast Indication: Fall in shower Technique: Helical CT images of the chest were obtained without IV contrast. Reformatted images in th e coronal and sagittal planes were also generated for review. Comparison: 10/04/2016 Findings: The exam is moderately degraded by patient motion artifact. Given these limitations, the he art is normal in size without pericardial effusion. The unenhanced thoracic aorta is normal in contou r and caliber. No significant mediastinal hematoma is seen. The central airways are patent. Shotty lo wer mediastinal lymph nodes are present, none pathologically enlarged. There is no bulky hilar lympha denopathy. Previously described tree-in-bud opacities within the right middle and bilateral lower lobes are not appreciated on today's exam. There is a calcified right lower lobe granuloma. The remainder of the salima ngs are clear. No pleural effusion or pneumothorax identified. Limited noncontrast images of the upper abdomen demonstrate no acute abnormality. Review of bone wind ows demonstrate multiple stable remote compression fractures within the upper-mid thoracic spine. No acute or aggressive osseous abnormality is identified. Impression: Motion limited exam without definite acute cardiopulmonary abnormality. See above report for stable chronic findings. Reported By:
--- NOTE | 2017-05-30 23:30 | CT ---
CT abdomen and pelvis without contrast Indication: Pain after fall in the shower Technique: Helical images through the abdomen and pelvis without contrast. Coronal and sagittal refor mats provided. Findings: Limited images through the lower chest shows no acute abnormality. Review of bone windows s hows no destructive osseous lesion. Abdomen: The gallbladder contains a stone. Liver appears cirrhotic. Spleen is markedly enlarged. Ther e is stranding around the head of the pancreas and along the SMV. The stomach and small bowel show no acute abnormality. The colon shows no acute abnormality. Appendix is normal. Vasculature is normal. Right renal atrophy noted at the lower pole. No hydronephrosis seen. Pelvis: The urinary bladder and rectum are normal. Uterus is absent. No adnexal region lesions seen. Impression: 1. No displaced fracture. 2. Strain of the head of the pancreas is concerning for acute pancreatitis. Correlate clinically. 2. Stranding along the superior mesenteric vein could reflect underlying thrombosis, given cirrhosis and splenomegaly/portal venous hypertension. Acute traumatic injury cannot be completely excluded. Cl ose clinical and imaging follow-up recommended. IV contrast exam may be needed. Reported By:
--- NOTE | 2017-05-30 23:38 | CT ---
CT cervical spine without contrast Indication: Neck pain after fall Technique: Helical images through the cervical spine without contrast. Coronal and sagittal reformats provided. Findings: Limited images through the skullbase shows mucosal thickening in the maxillary sinus. Limit ed images through the upper chest shows no acute abnormality. Soft tissues of the neck show no unexpe cted abnormality. Patient's head is tilted, but the craniocervical junction appears intact without fracture. Cervicotho racic junction is intact. Prevertebral soft tissues are normal. There is mild degenerative changes C5 -C6. There is no cortical lucency or malalignment. Impression: 1. No acute cervical spine fracture 2. Spine degenerative change and paranasal sinus disease Reported By:
[2017-05-31] LABS: AMYLASE 43 Units/L (25-115); LIPASE 255 Units/L (73-393)
[2017-05-31] MEDS ORDERED: NS 100 ML IV 100 ML IV ONE (01:38)
--- NOTE | 2017-05-31 03:06 | CT ---
CT abdomen and pelvis with contrast Indication: Pain after fall in shower Technique: Helical images through the abdomen and pelvis after IV contrast. Coronal and sagittal refo rmats provided. Findings: Comparison is made to the recent CT without contrast. Findings: Limited images through the lower chest shows no fracture. No acute chest process seen with chronic lung changes noted. Review of bone windows demonstrates no displaced fracture. Abdomen: Gallstones are seen in the gallbladder. The liver is cirrhotic in configuration with portal venous hypertension. The portal vein is patent. There is splenomegaly with paraesophageal and upper a bdominal varices. Aorta is normal. The kidneys are normal. There is mild mid abdominal mesenteric str anding without thrombosis of the superior mesenteric vein. This compatible with changes of cirrhosis and portal vein hypertension. The small bowel, colon and appendix are normal. Pelvis: Urinary bladder and rectum are normal. Uterus is absent. No adnexal region lesions seen. Impression: 1. No acute traumatic abnormality. 2. The superior mesenteric vein is patent. Haziness in the abdomen mesenteries compatible with portal venous hypertension with enlarged portal vein and spleen. Varices are noted. 3. Gallstones, chronic lung changes, spine degenerative change and other findings as above. Reported By:
[2017-05-31 03:29] VITALS: BP 129/71
== END 2017-05-31 03:25 | disposition home or self-care (01) ==
LOC: ER 21:22
DX: S20.219A Contusion of unspecified front wall of thorax, initial encounter (principal); S16.1XXA Strain of muscle, fascia and tendon at neck level, initial encounter; R10.11 Right upper quadrant pain; M79.1 Myalgia; K80.20 Calculus of gallbladder without cholecystitis without obstruction; W19.XXXA Unspecified fall, initial encounter; Y92.89 Other specified places as the place of occurrence of the external cause; R10.84 Generalized abdominal pain; R51 Headache
CPT/HCPCS: 36415; 70450; 71250; 72125; 74176; 74177; 80053; 82150; 83690; 85025; 96365; 99282; 99283; A4222

== ENCOUNTER 2017-07-28 13:27 | Emergency (ER) | payer SELFPAY ==
[2017-07-28 13:35] VITALS: BP 127/75; BMI 34.2
--- NOTE | 2017-07-28 14:16 | DR.GENAD ---
HPI - PCP Primary Care Physician: REYMUNDO - Complaint/Symptoms Chief Complaint:: PATIENT STATED THAT SHE IS HAVING SOME RIGHT LOWER ABD. PAIN AND HAS BEEN CONGESTED FOR A WHILE NOW. - Nurses notes reviewed Nurses Notes Review: Yes - Source History Provided: EMS - Mode of Arrival Mode of Arrival: EMS - Timing Onset of Chief Complaint: 07/23/17 PMH - PMH Past Medical History: Yes Past Medical History: Diabetes, Seizures Past Surgical History: Yes Surgical History: Hysterectomy, Ortho Surgery, Thyroidectomy - Family History History of Family Medical Conditions: Yes Family Medical History: Diabetes Mellitus, Cancer, Hypertension - Social History Does patient currently use any type of tobacco product: Yes Have you used tobacco products in the last 12 months: Yes Type of Tobacco Use: Cigarettes Does any household member use tobacco: No Alcohol Use: None Do you use any recreational Drugs:: No Lives With: Family Lives Where: Home - infectious screening In the last 2 months have you had wt loss of >10#?: NO Have you had fever, night sweats or hemotysis?: No Have you traveled outside the country in the last 6 months?: No Isolation: Standard PE - Vital Signs Vitals: Temperature 99.4 F Pulse Rate 100 Respiratory Rate 20 Blood Pressure [Right Arm] 129/71 Blood Pressure [Left Arm] 148/77 Blood Pressure 127/75 O2 Sat by Pulse Oximetry 97 - Diagnosis Discharge Problem: Bronchitis, Lower abdominal pain - Discharge Plan Condition: Stable Prescriptions: Benzonatate [TESSALON PERLES *] 200 mg PO TID PRN #30 cap PRN Reason: Cough Sulfamethoxazole-Trimethoprim [BACTRIM DS TAB 800/160 MG *] 1 tab PO BID #20 tab - Follow ups/Referrals Follow ups/Referrals: NFD,None [Primary Care Provider] - 3 days - Instructions Instructions: Acute Bronchitis, Adult, [id number], Abdominal Pain, Adult, [id number] Additional Instructions: RETURN TO ED IF WORSE.
== END 2017-07-28 14:33 | disposition home or self-care (01) ==
LOC: ER 13:33
DX: J40 Bronchitis, not specified as acute or chronic (principal); R10.84 Generalized abdominal pain
CPT/HCPCS: 99281; 99282

== ENCOUNTER 2017-08-03 10:49 | Emergency (ER) | payer SELFPAY ==
[2017-08-03 10:56] VITALS: BP 134/95; BMI 36.6
--- NOTE | 2017-08-03 12:07 | DR.GENAD ---
HPI - PCP Primary Care Physician: NATALIYA DWYER - Complaint/Symptoms Chief Complaint Doctors Comments: Patient states she has diabetes and think something is in her great toe and it has been hurting and formed a blister the other day. States she can feel something in the great toe and it hurts when she walks. States she is taking Septra for bronchitis and her doctor called in a prescription for amoxicillin but she has not gotten that filled yet. states her last tetanus was about three months ago and is up to date. She smokes 1/3 pack cigarettes daily. She has a lot of callous on her feet and toes and usually goes without shoes. Chief Complaint:: PT THINKS SHE HAS SOMETHING IN FOOT. PT HAS A BLISTER WITH PAIN AND INFECTION - Nurses notes reviewed Nurses Notes Review: Yes - Source History Provided: Patient - Mode of Arrival Mode of Arrival: Ambulatory - Timing Onset of Chief Complaint: 08/01/17 Came on: Gradually - Duration Duration: Constant How lon Duration: Days - Location Location: right great toe - Severity Severity: Mild - Modifying Factors Worsens:: walk Improves:: nothing PMH - PMH Past Medical History: Yes Past Medical History: Diabetes, Seizures Past Surgical History: Yes Surgical History: Hysterectomy, Ortho Surgery, Thyroidectomy - Family History History of Family Medical Conditions: Yes Family Medical History: Diabetes Mellitus, Cancer, Hypertension - Social History Does patient currently use any type of tobacco product: Yes Have you used tobacco products in the last 12 months: Yes Type of Tobacco Use: Cigarettes Does any household member use tobacco: No Alcohol Use: None Do you use any recreational Drugs:: No Lives With: Family Lives Where: Home - infectious screening In the last 2 months have you had wt loss of >10#?: NO Have you had fever, night sweats or hemotysis?: No Have you traveled outside the country in the last 6 months?: No Isolation: Standard ROS - Review of Systems Constitutional: No Symptoms Reported Eyes: No Symptoms Reported. negative: See HPI, Eye Pain, Blurred Vision, Tearing, Discharge, Photophobia, Diplopia, Other ENTM: No Symptoms Reported Respiratoy: No Symptoms Reported, Non-Productive Cough Cardiovascular: No Symptoms Reported. negative: See HPI, Chest Pain, Edema, Palpitations, Syncope, Cyanosis, Skin Mottling, Other Gastrointestinal/Abdominal: No Symptoms Reported. negative: See HPI, Abdominal Pain, Constipation, Diarrhea, Nausea, Vomiting, Food Intolerance, Other Genitourinary: No Symptoms Reported. negative: See HPI, Discharge, Dysuria, Frequency, Hematuria, Pain, Bleeding, Other Neurological: No Symptoms Reported Musculoskeletal: No Symptoms Reported, Right, Foot (right great toe with one cm denuded area tip of the toe) Integumentary: Wound (right great toe with 1 cm denuded skin) Endocrine: No Symptoms Reported Psychiatric: No Symptoms Reported. negative: See HPI, Anxiety, Depression, Hallucinations, Excessive crying, Suicidal, Other PE - Vital Signs Vitals: Temperature 98.6 F Pulse Rate 107 Respiratory Rate 20 Blood Pressure [Right Arm] 129/71 Blood Pressure [Left Arm] 148/77 Blood Pressure 134/95 O2 Sat by Pulse Oximetry 98 - General Limitations: No Limitations General Appearance: Alert, In No Apparent Distress, Obese - Head Head Exam: Normal Inspection, Atraumatic, Normocephalic - Eyes Eye exam: Normal Appearance, PERRL, EOMI. negative: Scleral Icterus, Conjunctival Injection, Nystagmus, Miosis, Mydrasis, Periorbital Swelling, Periorbital Tenderness, Other - ENT ENT Exam: Normal Exam, Normal Oropharynx, Normal External Ear Exam, Mucous Membranes Moist, TM's Normal Bilaterally External Ear Exam: Normal External Inspection TM/Canal Exam: Bilateral Normal Nose Exam: Normal Nose Exam Mouth Exam: Normal Inspection. negative: Drooling, Trismus, Lip Swelling, Tongue Elevation, Tongue Swelling, Laceration, Other Throat Exam: Normal Inspection - Neck Neck Exam: Normal Inspection, Full ROM, Trachea Midline - Chest Chest Inspection: Normal Inspection, Symmetric Chest Wall Rise. negative: Tenderness, Rash, Abscess, Other - Respiratory Respiratory Exam: Normal Lung Sounds Bilat Respiratory Exam: Bilateral Clear to Auscultation - Cardiovascular Cardiovascular Exam: Regular Rate, Normal Rhythm, Normal Heart Sounds - Abdominal Exam Abdominal Exam: Normal Inspection, Normal Bowel Sounds, Soft Abdominal Tenderness: negative: RUQ, RLQ, LUQ, LLQ, Epigastrium, Suprapubic, Diffuse, Mild, Moderate, Severe, Other - Extremities Extremities Exam: Normal Inspection, Full ROM, Tenderness (right great toe with 1 cm denuded sking; thick skin lateral toes and feet, callous), Normal Capillary Refill - Back Back Exam: Normal Inspection, Full ROM - Neurologic Neurological Exam: Alert, Oriented X3, CN II-XII Intact, Normal Gait, Reflexes Normal - Psychiatric Psychiatric Exam: Normal Affect, Normal Mood - Skin Skin Exam: Warm, Dry, Intact, Normal Color ROR - Labs Reviewed Laboratory Results Reviewed?: Yes (all x-ray results reviewed and discussed with patient) Laboratory: POC Glucose (mg/dL) 119 mg/dL (65-99) H 08/03/17 11:45 - XRAY XRAY Interpreted by: Radiologist (right foot: No acute or significant findings. No radiopaque foreign body seen.) - Diagnosis Discharge Problem: Pain of right great toe, Diabetes mellitus, type 2, Probable old 5th toe fracture, Callus - Discharge Plan Disposition: HOME, SELF-CARE Condition: Stable - Follow ups/Referrals Follow ups/Referrals: NATALIYA DWYER [Primary Care Provider] - 3 days - Instructions Instructions: Type 2 Diabetes Mellitus, Diagnosis, Adult, Corns and Calluses, Pain Without a Known Cause
--- NOTE | 2017-08-03 13:01 | RAD ---
Examination: Right foot, three views History: Blister, pain and infection Findings: There is no evidence for fracture, dislocation or bone infection. No radiopaque foreign bod y is seen. Contour deformity of the 5th toe proximal phalanx is suggestive of old fracture. Impression: No acute or significant findings. Reported By:
== END 2017-08-03 13:42 | disposition home or self-care (01) ==
LOC: ER 11:05
DX: M79.674 Pain in right toe(s) (principal); E11.9 Type 2 diabetes mellitus without complications; L84 Corns and callosities
CPT/HCPCS: 73630; 99282

== ENCOUNTER → 2017-08-03 | Outpatient (CLI) | payer SELFPAY ==
[2017-07-28 13:35] VITALS: BP 127/75
[2017-08-03 11:00] LABS: BASOPHILS % (AUTO) 0.4 % (0.2-1.0); EOSINOPHILS # (AUTO) 0.1 x10^3/uL (0.0-0.2); EOSINOPHILS % (AUTO) 2.2 % (0.9-2.9); HEMATOCRIT 35.8 % (36.0-47.0); HEMOGLOBIN 12.2 g/dL (12.0-16.0); LYMPHOCYTES # (AUTO) 0.7 X10^3/uL (1.3-2.9); LYMPHOCYTES % (AUTO) 22.6 % (21.0-51.0); MEAN CORPUSCULAR HEMOGLOBIN 28.2 pg (27.0-34.0); MEAN CORPUSCULAR VOLUME 82.8 fL (80.0-100.0); MEAN PLATELET VOLUME 8.8 fL (7.4-11.0); MONOCYTES # (AUTO) 0.3 x10^3/uL (0.3-0.8); MONOCYTES % (AUTO) 8.3 % (0.0-13.0); NEUTROPHILS % (AUTO) 66.5 % (42.0-75.0); PLATELET COUNT 42 X10^3/uL (150.0-450.0); RED BLOOD COUNT 4.33 X10^6/uL (3.5-5.4); RED CELL DISTRIBUTION WIDTH 16.5 % (11.6-16.5); WHITE BLOOD COUNT 3.1 X10^3/uL (3.6-10.0)
[2017-08-03 11:08] LABS: PLATELET MORPHOLOGY COMMENT NORMAL (NORMAL)
== END ==
LOC: LAB 10:02
PROVIDERS: ATTEND Nurse Practitioner Family
DX: D64.89 Other specified anemias (principal)
CPT/HCPCS: 36415; 85025

== ENCOUNTER 2018-12-30 15:22 | Inpatient (IN) ==
[2018-12-30] MEDS ORDERED: LEVAQUIN PREMIX IV 500 MG 500 MG/100 ML BAG IV SCH (16:19)
[2018-12-30] MEDS ORDERED: ROCEPHIN VIAL 1 GRAM 1 G in NS 100 ML IV + SPIKE MINIBAG* 100 ML IV SCH (16:19)
[2018-12-30] MEDS: DUONEB 0.5 MG/3 MG NEB SCH ×2 (16:22→20:56)
[2018-12-30] MEDS ORDERED: ROCEPHIN VIAL 1 GRAM ONE (16:45)
[2018-12-30] MEDS ORDERED: VSL#3 PO ONE (16:46)
[2018-12-30] MEDS ORDERED: NS 1000 ML 1,000 ML ONE (16:46)
[2018-12-30] MEDS ORDERED: LEVAQUIN PREMIX IV 500 MG 500 MG/100 ML BAG IV ONE (16:46)
[2018-12-30] MEDS ORDERED: ROBITUSSIN DM ONE (16:48)
[2018-12-30 16:50] VITALS: BMI 28.1
[2018-12-30] MEDS: NS 1000 ML 1,000 ML IV SCH (16:50)
[2018-12-30] MEDS: VSL#3 PO SCH (16:50)
[2018-12-30] MEDS: ROCEPHIN VIAL 1 GRAM 1 G in NS 100 ML IV + SPIKE MINIBAG* 100 ML IV SCH (16:51)
[2018-12-30] MEDS: LEVAQUIN PREMIX IV 500 MG 500 MG/100 ML BAG IV SCH (16:51)
[2018-12-30] MEDS: ROBITUSSIN DM PO SCH ×2 (16:51→20:45)
[2018-12-30 17:34] LABS: BASOPHILS % (AUTO) 0.1 % (0.2-1.0); EOSINOPHILS % (AUTO) 0.1 % (0.9-2.9); HEMATOCRIT 33.3 % (36.0-47.0); HEMOGLOBIN 11.5 g/dL (12.0-16.0); LYMPHOCYTES # (AUTO) 0.3 X10^3/uL (1.3-2.9); LYMPHOCYTES % (AUTO) 8.5 % (21.0-51.0); MEAN CORPUSCULAR HEMOGLOBIN 30.4 pg (27.0-34.0); MEAN CORPUSCULAR HGB CONC 34.4 g/dL (33.0-35.0); MEAN CORPUSCULAR VOLUME 88.4 fL (80.0-100.0); MONOCYTES # (AUTO) 0.4 x10^3/uL (0.3-0.8); MONOCYTES % (AUTO) 9.3 % (0.0-13.0); NEUTROPHILS # (AUTO) 3.2 x10^3/uL (2.2-4.8); RED BLOOD COUNT 3.76 X10^6/uL (3.5-5.4); WHITE BLOOD COUNT 3.9 X10^3/uL (3.6-10.0)
[2018-12-30 17:41] LABS: PLATELET COUNT 36 X10^3/uL (150.0-450.0)
[2018-12-30 17:48] LABS: ALANINE AMINOTRANSFERASE 28 Units/L (12-78); ALBUMIN 2.6 g/dL (3.4-5.0); ALKALINE PHOSPHATASE 99 Units/L (46-116); ASPARTATE AMINO TRANSFERASE 32 Units/L (15-37); BLOOD UREA NITROGEN 9 mg/dL (7-18); CALCIUM 8.3 mg/dL (8.5-10.1); CARBON DIOXIDE 23.3 mmol/L (21-32); CHLORIDE 98 mmol/L (98-107); COR CA(FOR HYPOALB) 9.4 mg/dL (8.5-10.1); COR NA(FOR HYPERGLY) 131 mmol/L (136-145); CREATININE 0.74 mg/dL (0.55-1.02); SODIUM 130 mmol/L (136-145); TOTAL PROTEIN 7.1 g/dL (6.4-8.2); eGFR NON BLACK RACES > 60 (>60)
[2018-12-30 18:02] LABS: AMMONIA < 10 umol/L (11-32)
[2018-12-30] MEDS ORDERED: POTASSIUM CHL 40 MEQ/NS 0.45% 500 ML IV PRN (18:51)
[2018-12-30] MEDS ORDERED: KLOR-CON PO PRN (18:51)
[2018-12-30] MEDS ORDERED: K-RIDER 10 MEQ/NS 100 ML 10 MEQ/100 ML BAG IV PRN (18:51)
[2018-12-30] MEDS ORDERED: MICRO K EXTEN CAP 10 MEQ PO PRN (18:51)
[2018-12-30] MEDS ORDERED: POTASSIUM CHLORIDE LIQ 20 MEQ UDC PO PRN (18:51)
[2018-12-30] MEDS ORDERED: POTASSIUM CHL 60 MEQ/NS 0.45% 500 ML IV PRN (18:51)
--- NOTE | 2018-12-30 19:05 | RAD ---
Chest, one view Indication: Pneumonia Comparison: 03/29/2018 Findings: Heart is normal in size for AP technique. There are streaky left basilar opacities. No significant pleural effusion is identified. No pneumothorax. Impression: Streaky left basilar opacities, either representing atelectasis or developing infiltrate. Correlate clinically. Reported By:
[2018-12-30] MEDS: MAGNESIUM SULFATE 1 GRAM/100 mL PREMIX 1 GM/100 ML BAG IV PRN ×2 (20:42→21:37)
[2018-12-30] MEDS: K-DUR TAB 20 MEQ PO PRN (20:44)
[2018-12-30] MEDS ORDERED: HumuLIN R SUBCUT PRN (20:51)
[2018-12-30] MEDS: PULMICORT NEB TX 0.5 MG NEB SCH (20:56)
[2018-12-30] MEDS: VISTARIL PO PRN (21:34)
[2018-12-30] MEDS: ULTRAM PO PRN (21:35)
[2018-12-30] MEDS: AMBIEN PO PRN (21:35)
[2018-12-31] MEDS: K-DUR TAB 20 MEQ PO PRN ×2 (00:33→06:15)
[2018-12-31] MEDS: DUONEB 0.5 MG/3 MG NEB SCH ×6 (01:04→20:40)
[2018-12-31 05:28] LABS: BASOPHILS % (AUTO) 0.2 % (0.2-1.0); EOSINOPHILS % (AUTO) 0.4 % (0.9-2.9); HEMATOCRIT 31.4 % (36.0-47.0); HEMOGLOBIN 10.9 g/dL (12.0-16.0); LYMPHOCYTES # (AUTO) 0.4 X10^3/uL (1.3-2.9); LYMPHOCYTES % (AUTO) 14.2 % (21.0-51.0); MEAN CORPUSCULAR HEMOGLOBIN 30.5 pg (27.0-34.0); MEAN CORPUSCULAR HGB CONC 34.7 g/dL (33.0-35.0); MEAN CORPUSCULAR VOLUME 87.8 fL (80.0-100.0); MEAN PLATELET VOLUME 8.3 fL (7.4-11.0); MONOCYTES # (AUTO) 0.3 x10^3/uL (0.3-0.8); MONOCYTES % (AUTO) 12.4 % (0.0-13.0); NEUTROPHILS % (AUTO) 72.8 % (42.0-75.0); PLATELET COUNT 34 X10^3/uL (150.0-450.0); RED BLOOD COUNT 3.57 X10^6/uL (3.5-5.4); RED CELL DISTRIBUTION WIDTH 16.4 % (11.6-16.5); WHITE BLOOD COUNT 2.8 X10^3/uL (3.6-10.0)
[2018-12-31] MEDS: NS 1000 ML 1,000 ML IV SCH ×2 (05:38→20:48)
[2018-12-31 05:48] LABS: ALANINE AMINOTRANSFERASE 25 Units/L (12-78); ALBUMIN 2.1 g/dL (3.4-5.0); ALKALINE PHOSPHATASE 85 Units/L (46-116); ASPARTATE AMINO TRANSFERASE 31 Units/L (15-37); BLOOD UREA NITROGEN 7 mg/dL (7-18); CALCIUM 7.9 mg/dL (8.5-10.1); CARBON DIOXIDE 21.2 mmol/L (21-32); CHLORIDE 102 mmol/L (98-107); COR CA(FOR HYPOALB) 9.4 mg/dL (8.5-10.1); COR NA(FOR HYPERGLY) 134 mmol/L (136-145); CREATININE 0.71 mg/dL (0.55-1.02); MAGNESIUM 1.9 mg/dL (1.7-2.9); SODIUM 133 mmol/L (136-145); TOTAL PROTEIN 6.4 g/dL (6.4-8.2); eGFR NON BLACK RACES > 60 (>60)
[2018-12-31 05:50] LABS: HYPOCHROMASIA SLIGHT; PLATELET MORPHOLOGY COMMENT NORMAL (NORMAL)
--- NOTE | 2018-12-31 08:21 | DR.H&P ---
H&P - History & Physical for Day of: H&P Date: 12/30/18 - Chief Complaint Chief Complaint: left side chest pain, fever - History of Present Illness History of Present Illness: 48 WF DIRECT ADMIT FROM DR MONTENEGRO OFFICE AFTER PRESENTING WITH CO LEFT SIDE CHEST/LATERAL RIB PAIN AND CO FEVER 103. PT WAS SEEN EARLIER IN ER AND HAD ABD XRAY REVEALING LLL PNEUMONIA. 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 PT ADMITTED FOR TREATMENT OF ACUTE ILLNESS, PNEUMONIA PROTOCOL. - Past Medical History Past Medical History: Hypertension, Diabetes, Renal Disease, Liver Disease, Cirrhosis, Depression, Seizures, GERD, Headaches Additional Medical History: 1. DM; type II. 2. Anxiety/depressive disorder. 3. Bipolar disorder. 4. Insomnia. 5. Chonic low back pain; with self reported history of multiple herniated disk - this has not been substantiated. 6. H/O colon polyps. 7. H/O endometriosis. 8. Questionable generalized seizure disorder. 9. Hepatitis C - Past Surgical History Surgical History: Hysterectomy Additional Surgical History: Pt reports having a colonoscopy and polypectomy two months ago in [place], [place] - Family History Family Medical History: MD, Heart Failure, Hypertension - Social History Does patient currently use any type of tobacco product: Yes Have you used tobacco products in the last 12 months: Yes Type of Tobacco Use: Cigarettes How many years tobacco product used: 32 Packs per day or dips/chews per day: 1 Does any household member use tobacco: Yes Alcohol Use: None Drug Use: Cocaine, Methamphetamine - Medications Home Medications: acetaminophen Allergy (Verified 11/04/18 03:04) aloe Allergy (Verified 11/04/18 03:04) codeine Allergy (Verified 11/04/18 03:04) ketorolac [From Toradol] Allergy (Verified 11/04/18 03:04) sumatriptan [From Imitrex] Allergy (Verified 11/04/18 03:04) - Review of Systems Constitutional: Fever, Weakness Eyes: No Symptoms Reported ENT: No Symptoms Reported Respiratory: Cough, Shortness of Breath, SOB with Excertion, Wheezing Cardiovascular: No Symptoms Reported. denies: Edema Gastrointestinal: Nausea Musculoskeletal: No Symptoms Reported Skin: No Symptoms Reported Neurological: No Symptoms Reported - Physical Exam Vital Signs: Temperature 99.9 F Pulse Rate [Right Brachial] 94 Pulse Rate 71 Respiratory Rate 24 Blood Pressure [Right Arm] 111/71 Blood Pressure 132/70 O2 Sat by Pulse Oximetry 98 Oriented: Normal Eyes: Normal Ear: Normal Nose: Normal Throat: Normal Respiratory: Rhonchi Throughout, RLL Diminished, TIKA Diminished, LML Diminished, LLL Diminished Cardiovascular: Normal : Normal Palpation: Normal Tenderness: Normal Skin: Decreased Turgur Musculoskeletal: Back:Lumbar Psychiatric: Anxiety Affect: Anxious Speech Pattern: Clear, Appropriate, Slurred (DUE TO ABSENT TEETH, CHRONIC FINDING) - Assessment/Plan (1) Pneumonia Status: Acute Plan: ADMIT, PNEUMONIA PROTOCOL. BLOOD AND SPUTUM CULTURE ON ADMISSION, AM CXR. IV HYDRATION, IV LEVAQUIN. ADMISSION LABS CBC CMP AMMONIA LEVEL. FALL PRECAUTIONS, I & OS (2) Pancytopenia Status: Acute (3) Diabetes mellitus Status: Acute (4) Hepatitis C Qualifiers: Viral hepatitis chronicity: chronic Hepatic coma status: without hepatic coma Qualified Code(s): B18.2 - Chronic viral hepatitis C Status: Acute (5) Hypokalemia Status: Acute - Allergies Allergies/Adverse Reactions: Allergies Allergy/AdvReac Type Severity Reaction Status Date / Time acetaminophen Allergy Verified 11/04/18 03:04 aloe Allergy Verified 11/04/18 03:04 codeine Allergy Verified 11/04/18 03:04 ketorolac [From Toradol] Allergy Verified 11/04/18 03:04 sumatriptan [From Imitrex] Allergy Verified 11/04/18 03:04
[2018-12-31] MEDS: PULMICORT NEB TX 0.5 MG NEB SCH ×2 (08:26→20:40)
[2018-12-31] MEDS: ROBITUSSIN DM PO SCH ×4 (08:45→20:47)
[2018-12-31] MEDS: LEVAQUIN PREMIX IV 500 MG 500 MG/100 ML BAG IV SCH (08:45)
[2018-12-31] MEDS: ROCEPHIN VIAL 1 GRAM 1 G in NS 100 ML IV + SPIKE MINIBAG* 100 ML IV SCH (08:46)
[2018-12-31] MEDS: ULTRAM PO PRN ×3 (09:00→21:35)
[2018-12-31] MEDS: VISTARIL PO PRN ×2 (09:00→17:36)
[2018-12-31] MEDS: CHRONULAC PO SCH ×2 (09:51→20:48)
[2018-12-31] MEDS: NEURONTIN CAP 400 MG PO SCH ×3 (09:51→21:03)
[2018-12-31] MEDS: VSL#3 PO SCH (13:00)
[2018-12-31] MEDS: HEMOCYTE-PLUS PO SCH (14:30)
[2018-12-31] MEDS: SNACK - Diabetic Appropriate PO SCH (20:46)
[2018-12-31] MEDS: AMBIEN PO PRN (20:55)
[2019-01-01] MEDS: DUONEB 0.5 MG/3 MG NEB SCH ×6 (00:48→20:56)
[2019-01-01] MEDS: ULTRAM PO PRN ×4 (02:13→17:39)
[2019-01-01] MEDS: NEURONTIN CAP 400 MG PO SCH ×3 (05:12→21:09)
[2019-01-01 06:21] LABS: BASOPHILS % (AUTO) 0.3 % (0.2-1.0); EOSINOPHILS # (AUTO) 0.1 x10^3/uL (0.0-0.2); EOSINOPHILS % (AUTO) 2.5 % (0.9-2.9); HEMATOCRIT 30.5 % (36.0-47.0); HEMOGLOBIN 10.4 g/dL (12.0-16.0); LYMPHOCYTES # (AUTO) 0.4 X10^3/uL (1.3-2.9); LYMPHOCYTES % (AUTO) 17.3 % (21.0-51.0); MEAN CORPUSCULAR HEMOGLOBIN 30.3 pg (27.0-34.0); MEAN CORPUSCULAR HGB CONC 34.2 g/dL (33.0-35.0); MEAN CORPUSCULAR VOLUME 88.6 fL (80.0-100.0); MEAN PLATELET VOLUME 8.2 fL (7.4-11.0); MONOCYTES # (AUTO) 0.3 x10^3/uL (0.3-0.8); MONOCYTES % (AUTO) 13.3 % (0.0-13.0); NEUTROPHILS # (AUTO) 1.6 x10^3/uL (2.2-4.8); NEUTROPHILS % (AUTO) 66.6 % (42.0-75.0); PLATELET COUNT 36 X10^3/uL (150.0-450.0); RED BLOOD COUNT 3.44 X10^6/uL (3.5-5.4); RED CELL DISTRIBUTION WIDTH 16.6 % (11.6-16.5); WHITE BLOOD COUNT 2.4 X10^3/uL (3.6-10.0)
[2019-01-01 06:42] LABS: ALANINE AMINOTRANSFERASE 38 Units/L (12-78); ALBUMIN 2.1 g/dL (3.4-5.0); ALKALINE PHOSPHATASE 113 Units/L (46-116); ASPARTATE AMINO TRANSFERASE 48 Units/L (15-37); BLOOD UREA NITROGEN 6 mg/dL (7-18); CALCIUM 7.9 mg/dL (8.5-10.1); CARBON DIOXIDE 22.7 mmol/L (21-32); CHLORIDE 105 mmol/L (98-107); COR CA(FOR HYPOALB) 9.4 mg/dL (8.5-10.1); COR NA(FOR HYPERGLY) 137 mmol/L (136-145); CREATININE 0.65 mg/dL (0.55-1.02); SODIUM 136 mmol/L (136-145); TOTAL PROTEIN 6.2 g/dL (6.4-8.2); eGFR NON BLACK RACES > 60 (>60)
[2019-01-01 07:20] LABS: PLATELET MORPHOLOGY COMMENT NORMAL (NORMAL)
[2019-01-01] MEDS: CHRONULAC PO SCH ×2 (08:20→21:09)
[2019-01-01] MEDS: ROCEPHIN VIAL 1 GRAM 1 G in NS 100 ML IV + SPIKE MINIBAG* 100 ML IV SCH (08:20)
[2019-01-01] MEDS: LEVAQUIN PREMIX IV 500 MG 500 MG/100 ML BAG IV SCH (08:20)
[2019-01-01] MEDS: HEMOCYTE-PLUS PO SCH (08:20)
[2019-01-01] MEDS: ROBITUSSIN DM PO SCH ×4 (08:20→21:09)
[2019-01-01] MEDS: PULMICORT NEB TX 0.5 MG NEB SCH ×2 (08:41→20:56)
--- NOTE | 2019-01-01 09:42 | RAD ---
HISTORY: Cough Study: Chest AP portable Comparison: 12/30/2018 Findings: The heart is enlarged. No congestive heart failure is noted. No acute alveolar infiltrates or pleural effusions are identified. The bony thorax is unremarkable. IMPRESSION: Continued cardiomegaly without congestive heart failure No acute infiltrates Reported By:
[2019-01-01] MEDS: VISTARIL PO PRN (11:47)
[2019-01-01] MEDS: VSL#3 PO SCH (11:47)
[2019-01-01] MEDS: TUSSIONEX PENNKINETIC SUSP PO PRN (11:49)
[2019-01-01] MEDS ORDERED: ZOFRAN INJ 4 MG VIAL IVP PRN (15:20)
[2019-01-01] MEDS ORDERED: KLONOPIN TAB 0.5 MG PO ONE (18:10)
[2019-01-01] MEDS ORDERED: KLONOPIN TAB 0.5 MG ONE (18:12)
[2019-01-01] MEDS: AMBIEN PO PRN (21:09)
[2019-01-01] MEDS: XIFAXAN PO SCH (21:09)
[2019-01-01] MEDS: SNACK - Diabetic Appropriate PO SCH (21:10)
[2019-01-02] MEDS: DUONEB 0.5 MG/3 MG NEB SCH ×4 (01:10→13:09)
[2019-01-02] MEDS: NS 1000 ML 1,000 ML IV SCH (02:56)
[2019-01-02 05:16] LABS: BASOPHILS % (AUTO) 0.5 % (0.2-1.0); EOSINOPHILS # (AUTO) 0.1 x10^3/uL (0.0-0.2); EOSINOPHILS % (AUTO) 4.3 % (0.9-2.9); HEMATOCRIT 28.5 % (36.0-47.0); HEMOGLOBIN 9.7 g/dL (12.0-16.0); LYMPHOCYTES # (AUTO) 0.4 X10^3/uL (1.3-2.9); LYMPHOCYTES % (AUTO) 21.3 % (21.0-51.0); MEAN CORPUSCULAR HEMOGLOBIN 30.1 pg (27.0-34.0); MEAN CORPUSCULAR VOLUME 88.5 fL (80.0-100.0); MEAN PLATELET VOLUME 8.7 fL (7.4-11.0); MONOCYTES # (AUTO) 0.2 x10^3/uL (0.3-0.8); MONOCYTES % (AUTO) 12.2 % (0.0-13.0); NEUTROPHILS # (AUTO) 1.1 x10^3/uL (2.2-4.8); NEUTROPHILS % (AUTO) 61.7 % (42.0-75.0); PLATELET COUNT 42 X10^3/uL (150.0-450.0); RED BLOOD COUNT 3.22 X10^6/uL (3.5-5.4); RED CELL DISTRIBUTION WIDTH 16.2 % (11.6-16.5)
[2019-01-02 05:22] LABS: ALANINE AMINOTRANSFERASE 44 Units/L (12-78); ALBUMIN 2.1 g/dL (3.4-5.0); ALKALINE PHOSPHATASE 123 Units/L (46-116); ASPARTATE AMINO TRANSFERASE 50 Units/L (15-37); BLOOD UREA NITROGEN 8 mg/dL (7-18); CARBON DIOXIDE 24.5 mmol/L (21-32); CHLORIDE 106 mmol/L (98-107); COR CA(FOR HYPOALB) 9.5 mg/dL (8.5-10.1); CREATININE 0.59 mg/dL (0.55-1.02); SODIUM 139 mmol/L (136-145); TOTAL PROTEIN 6.1 g/dL (6.4-8.2); eGFR NON BLACK RACES > 60 (>60)
[2019-01-02] MEDS: NEURONTIN CAP 400 MG PO SCH (05:39)
[2019-01-02 05:47] LABS: WHITE BLOOD COUNT 1.8 X10^3/uL (3.6-10.0)
[2019-01-02 05:48] LABS: PLATELET MORPHOLOGY COMMENT NORMAL (NORMAL)
[2019-01-02] MEDS: ULTRAM PO PRN ×2 (05:53→11:10)
[2019-01-02] MEDS: K-DUR TAB 20 MEQ PO PRN (05:55)
[2019-01-02] MEDS: MAGNESIUM SULFATE 1 GRAM/100 mL PREMIX 1 GM/100 ML BAG IV PRN ×2 (06:36→09:22)
[2019-01-02] MEDS: VISTARIL PO PRN (08:59)
[2019-01-02] MEDS: ROBITUSSIN DM PO SCH (09:00)
[2019-01-02] MEDS: VSL#3 PO SCH (09:00)
[2019-01-02] MEDS: TUSSIONEX PENNKINETIC SUSP PO PRN (09:00)
[2019-01-02] MEDS: CHRONULAC PO SCH (09:00)
[2019-01-02] MEDS: XIFAXAN PO SCH (09:00)
[2019-01-02] MEDS: ROCEPHIN VIAL 1 GRAM 1 G in NS 100 ML IV + SPIKE MINIBAG* 100 ML IV SCH (09:00)
[2019-01-02] MEDS: HEMOCYTE-PLUS PO SCH (09:00)
[2019-01-02] MEDS: LEVAQUIN PREMIX IV 500 MG 500 MG/100 ML BAG IV SCH (09:03)
[2019-01-02] MEDS: PULMICORT NEB TX 0.5 MG NEB SCH (09:14)
[2019-01-02] MEDS ORDERED: MAG-OX TAB PO ONE (11:33)
[2019-01-02 12:22] VITALS: BP 119/66
[2019-01-02 12:35] LABS: BASOPHILS % (AUTO) 0.4 % (0.2-1.0); EOSINOPHILS # (AUTO) 0.1 x10^3/uL (0.0-0.2); EOSINOPHILS % (AUTO) 3.7 % (0.9-2.9); HEMATOCRIT 29.4 % (36.0-47.0); HEMOGLOBIN 9.7 g/dL (12.0-16.0); LYMPHOCYTES # (AUTO) 0.3 X10^3/uL (1.3-2.9); LYMPHOCYTES % (AUTO) 16.4 % (21.0-51.0); MEAN CORPUSCULAR HEMOGLOBIN 29.9 pg (27.0-34.0); MEAN CORPUSCULAR VOLUME 90.8 fL (80.0-100.0); MEAN PLATELET VOLUME 9.1 fL (7.4-11.0); MONOCYTES # (AUTO) 0.2 x10^3/uL (0.3-0.8); MONOCYTES % (AUTO) 11.1 % (0.0-13.0); NEUTROPHILS # (AUTO) 1.2 x10^3/uL (2.2-4.8); NEUTROPHILS % (AUTO) 68.4 % (42.0-75.0); PLATELET COUNT 42 X10^3/uL (150.0-450.0); RED BLOOD COUNT 3.24 X10^6/uL (3.5-5.4); RED CELL DISTRIBUTION WIDTH 16.3 % (11.6-16.5)
[2019-01-02 12:50] LABS: WHITE BLOOD COUNT 1.7 X10^3/uL (3.6-10.0)
[2019-01-02 13:09] LABS: PLATELET MORPHOLOGY COMMENT NORMAL (NORMAL)
[2019-01-02] MEDS ORDERED: MAG-OX TAB ONE (13:40)
== END 2019-01-02 13:30 | disposition home or self-care (01) | DRG 178 ==
LOC: MED/SURG → OBSVTOIN 15:25
PROVIDERS: ADMIT Internal Medicine; ATTEND Internal Medicine
DX: Z79.4 Long term (current) use of insulin; R26.89 Other abnormalities of gait and mobility; R07.89 Other chest pain; G62.9 Polyneuropathy, unspecified; B18.2 Chronic viral hepatitis C; I10 Essential (primary) hypertension; J44.9 Chronic obstructive pulmonary disease, unspecified; J15.6 Pneumonia due to other Gram-negative bacteria; R06.02 Shortness of breath; D61.818 Other pancytopenia; E11.65 Type 2 diabetes mellitus with hyperglycemia; F41.8 Other specified anxiety disorders; E87.6 Hypokalemia; K72.10 Chronic hepatic failure without coma; K21.9 Gastro-esophageal reflux disease without esophagitis
CPT/HCPCS: 36415; 71010; 71045; 80053; 82140; 82270; 82607; 82728; 82746; 83540; 83735; 84132; 84466; 85025; 85610; 87040; 87070; 87077; 87186; 87205; 94640; 94760; 97110; 97162; 97165; 97530; 97535; A4222; Q0177; J0696; J1956; J3475; J7030; J7050; J7620; J7626

== ENCOUNTER 2019-10-09 15:36 | Observation (INO) ==
[2019-10-09] MEDS ORDERED: NS 1000 ML 1,000 ML IV ONE ×2 (15:53→18:14)
[2019-10-09] MEDS ORDERED: NS 1000 ML 1,000 ML ONE ×3 (15:55→18:21)
--- NOTE | 2019-10-09 16:25 | RAD ---
HISTORYDEHYDRATION, CPSTUDYCHEST, 1 VIEWCOMPARISONJune 2019FINDINGSThe trachea is midline. The cardiac silhouette is unremarkable. Interstitial changes are again noted similar to prior exam. Hazy opacification within the right lung base may in part be due to overlying soft tissues however atelectasis and/or infiltrate cannot be excluded. Recommend clinical correlation and continue follow up as indicated for further evaluation.]IMPRESSIONQuestionable right basilar airspace disease as noted above. Correlate clinically.Electronically signed by: JOAQUINA LEVINE (Oct 09, 2019 16:24:31)
[2019-10-09 16:48] LABS: BASOPHILS % (AUTO) 0.5 % (0.2-1.0); EOSINOPHILS # (AUTO) 0.1 x10^3/uL (0.0-0.2); EOSINOPHILS % (AUTO) 3.5 % (0.9-2.9); HEMATOCRIT 37.1 % (36.0-47.0); HEMOGLOBIN 12.8 g/dL (12.0-16.0); LYMPHOCYTES # (AUTO) 0.8 X10^3/uL (1.3-2.9); LYMPHOCYTES % (AUTO) 23.3 % (21.0-51.0); MEAN CORPUSCULAR HGB CONC 34.4 g/dL (33.0-35.0); MEAN CORPUSCULAR VOLUME 92.9 fL (80.0-100.0); MEAN PLATELET VOLUME 8.6 fL (7.4-11.0); MONOCYTES # (AUTO) 0.3 x10^3/uL (0.3-0.8); MONOCYTES % (AUTO) 10.3 % (0.0-13.0); NEUTROPHILS # (AUTO) 2.1 x10^3/uL (2.2-4.8); NEUTROPHILS % (AUTO) 62.4 % (42.0-75.0); PLATELET COUNT 37 X10^3/uL (150.0-450.0); RED BLOOD COUNT 3.99 X10^6/uL (3.5-5.4); WHITE BLOOD COUNT 3.4 X10^3/uL (3.6-10.0)
[2019-10-09 17:09] LABS: PLATELET MORPHOLOGY COMMENT NORMAL (NORMAL)
[2019-10-09 17:13] LABS: ALANINE AMINOTRANSFERASE 54 Units/L (12-78); ALBUMIN 3.4 g/dL (3.4-5.0); ALKALINE PHOSPHATASE 186 Units/L (46-116); ASPARTATE AMINO TRANSFERASE 75 Units/L (15-37); BLOOD UREA NITROGEN 13 mg/dL (7-18); CALCIUM 8.7 mg/dL (8.5-10.1); CARBON DIOXIDE 25.5 mmol/L (21-32); CHLORIDE 103 mmol/L (98-107); COR NA(FOR HYPERGLY) 137 mmol/L (136-145); CREATININE 1.05 mg/dL (0.55-1.02); SODIUM 136 mmol/L (136-145); TROPONIN I < 0.02 ng/mL (0-1.5); eGFR NON BLACK RACES 59 (>60)
[2019-10-09 17:16] LABS: CKMB % 1.2 % (<4); CREATINE KINASE MB 13.1 ng/mL (0-4.0)
[2019-10-09 17:17] LABS: CREATINE KINASE 1073 Units/L (26-192)
--- NOTE | 2019-10-09 18:54 | CT ---
HISTORYMENTAL STATUS CHANGESTUDYBRAIN W/O CONCOMPARISONNoneTECHNIQUESerial axial images were obtained from the skull base to the vertex without infusion of IV contrast. Coronal and sagittal images were also submitted. Dose reduction techniques including Automated Exposure Control (AEC) and adjustment of mA and kV were utilized.FINDINGSNo definite evidence of acute intracranial hemorrhage or mass is identified. The ventricles, sulci, and cisterns are grossly unremarkable in appearance. Patchy areas of decreased attenuation within the periventricular, subcortical, and subinsular white matter suggest changes of chronic small vessel ischemic disease. No evidence of significant midline shift is identified. No definite abnormal extra axial fluid collections are appreciated. The visualized paranasal sinuses are grossly unremarkable. If symptoms or clinical concerns persist recommend continued follow up for further evaluation.IMPRESSIONNo CT evidence of acute intracranial abnormality is appreciated.Electronically signed by: JOAQUINA LEVINE (Oct 09, 2019 18:53:02)
[2019-10-09] MEDS ORDERED: MAGNESIUM SULFATE 1 GRAM/100 mL PREMIX 1 G/100 ML BAG IV ONE ×2 (19:03→19:40)
--- NOTE | 2019-10-09 20:00 | DR.AMS ---
HPI Time Seen Time Seen by Provider: 10/09/19 17:51 PCP Primary Care Physician: beatrice HPI Comment HPI Comment: "I got thirsty in the heat." Admits to methamphetamine use earlier this AM. Denies any falls or trauma. Denies any SHOB, KAT, BOV, chest pain or any other symptoms. Complaint Chief Complaint:: Meth this morning. Was walking in heat and got really thirsty. Self Treatment fo Chief Complaint: none COVID-19 Coronavirus risk:travel/contact w/high risk person: No Has patient experienced Coronavirus symptoms: No Source History Provided: Patient Mode of Arrival Mode of Arrival: EMS Timing Onset of Chief Complaint: 10/09/19 PMH PMH Past Medical History: Yes Past Medical History: Anxiety, Arthritis, Cirrhosis, Depression, Diabetes, Migraines, Hypothyroidism, Seizures and Sleep Apnea Past Surgical History: Yes Surgical History: Hysterectomy and Thyroidectomy Family History History of Family Medical Conditions: Yes Family Medical History: Heart Failure and Hypertension Social History Do you use any recreational Drugs:: Yes Travel Risk Coronavirus risk:travel/contact w/high risk person: No Has patient experienced Coronavirus symptoms: No Infectious screening In the last 2 months have you had wt loss of >10#?: NO Have you had fever, night sweats or hemotysis?: No Have you traveled outside the country in the last 6 months?: No Isolation: Standard ROS Review of Systems Constitutional: See HPI Eyes: No Symptoms Reported ENTM: No Symptoms Reported Respiratoy: No Symptoms Reported Cardiovascular: No Symptoms Reported Gastrointestinal/Abdominal: No Symptoms Reported Genitourinary: No Symptoms Reported Neurological: No Symptoms Reported Musculoskeletal: No Symptoms Reported Integumentary: No Symptoms Reported Hematologic/Lymphatic: No Symptoms Reported Endocrine: No Symptoms Reported Psychiatric: See HPI All Other Systems: Reviewed and Negative PE Vitals Vital Signs: Temp Pulse Resp BP BP Pulse Ox 10/09/19 19:17 93 H 28 H 96 10/09/19 19:00 94 H 30 H 128/59 97 10/09/19 18:42 92 H 20 139/71 99 10/09/19 18:41 139/71 10/09/19 18:00 93 H 13 140/77 96 10/09/19 17:30 94 H 14 135/68 96 10/09/19 17:15 97.2 F L 86 20 136/68 98 10/09/19 17:00 95 H 14 131/70 95 10/09/19 16:58 94 H 20 127/75 96 10/09/19 16:49 97 H 127/75 95 10/09/19 16:45 97 H 95 10/09/19 16:30 100 H 95 10/09/19 16:17 102 H 95 10/09/19 15:55 99 H 20 124/72 10/09/19 15:45 99.8 F H 108 H 20 124/72 93 L 09/17/19 12:00 142/81 09/10/19 07:47 139/70 General Limitations: Altered Mental Status General Appearance: Appears Intoxicated and Lethargic Head Head Exam: Normal Inspection and Atraumatic Eyes Eye exam: Normal Appearance ENT ENT Exam: Normal Exam External Ear Exam: Normal External Inspection Nose Exam: Normal Nose Exam Mouth Exam: Normal Inspection Throat Exam: Normal Inspection Neck Neck Exam: Normal Inspection Chest Chest Inspection: Normal Inspection and Symmetric Chest Wall Rise Respiratory Respiratory Exam: Normal Lung Sounds Bilat; negative Accessory Muscle Use and Respiratory Distress Cardiovascular Cardiovascular Exam: Regular Rate and Normal Rhythm Abdominal Exam Abdominal Exam: Normal Inspection, Normal Bowel Sounds and Soft; negative Distention, Tenderness, Guarding, Rebound and Rigidity Extremities Extremities Exam: Normal Inspection Back Back Exam: Normal Inspection Neurological Neurological Exam: Oriented X3 and CN II-XII Intact; negative Alert (Lethargic, responds verbally, GCS 14 ([id number]).) Psychological Psychiatric Exam: Normal Affect and Normal Mood Skin Skin Exam: Warm, Dry, Intact and Normal Color COURSE Treatment Treatment: Patient with acute methamphetamine intoxication, clinical dehydration, rhabdomyolysis, and hypokalemia with hypomagnesemia. UDS pending, CT head without any intracranial lesions. Discussed case with Dr. Hussein, he agreed to admit. ROR Labs Reviewed Laboratory Results Reviewed?: Yes Result Diagrams: 10/09/19 16:23 10/09/19 16:23 Laboratory: WBC 3.4 X10^3/uL (3.6-10.0) L 10/09/19 16:23 RBC 3.99 X10^6/uL (3.5-5.4) 10/09/19 16:23 Hgb 12.8 g/dL (12.0-16.0) 10/09/19 16:23 Hct 37.1 % (36.0-47.0) 10/09/19 16: MCV 92.9 fL (80.0-100.0) 10/09/19 16: MCH 32.0 pg (27.0-34.0) 10/09/19 16: MCHC 34.4 g/dL (33.0-35.0) 10/09/19 16: RDW 16.0 % (11.6-16.5) 10/09/19 16: Plt Count 37 X10^3/uL (150.0-450.0) L 10/09/19 16: Plt Count Comment Decreased (ADEQUATE) A 10/09/19 16: MPV 8.6 fL (7.4-11.0) 10/09/19 16:23 Neut % (Auto) 62.4 % (42.0-75.0) 10/09/19 16:23 Lymph % (Auto) 23.3 % (21.0-51.0) 10/09/19 16:23 [place] % (Auto) 10.3 % (0.0-13.0) 10/09/19 16:23 Eos % (Auto) 3.5 % (0.9-2.9) H 10/09/19 16:23 Baso % (Auto) 0.5 % (0.2-1.0) 10/09/19 16:23 Neut # (Auto) 2.1 x10^3/uL (2.2-4.8) L 10/09/19 16:23 Lymph # (Auto) 0.8 X10^3/uL (1.3-2.9) L 10/09/19 16:23 [place] # (Auto) 0.3 x10^3/uL (0.3-0.8) 10/09/19 16:23 Eos # (Auto) 0.1 x10^3/uL (0.0-0.2) 10/09/19 16:23 Baso # (Auto) 0.0 X10^3/uL (0.0-0.1) 10/09/19 16: Absolute Nucleated RBC 0.0 /100WBC 10/09/19 16:23 Plt Morphology Comment Normal (NORMAL) 10/09/19 16:23 RBC Morphology Normal (NORMAL) 10/09/19 16:23 Sodium 136 mmol/L (136-145) 10/09/19 16:23 Corrected Sodium 137 mmol/L (136-145) 10/09/19 16:23 Potassium 3.1 mmol/L (3.5-5.1) L 10/09/19 16:23 Chloride 103 mmol/L (98-107) 10/09/19 16:23 Carbon Dioxide 25.5 mmol/L (21-32) 10/09/19 16:23 BUN 13 mg/dL (7-18) 10/09/19 16:23 Creatinine 1.05 mg/dL (0.55-1.02) H 10/09/19 16:23 Est GFR (MDRD) Af Amer > 60 (>60) 10/09/19 16:23 Est GFR (MDRD) Non-Af 59 (>60) 10/09/19 16:23 Glucose 142 mg/dL (65-99) H 10/09/19 16:23 Calcium 8.7 mg/dL (8.5-10.1) 10/09/19 16:23 Corrected Calcium TNP 10/09/19 16:23 Magnesium 1.5 mg/dL (1.7-2.9) L 10/09/19 16:32 Total Bilirubin 1.40 mg/dL (0.2-1.0) H 10/09/19 16:23 AST 75 Units/L (15-37) H 10/09/19 16:23 ALT 54 Units/L (12-78) 10/09/19 16:23 Alkaline Phosphatase 186 Units/L (46-116) H 10/09/19 16:23 Creatine Kinase 1073 Units/L (26-192) H 10/09/19 16:23 CK-MB (CK-2) 13.1 ng/mL (0-4.0) H* 10/09/19 16:23 CK/CKMB % Calc 1.2 % (<4) 10/09/19 16:23 Troponin I < 0.02 ng/mL (0-1.5) 10/09/19 16:23 Total Protein 7.0 g/dL (6.4-8.2) 10/09/19 16:23 Albumin 3.4 g/dL (3.4-5.0) 10/09/19 16:23 Globulin 3.6 g/dL (2.5-4.5) 10/09/19 16:23 Albumin/Globulin Ratio 0.9 Ratio (1.1-2.1) L 10/09/19 16:23 SARS-CoV-2 (PCR) Negative (NEGATIVE) 10/09/19 18:20 Opioid Opioid Risk Tool Family Hx of Substance Abuse: Illegal Drugs Personal Hx of Substance Abuse: Illegal Drugs Age (Sadi box if 16-45): No History of Preadolescent Sexual Abuse: No Psychological Disease: Schizophrenia Total: 1 Total Score Risk Category: Low Risk Copyright: Baljinder KILGORE predicting aberrant behaviors Diagnosis Discharge Problem: Elevated CK-MB level, Acute hyponatremia, Hypomagnesemia, Methamphetamine into xication Rhabdomyolysis Qualifiers: Rhabdomyolysis type: non-traumatic Qualified Code(s): M62.82 - Rhabdomyolysis
[2019-10-09] MEDS: NS + KCL 40 MEQ/L 1,000 ML IV SCH (20:58)
[2019-10-09] MEDS ORDERED: ZOFRAN INJ 4 MG VIAL IVP PRN (21:27)
[2019-10-09] MEDS ORDERED: ASENAPINE MALEATE 5 MG SL SCH (21:27)
[2019-10-09] MEDS ORDERED: TYLENOL 325 MG TAB PO PRN (21:27)
[2019-10-09] MEDS ORDERED: REMERON PO SCH (21:27)
[2019-10-09] MEDS ORDERED: LACTULOSE 20 GM PO SCH (21:27)
[2019-10-09] MEDS ORDERED: HumuLIN R SC PRN (21:27)
[2019-10-09 22:27] VITALS: BMI 36.3
[2019-10-09 23:28] LABS: CKMB % 1.4 % (<4); CREATINE KINASE 748 Units/L (26-192); TROPONIN I < 0.02 ng/mL (0-1.5)
[2019-10-09 23:31] LABS: CREATINE KINASE MB 10.1 ng/mL (0-4.0)
[2019-10-09] MEDS: BUSPAR PO SCH (23:59)
[2019-10-10] MEDS: POTASSIUM CHLORIDE IV SCH ×4 (00:01→04:56)
[2019-10-10] MEDS: LR IV SCH ×4 (00:01→04:56)
[2019-10-10] MEDS: CHRONULAC PO SCH ×2 (00:01→09:42)
[2019-10-10] MEDS: NS + KCL 40 MEQ/L 1,000 ML IV SCH ×3 (01:57→06:02)
[2019-10-10 06:16] LABS: BASOPHILS % (AUTO) 0.5 % (0.2-1.0); EOSINOPHILS # (AUTO) 0.1 x10^3/uL (0.0-0.2); EOSINOPHILS % (AUTO) 4.9 % (0.9-2.9); HEMATOCRIT 35.7 % (36.0-47.0); HEMOGLOBIN 12.1 g/dL (12.0-16.0); LYMPHOCYTES # (AUTO) 0.6 X10^3/uL (1.3-2.9); LYMPHOCYTES % (AUTO) 29.8 % (21.0-51.0); MEAN CORPUSCULAR HGB CONC 33.9 g/dL (33.0-35.0); MEAN CORPUSCULAR VOLUME 94.2 fL (80.0-100.0); MONOCYTES # (AUTO) 0.2 x10^3/uL (0.3-0.8); MONOCYTES % (AUTO) 12.4 % (0.0-13.0); NEUTROPHILS # (AUTO) 1.1 x10^3/uL (2.2-4.8); NEUTROPHILS % (AUTO) 52.4 % (42.0-75.0); PLATELET COUNT 31 X10^3/uL (150.0-450.0); RED BLOOD COUNT 3.78 X10^6/uL (3.5-5.4); RED CELL DISTRIBUTION WIDTH 15.7 % (11.6-16.5)
[2019-10-10 06:38] LABS: PLATELET MORPHOLOGY COMMENT NORMAL (NORMAL)
[2019-10-10 07:13] LABS: ALANINE AMINOTRANSFERASE 46 Units/L (12-78); ALBUMIN 2.9 g/dL (3.4-5.0); ALKALINE PHOSPHATASE 161 Units/L (46-116); ASPARTATE AMINO TRANSFERASE 64 Units/L (15-37); BLOOD UREA NITROGEN 9 mg/dL (7-18); CALCIUM 7.7 mg/dL (8.5-10.1); CARBON DIOXIDE 24.4 mmol/L (21-32); CHLORIDE 108 mmol/L (98-107); CKMB % 1.6 % (<4); COR CA(FOR HYPOALB) 8.6 mg/dL (8.5-10.1); CREATINE KINASE 679 Units/L (26-192); CREATININE 0.63 mg/dL (0.55-1.02); MAGNESIUM 1.8 mg/dL (1.7-2.9); SODIUM 138 mmol/L (136-145); TOTAL PROTEIN 6.2 g/dL (6.4-8.2); TROPONIN I < 0.02 ng/mL (0-1.5); eGFR NON BLACK RACES > 60 (>60)
[2019-10-10 07:15] LABS: CREATINE KINASE MB 10.8 ng/mL (0-4.0)
[2019-10-10] MEDS ORDERED: K-DUR TAB 20 MEQ PO SCH (09:00)
[2019-10-10] MEDS ORDERED: PROTONIX TAB 40 MG PO SCH (09:00)
[2019-10-10] MEDS: BUSPAR PO SCH (09:43)
[2019-10-10 11:59] VITALS: BP 115/69
--- NOTE | 2019-10-29 21:45 | DR.CARTERS ---
Short Stay Summary - Admission Date Date of Admission: 10/09/19 - Discharge Date Discharge Date: 10/10/19 - Admission Diagnoses (1) Rhabdomyolysis Status: Acute (2) Dehydration Status: Acute (3) Hypokalemia Status: Acute (4) Hypomagnesemia Status: Acute - Hospital Course Hospital Course: IS A 49 YEAR OLD WHITE FEMALE WHO PRESENTED TO THE ER WITH COMPLAINTS OF WEAKNESS AND FEELING DEHYDRATED. SHE REPORTED WALKING IN THE HEAT AND BECOMING REALLY THIRSTY. SHE ADMITED TO USE OF METHAMPHETAMINE THIS MORNING. SHE DENIED FALLS, TRAUMA, SOB, HEAD, CHEST PAIN, OR OTHER SYMPTOMS. HER PMH INCLUDES ANXIETY, ARTHRITIS, CIRRHOSIS, DEPRESSION, DIABETES, MIGRAINES, HYPOTHYROIDISM, HEPATITIS C, SEIZURES, SLEEP APNEA, HYSTERECTOMY, AND THYROIDECTOMY. ON ARRIVAL TO THE ER, VITALS WERE 99.8-108-20-93%-124/72. LABS WERE OBTAINED. ABNORMAL LAB VALUES INCLK-MB 13.1, UDED THE FOLLOWING: WBC 3.4, PLT COUNT 37, POTASSIUM 3.1, CREATININE 1.05, GLUCOSE 142, MAGNESIUM 1.5, TOTAL BILIRUBIN 1.40, AST 75, ALK PHOS 186, CREATINE KINASE 1073. URINE DRUG SCREEN WAS OBTAINED AND WAS POSITIVE FOR AMPHETAINES AND COCAINE. COVID-19 NEGATIVE. A CHEST XRAY WAS OBTAINED AND REVEALED: trachea is midline. The cardiac silhouette is unremarkable. Interstitial changes are again noted similar to prior exam. Hazy opacification within the right lung base may in part be due to overlying soft tissues however atelectasis and/or infiltrate cannot be excluded. Recommend clinical correlation and continue follow up as indicated for further evaluation. AN EKG WAS OBTAINED AND REVEALED: SINUS TACHYCARDIA WITH HR 103. A BRAIN CT WITHOUT CONTRAST WAS OBTAINED AND REVEALED: No CT evidence of acute intracranial abnormality is appreciated. SHE WAS GIVEN TWO NORMAL SALINE BOLUSES IN THE ER. SHE WAS ADMITTED FOR FURTHER EVALUATION AND TREATMENT OF RHABDOMYOLYSIS,DEHYDRATION, AND HYPOMAGNESEMIA, AND HYPOKALEMIA. SHE WAS STARTED ON NORMAL SALINE WITH 40MEQ KCL AT 250ML/HR, OTBS ACHS, HUMULIN R SLIDING SCALE, PROTONIX 40MG PO DAILY, D-DUR 20MG PO DAILY, CHRONULAC 30ML PO BID, ZOFRAN 4MG IV Q8H PRN, TYLENOL 650MG PO Q6H PRN, REMERON 15MG PO HS, BUSPAR 15MG PO BID, AND MAGNESIUM 1G IV X 1 DOSE. OTHERWISE, WE PLANNED TO FOLLOW UP WITH SERIAL CARDIAC ENZYME AND EKGS, AM LABS, AND CONTINUE TO MONITOR. - Discharge Medications Discharge Medications: Home Medication List Xifaxan 550 mg PO BID 10/09/19 [History] budesonide-formoterol [Symbicort] 2 puff INHALATION BID PRN 10/09/19 [History] dicyclomine 20 mg PO TID 10/09/19 [History] famotidine 40 mg PO BID 10/09/19 [History] guaifenesin [Mucus Relief] 400 mg PO Q4H PRN 10/09/19 [History] loratadine 10 mg PO DAILY 10/09/19 [History] olanzapine 2.5 mg PO QHS 10/09/19 [History] paroxetine HCl 10 mg PO DAILY 10/09/19 [History] spironolactone 50 mg PO DAILY 10/09/19 [History] trazodone 50 mg PO QHS 10/09/19 [History] Prescriptions: - Discharge Plan Disposition: HOME, SELF-CARE Condition: Stable - Follow up/Referrals Follow up/Referrals: IRMA YOUSSEF [Primary Care Provider] - 1 WEEK - Instructions Instructions: Rhabdomyolysis Additional Instructions: DIET TOLERATED. ACTIVITY TOLERATED. DRINK AT LEAST 1 GALLON OF WATER/DAY Forms: Excuse From Work or School, Precautions for COVID19, Patient Portal, Social Distancing
== END 2019-10-10 10:20 | disposition home or self-care (01) ==
LOC: ER 15:37 → INTOOBSV 20:30 → MED/SURG 20:30
PROVIDERS: ADMIT Internal Medicine; ATTEND Internal Medicine
DX: F15.90 Other stimulant use, unspecified, uncomplicated; M62.82 Rhabdomyolysis; Z11.59 Encounter for screening for other viral diseases; E87.6 Hypokalemia; E86.0 Dehydration; R26.81 Unsteadiness on feet; E83.42 Hypomagnesemia; F14.99 Cocaine use, unspecified with unspecified cocaine-induced disorder; R94.31 Abnormal electrocardiogram [ECG] [EKG]
CPT/HCPCS: 36415; 70450; 71010; 71045; 80053; 80307; 82550; 82553; 83735; 84484; 85025; 87635; 93005; 96365; 96367; 99284; A4222; G0378; J1815; J3475; J7030

== ENCOUNTER 2020-01-29 12:14 | Inpatient (IN) ==
[2020-01-29 12:33] VITALS: BMI 31.0
--- NOTE | 2020-01-29 12:46 | DR.SOBA ---
HPI Time Seen Time Seen by Provider: 01/29/20 12:26 Complaints Chief Complaint Doctors Comments: Patient brought in by EMS for complaint of Dyspnea. Patient appears intoxicated and admit to meth use. Hx of poly substance abuse and psych problems Reviewed Nurses Notes Reviewed: Yes Source History Provided: Patient and EMS Mode of Arrival Mode of Arrival: EMS Timing Onset of Chief Complaint: 01/29/20 Duration Duration: Unknown Context Onset:: At Rest PE Risk Factors:: None History of:: None Currently on:: Neither Prehospital Care:: None Modifying Factors Worsens:: Anxiety Improves:: Rest Associated Signs and Symptoms Associated Signs and Symptoms: Sore Throat and Anxiety If Chest Pain Quality: denies Sharp, Stabbing, Squeezing, Pressure like, Heavy, Crushing, Burning, Aching, Pleuritic and Other If Cough Cough: None PMH PMH Past Medical History: Anxiety, Arthritis, Cirrhosis, Depression, Diabetes, Migraines, Hypothyroidism, Seizures and Sleep Apnea Past Surgical History: Yes Surgical History: Hysterectomy and Thyroidectomy Family History Family Medical History: [place], Heart Failure and Hypertension Social History Do you use any recreational Drugs:: No ROS Review of Systems Constitutional: Irritable Eyes: No Symptoms Reported ENTM: No Symptoms Reported Respiratoy: Short of Breath Cardiovascular: No Symptoms Reported Gastrointestinal/Abdominal: No Symptoms Reported Genitourinary: No Symptoms Reported Neurological: Emotional Problems Musculoskeletal: No Symptoms Reported Integumentary: No Symptoms Reported Hematologic/Lymphatic: No Symptoms Reported Endocrine: No Symptoms Reported Psychiatric: Anxiety, Depression and Suicidal All Other Systems: Reviewed and Negative PE Vital Signs Vitals: Pulse Rate 101 Respiratory Rate 21 Blood Pressure [Left Arm] 119/71 Blood Pressure 116/75 O2 Sat by Pulse Oximetry 99 General Limitations: No Limitations General Appearance: Alert, In No Apparent Distress and Appears Intoxicated Head Head Exam: Normal Inspection, Atraumatic and Normocephalic Eyes Eye exam: Normal Appearance, PERRL and EOMI ENT ENT Exam: Normal Exam and Normal Oropharynx Neck Neck Exam: Normal Inspection, Full ROM and Trachea Midline Chest Chest Inspection: Normal Inspection Respiratory Respiratory Exam: Normal Lung Sounds Bilat Respiratory Exam: Bilateral: Clear to Auscultation Cardiovascular Cardiovascular Exam: Tachycardia Abdominal Exam Abdominal Exam: Normal Inspection, Normal Bowel Sounds and Soft; negative Distention, Tenderness and Guarding Extremities Extremities Exam: Normal Inspection and Full ROM Back Back Exam: Normal Inspection and Full ROM Neurologic Neurological Exam: Alert, Oriented X3, CN II-XII Intact and Normal Gait COURSE Treatment Treatment: 2005: casr discussed with DR. Fields, admit for IVF to reduce CPK ROR Labs Reviewed Result Diagrams: 02/01/20 05:48 02/01/20 05:48 Laboratory: WBC 3.0 X10^3/uL (3.6-10.0) L 01/29/20 12:46 RBC 4.20 X10^6/uL (3.5-5.4) 01/29/20 12:46 Hgb 13.0 g/dL (12.0-16.0) 01/29/20 12:46 Hct 38.0 % (36.0-47.0) 01/29/20 12:46 MCV 90.6 fL (80.0-100.0) 01/29/20 12:46 MCH 31.0 pg (27.0-34.0) 01/29/20 12:46 MCHC 34.3 g/dL (33.0-35.0) 01/29/20 12:46 RDW 15.8 % (11.6-16.5) 01/29/20 12:46 Plt Count 42 X10^3/uL (150.0-450.0) L 01/29/20 12:46 Plt Count Comment Decreased (ADEQUATE) A 01/29/20 12:46 MPV 8.9 fL (7.4-11.0) 01/29/20 12:46 Neut % (Auto) 63.0 % (42.0-75.0) 01/29/20 12:46 Lymph % (Auto) 24.3 % (21.0-51.0) 01/29/20 12:46 [place] % (Auto) 8.5 % (0.0-13.0) 01/29/20 12:46 Eos % (Auto) 3.7 % (0.9-2.9) H 01/29/20 12:46 Baso % (Auto) 0.5 % (0.2-1.0) 01/29/20 12:46 Neut # (Auto) 1.9 x10^3/uL (2.2-4.8) L 01/29/20 12:46 Lymph # (Auto) 0.7 X10^3/uL (1.3-2.9) L 01/29/20 12:46 [place] # (Auto) 0.3 x10^3/uL (0.3-0.8) 01/29/20 12:46 Eos # (Auto) 0.1 x10^3/uL (0.0-0.2) 01/29/20 12:46 Baso # (Auto) 0.0 X10^3/uL (0.0-0.1) 01/29/20 12:46 Absolute Nucleated RBC 0.1 /100WBC 01/29/20 12:46 Plt Morphology Comment Normal (NORMAL) 01/29/20 12:46 RBC Morphology Normal (NORMAL) 01/29/20 12:46 Sodium 140 mmol/L (136-145) 01/29/20 12:46 Corrected Sodium TNP 01/29/20 12:46 Potassium 3.1 mmol/L (3.5-5.1) L 01/29/20 12:46 Chloride 104 mmol/L (98-107) 01/29/20 12:46 Carbon Dioxide 25.0 mmol/L (21-32) 01/29/20 12:46 BUN 8 mg/dL (7-18) 01/29/20 12:46 Creatinine 0.86 mg/dL (0.55-1.02) 01/29/20 12:46 Est GFR (MDRD) Af Amer > 60 (>60) 01/29/20 12:46 Est GFR (MDRD) Non-Af > 60 (>60) 01/29/20 12:46 Glucose 92 mg/dL (65-99) 01/29/20 12:46 Calcium 9.5 mg/dL (8.5-10.1) 01/29/20 12:46 Corrected Calcium TNP 01/29/20 12:46 Magnesium 1.5 mg/dL (1.7-2.9) L 01/29/20 19:23 Total Bilirubin 2.20 mg/dL (0.2-1.0) H 01/29/20 12:46 AST 130 Units/L (15-37) H 01/29/20 12:46 ALT 76 Units/L (12-78) 01/29/20 12:46 Alkaline Phosphatase 141 Units/L (46-116) H 01/29/20 12:46 Ammonia 51 umol/L (11-32) H 01/29/20 12:46 Creatine Kinase 1328 Units/L (26-192) H 01/29/20 19:23 CK-MB (CK-2) 35.5 ng/mL (0-4.0) H* 01/29/20 12:46 CK/CKMB % Calc 1.8 % (<4) 01/29/20 12:46 Troponin I < 0.02 ng/mL (0-1.5) 01/29/20 12:46 Total Protein 7.1 g/dL (6.4-8.2) 01/29/20 12:46 Albumin 3.6 g/dL (3.4-5.0) 01/29/20 12:46 Globulin 3.5 g/dL (2.5-4.5) 01/29/20 12:46 Albumin/Globulin Ratio 1.0 Ratio (1.1-2.1) L 01/29/20 12:46 Urine Opiates Screen Negative (NEG=<300) 01/29/20 18:35 Urine Methadone Screen Negative (NEG=<300) 01/29/20 18:35 Ur Barbiturates Screen Negative (NEG=<200) 01/29/20 18:35 Ur Phencyclidine Scrn Negative (NEG=<25) 01/29/20 18:35 Ur Amphetamines Screen Positive (NEG=<1000) A 01/29/20 18:35 U Benzodiazepines Scrn Negative (NEG=<200) 01/29/20 18:35 Urine Cocaine Screen Negative (NEG=<300) 01/29/20 18:35 U Marijuana (THC) Screen Negative (NEG=<50) 01/29/20 18:35 XRAY XRAY Interpreted by: Radiologist X-ray Results: infiltrates EKG Rate: 94 [place]: Normal Rhythm: NSR Block: None Hypertrophy: None ST: Ant and Infarct (old) Opioid Opioid Risk Tool Family Hx of Substance Abuse: Illegal Drugs Personal Hx of Substance Abuse: Illegal Drugs Age (Sadi box if 16-45): No History of Preadolescent Sexual Abuse: No Psychological Disease: Schizophrenia Total: 1 Total Score Risk Category: Low Risk Copyright: Baljinder KILGORE predicting aberrant behaviors Diagnosis Discharge Problem: Hyperammonemia, Rhabdomyolysis Instructions Forms: Precautions for COVID19 Patient Portal Social Distancing
[2020-01-29 13:05] LABS: BASOPHILS % (AUTO) 0.5 % (0.2-1.0); EOSINOPHILS # (AUTO) 0.1 x10^3/uL (0.0-0.2); EOSINOPHILS % (AUTO) 3.7 % (0.9-2.9); LYMPHOCYTES # (AUTO) 0.7 X10^3/uL (1.3-2.9); LYMPHOCYTES % (AUTO) 24.3 % (21.0-51.0); MEAN CORPUSCULAR HGB CONC 34.3 g/dL (33.0-35.0); MEAN CORPUSCULAR VOLUME 90.6 fL (80.0-100.0); MEAN PLATELET VOLUME 8.9 fL (7.4-11.0); MONOCYTES # (AUTO) 0.3 x10^3/uL (0.3-0.8); MONOCYTES % (AUTO) 8.5 % (0.0-13.0); NEUTROPHILS # (AUTO) 1.9 x10^3/uL (2.2-4.8); PLATELET COUNT 42 X10^3/uL (150.0-450.0); RED CELL DISTRIBUTION WIDTH 15.8 % (11.6-16.5)
--- NOTE | 2020-01-29 13:06 | RAD ---
HISTORYACUTE SOBSTUDYCHEST, 1 [id number] view of the chestFINDINGSCardiac and mediastinal contours appear normal. Mild scattered interstitial opacities. No pleural effusion or pneumothorax. Soft tissue attenuation limits evaluation.IMPRESSIONMild scattered interstitial opacities can be seen with pulmonary edema and atypical pneumonia.Electronically signed by: Kadeem Williamson (Jan 29, 2020 13:04:55)
[2020-01-29 13:08] LABS: AMMONIA 51 umol/L (11-32)
[2020-01-29 13:17] LABS: PLATELET MORPHOLOGY COMMENT NORMAL (NORMAL)
[2020-01-29] MEDS ORDERED: XOPENEX 1.25 MG/3 ML NEBULE NEB ONE (13:20)
[2020-01-29] MEDS ORDERED: PROVENTIL NEB TX 0.083% 2.5MG/ 3ML NEB ONE (13:21)
[2020-01-29 13:39] LABS: ALANINE AMINOTRANSFERASE 76 Units/L (12-78); ALBUMIN 3.6 g/dL (3.4-5.0); ALKALINE PHOSPHATASE 141 Units/L (46-116); ASPARTATE AMINO TRANSFERASE 130 Units/L (15-37); BLOOD UREA NITROGEN 8 mg/dL (7-18); CALCIUM 9.5 mg/dL (8.5-10.1); CHLORIDE 104 mmol/L (98-107); CREATININE 0.86 mg/dL (0.55-1.02); SODIUM 140 mmol/L (136-145); TOTAL PROTEIN 7.1 g/dL (6.4-8.2); TROPONIN I < 0.02 ng/mL (0-1.5); eGFR NON BLACK RACES > 60 (>60)
[2020-01-29 13:48] LABS: CKMB % 1.8 % (<4); CREATINE KINASE 1964 Units/L (26-192)
[2020-01-29 13:49] LABS: CREATINE KINASE MB 35.5 ng/mL (0-4.0)
[2020-01-29] MEDS ORDERED: HALDOL INJ ONE (14:36)
[2020-01-29] MEDS: HALDOL INJ IM ONE ×2 (14:37→14:41)
[2020-01-29] MEDS ORDERED: NS 1000 ML 1,000 ML IV ONE ×2 (16:25→18:12)
[2020-01-29] MEDS ORDERED: NS 1000 ML 1,000 ML ONE (17:04)
[2020-01-29] MEDS ORDERED: POTASSIUM CHL 60 MEQ/NS 0.45% 500 ML IV PRN (21:59)
[2020-01-29] MEDS ORDERED: MICRO K EXTEN CAP 10 MEQ PO PRN (21:59)
[2020-01-29] MEDS ORDERED: POTASSIUM CHL 40 MEQ/NS 0.45% 500 ML IV PRN (21:59)
[2020-01-29] MEDS ORDERED: KLOR-CON PO PRN (21:59)
[2020-01-29] MEDS ORDERED: POTASSIUM CHLORIDE LIQ 20 MEQ UDC PO PRN (21:59)
[2020-01-29] MEDS: NS 1000 ML 1,000 ML IV SCH (22:04)
[2020-01-29] MEDS: MAGNESIUM SULFATE 1 GRAM/100 mL PREMIX 1 GM/100 ML BAG IV PRN (22:49)
[2020-01-30] MEDS: MAGNESIUM SULFATE 1 GRAM/100 mL PREMIX 1 GM/100 ML BAG IV PRN
[2020-01-30] MEDS: K-RIDER 10 MEQ/NS 100 ML 10 MEQ/100 ML BAG IV PRN ×5 (00:51→10:57)
[2020-01-30] MEDS: NS 1000 ML 1,000 ML IV SCH ×2 (06:08→21:06)
[2020-01-30 06:21] LABS: EOSINOPHILS # (AUTO) 0.1 x10^3/uL (0.0-0.2); EOSINOPHILS % (AUTO) 4.6 % (0.9-2.9); HEMATOCRIT 36.1 % (36.0-47.0); HEMOGLOBIN 12.5 g/dL (12.0-16.0); LYMPHOCYTES # (AUTO) 0.6 X10^3/uL (1.3-2.9); LYMPHOCYTES % (AUTO) 26.2 % (21.0-51.0); MEAN CORPUSCULAR HEMOGLOBIN 31.6 pg (27.0-34.0); MEAN CORPUSCULAR HGB CONC 34.7 g/dL (33.0-35.0); MEAN CORPUSCULAR VOLUME 90.9 fL (80.0-100.0); MEAN PLATELET VOLUME 8.2 fL (7.4-11.0); MONOCYTES # (AUTO) 0.2 x10^3/uL (0.3-0.8); NEUTROPHILS # (AUTO) 1.3 x10^3/uL (2.2-4.8); NEUTROPHILS % (AUTO) 59.2 % (42.0-75.0); PLATELET COUNT 33 X10^3/uL (150.0-450.0); RED BLOOD COUNT 3.97 X10^6/uL (3.5-5.4); RED CELL DISTRIBUTION WIDTH 15.8 % (11.6-16.5); WHITE BLOOD COUNT 2.2 X10^3/uL (3.6-10.0)
[2020-01-30 06:33] LABS: ALANINE AMINOTRANSFERASE 65 Units/L (12-78); ALBUMIN 3.1 g/dL (3.4-5.0); ALKALINE PHOSPHATASE 107 Units/L (46-116); ASPARTATE AMINO TRANSFERASE 103 Units/L (15-37); BLOOD UREA NITROGEN 5 mg/dL (7-18); CALCIUM 8.5 mg/dL (8.5-10.1); CARBON DIOXIDE 24.5 mmol/L (21-32); CHLORIDE 108 mmol/L (98-107); COR CA(FOR HYPOALB) 9.2 mg/dL (8.5-10.1); CREATININE 0.69 mg/dL (0.55-1.02); SODIUM 142 mmol/L (136-145); TOTAL PROTEIN 6.3 g/dL (6.4-8.2); eGFR NON BLACK RACES > 60 (>60)
[2020-01-30 06:57] LABS: BAND NEUTROPHILS % 2 % (0-10); PLATELET MORPHOLOGY COMMENT NORMAL (NORMAL)
[2020-01-30] MEDS: DUONEB 0.5 MG/3 MG (3 mL) NEB SCH ×2 (09:02→21:00)
[2020-01-30] MEDS ORDERED: MAGIC MOUTHWASH MT PRN (09:43)
[2020-01-30] MEDS ORDERED: HumuLIN R SC PRN (09:56)
--- NOTE | 2020-01-30 09:56 | DR.H&P ---
H&P History & Physical for Day of: H&P Date: 01/30/20 Chief Complaint Chief Complaint: dyspnea, weakness Allergies Allergies Allergy/AdvReac Type Severity Reaction Status Date / Time acetaminophen Allergy Verified 08/01/19 21:38 aloe Allergy Verified 08/01/19 21:38 codeine Allergy Verified 01/07/20 08:06 ketorolac [From Toradol] Allergy Verified 01/07/20 08:06 sumatriptan [From Imitrex] Allergy Verified 01/07/20 08:06 History of Present Illness History of Present Illness: Ms. Ag is a 49y/o female with a PMH of Hep C, Cirrhosis, drug abuse including methamphetamines, anxiety, bipolar and Schizophrenia presented with dyspnea and weakness. She states she used crystal meth yesterday. On exam, patient is a poor historian and appears drowsy. She us on room air with sats > 95%. She has not been compliant with her medications. She did receive IM Haldol in the ED. ER work-up - UDS + amphetamines - Total CK: 1900, Ammonia 51 Labs: Plt: 33 (42 on admission) Hgb 12.5 K: 3.2 Mg 2.0 CXR: pulmonary edema vs pneumonia Patient was admitted for rhabdomyolysis and started on IVF. Plan: repeat Total CK and ammonia level, start lactulose TID. Resume famotidine. Patient has not been getting her medications filled. Start SSI. Continue IVF and replace K as per protocol. Will add magic mouthwash and nystatin for mucositis and thrush. Past Medical History Past Medical History: Anxiety, Arthritis, Cirrhosis, Depression, Diabetes, Migraines, Hypothyroidism, Seizures and Sleep Apnea Additional Medical History: 1. DM; type II 2. Anxiety/depressive disorder 3. Bipolar disorder 4. Insomnia 5. Chronic low back pain; with self reported history of multiple herniated disk 6. H/O colon polyps 7. H/O endometriosis 8. Questionable generalized seizure disorder 9. Hepatitis C Past Surgical History Surgical History: Hysterectomy and Thyroidectomy Additional Surgical History: Pt reports having a colonoscopy and polypectomy two months ago in [place], [place] Family History Family Medical History: OR, Heart Failure and Hypertension Social History Does patient currently use any type of tobacco product: No Have you used tobacco products in the last 12 months: No Type of Tobacco Use: None Does any household member use tobacco: Yes Alcohol Use: None Drug Use: Prescription Drugs, Methamphetamine and Other Prescription drug monitoring program results: PDMP reviewed with concerns identified Medications Home Medications: acetaminophen Allergy (Verified 08/01/19 21:38) aloe Allergy (Verified 08/01/19 21:38) codeine Allergy (Verified 01/07/20 08:06) ketorolac [From Toradol] Allergy (Verified 01/07/20 08:06) sumatriptan [From Imitrex] Allergy (Verified 01/07/20 08:06) Labs Result Diagrams: 01/30/20 06:13 01/30/20 06:13 Labs: Laboratory WBC 2.2 X10^3/uL (3.6-10.0) L 01/30/20 06:13 RBC 3.97 X10^6/uL (3.5-5.4) 01/30/20 06:13 Hgb 12.5 g/dL (12.0-16.0) 01/30/20 06:13 Hct 36.1 % (36.0-47.0) 01/30/20 06:13 MCV 90.9 fL (80.0-100.0) 01/30/20 06:13 MCH 31.6 pg (27.0-34.0) 01/30/20 06:13 MCHC 34.7 g/dL (33.0-35.0) 01/30/20 06:13 RDW 15.8 % (11.6-16.5) 01/30/20 06:13 Plt Count 33 X10^3/uL (150.0-450.0) L 01/30/20 06:13 Plt Count Comment Decreased (ADEQUATE) A 01/30/20 06:13 MPV 8.2 fL (7.4-11.0) 01/30/20 06:13 Neut % (Auto) 59.2 % (42.0-75.0) 01/30/20 06:13 Lymph % (Auto) 26.2 % (21.0-51.0) 01/30/20 06:13 [place] % (Auto) 9.0 % (0.0-13.0) 01/30/20 06:13 Eos % (Auto) 4.6 % (0.9-2.9) H 01/30/20 06:13 Baso % (Auto) 1.0 % (0.2-1.0) 01/30/20 06:13 Neut # (Auto) 1.3 x10^3/uL (2.2-4.8) L 01/30/20 06:13 Lymph # (Auto) 0.6 X10^3/uL (1.3-2.9) L 01/30/20 06:13 [place] # (Auto) 0.2 x10^3/uL (0.3-0.8) L 01/30/20 06:13 Eos # (Auto) 0.1 x10^3/uL (0.0-0.2) 01/30/20 06:13 Baso # (Auto) 0.0 X10^3/uL (0.0-0.1) 01/30/20 06:13 Absolute Nucleated RBC 0.1 /100WBC 01/30/20 06:13 Total Counted 100 01/30/20 06:13 Neutrophils % (Manual) 62 % (39-76) 01/30/20 06:13 Band Neutrophils % 2 % (0-10) 01/30/20 06:13 Lymphocytes % (Manual) 25 % (13-43) 01/30/20 06:13 Monocytes % (Manual) 7 % (4-9) 01/30/20 06:13 Eosinophils % (Manual) 4 % (0-6) 01/30/20 06:13 Plt Morphology Comment Normal (NORMAL) 01/30/20 06:13 RBC Morphology Normal (NORMAL) 01/30/20 06:13 Sodium 142 mmol/L (136-145) 01/30/20 06:13 Corrected Sodium TNP 01/30/20 06:13 Potassium 3.2 mmol/L (3.5-5.1) L 01/30/20 06:13 Chloride 108 mmol/L (98-107) H 01/30/20 06:13 Carbon Dioxide 24.5 mmol/L (21-32) 01/30/20 06:13 BUN 5 mg/dL (7-18) L 01/30/20 06:13 Creatinine 0.69 mg/dL (0.55-1.02) 01/30/20 06:13 Est GFR (MDRD) Af Amer > 60 (>60) 01/30/20 06:13 Est GFR (MDRD) Non-Af > 60 (>60) 01/30/20 06:13 Glucose 97 mg/dL (65-99) 01/30/20 06:13 Calcium 8.5 mg/dL (8.5-10.1) 01/30/20 06:13 Corrected Calcium 9.2 mg/dL (8.5-10.1) 01/30/20 06:13 Magnesium 2.0 mg/dL (1.7-2.9) 01/30/20 06:13 Total Bilirubin 2.20 mg/dL (0.2-1.0) H 01/30/20 06:13 AST 103 Units/L (15-37) H 01/30/20 06:13 ALT 65 Units/L (12-78) 01/30/20 06:13 Alkaline Phosphatase 107 Units/L (46-116) 01/30/20 06:13 Ammonia 47 umol/L (11-32) H 01/30/20 08:52 Creatine Kinase 673 Units/L (26-192) H 01/30/20 08:52 CK-MB (CK-2) 35.5 ng/mL (0-4.0) H* 01/29/20 12:46 CK/CKMB % Calc 1.8 % (<4) 01/29/20 12:46 Troponin I < 0.02 ng/mL (0-1.5) 01/29/20 12:46 Total Protein 6.3 g/dL (6.4-8.2) L 01/30/20 06:13 Albumin 3.1 g/dL (3.4-5.0) L 01/30/20 06:13 Globulin 3.2 g/dL (2.5-4.5) 01/30/20 06:13 Albumin/Globulin Ratio 1.0 Ratio (1.1-2.1) L 01/30/20 06:13 Urine Opiates Screen Negative (NEG=<300) 01/29/20 18:35 Urine Methadone Screen Negative (NEG=<300) 01/29/20 18:35 Ur Barbiturates Screen Negative (NEG=<200) 01/29/20 18:35 Ur Phencyclidine Scrn Negative (NEG=<25) 01/29/20 18:35 Ur Amphetamines Screen Positive (NEG=<1000) A 01/29/20 18:35 U Benzodiazepines Scrn Negative (NEG=<200) 01/29/20 18:35 Urine Cocaine Screen Negative (NEG=<300) 01/29/20 18:35 U Marijuana (THC) Screen Negative (NEG=<50) 01/29/20 18:35 SARS-CoV-2 (PCR) Negative (NEGATIVE) 01/30/20 02:19 Review of Systems Constitutional: No Symptoms Reported Eyes: No Symptoms Reported ENT: No Symptoms Reported Respiratory: Shortness of Breath Cardiovascular: No Symptoms Reported Gastrointestinal: No Symptoms Reported Genitourinary: No Symptoms Reported Musculoskeletal: No Symptoms Reported Skin: No Symptoms Reported Neurological: Weakness and Confusion Physical Exam Vital Signs: Temperature 98.0 F Pulse Rate [Left Brachial] 90 Pulse Rate 90 Respiratory Rate 18 Blood Pressure [Left Calf] 133/63 Blood Pressure [Left Arm] 133/63 Blood Pressure 116/75 O2 Sat by Pulse Oximetry 99 Oriented: Unable to test Eyes: Normal Ear: Normal Throat: Dry and Other (enlarged tongue, thrush ) Respiratory: Diminished Throughout Cardiovascular: Normal Palpation: Normal Tenderness: Normal Skin: Normal Musculoskeletal: Normal Psychiatric: Anxiety Mood Description: Anxious Affect: Anxious Speech Pattern: Unclear and Delayed Assessment/Plan (1) Rhabdomyolysis: Qualifiers: Encounter type: initial encounter Status: Acute (2) Amphetamine abuse: Status: Acute (3) Pancytopenia: Status: Acute (4) Hepatitis C: Qualifiers: Viral hepatitis chronicity: chronic Hepatic coma status: without hepatic coma Qualified Code(s): B18.2 - Chronic viral hepatitis C Status: Acute (5) Hypokalemia: Status: Acute (6) Substance abuse: Status: Acute (7) Psychiatric symptoms: Status: Acute (8) Polysubstance (including opioids) dependence w/o physiol dependence: Status: Acute (9) Schizophrenia: Status: Chronic (10) Thrombocytopenia: Status: Acute (11) Diabetes: Status: Chronic (12) GERD (gastroesophageal reflux disease): Status: Chronic (13) Hyperammonemia: Status: Acute Review H&P Reviewed: Yes Patient was examined?: Yes
[2020-01-30] MEDS ORDERED: CHRONULAC PO SCH (10:00)
[2020-01-30] MEDS: CHRONULAC PO SCH ×5 (10:27→21:08)
[2020-01-30] MEDS: PEPCID TAB 20 MG PO SCH ×3 (10:27→11:23)
[2020-01-30] MEDS: K-DUR TAB 20 MEQ PO PRN (11:23)
[2020-01-30] MEDS: NYSTATIN SUSP PO SCH ×3 (15:49→21:08)
[2020-01-31] MEDS: NS 1000 ML 1,000 ML IV SCH ×4 (05:02→20:36)
[2020-01-31] MEDS: CHRONULAC PO SCH ×3 (05:02→21:28)
[2020-01-31 06:21] LABS: AMMONIA 42 umol/L (11-32); BASOPHILS % (AUTO) 0.7 % (0.2-1.0); EOSINOPHILS # (AUTO) 0.1 x10^3/uL (0.0-0.2); EOSINOPHILS % (AUTO) 4.5 % (0.9-2.9); HEMOGLOBIN 12.6 g/dL (12.0-16.0); LYMPHOCYTES # (AUTO) 0.5 X10^3/uL (1.3-2.9); LYMPHOCYTES % (AUTO) 26.6 % (21.0-51.0); MEAN CORPUSCULAR HEMOGLOBIN 31.3 pg (27.0-34.0); MEAN CORPUSCULAR HGB CONC 34.1 g/dL (33.0-35.0); MEAN CORPUSCULAR VOLUME 91.8 fL (80.0-100.0); MEAN PLATELET VOLUME 9.3 fL (7.4-11.0); MONOCYTES # (AUTO) 0.2 x10^3/uL (0.3-0.8); MONOCYTES % (AUTO) 8.7 % (0.0-13.0); NEUTROPHILS # (AUTO) 1.2 x10^3/uL (2.2-4.8); NEUTROPHILS % (AUTO) 59.5 % (42.0-75.0); PLATELET COUNT 32 X10^3/uL (150.0-450.0); RED BLOOD COUNT 4.03 X10^6/uL (3.5-5.4); RED CELL DISTRIBUTION WIDTH 15.9 % (11.6-16.5)
[2020-01-31 06:22] LABS: ALANINE AMINOTRANSFERASE 56 Units/L (12-78); ALBUMIN 2.9 g/dL (3.4-5.0); ALKALINE PHOSPHATASE 100 Units/L (46-116); ASPARTATE AMINO TRANSFERASE 83 Units/L (15-37); BLOOD UREA NITROGEN 5 mg/dL (7-18); CALCIUM 8.6 mg/dL (8.5-10.1); CARBON DIOXIDE 23.7 mmol/L (21-32); CHLORIDE 109 mmol/L (98-107); COR CA(FOR HYPOALB) 9.5 mg/dL (8.5-10.1); CREATINE KINASE 328 Units/L (26-192); CREATININE 0.61 mg/dL (0.55-1.02); MAGNESIUM 1.8 mg/dL (1.7-2.9); SODIUM 142 mmol/L (136-145); TOTAL PROTEIN 6.3 g/dL (6.4-8.2); eGFR NON BLACK RACES > 60 (>60)
[2020-01-31 06:36] LABS: WHITE BLOOD COUNT 1.9 X10^3/uL (3.6-10.0)
[2020-01-31] MEDS: K-DUR TAB 20 MEQ PO PRN (06:40)
[2020-01-31] MEDS: MAGNESIUM SULFATE 1 GRAM/100 mL PREMIX 1 GM/100 ML BAG IV PRN ×2 (06:40→10:00)
[2020-01-31 06:54] LABS: BAND NEUTROPHILS % 2 % (0-10)
[2020-01-31 06:55] LABS: PLATELET MORPHOLOGY COMMENT NORMAL (NORMAL)
[2020-01-31] MEDS: DUONEB 0.5 MG/3 MG (3 mL) NEB SCH ×2 (08:27→21:00)
[2020-01-31] MEDS: PEPCID TAB 20 MG PO SCH (09:58)
[2020-01-31] MEDS: NYSTATIN SUSP PO SCH ×4 (09:58→20:35)
[2020-01-31] MEDS ORDERED: ATARAX TAB 25 MG PO SCH (10:15)
--- NOTE | 2020-01-31 10:15 | PCM.PROG ---
Progress Note Progress Note for Day of Date of Exam: 01/31/20 Subjective Subjective: Patient seen at bedside, no overnight events. Patient is more awake and alert this AM. She states she has been itching on her back and feels sweaty. She denies fever or chills. She was able to tolerate liquids. She wants to try soft food today. She reports having diarrhea, 3 BMs so far. She denies SOB or cough. Labs: WBC 1.9 Hgb 12.6 Plt: 32 Na:142 K:3.4 BUN/Cr: 5/0.61 Ammonia 32 CK 328 Plan: will add hydroxyzine for itching, advance to soft diet, check stool studies for C diff and stool culture. Will repeat CXR, blood cultures and start Cefepime for empiric treatment for neutropenia. Monitor AM labs. Continue lactulose. Past Medical Family Social History Past Med/Fam/Surg Hx: No changes since H&P Allergies: Allergies acetaminophen Allergy (Verified 08/01/19 21:38) aloe Allergy (Verified 08/01/19 21:38) codeine Allergy (Verified 01/07/20 08:06) ketorolac [From Toradol] Allergy (Verified 01/07/20 08:06) sumatriptan [From Imitrex] Allergy (Verified 01/07/20 08:06) Review of Systems ROS: No change since H&P Vital Signs and I&O's Vital Signs: Temperature 97.8 F Pulse Rate [Left Brachial] 93 Pulse Rate 93 Respiratory Rate 18 Blood Pressure [Left Calf] 119/71 Blood Pressure [Left Arm] 133/63 Blood Pressure 116/75 O2 Sat by Pulse Oximetry 99 Intake and Output: Intake & Output 01/28/20 01/29/20 01/30/20 01/31/20 23:59 23:59 23:59 23:59 Intake Total 125 / 125 4241 / 4241 920 / 920 Balance 125 / 125 4241 / 4241 920 / 920 Physical Exam Oriented: Normal Eyes: Normal Ear: Normal Throat: Normal and Other (thrush) Respiratory: Normal Cardiovascular: Normal Auscultation: Bowel Sounds: Normal Tenderness: Normal Skin: Normal Musculoskeletal: Normal Psychiatric: Normal Mood Description: Calm Affect: Normal Speech Pattern: Appropriate Laboratory and Diagnostics Result Diagrams: 01/31/20 05:26 01/31/20 09:51 Labs: Laboratory WBC 1.9 X10^3/uL (3.6-10.0) L* 01/31/20 05:26 RBC 4.03 X10^6/uL (3.5-5.4) 01/31/20 05:26 Hgb 12.6 g/dL (12.0-16.0) 01/31/20 05:26 Hct 37.0 % (36.0-47.0) 01/31/20 05:26 MCV 91.8 fL (80.0-100.0) 01/31/20 05:26 MCH 31.3 pg (27.0-34.0) 01/31/20 05:26 MCHC 34.1 g/dL (33.0-35.0) 01/31/20 05:26 RDW 15.9 % (11.6-16.5) 01/31/20 05:26 Plt Count 32 X10^3/uL (150.0-450.0) L 01/31/20 05:26 Plt Count Comment Decreased (ADEQUATE) A 01/31/20 05:26 MPV 9.3 fL (7.4-11.0) 01/31/20 05:26 Neut % (Auto) 59.5 % (42.0-75.0) 01/31/20 05:26 Lymph % (Auto) 26.6 % (21.0-51.0) 01/31/20 05:26 [place] % (Auto) 8.7 % (0.0-13.0) 01/31/20 05:26 Eos % (Auto) 4.5 % (0.9-2.9) H 01/31/20 05:26 Baso % (Auto) 0.7 % (0.2-1.0) 01/31/20 05:26 Neut # (Auto) 1.2 x10^3/uL (2.2-4.8) L 01/31/20 05:26 Lymph # (Auto) 0.5 X10^3/uL (1.3-2.9) L 01/31/20 05:26 [place] # (Auto) 0.2 x10^3/uL (0.3-0.8) L 01/31/20 05:26 Eos # (Auto) 0.1 x10^3/uL (0.0-0.2) 01/31/20 05:26 Baso # (Auto) 0.0 X10^3/uL (0.0-0.1) 01/31/20 05:26 Absolute Nucleated RBC 0.5 /100WBC 01/31/20 05:26 Total Counted 100 01/31/20 05:26 Neutrophils % (Manual) 60 % (39-76) 01/31/20 05:26 Band Neutrophils % 2 % (0-10) 01/31/20 05:26 Lymphocytes % (Manual) 26 % (13-43) 01/31/20 05:26 Monocytes % (Manual) 8 % (4-9) 01/31/20 05:26 Eosinophils % (Manual) 4 % (0-6) 01/31/20 05:26 Plt Morphology Comment Normal (NORMAL) 01/31/20 05:26 RBC Morphology Normal (NORMAL) 01/31/20 05:26 Sodium 142 mmol/L (136-145) 01/31/20 05:26 Corrected Sodium TNP 01/31/20 05:26 Potassium 3.5 mmol/L (3.5-5.1) 01/31/20 09:51 Chloride 109 mmol/L (98-107) H 01/31/20 05:26 Carbon Dioxide 23.7 mmol/L (21-32) 01/31/20 05:26 BUN 5 mg/dL (7-18) L 01/31/20 05:26 Creatinine 0.61 mg/dL (0.55-1.02) 01/31/20 05:26 Est GFR (MDRD) Af Amer > 60 (>60) 01/31/20 05:26 Est GFR (MDRD) Non-Af > 60 (>60) 01/31/20 05:26 Glucose 85 mg/dL (65-99) 01/31/20 05:26 POC Glucose (mg/dL) 77 mg/dL (65-99) 01/31/20 05:17 Calcium 8.6 mg/dL (8.5-10.1) 01/31/20 05:26 Corrected Calcium 9.5 mg/dL (8.5-10.1) 01/31/20 05:26 Magnesium 1.8 mg/dL (1.7-2.9) 01/31/20 05:26 Total Bilirubin 2.20 mg/dL (0.2-1.0) H 01/31/20 05:26 AST 83 Units/L (15-37) H 01/31/20 05:26 ALT 56 Units/L (12-78) 01/31/20 05:26 Alkaline Phosphatase 100 Units/L (46-116) 01/31/20 05:26 Ammonia 42 umol/L (11-32) H 01/31/20 05:26 Creatine Kinase 328 Units/L (26-192) H 01/31/20 05:26 CK-MB (CK-2) 35.5 ng/mL (0-4.0) H* 01/29/20 12:46 CK/CKMB % Calc 1.8 % (<4) 01/29/20 12:46 Troponin I < 0.02 ng/mL (0-1.5) 01/29/20 12:46 Total Protein 6.3 g/dL (6.4-8.2) L 01/31/20 05:26 Albumin 2.9 g/dL (3.4-5.0) L 01/31/20 05:26 Globulin 3.4 g/dL (2.5-4.5) 01/31/20 05:26 Albumin/Globulin Ratio 0.9 Ratio (1.1-2.1) L 01/31/20 05:26 Urine Opiates Screen Negative (NEG=<300) 01/29/20 18:35 Urine Methadone Screen Negative (NEG=<300) 01/29/20 18:35 Ur Barbiturates Screen Negative (NEG=<200) 01/29/20 18:35 Ur Phencyclidine Scrn Negative (NEG=<25) 01/29/20 18:35 Ur Amphetamines Screen Positive (NEG=<1000) A 01/29/20 18:35 U Benzodiazepines Scrn Negative (NEG=<200) 01/29/20 18:35 Urine Cocaine Screen Negative (NEG=<300) 01/29/20 18:35 U Marijuana (THC) Screen Negative (NEG=<50) 01/29/20 18:35 SARS-CoV-2 (PCR) Negative (NEGATIVE) 01/30/20 02:19 Plan (1) Neutropenia: Status: Acute (2) Rhabdomyolysis: Status: Acute Qualifiers: Encounter type: initial encounter (3) Amphetamine abuse: Status: Acute (4) Pancytopenia: Status: Acute (5) Hepatitis C: Status: Acute Qualifiers: Hepatic coma status: without hepatic coma Viral hepatitis chronicity: chronic Qualified Code(s): B18.2 - Chronic viral hepatitis C (6) Hypokalemia: Status: Acute (7) Substance abuse: Status: Acute (8) Psychiatric symptoms: Status: Acute (9) Polysubstance (including opioids) dependence w/o physiol dependence: Status: Acute (10) Schizophrenia: Status: Chronic (11) Thrombocytopenia: Status: Acute (12) Diabetes: Status: Chronic (13) GERD (gastroesophageal reflux disease): Status: Chronic (14) Hyperammonemia: Status: Acute
[2020-01-31] MEDS: MAXIPIME VIAL 1 GRAM 1 G in NS 50 ML IV + SPIKE MINIBAG* 50 ML IV SCH ×2 (10:49→20:36)
[2020-01-31] MEDS: ATARAX TAB 25 MG PO PRN (10:50)
--- NOTE | 2020-01-31 12:03 | RAD ---
CHEST, 1 VIEWHISTORY: follow up edemaStudy: Single view of the chest.Comparison:NoneFindings:Heart is normal size. Pulmonary vascular congestion present.No focal consolidations, pleural effusions or pneumothorax. Osseous structures demonstrate no acute abnormality.IMPRESSION:1. No acute cardiopulmonary process.Electronically signed by: LEONARDO ULLOA (Jan 31, 2020 12:01:48)
[2020-01-31] MEDS ORDERED: ZITHROMAX INJ 500 MG VIAL IV ONE (17:34)
[2020-01-31] MEDS ORDERED: NS 250 ML IV 250 ML IV ONE (17:35)
[2020-01-31] MEDS: ZITHROMAX INJ 500 MG VIAL 250 MG in NS 250 ML IV 250 ML IV SCH (18:01)
[2020-01-31] MEDS ORDERED: NS 500 ML IV 500 ML IV ONE (18:06)
[2020-02-01] MEDS: CHRONULAC PO SCH ×2 (05:20→21:01)
[2020-02-01] MEDS: NS 1000 ML 1,000 ML IV SCH ×3 (05:31→21:04)
[2020-02-01 06:25] LABS: BASOPHILS % (AUTO) 0.9 % (0.2-1.0); EOSINOPHILS # (AUTO) 0.1 x10^3/uL (0.0-0.2); EOSINOPHILS % (AUTO) 6.3 % (0.9-2.9); HEMATOCRIT 36.5 % (36.0-47.0); HEMOGLOBIN 12.7 g/dL (12.0-16.0); LYMPHOCYTES # (AUTO) 0.5 X10^3/uL (1.3-2.9); LYMPHOCYTES % (AUTO) 25.9 % (21.0-51.0); MEAN CORPUSCULAR HEMOGLOBIN 31.9 pg (27.0-34.0); MEAN CORPUSCULAR HGB CONC 34.9 g/dL (33.0-35.0); MEAN CORPUSCULAR VOLUME 91.3 fL (80.0-100.0); MEAN PLATELET VOLUME 8.3 fL (7.4-11.0); MONOCYTES # (AUTO) 0.2 x10^3/uL (0.3-0.8); MONOCYTES % (AUTO) 9.8 % (0.0-13.0); NEUTROPHILS % (AUTO) 57.1 % (42.0-75.0); PLATELET COUNT 30 X10^3/uL (150.0-450.0); RED BLOOD COUNT 3.99 X10^6/uL (3.5-5.4); RED CELL DISTRIBUTION WIDTH 15.9 % (11.6-16.5)
[2020-02-01 06:46] LABS: ALANINE AMINOTRANSFERASE 54 Units/L (12-78); ALKALINE PHOSPHATASE 106 Units/L (46-116); AMMONIA 38 umol/L (11-32); ASPARTATE AMINO TRANSFERASE 69 Units/L (15-37); BLOOD UREA NITROGEN 3 mg/dL (7-18); CALCIUM 8.8 mg/dL (8.5-10.1); CARBON DIOXIDE 23.5 mmol/L (21-32); CHLORIDE 109 mmol/L (98-107); COR CA(FOR HYPOALB) 9.6 mg/dL (8.5-10.1); COR NA(FOR HYPERGLY) 144 mmol/L (136-145); CREATINE KINASE 238 Units/L (26-192); CREATININE 0.69 mg/dL (0.55-1.02); MAGNESIUM 1.7 mg/dL (1.7-2.9); SODIUM 144 mmol/L (136-145); TOTAL PROTEIN 6.3 g/dL (6.4-8.2); eGFR NON BLACK RACES > 60 (>60)
[2020-02-01 07:06] LABS: WHITE BLOOD COUNT 1.8 X10^3/uL (3.6-10.0)
[2020-02-01 07:09] LABS: PLATELET MORPHOLOGY COMMENT NORMAL (NORMAL)
[2020-02-01] MEDS: PEPCID TAB 20 MG PO SCH (09:12)
[2020-02-01] MEDS: K-DUR TAB 20 MEQ PO PRN (09:13)
[2020-02-01] MEDS: MAXIPIME VIAL 1 GRAM 1 G in NS 50 ML IV + SPIKE MINIBAG* 50 ML IV SCH (09:15)
[2020-02-01] MEDS: DUONEB 0.5 MG/3 MG (3 mL) NEB SCH ×2 (09:19→21:14)
[2020-02-01] MEDS: NYSTATIN SUSP PO SCH ×4 (11:44→21:01)
[2020-02-01] MEDS: ZITHROMAX INJ 500 MG VIAL 250 MG in NS 250 ML IV 250 ML IV SCH (11:44)
--- NOTE | 2020-02-01 13:36 | PCM.PROG ---
Progress Note - Progress Note for Day of Date of Exam: 02/01/20 - Subjective Subjective: PT IS 49 WF ER ADMISSION WITH RHABOMYOLYSIS, DEHYDRATION AND DIARRHEA. PTS HAD PANCYTOPENIA A RESULT OF ADVANCED CHRONIC LIVER DISEASE. PT HAD STOOL CULTURE POSITIVE FOR CAMPYLOBACTER, PT STARTED ON IV ZITHROMAX. PT CONTINUES WITH LEUKOPENIA. PT HAD TOLERATED PO INTAKE. IMPROVING CREATNINE KINASE. OCCULT STOOL ORDERED AND BLEEDING PRECAUTIONS. ENCOURAGED ORAL HYDRATION. - Past Medical Family Social History Past Med/Fam/Surg Hx: No changes since H&P Allergies: Allergies acetaminophen Allergy (Verified 08/01/19 21:38) aloe Allergy (Verified 08/01/19 21:38) codeine Allergy (Verified 01/07/20 08:06) ketorolac [From Toradol] Allergy (Verified 01/07/20 08:06) sumatriptan [From Imitrex] Allergy (Verified 01/07/20 08:06) - Review of Systems ROS: No change since H&P - Vital Signs and I&O's Vital Signs: Temperature 98.4 F Pulse Rate [Left Brachial] 80 Pulse Rate 93 Respiratory Rate 20 Blood Pressure [Left Calf] 119/71 Blood Pressure [Left Arm] 111/72 Blood Pressure 116/75 O2 Sat by Pulse Oximetry 95 Intake and Output: Intake & Output 01/30/20 01/31/20 02/01/20 02/02/20 11:59 11:59 11:59 11:59 Intake Total 1313 / 1313 3973 / 3973 5616 / 5616 Balance 1313 / 1313 3973 / 3973 5616 / 5616 - Physical Exam Oriented: Normal Eyes: Normal Ear: Normal Throat: Normal, Other (thrush) Respiratory: Diminished Cardiovascular: Normal Auscultation: Bowel Sounds: Normal Tenderness: Normal Skin: Bruising (SCATTERED BRUISES TO BILATERAL UPPER AND LOWER EXTREMITIES) Musculoskeletal: Normal Psychiatric: Normal Mood Description: Calm Affect: Normal Speech Pattern: Slurred - Laboratory and Diagnostics Result Diagrams: 02/01/20 05:48 02/01/20 05:48 Labs: 01/31/20 14:15 Stool Stool Culture - Preliminary 01/31/20 14:15 Stool - Final Laboratory WBC 1.8 X10^3/uL (3.6-10.0) L* 02/01/20 05:48 RBC 3.99 X10^6/uL (3.5-5.4) 02/01/20 05:48 Hgb 12.7 g/dL (12.0-16.0) 02/01/20 05:48 Hct 36.5 % (36.0-47.0) 02/01/20 05:48 MCV 91.3 fL (80.0-100.0) 02/01/20 05:48 MCH 31.9 pg (27.0-34.0) 02/01/20 05:48 MCHC 34.9 g/dL (33.0-35.0) 02/01/20 05:48 RDW 15.9 % (11.6-16.5) 02/01/20 05:48 Plt Count 30 X10^3/uL (150.0-450.0) L 02/01/20 05:48 Plt Count Comment Decreased (ADEQUATE) A 02/01/20 05:48 MPV 8.3 fL (7.4-11.0) 02/01/20 05:48 Neut % (Auto) 57.1 % (42.0-75.0) 02/01/20 05:48 Lymph % (Auto) 25.9 % (21.0-51.0) 02/01/20 05:48 [place] % (Auto) 9.8 % (0.0-13.0) 02/01/20 05:48 Eos % (Auto) 6.3 % (0.9-2.9) H 02/01/20 05:48 Baso % (Auto) 0.9 % (0.2-1.0) 02/01/20 05:48 Neut # (Auto) 1.0 x10^3/uL (2.2-4.8) L 02/01/20 05:48 Lymph # (Auto) 0.5 X10^3/uL (1.3-2.9) L 02/01/20 05:48 [place] # (Auto) 0.2 x10^3/uL (0.3-0.8) L 02/01/20 05:48 Eos # (Auto) 0.1 x10^3/uL (0.0-0.2) 02/01/20 05:48 Baso # (Auto) 0.0 X10^3/uL (0.0-0.1) 02/01/20 05:48 Absolute Nucleated RBC 0.3 /100WBC 02/01/20 05:48 Total Counted 50 02/01/20 05:48 Neutrophils % (Manual) 55 % (39-76) 02/01/20 05:48 Band Neutrophils % 2 % (0-10) 01/31/20 05:26 Lymphocytes % (Manual) 31 % (13-43) 02/01/20 05:48 Monocytes % (Manual) 6 % (4-9) 02/01/20 05:48 Eosinophils % (Manual) 8 % (0-6) H 02/01/20 05:48 Plt Morphology Comment Normal (NORMAL) 02/01/20 05:48 RBC Morphology Normal (NORMAL) 02/01/20 05:48 Sodium 144 mmol/L (136-145) 02/01/20 05:48 Corrected Sodium 144 mmol/L (136-145) 02/01/20 05:48 Potassium 3.3 mmol/L (3.5-5.1) L 02/01/20 05:48 Chloride 109 mmol/L (98-107) H 02/01/20 05:48 Carbon Dioxide 23.5 mmol/L (21-32) 02/01/20 05:48 BUN 3 mg/dL (7-18) L 02/01/20 05:48 Creatinine 0.69 mg/dL (0.55-1.02) 02/01/20 05:48 Est GFR (MDRD) Af Amer > 60 (>60) 02/01/20 05:48 Est GFR (MDRD) Non-Af > 60 (>60) 02/01/20 05:48 Glucose 118 mg/dL (65-99) H 02/01/20 05:48 POC Glucose (mg/dL) 109 mg/dL (65-99) H 02/01/20 11:49 Calcium 8.8 mg/dL (8.5-10.1) 02/01/20 05:48 Corrected Calcium 9.6 mg/dL (8.5-10.1) 02/01/20 05:48 Magnesium 1.7 mg/dL (1.7-2.9) 02/01/20 05:48 Total Bilirubin 1.70 mg/dL (0.2-1.0) H 02/01/20 05:48 AST 69 Units/L (15-37) H 02/01/20 05:48 ALT 54 Units/L (12-78) 02/01/20 05:48 Alkaline Phosphatase 106 Units/L (46-116) 02/01/20 05:48 Ammonia 38 umol/L (11-32) H 02/01/20 05:48 Creatine Kinase 238 Units/L (26-192) H 02/01/20 05:48 CK-MB (CK-2) 35.5 ng/mL (0-4.0) H* 01/29/20 12:46 CK/CKMB % Calc 1.8 % (<4) 01/29/20 12:46 Troponin I < 0.02 ng/mL (0-1.5) 01/29/20 12:46 Total Protein 6.3 g/dL (6.4-8.2) L 02/01/20 05:48 Albumin 3.0 g/dL (3.4-5.0) L 02/01/20 05:48 Globulin 3.3 g/dL (2.5-4.5) 02/01/20 05:48 Albumin/Globulin Ratio 0.9 Ratio (1.1-2.1) L 02/01/20 05:48 Stool for White Cells Negative (NEGATIVE) 01/31/20 14:15 Stl C. diff Tox B Gene Negative (NEGATIVE) 01/31/20 14:15 Stl C. diff [id number] Negative (NEGATIVE) 01/31/20 14:15 Urine Opiates Screen Negative (NEG=<300) 01/29/20 18:35 Urine Methadone Screen Negative (NEG=<300) 01/29/20 18:35 Ur Barbiturates Screen Negative (NEG=<200) 01/29/20 18:35 Ur Phencyclidine Scrn Negative (NEG=<25) 01/29/20 18:35 Ur Amphetamines Screen Positive (NEG=<1000) A 01/29/20 18:35 U Benzodiazepines Scrn Negative (NEG=<200) 01/29/20 18:35 Urine Cocaine Screen Negative (NEG=<300) 01/29/20 18:35 U Marijuana (THC) Screen Negative (NEG=<50) 01/29/20 18:35 SARS-CoV-2 (PCR) Negative (NEGATIVE) 01/30/20 02:19 - Plan (1) Campylobacter diarrhea Status: Acute Plan: IV HYDRATION, ENCOURAGE ORAL HYDRATION. OCCULT STOOL, IV ZITHROMAX. BS CONTROL, BP AND CARDIAC MONITORING. REPEAT AM LABS, CONTINUE LACTULOSE, DECREASED TO BID WITH STABLE AMMONIA LEVEL AND ACUTE COLITIS. REPEAT AM AMMONIA LEVEL (2) Rhabdomyolysis Status: Acute (3) Amphetamine abuse Status: Acute (4) Chronic leukopenia Status: Acute (5) Diabetes mellitus, type 2 Status: Chronic (6) GERD (gastroesophageal reflux disease) Status: Chronic (7) Hepatitis Status: Chronic (8) Liver disease, chronic Status: Acute
[2020-02-01] MEDS: ZITHROMAX INJ 500 MG VIAL 500 MG in NS 250 ML IV 250 ML IV SCH (13:54)
[2020-02-01] MEDS: ATARAX TAB 25 MG PO PRN (21:01)
[2020-02-02] MEDS: NS 1000 ML 1,000 ML IV SCH ×3 (05:31→20:31)
[2020-02-02] MEDS: ATARAX TAB 25 MG PO PRN ×2 (05:54→20:29)
[2020-02-02 06:04] LABS: BASOPHILS % (AUTO) 0.7 % (0.2-1.0); EOSINOPHILS # (AUTO) 0.1 x10^3/uL (0.0-0.2); EOSINOPHILS % (AUTO) 5.6 % (0.9-2.9); HEMATOCRIT 34.5 % (36.0-47.0); HEMOGLOBIN 12.2 g/dL (12.0-16.0); LYMPHOCYTES # (AUTO) 0.5 X10^3/uL (1.3-2.9); LYMPHOCYTES % (AUTO) 29.9 % (21.0-51.0); MEAN CORPUSCULAR HGB CONC 35.2 g/dL (33.0-35.0); MEAN PLATELET VOLUME 8.3 fL (7.4-11.0); MONOCYTES # (AUTO) 0.2 x10^3/uL (0.3-0.8); MONOCYTES % (AUTO) 10.2 % (0.0-13.0); NEUTROPHILS # (AUTO) 0.9 x10^3/uL (2.2-4.8); NEUTROPHILS % (AUTO) 53.6 % (42.0-75.0); PLATELET COUNT 34 X10^3/uL (150.0-450.0); RED CELL DISTRIBUTION WIDTH 15.7 % (11.6-16.5)
[2020-02-02 06:17] LABS: AMMONIA 39 umol/L (11-32)
[2020-02-02 06:24] LABS: ALANINE AMINOTRANSFERASE 47 Units/L (12-78); ALBUMIN 2.7 g/dL (3.4-5.0); ALKALINE PHOSPHATASE 110 Units/L (46-116); ASPARTATE AMINO TRANSFERASE 56 Units/L (15-37); BLOOD UREA NITROGEN 3 mg/dL (7-18); CALCIUM 8.3 mg/dL (8.5-10.1); CARBON DIOXIDE 26.3 mmol/L (21-32); CHLORIDE 110 mmol/L (98-107); COR CA(FOR HYPOALB) 9.3 mg/dL (8.5-10.1); CREATININE 0.64 mg/dL (0.55-1.02); MAGNESIUM 1.6 mg/dL (1.7-2.9); SODIUM 143 mmol/L (136-145); eGFR NON BLACK RACES > 60 (>60)
[2020-02-02 07:09] LABS: WHITE BLOOD COUNT 1.7 X10^3/uL (3.6-10.0)
[2020-02-02 07:10] LABS: PLATELET MORPHOLOGY COMMENT NORMAL (NORMAL)
[2020-02-02] MEDS: PEPCID TAB 20 MG PO SCH (09:05)
[2020-02-02] MEDS: CHRONULAC PO SCH ×2 (09:05→20:29)
[2020-02-02] MEDS: NYSTATIN SUSP PO SCH ×4 (09:05→20:30)
[2020-02-02] MEDS: ZITHROMAX INJ 500 MG VIAL 500 MG in NS 250 ML IV 250 ML IV SCH (09:43)
[2020-02-02] MEDS: DUONEB 0.5 MG/3 MG (3 mL) NEB SCH ×3 (09:58→21:57)
[2020-02-02] MEDS: K-DUR TAB 20 MEQ PO PRN (12:15)
[2020-02-02] MEDS: MAGNESIUM SULFATE 1 GRAM/100 mL PREMIX 1 GM/100 ML BAG IV PRN ×3 (15:46→17:27)
[2020-02-03] MEDS: NS 1000 ML 1,000 ML IV SCH (05:56)
[2020-02-03 06:40] LABS: BASOPHILS % (AUTO) 0.5 % (0.2-1.0); EOSINOPHILS # (AUTO) 0.1 x10^3/uL (0.0-0.2); EOSINOPHILS % (AUTO) 5.4 % (0.9-2.9); HEMATOCRIT 34.6 % (36.0-47.0); LYMPHOCYTES # (AUTO) 0.4 X10^3/uL (1.3-2.9); LYMPHOCYTES % (AUTO) 26.9 % (21.0-51.0); MEAN CORPUSCULAR HEMOGLOBIN 31.9 pg (27.0-34.0); MEAN CORPUSCULAR HGB CONC 34.6 g/dL (33.0-35.0); MEAN CORPUSCULAR VOLUME 92.4 fL (80.0-100.0); MEAN PLATELET VOLUME 8.5 fL (7.4-11.0); MONOCYTES # (AUTO) 0.1 x10^3/uL (0.3-0.8); MONOCYTES % (AUTO) 9.3 % (0.0-13.0); NEUTROPHILS # (AUTO) 0.9 x10^3/uL (2.2-4.8); NEUTROPHILS % (AUTO) 57.9 % (42.0-75.0); PLATELET COUNT 32 X10^3/uL (150.0-450.0); RED BLOOD COUNT 3.75 X10^6/uL (3.5-5.4); RED CELL DISTRIBUTION WIDTH 15.9 % (11.6-16.5)
[2020-02-03 06:49] LABS: WHITE BLOOD COUNT 1.6 X10^3/uL (3.6-10.0)
[2020-02-03 07:08] LABS: ALANINE AMINOTRANSFERASE 43 Units/L (12-78); ALBUMIN 2.8 g/dL (3.4-5.0); ALKALINE PHOSPHATASE 107 Units/L (46-116); ASPARTATE AMINO TRANSFERASE 53 Units/L (15-37); BLOOD UREA NITROGEN 4 mg/dL (7-18); CALCIUM 8.4 mg/dL (8.5-10.1); CARBON DIOXIDE 25.9 mmol/L (21-32); CHLORIDE 109 mmol/L (98-107); COR CA(FOR HYPOALB) 9.4 mg/dL (8.5-10.1); CREATININE 0.58 mg/dL (0.55-1.02); SODIUM 142 mmol/L (136-145); TOTAL PROTEIN 6.1 g/dL (6.4-8.2); eGFR NON BLACK RACES > 60 (>60)
[2020-02-03 07:11] LABS: PLATELET MORPHOLOGY COMMENT NORMAL (NORMAL)
[2020-02-03] MEDS: PEPCID TAB 20 MG PO SCH (08:58)
[2020-02-03] MEDS: CHRONULAC PO SCH (08:58)
[2020-02-03] MEDS: NYSTATIN SUSP PO SCH (08:58)
[2020-02-03] MEDS: K-DUR TAB 20 MEQ PO PRN (08:59)
[2020-02-03] MEDS: DUONEB 0.5 MG/3 MG (3 mL) NEB SCH (10:03)
[2020-02-03 12:18] LABS: EOSINOPHILS # (AUTO) 0.1 x10^3/uL (0.0-0.2); LYMPHOCYTES # (AUTO) 0.4 X10^3/uL (1.3-2.9); MONOCYTES # (AUTO) 0.2 x10^3/uL (0.3-0.8); NEUTROPHILS # (AUTO) 1.1 x10^3/uL (2.2-4.8)
[2020-02-03 12:23] LABS: BASOPHILS % (AUTO) 0.6 % (0.2-1.0); EOSINOPHILS % (AUTO) 5.1 % (0.9-2.9); HEMATOCRIT 36.9 % (36.0-47.0); HEMOGLOBIN 12.9 g/dL (12.0-16.0); LYMPHOCYTES % (AUTO) 21.9 % (21.0-51.0); MEAN CORPUSCULAR HEMOGLOBIN 31.6 pg (27.0-34.0); MEAN CORPUSCULAR HGB CONC 34.8 g/dL (33.0-35.0); MEAN CORPUSCULAR VOLUME 90.7 fL (80.0-100.0); MEAN PLATELET VOLUME 8.4 fL (7.4-11.0); MONOCYTES % (AUTO) 9.4 % (0.0-13.0); PLATELET COUNT 34 X10^3/uL (150.0-450.0); RED BLOOD COUNT 4.07 X10^6/uL (3.5-5.4); RED CELL DISTRIBUTION WIDTH 16.2 % (11.6-16.5)
[2020-02-03 12:25] LABS: WHITE BLOOD COUNT 1.7 X10^3/uL (3.6-10.0)
[2020-02-03 12:27] LABS: PLATELET MORPHOLOGY COMMENT NORMAL (NORMAL)
[2020-02-03 13:40] VITALS: BP 114/70
== END 2020-02-03 13:00 | disposition left against medical advice (07) | DRG 558 ==
LOC: ER 12:14 → MED/SURG 21:09
PROVIDERS: ADMIT Internal Medicine; ATTEND Internal Medicine